=== PATIENT | female | born 1940 | race Caucasian/White ===

== ENCOUNTER 2016-06-17 16:20 | Inpatient (IN) | payer OTHER ==
[2016-06-17 16:30] VITALS: BMI 25.4
--- NOTE | 2016-06-17 17:07 | PDOC ---
History of Present Illness - General History Source: Patient Exam Limitations: No Limitations - History of Present Illness Initial Comments: 06/17/16 17:34 The patient is a 75 year old female with significant past medical history of hypertension, anemia, and arthritis who presents today with a sore throat and difficulty swallowing for the last 3 days. The patient states that her symptoms started Wednesday and are getting progressively worse. The patient states she had a lump on the right side of her neck a few years ago but this was biopsied and she hasnt had any complications since. The patient reports that she has difficulty swallowing secondary to the pain and swelling in her throat. The patient denies any difficulty breathing or difficulty speaking. The patient went to an ENT today and was referred to the ED for further evaluation by Dr. Redd. She denies any chest pain, abdominal pain, nausea or vomiting. The patient denies recent illness, fevers, or chills. <Kathy Loaiza - Last Filed: 06/27/16 18:34> <Ok Verdin - Last Filed: 07/17/16 09:56> - General Chief Complaint: Sore Throat Stated Complaint: PCP SENT/CATSCAN Time Seen by Provider: 06/17/16 17:03 Past History <Kathy Loaiza - Last Filed: 06/27/16 18:34> - Past Medical History Anemia: Yes Asthma: No Cancer: No Cardiac Disorders: No CVA: No COPD: No CHF: No Dementia: No Diabetes: No GI Disorders: Yes (GERD) Disorders: No HTN: Yes Hypercholesterolemia: No Liver Disease: No Suicide Attempt (Hx): No Seizures: No Thyroid Disease: No Other medical history: arthritis - Surgical History Abdominal Surgery: No Appendectomy: No Cardiac Surgery: No Cholecystectomy: Yes Lung Surgery: No Neurologic Surgery: No Orthopedic Surgery: No - Psycho/Social/Smoking Cessation Hx Anxiety: No Suicidal Ideation: No Smoking Status: No Smoking History: Never smoked Have you smoked in the past 12 months: No Number of Cigarettes Smoked Daily: 0 Information on smoking cessation initiated: No Hx Alcohol Use: No Drug/Substance Use Hx: No Substance Use Type: None Hx Substance Use Treatment: No <Ok Verdin - Last Filed: 07/17/16 09:56> - Past Medical History Allergies/Adverse Reactions: Allergies Allergy/AdvReac Type Severity Reaction Status Date / Time lisinopril Allergy Cough Verified 06/21/16 15:31 Home Medications: Ambulatory Orders Pantoprazole Sodium [Protonix] 40 mg PO DAILY 06/02/14 Prednisone 5 mg PO DAILY 03/23/16 Metoprolol Succinate [Toprol XL -] 50 mg PO DAILY #30 tab.sr.24h 03/29/16 Amlodipine Besylate [Norvasc -] 5 mg PO DAILY #90 tablet 05/02/16 Hydrochlorothiazide [Hctz -] 12.5 mg PO DAILY #90 tab 05/02/16 Metoprolol Succinate [Toprol XL -] 50 mg PO DAILY tab.sr.24h 05/02/16 Potassium Chloride [K-Dur -] 20 meq PO Q2D #45 tablet.er 05/02/16 Prednisone [Deltasone -] 5 mg PO DAILY tablet 05/02/16 Amlodipine Besylate [Norvasc -] 5 mg PO DAILY tablet 06/22/16 Amox-Tr/K Cl [Augmentin 875-125mg Tablet -] 1 tab PO BID@0800,1730 #12 tablet Atorvastatin Ca [Lipitor] 10 mg PO HS tablet 06/22/16 Metoprolol Succinate [Toprol XL -] 25 mg PO DAILY tab.sr.24h 06/22/16 Pantoprazole Sodium [Protonix -] 40 mg PO DAILY tablet.ec 06/22/16 Review of Systems - Review of Systems Able to Perform ROS?: Yes Comments:: 06/17/16 17:34 GENERAL/CONSTITUTIONAL: No fever or chills. No weakness. HEAD, EYES, EARS, NOSE AND THROAT: +Sore throat. No change in vision. No ear pain or discharge. CARDIOVASCULAR: No chest pain or shortness of breath. RESPIRATORY: No cough, wheezing, or hemoptysis. GASTROINTESTINAL: No nausea, vomiting, diarrhea or constipation. GENITOURINARY: No dysuria, frequency, or change in urination. MUSCULOSKELETAL: No joint or muscle swelling or pain. No neck or back pain. SKIN: No rash NEUROLOGIC: No headache, vertigo, loss of consciousness, or change in strength/ sensation. ENDOCRINE: No increased thirst. No abnormal weight change. HEMATOLOGIC/LYMPHATIC: No anemia, easy bleeding, or history of blood clots. ALLERGIC/IMMUNOLOGIC: No hives or skin allergy. <Kathy Loaiza - Last Filed: 06/27/16 18:34> *Physical Exam - Vital Signs Last Vital Signs Temp Pulse Resp BP Pulse Ox 98.5 F 83 22 131/61 96 06/17/16 16:25 06/17/16 16:25 06/17/16 16:25 06/17/16 16:25 06/17/16 16:25 - Physical Exam Comments: 06/17/16 17:34 GENERAL: Awake, alert, and fully oriented, in no acute distress HEAD: No signs of trauma EYES: PERRLA, EOMI, sclera anicteric, conjunctiva clear ENT: Auricles normal inspection, hearing grossly normal, nares patent. Oropharynx with uvula deviated to the left, good dentition, no exudate noted. Moist mucosa. NECK: Normal ROM, supple, no lymphadenopathy, JVD, or masses LUNGS: Breath sounds equal, clear to auscultation bilaterally. No wheezes, and no crackles HEART: Regular rate and rhythm, normal S1 and S2, no murmurs, rubs or gallops ABDOMEN: Soft, nontender, normoactive bowel sounds. No guarding, no rebound. No masses EXTREMITIES: Normal range of motion, no edema. No clubbing or cyanosis. No cords, erythema, or tenderness NEUROLOGICAL: Cranial nerves II through XII grossly intact. Normal speech, normal gait SKIN: Warm, Dry, normal turgor, no rashes or lesions noted. <aKthy Loaiza - Last Filed: 06/27/16 18:34> - Vital Signs Last Vital Signs Temp Pulse Resp BP Pulse Ox 98.5 F 83 22 131/61 96 06/17/16 16:25 06/17/16 16:25 06/17/16 16:25 06/17/16 16:25 06/17/16 16:25 <Ok Verdin - Last Filed: 07/17/16 09:56> ED Treatment Course - LABORATORY CBC & Chemistry Diagram: 06/20/16 06:15 06/18/16 05:20 <Kathy Loaiza - Last Filed: 06/27/16 18:34> - LABORATORY CBC & Chemistry Diagram: 06/20/16 06:15 06/18/16 05:20 <Ok Verdin - Last Filed: 07/17/16 09:56> *DC/Admit/Observation/Transfer - Attestations Scribe Attestion: 06/17/16 17:34 Documentation prepared by Kathy Loaiza, acting as medical data analyst for Ok Verdin DO. <Kathy Loaiza - Last Filed: 06/27/16 18:34> - Attestations Physician Attestion: 06/17/16 17:07 I, Dr. Ok Verdin, attest that this document has been prepared under my direction and personally reviewed by me in its entirety. I further attest, that it accurately reflects all work, treatment, procedures and medical decision -making performed by me. <Ok Verdin - Last Filed: 07/17/16 09:56> Diagnosis at time of Disposition: Pharyngeal edema - Discharge Dispostion Disposition: HOME Condition at time of disposition: Improved - Prescriptions - Referrals
[2016-06-17 17:35] LABS: BASOPHIL 0.9 % (0-2.0); EOSINOPHIL 0.8 % (0-4.5); MCH 27.4 pg (25.7-33.7); MCHC 33.2 g/dl (32.0-36.0); MEAN CELL VOLUME 82.7 fl (80-96); MEAN PLT VOLUME 9.6 fl (7.5-11.1); NEUTROPHILS 74.9 % (42.8-82.8); PLATELET COUNT 265 K/MM3 (134-434); RDW 14.7 % (11.6-15.6); WHITE BLOOD COUNT 10.2 K/mm3 (4.0-10.0)
[2016-06-17 17:46] LABS: INR 1.14 (0.82-1.09); PROTHROMBIN TIME (PATIENT) 12.6 SEC (9.98-11.88)
[2016-06-17 18:05] LABS: ALBUMIN 3.8 g/dl (3.4-5.0); ANION GAP 11 (8-16); BILIRUBIN,TOTAL 0.3 mg/dL (0.2-1.0); CALCIUM 8.7 mg/dL (8.5-10.1); CO2 26 mmol/L (21-32); CREATININE 0.8 mg/dL (0.55-1.02); GLUCOSE,RANDOM 117 mg/dL (74-106); SGOT/AST 15 U/L (15-37); TOT PROT 7.1 g/dl (6.4-8.2)
[2016-06-17 18:12] LABS: ALK PHOS 72 U/L (45-117); SGPT/ALT 19 U/L (12-78)
[2016-06-17] MEDS ORDERED: KETOROLAC TROMETHAMINE 30 MG/1 ML VIAL IVPUSH ONE (19:31)
[2016-06-17] MEDS ORDERED: KETOROLAC TROMETHAMINE 30 MG/1 ML VIAL ONE (19:31)
--- NOTE | 2016-06-17 19:46 | PDOC ---
*Physical Exam - Vital Signs Last Vital Signs Temp Pulse Resp BP Pulse Ox 98.5 F 83 22 131/61 96 06/17/16 16:25 06/17/16 16:25 06/17/16 16:25 06/17/16 16:25 06/17/16 16:25 <Lia Tyson - Last Filed: 06/17/16 20:25> - Vital Signs Last Vital Signs Temp Pulse Resp BP Pulse Ox 98.5 F 83 22 131/61 96 06/17/16 16:25 06/17/16 16:25 06/17/16 16:25 06/17/16 16:25 06/17/16 16:25 - Physical Exam General Appearance: Yes: Other <Mikey Owens - Last Filed: 06/17/16 20:31> ED Treatment Course - LABORATORY CBC & Chemistry Diagram: 06/17/16 17:25 06/17/16 17:25 - ADDITIONAL ORDERS Additional order review: Laboratory Results 06/17/16 06/17/16 17:25 17:25 INR 1.14 Sodium 141 Potassium 3.8 Chloride 104 Carbon Dioxide 26 Anion Gap 11 BUN 20 H Creatinine 0.8 Creat Clearance w eGFR > 60 Random Glucose 117 H D Calcium 8.7 Total Bilirubin 0.3 AST 15 D ALT 19 Alkaline Phosphatase 72 Total Protein 7.1 Albumin 3.8 06/17/16 17:25 RBC 4.15 MCV 82.7 MCHC 33.2 RDW 14.7 MPV 9.6 Neutrophils % 74.9 Lymphocytes % 12.8 D Monocytes % 10.6 H Eosinophils % 0.8 Basophils % 0.9 - Medications Given in the ED: ED Medications Discontinued Medications Generic Name Dose Route Start Last Admin Trade Name Reddyq PRN Reason Stop Dose Admin Ketorolac Tromethamine 30 mg 06/17/16 19:31 06/17/16 19:36 Toradol Injection - IVPUSH 06/17/16 19:32 30 mg ONCE ONE Administration <Lia Tyson - Last Filed: 06/17/16 20:25> - LABORATORY CBC & Chemistry Diagram: 06/17/16 17:25 06/17/16 17:25 - ADDITIONAL ORDERS Additional order review: Laboratory Results 06/17/16 06/17/16 17:25 17:25 INR 1.14 Sodium 141 Potassium 3.8 Chloride 104 Carbon Dioxide 26 Anion Gap 11 BUN 20 H Creatinine 0.8 Creat Clearance w eGFR > 60 Random Glucose 117 H D Calcium 8.7 Total Bilirubin 0.3 AST 15 D ALT 19 Alkaline Phosphatase 72 Total Protein 7.1 Albumin 3.8 06/17/16 17:25 RBC 4.15 MCV 82.7 MCHC 33.2 RDW 14.7 MPV 9.6 Neutrophils % 74.9 Lymphocytes % 12.8 D Monocytes % 10.6 H Eosinophils % 0.8 Basophils % 0.9 - Medications Given in the ED: ED Medications Discontinued Medications Generic Name Dose Route Start Last Admin Trade Name Freq PRN Reason Stop Dose Admin Ketorolac Tromethamine 30 mg 06/17/16 19:31 06/17/16 19:36 Toradol Injection - IVPUSH 06/17/16 19:32 30 mg ONCE ONE Administration <Mikey Owens - Last Filed: 06/17/16 20:31> Medical Decision Making - Medical Decision Making 06/17/16 19:[address] Gregory Redd (via answering service) at 19:[address] Miguelangel Cagle, who is covering for Dr. Redd, responded back at 19:59. Patient's case was discussed with Dr. Cagle who will be relaying the message to Dr. Redd for disposition. Patient will most likely be admitted and evaluated by ENT in the morning. Paged Dr. Johann Schrader (via cell phone) at 20:21 and patient's case was discussed. Patient will admitted to ICU. Spoke to Dr. Redd who will be evaluating patient in the morning. <Lia Tyson - Last Filed: 06/17/16 20:25> - Medical Decision Making 06/17/16 20:30 Pt to admitted to ICU. Spoke to . Pt will be seen by Dr. Redd, ENT will see pt in the morning. <Mikey Owens - Last Filed: 06/17/16 20:31> *DC/Admit/Observation/Transfer <Lia Tyson - Last Filed: 06/17/16 20:25> - Discharge Dispostion Admit: Yes <Mikey Owens - Last Filed: 06/17/16 20:31> Diagnosis at time of Disposition: Pharyngeal edema - Referrals Referrals: Raquel De Santiago [Primary Care Provider] - - Patient Instructions - Post Discharge Activity
[2016-06-17] MEDS ORDERED: CEFAZOLIN 1 GM in DEXTROSE 5%-WATER - 50 ML IVPB STA (21:00)
[2016-06-17] MEDS ORDERED: DEXAMETHASONE SOD PHOSPHATE 10 MG/1 ML VIAL IVPB ONE (21:30)
--- NOTE | 2016-06-17 21:30 | CONSULT ---
Consult Consult Specialty:: Pulm/CC - History of Present Illness History of Present Illness: Pt is a 75yr old woman with PMHx of HTN, anemia, arthritis and fibromyalgia. She presents to the ER referred by Dr. Redd for a CT of the neck with CC of sore/painful throat and difficulty swallowing since Wednesday, progressively getting worse. Per report, pt with hx of rt side mass. Neck CT shows significant enlargement of the rt tonsil, concerning for abscess vs mass with moderate narrowing of the airway. Pt admitted to the ICU for further management. Upon assessment pt in mild distress, tachypneic to mid 20s, frequently coughing/clearing throat, sialorrhea, work of breathing relieved somewhat with HOB elevated. Per daughter at bedside, pt without known allergies. No new food, recent travel or sick contacts. SBP 150s, HR low 100s, o2 low 90s on RA, RR ~24, afebrile. Via burn crew member phone ~0600 pt denies chest pain/n/v/sob, endorses headache 5/10 , attributed to being tired. Pt states she feels much better with only mild difficulty swallowing and no longer feels pain in her throat. - History Source History Provided By: Patient, Family Member, Medical Record Limitations to Obtaining History: Other (pt with frequent cough/throat clearing , sialorrhea, language barrier) - Past Medical History Cardio/Vascular: Yes: HTN Gastrointestinal: Yes: Gastritis, GERD, GI Bleed Psych: Yes: Anxiety Musculoskeletal: Yes: Chronic low back pain Rheumatology: Yes: Other (has polymialgia rheumatica) - Past Surgical History Past Surgical History: Yes: Cholecystectomy - Alcohol/Substance Use Hx Alcohol Use: No History of Substance Use: reports: None - Smoking History Smoking history: Never smoked Have you smoked in the past 12 months: No Aproximately how many cigarettes per day: 0 - Social History ADL: Independent History of Recent Travel: Yes Home Medications - Allergies Allergies/Adverse Reactions: Allergies Allergy/AdvReac Type Severity Reaction Status Date / Time No Known Allergies Allergy Verified 06/17/16 16:30 - Home Medications Home Medications: Ambulatory Orders Pantoprazole Sodium [Protonix] 40 mg PO DAILY 06/02/14 Prednisone 5 mg PO DAILY 03/23/16 Ranitidine HCl [Zantac] 150 mg PO DAILY 03/23/16 Metoprolol Succinate [Toprol XL -] 50 mg PO DAILY #30 tab.sr.24h 03/29/16 Amlodipine Besylate [Norvasc -] 5 mg PO DAILY #90 tablet 05/02/16 Hydrochlorothiazide [Hctz -] 12.5 mg PO DAILY #90 tab 05/02/16 Metoprolol Succinate [Toprol XL -] 50 mg PO DAILY tab.sr.24h 05/02/16 Pantoprazole Sodium [Protonix 40Mg Ivpb (Pre-Docked)] 100 ml IVPB DAILY bag Potassium Chloride [K-Dur -] 20 meq PO Q2D #45 tablet.er 05/02/16 Prednisone [Deltasone -] 5 mg PO DAILY tablet 05/02/16 Sucralfate [Carafate -] 1 gm PO TID #90 tablet 05/02/16 Review of Systems - Review of Systems Cardiovascular: reports: Other ("sore" in neck region) Respiratory: reports: Cough, Orthopnea, SOB Gastrointestinal: reports: Dysphagia Physical Exam Vital Signs: Vital Signs Period Temp Pulse Resp BP Sys/[place] Pulse Ox Last 24 Hr 98.3 F-99.0 F 83-103 20-25 131-147/61-80 96-98 Intake & Output 06/14/16 06/15/16 06/16/16 06/17/16 23:59 23:59 23:59 23:59 Weight 135 lb Constitutional: Yes: Well Nourished, Mild Distress Eyes: Yes: WNL HENT: Yes: Other (hypersecretions, rt tonsil swelling to uvula) Neck: Yes: Tenderness (rt side) Cardiovascular: Yes: Tachycardia, Pulse Irregular, Other (see EKG in chart) Respiratory: Yes: Cough, On Nasal O2, Rhonchi, SOB, Tachypnea Gastrointestinal: Yes: Normal Bowel Sounds, Soft, Abdomen, Obese. No: Tenderness ...Rectal Exam: Yes: Deferred Extremities: Yes: WNL Edema: No Peripheral Pulses WNL: (+2 bilateral pedal pulses) Integumentary: Yes: WNL Neurological: Yes: WNL Psychiatric: Yes: WNL Labs: Abnormal Lab Results 06/17/16 06/17/16 17:25 17:25 WBC 10.2 H D Monocytes % 10.6 H BUN 20 H Random Glucose 117 H D Imaging - Results Chest X-ray: Report Reviewed Cat Scan: Report Reviewed Assessment/Plan Pt is a 75yr old woman with PMHx of HTN, anemia, arthritis and fibromyalgia. Now in the ICU for management of tenuous airway in setting of rt tonsillar mass , concerning for abscess. Pulm: -Continue o2 support -Pepcid/Benadryl/Decadron, might require intubation if swelling does not subside -Nebulizers -HOB >60 degrees ID: Concern for abscess -f/u cultures -Started on Clindamycin ENT: -Consult Dr. Redd seen as outpt, Dr. Cagle consulted here. -Case discussed with Dr. Cagle, agrees with Decadron, Pepcid, Benadryl, Clindamycin. Cardiology: Case discussed with Dr. 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
[2016-06-17] MEDS ORDERED: METOPROLOL TARTRATE 5 MG/5 ML VIAL IVPUSH ONE (21:34)
[2016-06-17] MEDS ORDERED: ENALAPRILAT DIHYDRATE 1.25 MG/1 ML VIAL IVPB ONE (21:35)
[2016-06-17] MEDS ORDERED: morphine CARPU-JECT 2 MG/1 ML DISP.SYRIN IVPUSH ONE (21:35)
[2016-06-17] MEDS ORDERED: CLINDAMYCIN 600MG PREMIX IVPB 50 ML IVPB ONE (21:59)
[2016-06-17] MEDS ORDERED: FAMOTIDINE 20 MG/50 ML IVPB 50 ML IVPB SCH (22:00)
[2016-06-17] MEDS ORDERED: ALBUTEROL SO4 2.5/IPRATROPIUM 0.5 INH SOL 3 ML VIAL.NEB. NEB ONE (22:01)
[2016-06-17 22:33] LABS: MCH 27.1 pg (25.7-33.7); MCHC 32.9 g/dl (32.0-36.0); MEAN CELL VOLUME 82.4 fl (80-96); MEAN PLT VOLUME 10.1 fl (7.5-11.1); PLATELET COUNT 250 K/MM3 (134-434); RDW 14.5 % (11.6-15.6)
[2016-06-17] MEDS ORDERED: DEXTROSE 5%-1/3 NS - 500 ML IV SCH (22:45)
[2016-06-17] MEDS ORDERED: PHENOL 177 ML SPRAY BOTTLE MM PRN (22:52)
[2016-06-17] MEDS: PANTOPRAZOLE SODIUM 100 ML IVPB SCH (23:05)
[2016-06-17 23:42] LABS: ALBUMIN 3.7 g/dl (3.4-5.0); ANION GAP 11 (8-16); BILIRUBIN,TOTAL 0.5 mg/dL (0.2-1.0); CALCIUM 8.5 mg/dL (8.5-10.1); CO2 25 mmol/L (21-32); CREATININE 0.8 mg/dL (0.55-1.02); GLUCOSE,RANDOM 126 mg/dL (74-106); MAGNESIUM 2.2 mg/dL (1.8-2.4); SGOT/AST 12 U/L (15-37); SGPT/ALT 18 U/L (12-78); TOT PROT 6.8 g/dl (6.4-8.2)
[2016-06-17 23:44] LABS: ALK PHOS 67 U/L (45-117); TROPONIN I 0.02 ng/ml (0.00-0.05)
[2016-06-18] MEDS ORDERED: ALBUTEROL SO4 0.083% IH SOL 2.5 MG/3 ML VIAL.NEB. NEB PRN (03:33)
[2016-06-18] MEDS ORDERED: morphine CARPU-JECT 2 MG/1 ML DISP.SYRIN IVPUSH PRN (03:36)
[2016-06-18] MEDS: CLINDAMYCIN 600MG PREMIX IVPB 50 ML IVPB SCH ×3 (05:11→21:10)
[2016-06-18] MEDS ORDERED: DEXAMETHASONE SOD PHOSPHATE 10 MG/1 ML VIAL IVPB SCH ×3 (06:00→11:11)
[2016-06-18] MEDS ORDERED: CEFAZOLIN 1 GM in DEXTROSE 5%-WATER - 50 ML IVPB SCH (06:00)
[2016-06-18] MEDS ORDERED: Insulin (LOG) Aspart 100 UNITS/ML VIAL SQ ONE ×2 (06:00→06:30)
[2016-06-18 06:19] LABS: MCH 27.8 pg (25.7-33.7); MCHC 33.4 g/dl (32.0-36.0); MEAN PLT VOLUME 10.4 fl (7.5-11.1); PLATELET COUNT 234 K/MM3 (134-434); RDW 14.5 % (11.6-15.6); WHITE BLOOD COUNT 8.4 K/mm3 (4.0-10.0)
[2016-06-18 06:38] LABS: ALBUMIN 3.3 g/dl (3.4-5.0); ANION GAP 11 (8-16); CALCIUM 8.3 mg/dL (8.5-10.1); CO2 24 mmol/L (21-32)
[2016-06-18 06:42] LABS: ALK PHOS 77 U/L (45-117); BILIRUBIN,TOTAL 0.4 mg/dL (0.2-1.0); CREATININE 0.7 mg/dL (0.55-1.02); GLUCOSE,RANDOM 224 mg/dL (74-106); MAGNESIUM 2.4 mg/dL (1.8-2.4); PHOSPHOROUS 3.1 mg/dL (2.5-4.9); SGOT/AST 30 U/L (15-37); SGPT/ALT 31 U/L (12-78); TOT PROT 6.3 g/dl (6.4-8.2)
[2016-06-18 07:15] LABS: THYROID STIMULATING HORMONE 0.79 uIU/ml (0.358-3.74)
--- NOTE | 2016-06-18 08:57 | HP ---
[id number] Chief Complaint: Sore throat and pain right. side of mouth History of Present Illness: 75 y/o hypertensive and with polymialgia rheumatica was seen in my office with severe swelling of the right tonsillar area suggestive of an abscess and was referred to to [facility] and was advised admission as there also laryngeal edema.Was treated with IV steroids and antibiotics and admitted for further admission. History Source: Patient Limitations to Obtaining History: No Limitations - Past Medical History Cardiovascular: Yes: HTN, Other (left bundle branch block) Gastrointestinal: Yes: Gastritis, GERD, GI Bleed Heme/Onc: Yes: Anemia (due to GI bleed in the past) Psych: Yes: Anxiety Musculoskeletal: Yes: Chronic low back pain Rheumatology: Yes: Other (has polymialgia rheumatica) - Past Surgical History Past Surgical History: Yes: Cholecystectomy Additional Past Surgical History: epidural injections with steroids - Smoking History Smoking history: Never smoked Have you smoked in the past 12 months: No Aproximately how many cigarettes per day: 0 - Alcohol/Substance Use Hx Alcohol Use: No History of Substance Use: reports: None - Social History ADL: Independent History of Recent Travel: Yes Home Medications - Home Medications Home Medications: Ambulatory Orders Pantoprazole Sodium [Protonix] 40 mg PO DAILY 06/02/14 Prednisone 5 mg PO DAILY 03/23/16 Ranitidine HCl [Zantac] 150 mg PO DAILY 03/23/16 Metoprolol Succinate [Toprol XL -] 50 mg PO DAILY #30 tab.sr.24h 03/29/16 Amlodipine Besylate [Norvasc -] 5 mg PO DAILY #90 tablet 05/02/16 Hydrochlorothiazide [Hctz -] 12.5 mg PO DAILY #90 tab 05/02/16 Metoprolol Succinate [Toprol XL -] 50 mg PO DAILY tab.sr.24h 05/02/16 Pantoprazole Sodium [Protonix 40Mg Ivpb (Pre-Docked)] 100 ml IVPB DAILY bag Potassium Chloride [K-Dur -] 20 meq PO Q2D #45 tablet.er 05/02/16 Prednisone [Deltasone -] 5 mg PO DAILY tablet 05/02/16 Sucralfate [Carafate -] 1 gm PO TID #90 tablet 05/02/16 Review of Systems - Review of Systems Constitutional: reports: Chills Eyes: reports: No Symptoms HENT: reports: Difficult Swallowing, Throat Pain Neck: reports: Tenderness Cardiovascular: reports: No Symptoms Respiratory: denies: No Symptoms, Cough, Exercise Intolerance, Hemoptysis, Orthopnea, PND, Snoring, SOB, SOB on Exertion, Wheezing, Other Gastrointestinal: denies: No Symptoms, Abdominal Pain, Bloating, Constipation, Diarrhea, Dysphagia, Indigestion, Melena, Nausea, Rectal Bleeding, Vomiting, Vomiting Blood, Other Genitourinary: reports: No Symptoms Breasts: reports: No Symptoms Reported Musculoskeletal: reports: Back Pain Integumentary: reports: No Symptoms Neurological: reports: No Symptoms Endocrine: reports: No Symptoms Psychiatric: reports: Anxiety Physical Examination Vital Signs: Vital Signs Temperature 98.5 F 06/18/16 06:00 Pulse Rate 75 06/18/16 08:00 Respiratory Rate 24 06/18/16 08:00 Blood Pressure 128/67 06/18/16 08:00 O2 Sat by Pulse Oximetry (%) 97 06/18/16 07:43 Constitutional: Yes: Well Nourished, Mild Distress Eyes: Yes: Conjunctiva Clear, EOM Intact HENT: Yes: Other (marked swelling of the right tonsillar area, no palpable nodes in the neck) Neck: Yes: Supple Cardiovascular: Yes: Regular Rate and Rhythm, S1, S2 Respiratory: Yes: Regular, CTA Bilaterally Gastrointestinal: Yes: Normal Bowel Sounds, Soft Renal/: Yes: WNL Breast(s): Yes: WNL Musculoskeletal: Yes: Back Pain Extremities: Yes: WNL Edema: No Peripheral Pulses WNL: Yes Integumentary: Yes: WNL Neurological: Yes: Alert, Oriented ...Motor Strength: WNL Psychiatric: Yes: Alert, Oriented Labs: CBC, BMP 06/18/16 05:20 06/18/16 05:20 Problem List - Problems (1) Pharyngeal edema Code(s): J39.2 - OTHER DISEASES OF PHARYNX (2) Ascending aorta dilatation Code(s): I77.810 - THORACIC AORTIC ECTASIA (4) Tonsillar abscess Code(s): J36 - PERITONSILLAR ABSCESS Assessment/Plan Being treated with IV steroids and IV antibiotics pending decision by possible needle aspiration of tonsillar abscess.
[2016-06-18 09:09] LABS: C-REACTIVE PROTEIN 9.5 MG/DL (0.00-0.3)
[2016-06-18 09:13] LABS: URINE APPEARANCE CLEAR; URINE BILIRUBIN NEGATIVE (NEGATIVE); URINE COLOR LTYELLOW; URINE GLUCOSE (UA) NEGATIVE (NEGATIVE); URINE KETONE NEGATIVE (NEGATIVE)
[2016-06-18] MEDS: PANTOPRAZOLE SODIUM 100 ML IVPB SCH (09:13)
[2016-06-18 09:14] LABS: URINE BLOOD 2+ (NEGATIVE); URINE LEUK ESTERASE NEGATIVE (NEGATIVE); URINE NITRITE NEGATIVE (NEGATIVE); URINE PROTEIN NEGATIVE (NEGATIVE); URINE UROBILINOGEN NEGATIVE E.U./dl (0.2-1.0)
[2016-06-18 09:15] LABS: URINE RBC 7 /hpf (0-3); URINE WBC 2 /hpf (3-5)
[2016-06-18] MEDS: ALBUTEROL SO4 2.5/IPRATROPIUM 0.5 INH SOL 3 ML VIAL.NEB. NEB SCH ×2 (09:20→22:06)
[2016-06-18] MEDS: FAMOTIDINE 20 MG/50 ML IVPB 50 ML IVPB SCH ×2 (10:34→21:10)
[2016-06-18] MEDS: amLODIPine BESYLATE 5 MG TABLET (FP) PO SCH (10:35)
[2016-06-18] MEDS: METOPROLOL SUCCINATE 25 MG TAB.SR.24H (FP) PO SCH (10:35)
--- NOTE | 2016-06-18 10:48 | CON.CARD ---
Consult Consult Specialty:: cardiology Reason for Consultation:: hx CAD; now with sore throat - History of Present Illness Chief Complaint: A&Ox3; pain on swallowing History of Present Illness: The patient is a 75 year old female (shilpi Morales), with significant past medical history of hypertension, LBBB, anemia, and polymyalgia rheumatica, who presents today with a sore throat and difficulty swallowing for the last 3 days. The patient states that her symptoms started Wednesday and are getting progressively worse. The patient states she had a lump on the right side of her neck a few years ago but this was biopsied and she hasnt had any complications since. The patient reports that she has difficulty swallowing secondary to the pain and swelling in her throat. The patient denies any difficulty breathing or difficulty speaking. The patient went to an ENT today and was referred to the ED for further evaluation by Dr. Redd. She denies any chest pain, abdominal pain, nausea or vomiting. The patient denies recent illness, fevers, or chills. - History Source History Provided By: Patient, Medical Record Limitations to Obtaining History: No Limitations - Past Medical History Cardio/Vascular: Yes: HTN, Other (left bundle branch block) Gastrointestinal: Yes: Gastritis, GERD, GI Bleed Reproductive: Yes: Postmenopausal Psych: Yes: Anxiety Musculoskeletal: Yes: Chronic low back pain Rheumatology: Yes: Other (has polymialgia rheumatica) - Past Surgical History Past Surgical History: Yes: Cholecystectomy - Alcohol/Substance Use Hx Alcohol Use: No History of Substance Use: reports: None - Smoking History Smoking history: Never smoked Have you smoked in the past 12 months: No Aproximately how many cigarettes per day: 0 - Social History ADL: Independent History of Recent Travel: Yes Home Medications - Allergies Allergies/Adverse Reactions: Allergies Allergy/AdvReac Type Severity Reaction Status Date / Time No Known Allergies Allergy Verified 06/17/16 16:30 - Home Medications Home Medications: Ambulatory Orders Pantoprazole Sodium [Protonix] 40 mg PO DAILY 06/02/14 Prednisone 5 mg PO DAILY 03/23/16 Ranitidine HCl [Zantac] 150 mg PO DAILY 03/23/16 Metoprolol Succinate [Toprol XL -] 50 mg PO DAILY #30 tab.sr.24h 03/29/16 Amlodipine Besylate [Norvasc -] 5 mg PO DAILY #90 tablet 05/02/16 Hydrochlorothiazide [Hctz -] 12.5 mg PO DAILY #90 tab 05/02/16 Metoprolol Succinate [Toprol XL -] 50 mg PO DAILY tab.sr.24h 05/02/16 Pantoprazole Sodium [Protonix 40Mg Ivpb (Pre-Docked)] 100 ml IVPB DAILY bag Potassium Chloride [K-Dur -] 20 meq PO Q2D #45 tablet.er 05/02/16 Prednisone [Deltasone -] 5 mg PO DAILY tablet 05/02/16 Sucralfate [Carafate -] 1 gm PO TID #90 tablet 05/02/16 Family Disease History - Family Disease History Family History: Denies Review of Systems - Review of Systems Constitutional: reports: Malaise Eyes: reports: No Symptoms HENT: reports: Difficult Swallowing Neck: reports: No Symptoms Cardiovascular: reports: No Symptoms Respiratory: reports: No Symptoms Gastrointestinal: reports: No Symptoms Genitourinary: reports: No Symptoms Breasts: reports: No Symptoms Reported Musculoskeletal: reports: No Symptoms Integumentary: reports: No Symptoms Neurological: reports: No Symptoms Hematology/Lymphatic: reports: Swollen Glands Psychiatric: reports: Anxiety - Risk Factors Known Risk Factors: Yes: Age, Hypercholesterolemia, Hypertension, Physical Inactivity Vital Signs: Vital Signs Temperature 98.6 F 06/18/16 10:00 Pulse Rate 74 06/18/16 10:00 Respiratory Rate 24 06/18/16 10:00 Blood Pressure 128/54 06/18/16 10:00 O2 Sat by Pulse Oximetry (%) 97 06/18/16 07:43 Abnormal Lab Results 06/17/16 06/17/16 06/17/16 17:25 17:25 21:45 WBC 10.2 H D 11.0 H Hgb Hct Neutrophils % Lymphocytes % Monocytes % 10.6 H BUN 20 H Random Glucose 117 H D Calcium AST C-Reactive Protein B-Natriuretic Peptide Total Protein Albumin Ur Specific [place] Urine Blood 06/17/16 06/17/16 06/18/16 21:45 22:00 03:30 WBC Hgb Hct Neutrophils % Lymphocytes % Monocytes % BUN Random Glucose 126 H Calcium AST 12 L C-Reactive Protein 9.5 H B-Natriuretic Peptide 2175.06 H Total Protein Albumin Ur Specific [place] 1.044 H Urine Blood 2+ H 06/18/16 06/18/16 05:20 05:20 WBC Hgb 10.6 L Hct 31.7 L Neutrophils % 96.0 H Lymphocytes % 2.0 L D Monocytes % 2.0 L D BUN Random Glucose 224 H D Calcium 8.3 L AST C-Reactive Protein B-Natriuretic Peptide Total Protein 6.3 L Albumin 3.3 L Ur Specific [place] Urine Blood Constitutional: Yes: Anxious Eyes: Yes: WNL HENT: Yes: Tonsillar Exudate Neck: Yes: WNL Respiratory: Yes: WNL Gastrointestinal: Yes: WNL Renal/: No: Anuria Cardiovascular: Yes: Regular Rate and Rhythm JVD: No Carotid Bruit: No PMI: Non-Displaced Heart Sounds: Yes: S1, S2 (split), S4 Murmur: Yes: Systolic Murmur Musculoskeletal: Yes: WNL Extremities: Yes: WNL Edema: No Peripheral Pulses WNL: Yes Integumentary: Yes: WNL Neurological: Yes: Alert, Oriented Psychiatric: Yes: Other (anxiety) - Other Data Labs, Other Data: CBC, BMP 06/18/16 05:20 06/18/16 05:20 INR, PTT INR 1.14 (0.82-1.09) 06/17/16 17:25 Troponin, BNP 06/17/16 06/17/16 21:45 22:00 Troponin I 0.02 B-Natriuretic Peptide 2175.06 H Troponin, BNP 06/17/16 06/17/16 21:45 22:00 Troponin I 0.02 B-Natriuretic Peptide 2175.06 H Abnormal Lab Results 06/17/16 06/17/16 06/17/16 17:25 17:25 21:45 WBC 10.2 H D 11.0 H Hgb Hct Neutrophils % Lymphocytes % Monocytes % 10.6 H BUN 20 H Random Glucose 117 H D Calcium AST C-Reactive Protein B-Natriuretic Peptide Total Protein Albumin Ur Specific [place] Urine Blood 06/17/16 06/17/16 06/18/16 21:45 22:00 03:30 WBC Hgb Hct Neutrophils % Lymphocytes % Monocytes % BUN Random Glucose 126 H Calcium AST 12 L C-Reactive Protein 9.5 H B-Natriuretic Peptide 2175.06 H Total Protein Albumin Ur Specific [place] 1.044 H Urine Blood 2+ H 06/18/16 06/18/16 05:20 05:20 WBC Hgb 10.6 L Hct 31.7 L Neutrophils % 96.0 H Lymphocytes % 2.0 L D Monocytes % 2.0 L D BUN Random Glucose 224 H D Calcium 8.3 L AST C-Reactive Protein B-Natriuretic Peptide Total Protein 6.3 L Albumin 3.3 L Ur Specific [place] Urine Blood Imaging - Results Chest X-ray: Image Reviewed (no acute pathology) EKG: Image Reviewed (NSR; LBBB) Other: Image Reviewed (telemetry: NSR) Problem List - Problems (1) Pharyngeal edema Assessment/Plan: antibiotics and pain management. Further study: abscess vs mass. Thyroid US. Code(s): J39.2 - OTHER DISEASES OF PHARYNX (2) LBBB (left bundle branch block) Assessment/Plan: chronic. ECHO for LVEF, chamber sizes, valve status. Code(s): I44.7 - LEFT BUNDLE-BRANCH BLOCK, UNSPECIFIED (3) Hyperlipidemia Assessment/Plan: start atorvastatin. Code(s): E78.5 - HYPERLIPIDEMIA, UNSPECIFIED (4) Polymyalgia rheumatica Code(s): M35.3 - POLYMYALGIA RHEUMATICA
[2016-06-18] MEDS ORDERED: DEXTROSE 5%-1/3 NS - 500 ML IV SCH (11:03)
[2016-06-18] MEDS: morphine CARPU-JECT 2 MG/1 ML DISP.SYRIN IVPUSH PRN ×2 (11:15→16:28)
--- NOTE | 2016-06-18 11:22 | PN ---
Teaching Attending Note Name of Resident: Joseluis Gauthier ATTENDING PHYSICIAN STATEMENT I saw and evaluated the patient. I reviewed the resident's note and discussed the case with the resident. I agree with the resident's findings and plan as documented. SUBJECTIVE: Pt seen and examined in the ICU. Still some dysphagia and odynophagia. Breathing has improved. Voice still hoarse. No fevers or chills. OBJECTIVE: Last Vital Signs Temp Pulse Resp BP Pulse Ox 98.6 F 92 H 22 146/66 97 06/18/16 10:00 06/18/16 11:16 06/18/16 11:16 06/18/16 11:16 06/18/16 07:43 Intake & Output 06/15/16 06/16/16 06/17/16 06/18/16 23:59 23:59 23:59 23:59 Intake Total 200 725 Output Total 200 Balance 200 525 Weight 135 lb 136 lb 1.6 oz Gen: mildly tachypneic at rest, hoarse voice HEENT: deviated uvula to left, right tonsillar fullness Neck: no stridor Heart: RRR Lung: clear to auscultation Abd: soft, nontender Ext: no edema CBC, BMP 06/18/16 05:20 06/18/16 05:20 Active Medications Albuterol Sulfate (Ventolin 0.083% Nebulizer Soln -) 1 amp NEB Q1H PRN PRN Reason: SHORT OF BREATH/WHEEZING Albuterol/Ipratropium (Duoneb -) 1 amp NEB BID ALON Last Admin: 06/18/16 09:20 Dose: 1 amp Amlodipine Besylate (Norvasc -) 5 mg PO DAILY ALON Last Admin: 06/18/16 10:35 Dose: 5 mg Atorvastatin Calcium (Lipitor -) 10 mg PO HS ALON Dexamethasone Sodium Phosphate (Decadron Injection -) 10 mg IVPB Q8H-IV ALON Diphenhydramine HCl (Benadryl Injection -) 50 mg IVPUSH Q6H-IV ALNO Heparin Sodium (Porcine) (Heparin -) 5,000 unit SQ TID ALON Pantoprazole Sodium (Protonix 40mg Ivpb (Pre-Docked)) 100 mls @ 200 mls/hr IVPB DAILY ALON Last Admin: 06/18/16 09:13 Dose: 200 mls/hr Clindamycin Phosphate (Cleocin 600 Mg Premix Ivpb -) 50 mls @ 100 mls/hr IVPB Q8H ALON Last Admin: 06/18/16 05:11 Dose: 100 mls/hr Famotidine/Sodium Chloride (Pepcid 20 Mg Premixed Ivpb -) 50 mls @ 100 mls/hr IVPB BID ALON Last Admin: 06/18/16 10:34 Dose: 100 mls/hr Metoprolol Succinate (Toprol Xl -) 25 mg PO DAILY [facility] Last Admin: 06/18/16 10:35 Dose: 25 mg Morphine Sulfate (Morphine Injection -) 2 mg IVPUSH Q4H PRN PRN Reason: PAIN Last Admin: 06/18/16 11:15 Dose: 2 mg Phenol/Menthol (Chloraseptic -) 1 spray MM Q6HPO PRN PRN Reason: SORE THROAT ASSESSMENT AND PLAN: r/o Tonsillar Abscess LV Diastolic Dysfunction Ascending Aortic Aneurysm HTN Thyroid Nodule - continue antibiotics - ENT evaluation appreciated - continue standing decadron, antihistamines - inhaled bronchodilators - PO as tolerated, can give pureed foods - O2 as needed - DVT prophylaxis - continue ICU monitoring for airway patency
--- NOTE | 2016-06-18 11:34 | PN ---
Progress Note, Physician History of Present Illness: patient seen and examined at bedside in the ICU states she feels better today still has some throat pain - Current Medication List Current Medications: Active Medications Albuterol Sulfate (Ventolin 0.083% Nebulizer Soln -) 1 amp NEB Q1H PRN PRN Reason: SHORT OF BREATH/WHEEZING Albuterol/Ipratropium (Duoneb -) 1 amp NEB BID [facility] Last Admin: 06/18/16 09:20 Dose: 1 amp Amlodipine Besylate (Norvasc -) 5 mg PO DAILY [facility] Last Admin: 06/18/16 10:35 Dose: 5 mg Dexamethasone Sodium Phosphate (Decadron Injection -) 10 mg IVPB Q8H-IV ALON Diphenhydramine HCl (Benadryl Injection -) 50 mg IVPUSH Q6H-IV [facility] Heparin Sodium (Porcine) (Heparin -) 5,000 unit SQ TID ALON Pantoprazole Sodium (Protonix 40mg Ivpb (Pre-Docked)) 100 mls @ 200 mls/hr IVPB DAILY [facility] Last Admin: 06/18/16 09:13 Dose: 200 mls/hr Clindamycin Phosphate (Cleocin 600 Mg Premix Ivpb -) 50 mls @ 100 mls/hr IVPB Q8H [facility] Last Admin: 06/18/16 05:11 Dose: 100 mls/hr Famotidine/Sodium Chloride (Pepcid 20 Mg Premixed Ivpb -) 50 mls @ 100 mls/hr IVPB BID [facility] Last Admin: 06/18/16 10:34 Dose: 100 mls/hr Metoprolol Succinate (Toprol Xl -) 25 mg PO DAILY [facility] Last Admin: 06/18/16 10:35 Dose: 25 mg Morphine Sulfate (Morphine Injection -) 2 mg IVPUSH Q4H PRN PRN Reason: PAIN Last Admin: 06/18/16 11:15 Dose: 2 mg Phenol/Menthol (Chloraseptic -) 1 spray MM Q6HPO PRN PRN Reason: SORE THROAT - Objective Vital Signs: Vital Signs Temperature 98.6 F 06/18/16 10:00 Pulse Rate 92 H 06/18/16 11:16 Respiratory Rate 22 06/18/16 11:16 Blood Pressure 146/66 06/18/16 11:16 O2 Sat by Pulse Oximetry (%) 97 06/18/16 07:43 Constitutional: Yes: No Distress, Calm Eyes: Yes: Conjunctiva Clear, EOM Intact HENT: Yes: Atraumatic, Other (+ voice change per patient deviated uvula to the left right sided tonsillar mass erythematous) Neck: Yes: Supple Cardiovascular: Yes: Regular Rate and Rhythm Respiratory: Yes: Regular, CTA Bilaterally Gastrointestinal: Yes: Normal Bowel Sounds, Soft Edema: No Labs: CBC, BMP 06/18/16 05:20 06/18/16 05:20 INR, PTT INR 1.14 (0.82-1.09) 06/17/16 17:25 - ....Imaging Chest X-ray: Report Reviewed, Image Reviewed Cat Scan: Report Reviewed, Image Reviewed Assessment/Plan 75F history of HTN Anemia arthritis fibromyalgia and possible thryoid mass/ nosule which is stable per chart presents to the ICU after seen in ENT office and sent to ED for right tonisllar mass Tonsillar abscess: improving continue ICU monitoring stop ancef continue clindamycin benadryl 50mg q6h decadron 10mg q8h ENT consult appreciated-no intervention at this time ok to start diet as tolerated bronchodilators albuterol pepcid BCx pending HTN: continue norvasc and metoprolol BP well controlled at this time Anemia: no issues at this time trend CBC Arthritis/fibromyalgia: pain control no active issues PPx: Protonix HSQ no deconditioning issues FEN: stop IVF no electrolyte issues Puree diet advance as tolerated
--- NOTE | 2016-06-18 11:47 | CONSULT ---
Consult Consult Specialty:: otolaryngology - History of Present Illness History of Present Illness: 75F with rheumatoid arthritis, polymyalgia on chronic prednisone presented to my office yesterday with a couple of days of throat pain, difficulty swallowing. THere was no report of shortness of breath. She had been treated by Dr. Schrader the week before, she reports, with keflex for ?sinus infection though she admits she only took the pills for a couple of days. My examination showed fullness of the right oropharynx, soft palate also in the nasopharynx and hypopharynx on flexible endoscopy. I sent her to the ER for CT scan to rule out abscess. CT was done showing no discrete abscess and there was reported concern for tonsillar mass and oropharyngeal airway narrowing, and she was admitted to the ICU. Currently she reports her throat pain is improved though persists, and again she denies shortness of breath. - History Source History Provided By: Patient Limitations to Obtaining History: Other (dghtr at bedside translates) - Past Medical History Cardio/Vascular: Yes: HTN, Other (left bundle branch block) Gastrointestinal: Yes: Gastritis, GERD, GI Bleed Psych: Yes: Anxiety Musculoskeletal: Yes: Chronic low back pain Rheumatology: Yes: Other (has polymyalgia rheumatica) - Past Surgical History Past Surgical History: Yes: Cholecystectomy - Alcohol/Substance Use Hx Alcohol Use: No History of Substance Use: reports: None - Smoking History Smoking history: Never smoked Have you smoked in the past 12 months: No Aproximately how many cigarettes per day: 0 - Social History ADL: Independent History of Recent Travel: Yes Home Medications - Allergies Allergies/Adverse Reactions: Allergies Allergy/AdvReac Type Severity Reaction Status Date / Time No Known Allergies Allergy Verified 06/17/16 16:30 - Home Medications Home Medications: Ambulatory Orders Pantoprazole Sodium [Protonix] 40 mg PO DAILY 06/02/14 Prednisone 5 mg PO DAILY 03/23/16 Ranitidine HCl [Zantac] 150 mg PO DAILY 03/23/16 Metoprolol Succinate [Toprol XL -] 50 mg PO DAILY #30 tab.sr.24h 03/29/16 Amlodipine Besylate [Norvasc -] 5 mg PO DAILY #90 tablet 05/02/16 Hydrochlorothiazide [Hctz -] 12.5 mg PO DAILY #90 tab 05/02/16 Metoprolol Succinate [Toprol XL -] 50 mg PO DAILY tab.sr.24h 05/02/16 Pantoprazole Sodium [Protonix 40Mg Ivpb (Pre-Docked)] 100 ml IVPB DAILY bag Potassium Chloride [K-Dur -] 20 meq PO Q2D #45 tablet.er 05/02/16 Prednisone [Deltasone -] 5 mg PO DAILY tablet 05/02/16 Sucralfate [Carafate -] 1 gm PO TID #90 tablet 05/02/16 Physical Exam Vital Signs: Vital Signs Temperature 98.6 F 06/18/16 10:00 Pulse Rate 92 H 06/18/16 11:16 Respiratory Rate 22 06/18/16 11:16 Blood Pressure 146/66 06/18/16 11:16 O2 Sat by Pulse Oximetry (%) 97 06/18/16 07:43 Constitutional: Yes: Well Nourished (speaking full sentences. no stridor/ stertor. periodic throat clearing.) Eyes: Yes: WNL HENT: Yes: WNL, Other (slightly reduced fullness right oropharynx. Tonsils are both recessed without overt mass on exam nor palpation.) Neck: Yes: Supple Neurological: Yes: Other (CN3-7,11,12 intact symmetrical) Labs: CBC, BMP 06/18/16 05:20 06/18/16 05:20 Imaging - Results Cat Scan: Report Reviewed, Image Reviewed Other: Other (Flexible Fiberoptic Laryngoscopy: reviewed r/b/l/a with patient. Passed through right n/c to supraglottis, withdrawn. Findings: Stable exam to yesterday with right pharyngeal fullness obstructing view of right pyriform sinus. Moderate Postcricoid edema. True vocal cords mobile, symmetrical, and fully patent glottis without any obstruction.) Assessment/Plan A/P: 1. Parapharyngeal Cellulitis - Clinically there is little concern for an acute airway by her exam, subjective report, and flexible fiberoptic exam. If her clinical situation deteriorates, this could change, but again for the moment her airway is widely patent. - With her chronic immunosuppression on prednisone suspect infectious etiology and agree with IV abx. There is no evidence of P[place]CEL[place] SLUSHER and I do not think one is likely to develop at this point. - There was concern on the read for tonsillar mass. Clinically I have lower concern for this. She reportedly had something in her right neck biopsied by an outside physician last year, though I am unclear on details. The biopsy was reported to be negative. She may merit repeat CT scan when this is complete to ensure normalization as transoral examination doesn't show any suspicious features of the tonsil itself. - Appreciate medical care and management of this neeraj patient. Discussed with Dr. Schrader.
[2016-06-18] MEDS: HEPARIN NA (PORCINE) 5,000 UNITS/ML 1ML VIAL SQ SCH ×2 (13:09→22:00)
--- NOTE | 2016-06-18 17:29 | EKG ---
Test Reason : Blood Pressure : / mmHG Vent. Rate : 101 BPM Atrial Rate : 101 BPM P-R Int : 174 ms QRS Dur : 146 ms QT Int : 392 ms P-R-T Axes : 048 -33 125 degrees QTc Int : 508 ms SINUS TACHYCARDIA LEFT AXIS DEVIATION LEFT BUNDLE BRANCH BLOCK ABNORMAL ECG WHEN COMPARED WITH ECG OF 17-JUN-2016 20:58, NO SIGNIFICANT CHANGE WAS FOUND Confirmed by ALLEY ZAMBRANO MD ([id number]) on 06/18/2016 5:29:25 PM Referred By: Confirmed By:ALLEY ZAMBRANO MD
--- NOTE | 2016-06-18 17:29 | EKG ---
Test Reason : Blood Pressure : / mmHG Vent. Rate : 110 BPM Atrial Rate : 110 BPM P-R Int : 166 ms QRS Dur : 136 ms QT Int : 372 ms P-R-T Axes : 022 -37 116 degrees QTc Int : 503 ms SINUS TACHYCARDIA LEFT AXIS DEVIATION LEFT BUNDLE BRANCH BLOCK ABNORMAL ECG WHEN COMPARED WITH ECG OF 01-MAY-2016 11:55, PREMATURE SUPRAVENTRICULAR COMPLEXES ARE NO LONGER PRESENT Confirmed by ALLEY ZAMBRANO MD ([id number]) on 06/18/2016 5:29:32 PM Referred By: Confirmed By:ALLEY ZAMBRANO MD
[2016-06-18] MEDS: DEXAMETHASONE SOD PHOSPHATE 4 MG/1 ML VIAL IVPB SCH (19:17)
[2016-06-18] MEDS ORDERED: ATORVASTATIN CA 10 MG TABLET (FP) PO SCH (22:00)
[2016-06-19] MEDS: DEXAMETHASONE SOD PHOSPHATE 4 MG/1 ML VIAL IVPB SCH ×2 (02:34→09:16)
[2016-06-19] MEDS: CLINDAMYCIN 600MG PREMIX IVPB 50 ML IVPB SCH (06:26)
[2016-06-19] MEDS: HEPARIN NA (PORCINE) 5,000 UNITS/ML 1ML VIAL SQ SCH ×2 (06:27→15:17)
[2016-06-19] MEDS ORDERED: HEMOQUE TEST 1 EACH EACH ONE (06:32)
--- NOTE | 2016-06-19 07:51 | PN ---
Progress Note (short form) - Note Progress Note: ID Seen at request of Dr Melchor Full note dictated Selected Entries 06/19/16 06:00 Temperature 99.0 F Pulse Rate 88 Respiratory 20 Rate Blood Pressure 136/75 NAD with couph Lung Rhonchi Cor S1 S2 Abd nontender Laboratory Tests 06/17/16 06/18/16 06/18/16 22:00 05:20 05:20 WBC 8.4 Hgb 10.6 L Hct 31.7 L Plt Count 234 BUN 16 Creatinine 0.7 C-Reactive Protein 9.5 H Substitute Unasyn 1.5 grs q 6H Stop clindamycin given concern for possible resistance to mouth royce [employer] Problem List - Problems (1) Polymyalgia rheumatica Code(s): M35.3 - POLYMYALGIA RHEUMATICA (2) Tonsillar abscess Code(s): J36 - PERITONSILLAR ABSCESS
--- NOTE | 2016-06-19 08:48 | CONS ---
DATE OF CONSULTATION: DATE OF DICTATION: 06/19/2016 HISTORY OF PRESENT ILLNESS: This is a 75-year-old female with rheumatoid arthritis and polymyalgia rheumatica on long-term prednisone, who I am asked to see in the ICU after being seen by ENT 2 days ago complaining of throat pain and dysphagia. She had no shortness of breath and apparently had been treated by Dr. Schrader recently for a possible sinus infection/URI, and for which she may have received Keflex having taken it, however, for only a few days. At the time she was initially seen by ENT, there was what was described as fullness in the right oropharynx, soft palate and nasopharynx and hypopharynx on flexible endoscopy. She was sent to the emergency room for a CT scan to rule out an abscess. The CT scan showed no discrete abscess, but concern for a possible tonsillar mass and oropharyngeal airway narrowing. Hence, she was admitted to the ICU for respiratory monitoring. She has had a dry cough over the last few days. A flexible fiberoptic laryngoscopy on repeat showed a stable examination with right pharyngeal fullness obstructing the view of the right pyriform sinus. Moderate post-cricoid edema was noted, and the true vocal cords were noted to be symmetrical and mobile. A fully patent glottis was seen with no evidence of obstruction or swelling. The patient was given clindamycin. She is not febrile , nor toxic appearing at this time, and other than a cough, she denies any shortness of breath or other complaints within the limits of the history, as she is [place]-speaking. PAST MEDICAL HISTORY: Includes rheumatoid arthritis and polymyalgia rheumatica, hypertension. MEDICATIONS: Metoprolol, amlodipine, hydrochlorothiazide, Protonix, and prednisone 5 mg daily. ALLERGIES: None known. SOCIAL HISTORY: A [place] immigrant living in the [place] many years, she is a nonsmoker with no history of alcohol use. FAMILY HISTORY: Unobtainable from patient at this time. REVIEW OF SYSTEMS: Respiratory: Dry cough. No shortness of breath, hemoptysis. Cardiac: No chest pain, palpitation, history of murmur. Gastrointestinal: No abdominal pain, nausea, vomiting, diarrhea, blood per rectum. Genitourinary: No dysuria, hematuria, urinary frequency. PHYSICAL EXAMINATION: General: She was an alert female in no acute distress. Vital signs: Temperature was 99, pulse 83, blood pressure 136/75, respirations 20. HEENT: Oropharyngeal examination deferred. Neck: Supple with no adenopathy. Lungs: Clear to percussion and auscultation. Scatter rhonchi. Heart: S1, S2, regular rhythm without audible murmur. Abdomen: Soft, nontender, without hepatosplenomegaly. Extremities: Without clubbing, cyanosis, or edema. The white count was 10.2, hemoglobin 11.4, platelets 265. INR 1.1. BUN 16, creatinine 0.7. Urinalysis 7 RBCs, 2 WBCs. Two sets of blood cultures currently pending. Urine culture pending. Influenza screen negative. Chest x-ray with moderate cardiomegaly with unfolding of the aortic arch. No acute disease. ASSESSMENT: A 75-year-old [place] female with polymyalgia on low-dose prednisone presents with difficulty swallowing and dysphagia. She was seen by ears/nose/ throat with diagnosis of parapharyngeal cellulitis, but no discrete abscess. As discussed with Dr. Schrader, would empirically treat her with ampicillin sulbactam 1.5 g q.6 hours with switch to Augmentin upon discharge. She is also on high- dose steroids now since admission and appears to have made improvement. Will follow up in a.m. . NEGIN GRIJALVA M.D. [id number] MTDD
[2016-06-19] MEDS: METOPROLOL SUCCINATE 25 MG TAB.SR.24H (FP) PO SCH (09:16)
[2016-06-19] MEDS: AMPICILLIN NA/SULBACTAM NA 100 ML IVPB SCH ×3 (09:16→22:13)
[2016-06-19] MEDS: FAMOTIDINE 20 MG/50 ML IVPB 50 ML IVPB SCH (09:17)
[2016-06-19 09:19] LABS: MCH 26.8 pg (25.7-33.7); MCHC 32.6 g/dl (32.0-36.0); MEAN CELL VOLUME 82.3 fl (80-96); MEAN PLT VOLUME 9.5 fl (7.5-11.1); PLATELET COUNT 276 K/MM3 (134-434); RDW 15.1 % (11.6-15.6); WHITE BLOOD COUNT 12.1 K/mm3 (4.0-10.0)
[2016-06-19] MEDS: ALBUTEROL SO4 2.5/IPRATROPIUM 0.5 INH SOL 3 ML VIAL.NEB. NEB SCH ×2 (09:50→22:00)
[2016-06-19] MEDS: amLODIPine BESYLATE 5 MG TABLET (FP) PO SCH (10:55)
--- NOTE | 2016-06-19 11:18 | PN ---
Progress Note, Physician History of Present Illness: patient seen and examined at bedside in the ICU states she feels better today still has some throat pain but now it is only with swallowing - Current Medication List Current Medications: Active Medications Albuterol Sulfate (Ventolin 0.083% Nebulizer Soln -) 1 amp NEB Q1H PRN PRN Reason: SHORT OF BREATH/WHEEZING Last Admin: 06/18/16 13:55 Dose: 1 amp Albuterol/Ipratropium (Duoneb -) 1 amp NEB BID [facility] Last Admin: 06/18/16 22:06 Dose: 1 amp Amlodipine Besylate (Norvasc -) 5 mg PO DAILY [facility] Last Admin: 06/19/16 10:55 Dose: 5 mg Atorvastatin Calcium (Lipitor -) 10 mg PO HS [facility] Last Admin: 06/18/16 21:10 Dose: 10 mg Dexamethasone Sodium Phosphate (Decadron Injection -) 4 mg IVPB Q8H-IV [facility] Last Admin: 06/19/16 09:16 Dose: 4 mg Heparin Sodium (Porcine) (Heparin -) 5,000 unit SQ TID [facility] Last Admin: 06/19/16 06:27 Dose: 5,000 unit Famotidine/Sodium Chloride (Pepcid 20 Mg Premixed Ivpb -) 50 mls @ 100 mls/hr IVPB BID [facility] Last Admin: 06/19/16 09:17 Dose: 100 mls/hr Ampicillin Sodium/Sulbactam Sodium (Unasyn 1.5 Gm (Pre-Docked)) 100 mls @ 200 mls/hr IVPB Q6H-IV [facility] Last Admin: 06/19/16 09:16 Dose: 200 mls/hr Metoprolol Succinate (Toprol Xl -) 25 mg PO DAILY [facility] Last Admin: 06/19/16 09:16 Dose: 25 mg Morphine Sulfate (Morphine Injection -) 2 mg IVPUSH Q4H PRN PRN Reason: PAIN Last Admin: 06/18/16 16:28 Dose: 2 mg Phenol/Menthol (Chloraseptic -) 1 spray MM Q6HPO PRN PRN Reason: SORE THROAT Last Admin: 06/19/16 09:12 Dose: 1 spray - Objective Vital Signs: Vital Signs Temperature 99.0 F 06/19/16 06:00 Pulse Rate 95 H 06/19/16 08:00 Respiratory Rate 20 06/19/16 08:00 Blood Pressure 129/55 06/19/16 08:00 O2 Sat by Pulse Oximetry (%) 97 06/18/16 20:33 Constitutional: Yes: No Distress, Calm Eyes: Yes: Conjunctiva Clear, EOM Intact HENT: Yes: Atraumatic, Other voice is much less hoarse today. less devaition of uvula Neck: Yes: Supple Cardiovascular: Yes: Regular Rate and Rhythm Respiratory: Yes: Regular, CTA Bilaterally Gastrointestinal: Yes: Normal Bowel Sounds, Soft Edema: No Labs: CBC, BMP 06/19/16 09:05 06/18/16 05:20 INR, PTT INR 1.14 (0.82-1.09) 06/17/16 17:25 Assessment/Plan 75F history of HTN Anemia arthritis fibromyalgia and possible thryoid mass/ nosule which is stable per chart presents to the ICU after seen in ENT office and sent to ED for right tonisllar mass unlikely to be Tonsillar abscess: patient has a pharyngeal cellulitis per ENT improving off clindamycin on unasyn ID consult appreciated decadron 4mg q8h ENT consult appreciated-no intervention at this time ok to start diet as tolerated bronchodilators albuterol pepcid BCx pending WBC increased today HTN: continue norvasc and metoprolol BP well controlled at this time Anemia: no issues at this time trend CBC Arthritis/fibromyalgia: pain control no active issues PPx: Pepcid HSQ no deconditioning issues FEN: stop IVF no electrolyte issues advance to soft diet
[2016-06-19] MEDS: morphine CARPU-JECT 2 MG/1 ML DISP.SYRIN IVPUSH PRN ×2 (11:26→23:45)
--- NOTE | 2016-06-19 11:53 | PN ---
Teaching Attending Note Name of Resident: Joseluis Gauthier ATTENDING PHYSICIAN STATEMENT I saw and evaluated the patient. I reviewed the resident's note and discussed the case with the resident. I agree with the resident's findings and plan as documented. SUBJECTIVE: Patient seen and examined in the ICU. Reports improvement in her dysphagia and odynophagia. Breathing has also improved. Voice less hoarse. OBJECTIVE: Intake & Output 06/16/16 06/17/16 06/18/16 06/19/16 23:59 23:59 23:59 23:59 Intake Total 200 1625 100 Output Total 200 Balance 200 1425 100 Weight 135 lb 136 lb 1.6 oz 134 lb 7 oz Last Vital Signs Temp Pulse Resp BP Pulse Ox 99.0 F 95 H 20 129/55 97 06/19/16 06:00 06/19/16 08:00 06/19/16 08:00 06/19/16 08:00 06/18/16 20:33 Active Medications Albuterol Sulfate (Ventolin 0.083% Nebulizer Soln -) 1 amp NEB Q1H PRN PRN Reason: SHORT OF BREATH/WHEEZING Last Admin: 06/18/16 13:55 Dose: 1 amp Albuterol/Ipratropium (Duoneb -) 1 amp NEB BID [facility] Last Admin: 06/18/16 22:06 Dose: 1 amp Amlodipine Besylate (Norvasc -) 5 mg PO DAILY [facility] Last Admin: 06/19/16 10:55 Dose: 5 mg Atorvastatin Calcium (Lipitor -) 10 mg PO HS [facility] Last Admin: 06/18/16 21:10 Dose: 10 mg Dexamethasone Sodium Phosphate (Decadron Injection -) 4 mg IVPB Q8H-IV [facility] Last Admin: 06/19/16 09:16 Dose: 4 mg Heparin Sodium (Porcine) (Heparin -) 5,000 unit SQ TID [facility] Last Admin: 06/19/16 06:27 Dose: 5,000 unit Famotidine/Sodium Chloride (Pepcid 20 Mg Premixed Ivpb -) 50 mls @ 100 mls/hr IVPB BID [facility] Last Admin: 06/19/16 09:17 Dose: 100 mls/hr Ampicillin Sodium/Sulbactam Sodium (Unasyn 1.5 Gm (Pre-Docked)) 100 mls @ 200 mls/hr IVPB Q6H-IV [facility] Last Admin: 06/19/16 09:16 Dose: 200 mls/hr Metoprolol Succinate (Toprol Xl -) 25 mg PO DAILY [facility] Last Admin: 06/19/16 09:16 Dose: 25 mg Morphine Sulfate (Morphine Injection -) 2 mg IVPUSH Q4H PRN PRN Reason: PAIN Last Admin: 06/19/16 11:26 Dose: 2 mg Phenol/Menthol (Chloraseptic -) 1 spray MM Q6HPO PRN PRN Reason: SORE THROAT Last Admin: 06/19/16 09:12 Dose: 1 spray Gen: NAD, voice is not hoarse HEENT: slightly deviated uvula to left Neck: no stridor Heart: RRR Lung: clear to auscultation Abd: soft, nontender Ext: no edema Laboratory Results - last 24 hr 06/18/16 06/19/16 05:20 09:05 WBC 12.1 H D RBC 4.04 Hgb 10.8 Hct 33.2 MCV 82.3 MCHC 32.6 RDW 15.1 Plt Count 276 MPV 9.5 Free T3 2.1 ASSESSMENT AND PLAN: Pharygeal Cellulitis R/O Tonsillar Abscess LV Diastolic Dysfunction Ascending Aortic Aneurysm HTN Thyroid Nodule - Antibiotics per ID - ENT evaluation noted - Taper decadron, antihistamines - inhaled bronchodilators - PO as tolerated - O2 as needed - DVT prophylaxis Dr Brown CCTime 35"
--- NOTE | 2016-06-19 12:25 | PN ---
Progress Note, Physician History of Present Illness: 75F with rheumatoid arthritis, polymyalgia on chronic prednisone presented to my office yesterday with a couple of days of throat pain, difficulty swallowing. THere was no report of shortness of breath. She had been treated by Dr. Schrader the week before, she reports, with keflex for ?sinus infection though she admits she only took the pills for a couple of days. My examination showed fullness of the right oropharynx, soft palate also in the nasopharynx and hypopharynx on flexible endoscopy. I sent her to the ER for CT scan to rule out abscess. CT was done showing no discrete abscess and there was reported concern for tonsillar mass and oropharyngeal airway narrowing, and she was admitted to the ICU. INTERVAL EVENTS: Throat pain much improved. Min discomfort with swallowing. - Current Medication List Current Medications: Active Medications Albuterol Sulfate (Ventolin 0.083% Nebulizer Soln -) 1 amp NEB Q1H PRN PRN Reason: SHORT OF BREATH/WHEEZING Last Admin: 06/18/16 13:55 Dose: 1 amp Albuterol/Ipratropium (Duoneb -) 1 amp NEB BID [facility] Last Admin: 06/18/16 22:06 Dose: 1 amp Amlodipine Besylate (Norvasc -) 5 mg PO DAILY [facility] Last Admin: 06/19/16 10:55 Dose: 5 mg Atorvastatin Calcium (Lipitor -) 10 mg PO HS [facility] Last Admin: 06/18/16 21:10 Dose: 10 mg Dexamethasone Sodium Phosphate (Decadron Injection -) 4 mg IVPB Q8H-IV [facility] Last Admin: 06/19/16 09:16 Dose: 4 mg Heparin Sodium (Porcine) (Heparin -) 5,000 unit SQ TID [facility] Last Admin: 06/19/16 06:27 Dose: 5,000 unit Famotidine/Sodium Chloride (Pepcid 20 Mg Premixed Ivpb -) 50 mls @ 100 mls/hr IVPB BID [facility] Last Admin: 06/19/16 09:17 Dose: 100 mls/hr Ampicillin Sodium/Sulbactam Sodium (Unasyn 1.5 Gm (Pre-Docked)) 100 mls @ 200 mls/hr IVPB Q6H-IV [facility] Last Admin: 06/19/16 09:16 Dose: 200 mls/hr Metoprolol Succinate (Toprol Xl -) 25 mg PO DAILY [facility] Last Admin: 06/19/16 09:16 Dose: 25 mg Morphine Sulfate (Morphine Injection -) 2 mg IVPUSH Q4H PRN PRN Reason: PAIN Last Admin: 06/19/16 11:26 Dose: 2 mg Phenol/Menthol (Chloraseptic -) 1 spray MM Q6HPO PRN PRN Reason: SORE THROAT Last Admin: 06/19/16 09:12 Dose: 1 spray - Objective Vital Signs: Vital Signs Temperature 99.0 F 06/19/16 06:00 Pulse Rate 78 06/19/16 10:25 Respiratory Rate 20 06/19/16 08:00 Blood Pressure 129/55 06/19/16 08:00 O2 Sat by Pulse Oximetry (%) 97 06/19/16 10:25 Constitutional: Yes: Well Nourished, No Distress, Calm (no stridor/stertor. speaking full sentences.) HENT: Yes: Other (diminished R paryngeal swelling. No discrete mass) Neck: Yes: WNL, Supple, Other (Flexible Fiberoptic Laryngoscopy: Diminished right pharyngeal swelling with restored patency of right pyriform sinus. Notably dry mucosa diffusely. Glottis widely patent.) Labs: CBC, BMP 06/19/16 09:05 06/18/16 05:20 INR, PTT INR 1.14 (0.82-1.09) 06/17/16 17:25 Assessment/Plan A/P: 1. Parapharyngeal Cellulitis - Subjectively and objectively improved. I understand she is to transfer to the floor and likely home tonight or tomorrow. - With her chronic immunosuppression on prednisone suspect infectious etiology , improving on IV abx. Dr. Butterfield (ID) has seen. Low suspicion for [employer]P and for development of one. - There was concern on the read for tonsillar mass. Clinically I have lower concern for this. She reportedly had something in her right neck biopsied by an outside physician last year, though I am unclear on details. The biopsy was reported to be negative. She may merit repeat CT scan when this is complete to ensure normalization as transoral examination doesn't show any suspicious features of the tonsil itself. - Appreciate medical care and management of this neeraj patient. - The patient should see me back in one week in my office to ensure ongoing improvement.
[2016-06-19] MEDS ORDERED: ALBUTEROL SO4 0.083% IH SOL 2.5 MG/3 ML VIAL.NEB. NEB PRN (15:17)
[2016-06-19] MEDS ORDERED: PHENOL 177 ML SPRAY BOTTLE MM PRN (15:17)
[2016-06-19] MEDS: INSULIN SLIDING SCALE (NOVOLOG) 1 VIAL SQ SCH ×2 (16:33→22:13)
[2016-06-19] MEDS ORDERED: ONDANSETRON 4 MG TABLET PO PRN (17:05)
[2016-06-19] MEDS ORDERED: ONDANSETRON 4 MG/2 ML VIAL ONE (17:14)
[2016-06-19] MEDS: ONDANSETRON *ODT* 4 MG TABLET SL PRN ×2 (17:22→23:40)
--- NOTE | 2016-06-19 17:40 | PN ---
Progress Note, Physician Chief Complaint: Pt A&Ox3; still with intermittent throat pain. History of Present Illness: The patient is a 75 year old female (shilpi Morales), with significant past medical history of hypertension, LBBB, anemia, and polymyalgia rheumatica, who presents today with a sore throat and difficulty swallowing for the last 3 days. The patient states that her symptoms started Wednesday and are getting progressively worse. The patient states she had a lump on the right side of her neck a few years ago but this was biopsied and she hasnt had any complications since. The patient reports that she has difficulty swallowing secondary to the pain and swelling in her throat. The patient denies any difficulty breathing or difficulty speaking. The patient went to an ENT today and was referred to the ED for further evaluation by Dr. Redd. She denies any chest pain, abdominal pain, nausea or vomiting. The patient denies recent illness, fevers, or chills. - Current Medication List Current Medications: Active Medications Albuterol Sulfate (Ventolin 0.083% Nebulizer Soln -) 1 amp NEB Q1H PRN PRN Reason: SHORT OF BREATH/WHEEZING Albuterol/Ipratropium (Duoneb -) 1 amp NEB BID [facility] Amlodipine Besylate (Norvasc -) 5 mg PO DAILY [facility] Atorvastatin Calcium (Lipitor -) 10 mg PO HS [facility] Ampicillin Sodium/Sulbactam Sodium (Unasyn 1.5 Gm (Pre-Docked)) 100 mls @ 200 mls/hr IVPB Q6H-IV [facility] Famotidine/Sodium Chloride (Pepcid 20 Mg Premixed Ivpb -) 50 mls @ 100 mls/hr IVPB BID [facility] Pantoprazole Sodium (Protonix 40mg Ivpb (Pre-Docked)) 100 mls @ 200 mls/hr IVPB DAILY [facility] Insulin Aspart (Novolog Vial Sliding Scale -) 1 vial SQ ACHS [facility] PRN Reason: Protocol Last Admin: 06/19/16 16:33 Dose: Not Given Metoprolol Succinate (Toprol Xl -) 25 mg PO DAILY [facility] Morphine Sulfate (Morphine Injection -) 2 mg IVPUSH Q4H PRN PRN Reason: PAIN Ondansetron HCl (Zofran Odt -) 4 mg SL Q4H PRN PRN Reason: NAUSEA Last Admin: 06/19/16 17:22 Dose: 4 mg Phenol/Menthol (Chloraseptic -) 1 spray MM Q6HPO PRN PRN Reason: SORE THROAT - Objective Vital Signs: Vital Signs Temperature 97.8 F 06/19/16 14:00 Pulse Rate 72 06/19/16 16:00 Respiratory Rate 21 06/19/16 16:00 Blood Pressure 136/71 06/19/16 16:00 O2 Sat by Pulse Oximetry (%) 97 06/19/16 10:25 Constitutional: Yes: Calm Eyes: Yes: WNL HENT: Yes: Other (mild R pharyngeal swelling) Neck: Yes: Supple Cardiovascular: Yes: Regular Rate and Rhythm Respiratory: Yes: WNL Gastrointestinal: Yes: Soft ...Rectal Exam: Yes: Deferred Genitourinary: Yes: Anuria Breast(s): Yes: WNL Musculoskeletal: Yes: WNL Extremities: Yes: Cool Edema: No Peripheral Pulses WNL: Yes Integumentary: Yes: WNL Neurological: Yes: Alert, Oriented, Weakness Psychiatric: Yes: Alert, Oriented Labs: CBC, BMP 06/19/16 09:05 06/18/16 05:20 INR, PTT INR 1.14 (0.82-1.09) 06/17/16 17:25 Abnormal Lab Results 06/19/16 09:05 WBC 12.1 H D - ....Imaging Ultrasound: Report Reviewed (ECHO: moderatly reduced LVEF; moderat LV dilation; mild ), Image Reviewed Problem List - Problems (1) Pharyngeal edema Assessment/Plan: antibiotics and pain management. Further study: abscess vs mass. F/u with ENT. ?Thyroid US. Code(s): J39.2 - OTHER DISEASES OF PHARYNX (2) LBBB (left bundle branch block) Assessment/Plan: chronic LBBB. ECHO: moderately reduced LVEF; moderate LV dilation; global hypokinesis; mild ; trace AR; mild MR; trace TR. Continue metoprolol ER. Discontinue amlodipine. Start lisinopril 5 mg daily (reduced LVEF; dilated LV; HTN; DM). Coronary artery evaluation via stress Persantine MIBI (LBBB) when pt has recovered from present illness (may be done as outpatient). Code(s): I44.7 - LEFT BUNDLE-BRANCH BLOCK, UNSPECIFIED (3) Hyperlipidemia Assessment/Plan: started atorvastatin. Code(s): E78.5 - HYPERLIPIDEMIA, UNSPECIFIED (4) Polymyalgia rheumatica Code(s): M35.3 - POLYMYALGIA RHEUMATICA
[2016-06-19] MEDS ORDERED: DEXAMETHASONE SOD PHOSPHATE 4 MG/1 ML VIAL IVPB SCH (18:00)
[2016-06-19] MEDS ORDERED: PANTOPRAZOLE SODIUM 100 ML IVPB ONE (20:15)
[2016-06-19] MEDS ORDERED: INSULIN (NOVOLOG) ASPART 100 UNITS/ML 10ML VIAL ONE (21:33)
[2016-06-19] MEDS ORDERED: FAMOTIDINE 20 MG/50 ML IVPB 50 ML IVPB SCH (22:00)
[2016-06-19] MEDS: ATORVASTATIN CA 10 MG TABLET (FP) PO SCH (22:14)
--- NOTE | 2016-06-20 00:53 | PN ---
Progress Note, Physician History of Present Illness: continues to have difficulty swallowing, but less pain. - Current Medication List Current Medications: Active Medications Albuterol Sulfate (Ventolin 0.083% Nebulizer Soln -) 1 amp NEB Q1H PRN PRN Reason: SHORT OF BREATH/WHEEZING Albuterol/Ipratropium (Duoneb -) 1 amp NEB BID [facility] Last Admin: 06/19/16 22:00 Dose: 1 amp Amlodipine Besylate (Norvasc -) 5 mg PO DAILY [facility] Atorvastatin Calcium (Lipitor -) 10 mg PO HS [facility] Last Admin: 06/19/16 22:14 Dose: 10 mg Ampicillin Sodium/Sulbactam Sodium (Unasyn 1.5 Gm (Pre-Docked)) 100 mls @ 200 mls/hr IVPB Q6H-IV [facility] Last Admin: 06/19/16 22:13 Dose: 200 mls/hr Pantoprazole Sodium (Protonix 40mg Ivpb (Pre-Docked)) 100 mls @ 200 mls/hr IVPB DAILY [facility] Insulin Aspart (Novolog Vial Sliding Scale -) 1 vial SQ ACHS [facility] PRN Reason: Protocol Last Admin: 06/19/16 22:13 Dose: Not Given Metoprolol Succinate (Toprol Xl -) 25 mg PO DAILY [facility] Morphine Sulfate (Morphine Injection -) 2 mg IVPUSH Q4H PRN PRN Reason: PAIN Last Admin: 06/19/16 23:45 Dose: 2 mg Ondansetron HCl (Zofran Odt -) 4 mg SL Q4H PRN PRN Reason: NAUSEA Last Admin: 06/19/16 23:40 Dose: 4 mg Phenol/Menthol (Chloraseptic -) 1 spray MM Q6HPO PRN PRN Reason: SORE THROAT - Objective Vital Signs: Vital Signs Temperature 98.2 F 06/19/16 18:00 Pulse Rate 78 06/19/16 18:00 Respiratory Rate 20 06/19/16 18:00 Blood Pressure 138/74 06/19/16 18:00 O2 Sat by Pulse Oximetry (%) 97 06/19/16 10:25 Constitutional: Yes: Anxious Eyes: Yes: WNL, Conjunctiva Clear, EOM Intact HENT: Yes: Other (Tonsillar area swelling much improved and there appears an area on right posterior wall raised which congestion) Neck: Yes: Supple Cardiovascular: Yes: Regular Rate and Rhythm, S1, S2 Respiratory: Yes: Regular, CTA Bilaterally Gastrointestinal: Yes: Normal Bowel Sounds, Soft Genitourinary: Yes: WNL Musculoskeletal: Yes: Back Pain Extremities: Yes: WNL Edema: No Peripheral Pulses WNL: Yes Integumentary: Yes: WNL Neurological: Yes: Alert, Oriented, Cran Nerves II-XII Intact ...Motor Strength: WNL Psychiatric: Yes: Alert, Oriented Labs: CBC, BMP 06/19/16 09:05 06/18/16 05:20 INR, PTT INR 1.14 (0.82-1.09) 06/17/16 17:25 Problem List - Problems (1) Pharyngeal edema Assessment/Plan: Pharyngeal swelling much improved to cont Unasyn Code(s): J39.2 - OTHER DISEASES OF PHARYNX (2) Ascending aorta dilatation Code(s): I77.810 - THORACIC AORTIC ECTASIA (3) GERD (gastroesophageal reflux disease) Assessment/Plan: Pain improved with Protonix (4) Tonsillar abscess Code(s): J36 - PERITONSILLAR ABSCESS Assessment/Plan Continue antibiotic and Decadron.
[2016-06-20] MEDS ORDERED: ALPRAZolam 0.25 MG TABLET PO ONE (01:15)
[2016-06-20] MEDS: AMPICILLIN NA/SULBACTAM NA 100 ML IVPB SCH ×4 (03:35→21:33)
[2016-06-20] MEDS: INSULIN SLIDING SCALE (NOVOLOG) 1 VIAL SQ SCH ×4 (06:25→21:24)
[2016-06-20] MEDS: morphine CARPU-JECT 2 MG/1 ML DISP.SYRIN IVPUSH PRN (07:03)
--- NOTE | 2016-06-20 07:45 | PN ---
Progress Note, Physician Chief Complaint: ID Patient seems in great deal of distress but may be partly anxiety related seems to have difficulty swallowing but no respiratory distress Unasyn day 2 antibiotics and steroids stopped - Current Medication List Current Medications: Active Medications Albuterol Sulfate (Ventolin 0.083% Nebulizer Soln -) 1 amp NEB Q1H PRN PRN Reason: SHORT OF BREATH/WHEEZING Albuterol/Ipratropium (Duoneb -) 1 amp NEB BID [facility] Last Admin: 06/19/16 22:00 Dose: 1 amp Amlodipine Besylate (Norvasc -) 5 mg PO DAILY [facility] Atorvastatin Calcium (Lipitor -) 10 mg PO HS [facility] Last Admin: 06/19/16 22:14 Dose: 10 mg Ampicillin Sodium/Sulbactam Sodium (Unasyn 1.5 Gm (Pre-Docked)) 100 mls @ 200 mls/hr IVPB Q6H-IV [facility] Last Admin: 06/20/16 03:35 Dose: 200 mls/hr Pantoprazole Sodium (Protonix 40mg Ivpb (Pre-Docked)) 100 mls @ 200 mls/hr IVPB DAILY [facility] Insulin Aspart (Novolog Vial Sliding Scale -) 1 vial SQ ACHS [facility] PRN Reason: Protocol Last Admin: 06/20/16 06:25 Dose: Not Given Metoprolol Succinate (Toprol Xl -) 25 mg PO DAILY [facility] Morphine Sulfate (Morphine Injection -) 2 mg IVPUSH Q4H PRN PRN Reason: PAIN Last Admin: 06/20/16 07:03 Dose: 2 mg Ondansetron HCl (Zofran Odt -) 4 mg SL Q4H PRN PRN Reason: NAUSEA Last Admin: 06/19/16 23:40 Dose: 4 mg Phenol/Menthol (Chloraseptic -) 1 spray MM Q6HPO PRN PRN Reason: SORE THROAT - Objective Vital Signs: Vital Signs Temperature 99.3 F 06/20/16 06:16 Pulse Rate 84 06/20/16 06:16 Respiratory Rate 20 06/20/16 06:16 Blood Pressure 145/78 06/20/16 06:16 O2 Sat by Pulse Oximetry (%) 97 06/19/16 10:25 Neck: Yes: Other (NO stridor) Cardiovascular: Yes: Regular Rate and Rhythm, S1, S2. No: Murmur Respiratory: Yes: Other (Few rales LLL) Gastrointestinal: Yes: WNL, Normal Bowel Sounds, Soft. No: Tenderness Edema: No Labs: CBC, BMP 06/19/16 09:05 06/18/16 05:20 INR, PTT INR 1.14 (0.82-1.09) 06/17/16 17:25 Problem List - Problems (1) Polymyalgia rheumatica Code(s): M35.3 - POLYMYALGIA RHEUMATICA (2) Tonsillar abscess Code(s): J36 - PERITONSILLAR ABSCESS Assessment/Plan Microbiology 06/17/16 22:45 Blood - Peripheral Venous Blood Culture - Preliminary NO GROWTH OBTAINED AFTER 48 HOURS, INCUBATION TO CONTINUE FOR 3 DAYS. 06/17/16 22:45 Blood - Peripheral Venous Blood Culture - Preliminary NO GROWTH OBTAINED AFTER 48 HOURS, INCUBATION TO CONTINUE FOR 3 DAYS. Laboratory Tests 06/19/16 09:05 WBC 12.1 H D Hgb 10.8 Hct 33.2 Plt Count 276 Assessment Parapharngeal cellulitis No air way obstruction clinically Anxiety disorder Plan Should be seen by Dr Melchor who knows her the best Would give her another day of steroids solumerol Continue Unasyn but can switch to Augmentin
[2016-06-20 08:11] LABS: BASOPHIL 0.3 % (0-2.0); MCHC 32.5 g/dl (32.0-36.0); MEAN CELL VOLUME 83.1 fl (80-96); MEAN PLT VOLUME 9.8 fl (7.5-11.1); NEUTROPHILS 73.1 % (42.8-82.8); PLATELET COUNT 270 K/MM3 (134-434); RDW 14.6 % (11.6-15.6); WHITE BLOOD COUNT 12.2 K/mm3 (4.0-10.0)
[2016-06-20] MEDS: amLODIPine BESYLATE 5 MG TABLET (FP) PO SCH (09:17)
[2016-06-20] MEDS: METOPROLOL SUCCINATE 25 MG TAB.SR.24H (FP) PO SCH (09:18)
--- NOTE | 2016-06-20 09:53 | PN ---
Progress Note, Physician History of Present Illness: The patient is a 75 year old female (shilpi Morales), with significant past medical history of hypertension, LBBB, anemia, and polymyalgia rheumatica, who presents today with a sore throat and difficulty swallowing for the last 3 days. The patient states that her symptoms started Wednesday and are getting progressively worse. The patient states she had a lump on the right side of her neck a few years ago but this was biopsied and she hasnt had any complications since. The patient reports that she has difficulty swallowing secondary to the pain and swelling in her throat. The patient denies any difficulty breathing or difficulty speaking. The patient went to an ENT today and was referred to the ED for further evaluation by Dr. Redd. She denies any chest pain, abdominal pain, nausea or vomiting. The patient denies recent illness, fevers, or chills. - Current Medication List Current Medications: Active Medications Albuterol Sulfate (Ventolin 0.083% Nebulizer Soln -) 1 amp NEB Q1H PRN PRN Reason: SHORT OF BREATH/WHEEZING Albuterol/Ipratropium (Duoneb -) 1 amp NEB BID [facility] Last Admin: 06/19/16 22:00 Dose: 1 amp Amlodipine Besylate (Norvasc -) 5 mg PO DAILY [facility] Last Admin: 06/20/16 09:17 Dose: 5 mg Atorvastatin Calcium (Lipitor -) 10 mg PO HS [facility] Last Admin: 06/19/16 22:14 Dose: 10 mg Ampicillin Sodium/Sulbactam Sodium (Unasyn 1.5 Gm (Pre-Docked)) 100 mls @ 200 mls/hr IVPB Q6H-IV [facility] Last Admin: 06/20/16 09:17 Dose: 200 mls/hr Pantoprazole Sodium (Protonix 40mg Ivpb (Pre-Docked)) 100 mls @ 200 mls/hr IVPB DAILY [facility] Insulin Aspart (Novolog Vial Sliding Scale -) 1 vial SQ ACHS [facility] PRN Reason: Protocol Last Admin: 06/20/16 06:25 Dose: Not Given Methylprednisolone Sodium Succinate (Solu-Medrol -) 20 mg IVPB Q8H-IV [facility] Last Admin: 06/20/16 09:17 Dose: 20 mg Metoprolol Succinate (Toprol Xl -) 25 mg PO DAILY [facility] Last Admin: 06/20/16 09:18 Dose: 25 mg Morphine Sulfate (Morphine Injection -) 2 mg IVPUSH Q4H PRN PRN Reason: PAIN Last Admin: 06/20/16 07:03 Dose: 2 mg Ondansetron HCl (Zofran Odt -) 4 mg SL Q4H PRN PRN Reason: NAUSEA Last Admin: 06/19/16 23:40 Dose: 4 mg Phenol/Menthol (Chloraseptic -) 1 spray MM Q6HPO PRN PRN Reason: SORE THROAT - Objective Vital Signs: Vital Signs Temperature 98.0 F 06/20/16 09:00 Pulse Rate 76 06/20/16 09:00 Respiratory Rate 20 06/20/16 09:00 Blood Pressure 121/54 06/20/16 09:00 O2 Sat by Pulse Oximetry (%) 97 06/19/16 10:25 Eyes: Yes: WNL, Conjunctiva Clear, EOM Intact HENT: Yes: WNL, Atraumatic, Normocephalic Neck: Yes: WNL, Supple, Trachea Midline Cardiovascular: Yes: WNL, Regular Rate and Rhythm Respiratory: Yes: WNL, Regular, CTA Bilaterally Gastrointestinal: Yes: WNL, Normal Bowel Sounds Genitourinary: Yes: WNL Musculoskeletal: Yes: WNL Extremities: Yes: WNL Edema: No Integumentary: Yes: WNL Neurological: Yes: WNL, Alert, Oriented ...Motor Strength: WNL Psychiatric: Yes: WNL Labs: CBC, BMP 06/20/16 06:15 06/18/16 05:20 INR, PTT INR 1.14 (0.82-1.09) 06/17/16 17:25 Assessment/Plan Problems (1) Pharyngeal edema Assessment/Plan: antibiotics and pain management. Further study: abscess vs mass. F/u with ENT. ?Thyroid US. Code(s): J39.2 - OTHER DISEASES OF PHARYNX (2) LBBB (left bundle branch block) Assessment/Plan: chronic LBBB. ECHO: moderately reduced LVEF; moderate LV dilation; global hypokinesis; mild ; trace AR; mild MR; trace TR. Continue metoprolol ER. Discontinue amlodipine. Start lisinopril 5 mg daily (reduced LVEF; dilated LV; HTN; DM). Coronary artery evaluation via stress Persantine MIBI (LBBB) when pt has recovered from present illness (may be done as outpatient). Code(s): I44.7 - LEFT BUNDLE-BRANCH BLOCK, UNSPECIFIED (3) Hyperlipidemia Assessment/Plan: started atorvastatin. Code(s): E78.5 - HYPERLIPIDEMIA, UNSPECIFIED (4) Polymyalgia rheumatica Code(s): M35.3 - POLYMYALGIA RHEUMATICA
--- NOTE | 2016-06-20 09:58 | PN ---
Progress Note (short form) - Note Progress Note: Patient now on the medical floor. Anxious. Airway inspection stable to slightly better as compared to yesterday. We suspected part of her confusion yesterday was the Benadryl in combination of steroids. No CP or SOB. Intake & Output 06/17/16 06/18/16 06/19/16 06/20/16 23:59 23:59 23:59 23:59 Intake Total 200 1625 980 100 Output Total 200 Balance 200 1425 980 100 Weight 135 lb 136 lb 1.6 oz 134 lb 7 oz 132 lb 7 oz Last Vital Signs Temp Pulse Resp BP Pulse Ox 98.0 F 76 20 121/54 97 06/20/16 09:00 06/20/16 09:00 06/20/16 09:00 06/20/16 09:00 06/19/16 10:25 Active Medications Albuterol Sulfate (Ventolin 0.083% Nebulizer Soln -) 1 amp NEB Q1H PRN PRN Reason: SHORT OF BREATH/WHEEZING Albuterol/Ipratropium (Duoneb -) 1 amp NEB BID [facility] Last Admin: 06/19/16 22:00 Dose: 1 amp Amlodipine Besylate (Norvasc -) 5 mg PO DAILY [facility] Last Admin: 06/20/16 09:17 Dose: 5 mg Atorvastatin Calcium (Lipitor -) 10 mg PO HS [facility] Last Admin: 06/19/16 22:14 Dose: 10 mg Ampicillin Sodium/Sulbactam Sodium (Unasyn 1.5 Gm (Pre-Docked)) 100 mls @ 200 mls/hr IVPB Q6H-IV [facility] Last Admin: 06/20/16 09:17 Dose: 200 mls/hr Pantoprazole Sodium (Protonix 40mg Ivpb (Pre-Docked)) 100 mls @ 200 mls/hr IVPB DAILY [facility] Insulin Aspart (Novolog Vial Sliding Scale -) 1 vial SQ ACHS [facility] PRN Reason: Protocol Last Admin: 06/20/16 06:25 Dose: Not Given Metoprolol Succinate (Toprol Xl -) 25 mg PO DAILY [facility] Last Admin: 06/20/16 09:18 Dose: 25 mg Morphine Sulfate (Morphine Injection -) 2 mg IVPUSH Q4H PRN PRN Reason: PAIN Last Admin: 06/20/16 07:03 Dose: 2 mg Ondansetron HCl (Zofran Odt -) 4 mg SL Q4H PRN PRN Reason: NAUSEA Last Admin: 06/19/16 23:40 Dose: 4 mg Phenol/Menthol (Chloraseptic -) 1 spray MM Q6HPO PRN PRN Reason: SORE THROAT Gen: NAD, voice is not hoarse HEENT: slightly deviated uvula to left -> EXAM APPEARS THE SAME YESTERDAY Neck: no stridor Heart: RRR Lung: clear to auscultation Abd: soft, nontender Ext: no edema Laboratory Results - last 24 hr 06/19/16 06/20/16 06/20/16 22:12 06:15 06:23 WBC 12.2 H RBC 3.98 Hgb 10.8 Hct 33.1 MCV 83.1 MCHC 32.5 RDW 14.6 Plt Count 270 MPV 9.8 Neutrophils % 73.1 D Lymphocytes % 13.8 D Monocytes % 12.8 H D Eosinophils % 0.0 D Basophils % 0.3 POC Glucometer 102 86 ASSESSMENT AND PLAN: Pharygeal Cellulitis R/O Tonsillar Abscess LV Diastolic Dysfunction Ascending Aortic Aneurysm HTN Thyroid Nodule - Steroids should be continued -> Decadron anecdotally better for airway edema -> Will change - Antibiotics per ID - D/C Benadryl - inhaled bronchodilators - PO as tolerated - O2 as needed - DVT prophylaxis - HOB elevation and OOB to chair as much as possible Dr Brown
[2016-06-20] MEDS ORDERED: methylPREDNISolone NA SUCC 40 MG/1 ML VIAL IVPB SCH (10:00)
[2016-06-20] MEDS ORDERED: LISINOPRIL 5 MG TABLET (FP) PO SCH (10:00)
[2016-06-20] MEDS ORDERED: amLODIPine BESYLATE 5 MG TABLET (FP) PO SCH (10:00)
[2016-06-20] MEDS: DEXAMETHASONE SOD PHOSPHATE 4 MG/1 ML VIAL IVPB SCH ×2 (10:13→17:47)
[2016-06-20] MEDS: PANTOPRAZOLE SODIUM 100 ML IVPB SCH (10:14)
[2016-06-20] MEDS: ALBUTEROL SO4 2.5/IPRATROPIUM 0.5 INH SOL 3 ML VIAL.NEB. NEB SCH ×2 (11:20→22:05)
--- NOTE | 2016-06-20 15:54 | PN ---
Progress Note, Physician History of Present Illness: C/o sore throat and difficulty swallowing.Denies SOB. - Current Medication List Current Medications: Active Medications Albuterol Sulfate (Ventolin 0.083% Nebulizer Soln -) 1 amp NEB Q1H PRN PRN Reason: SHORT OF BREATH/WHEEZING Albuterol/Ipratropium (Duoneb -) 1 amp NEB BID [facility] Last Admin: 06/20/16 11:20 Dose: 1 amp Alprazolam (Xanax -) 0.5 mg PO HS [facility] Amlodipine Besylate (Norvasc -) 5 mg PO DAILY [facility] Last Admin: 06/20/16 09:17 Dose: 5 mg Atorvastatin Calcium (Lipitor -) 10 mg PO HS [facility] Last Admin: 06/19/16 22:14 Dose: 10 mg Dexamethasone Sodium Phosphate (Decadron Injection -) 4 mg IVPB Q8H-IV [facility] Last Admin: 06/20/16 10:13 Dose: Not Given Diphenhydramine HCl (Benadryl -) 25 mg PO Q6H [facility] Ampicillin Sodium/Sulbactam Sodium (Unasyn 1.5 Gm (Pre-Docked)) 100 mls @ 200 mls/hr IVPB Q6H-IV [facility] Last Admin: 06/20/16 14:43 Dose: 200 mls/hr Pantoprazole Sodium (Protonix 40mg Ivpb (Pre-Docked)) 100 mls @ 200 mls/hr IVPB DAILY [facility] Last Admin: 06/20/16 10:14 Dose: 200 mls/hr Insulin Aspart (Novolog Vial Sliding Scale -) 1 vial SQ ACHS [facility] PRN Reason: Protocol Last Admin: 06/20/16 12:29 Dose: Not Given Metoprolol Succinate (Toprol Xl -) 25 mg PO DAILY [facility] Last Admin: 06/20/16 09:18 Dose: 25 mg Morphine Sulfate (Morphine Injection -) 2 mg IVPUSH Q4H PRN PRN Reason: PAIN Last Admin: 06/20/16 07:03 Dose: 2 mg Ondansetron HCl (Zofran Odt -) 4 mg SL Q4H PRN PRN Reason: NAUSEA Last Admin: 06/19/16 23:40 Dose: 4 mg Phenol/Menthol (Chloraseptic -) 1 spray MM Q6HPO PRN PRN Reason: SORE THROAT - Objective Vital Signs: Vital Signs Temperature 98.2 F 06/20/16 14:26 Pulse Rate 79 06/20/16 14:26 Respiratory Rate 18 06/20/16 14:26 Blood Pressure 134/66 06/20/16 14:26 O2 Sat by Pulse Oximetry (%) 95 06/20/16 09:00 Constitutional: Yes: Anxious Eyes: Yes: WNL HENT: Yes: Other (tonsilolar area markedly swollen as well as uvula, no stridor or any respiratory distress) Neck: Yes: Supple Cardiovascular: Yes: Regular Rate and Rhythm, S1, S2 Respiratory: Yes: CTA Bilaterally Gastrointestinal: Yes: Normal Bowel Sounds, Soft Genitourinary: Yes: WNL Musculoskeletal: Yes: WNL Extremities: Yes: WNL Edema: No Peripheral Pulses WNL: Yes Integumentary: Yes: WNL Neurological: Yes: Alert, Oriented, Cran Nerves II-XII Intact ...Motor Strength: WNL Psychiatric: Yes: Alert, Oriented Labs: CBC, BMP 06/20/16 06:15 06/18/16 05:20 INR, PTT INR 1.14 (0.82-1.09) 06/17/16 17:25 Problem List - Problems (1) Pharyngeal edema Assessment/Plan: Pharyngeal edema appears to recur but stridor or resp distress Code(s): J39.2 - OTHER DISEASES OF PHARYNX (2) Ascending aorta dilatation Code(s): I77.810 - THORACIC AORTIC ECTASIA (3) GERD (gastroesophageal reflux disease) Assessment/Plan: Epigastreic pain and nausea better with Protonix (4) Tonsillar abscess Code(s): J36 - PERITONSILLAR ABSCESS Assessment/Plan Although was confused yesterday I do not feel due to Benadryl but steroid psychosis. Cont. Unasyn, steroids and smaller dose benadryl
[2016-06-20] MEDS: diphenhydrAMINE HCL 25 MG CAPSULE (FP) PO SCH ×2 (17:40→17:47)
[2016-06-20] MEDS: ATORVASTATIN CA 10 MG TABLET (FP) PO SCH (21:33)
[2016-06-20] MEDS: ALPRAZolam 0.25 MG TABLET PO SCH (21:33)
[2016-06-21] MEDS: DEXAMETHASONE SOD PHOSPHATE 4 MG/1 ML VIAL IVPB SCH ×2 (02:00→09:27)
[2016-06-21] MEDS: AMPICILLIN NA/SULBACTAM NA 100 ML IVPB SCH ×4 (03:00→21:55)
[2016-06-21] MEDS: diphenhydrAMINE HCL 25 MG CAPSULE (FP) PO SCH ×4 (06:42→17:06)
[2016-06-21] MEDS: INSULIN SLIDING SCALE (NOVOLOG) 1 VIAL SQ SCH ×4 (06:43→22:03)
[2016-06-21] MEDS: amLODIPine BESYLATE 5 MG TABLET (FP) PO SCH (09:27)
[2016-06-21] MEDS: METOPROLOL SUCCINATE 25 MG TAB.SR.24H (FP) PO SCH (09:27)
[2016-06-21] MEDS: ALBUTEROL SO4 2.5/IPRATROPIUM 0.5 INH SOL 3 ML VIAL.NEB. NEB SCH ×2 (10:15→22:00)
[2016-06-21] MEDS: PANTOPRAZOLE SODIUM 100 ML IVPB SCH (10:16)
--- NOTE | 2016-06-21 10:20 | PN ---
Progress Note (short form) - Note Progress Note: Feels better. Son at the bedside. Reports that his mom is overall better. Mental status seems back to baseline. Minimal discomfort on swallowing pudding this AM. Intake & Output 06/18/16 06/19/16 06/20/16 06/21/16 23:59 23:59 23:59 23:59 Intake Total 8513 016 2412 Output Total 200 3 1 Balance 7256 077 1638 -1 Weight 136 lb 1.6 oz 134 lb 7 oz 132 lb 7 oz 131 lb 5 oz Last Vital Signs Temp Pulse Resp BP Pulse Ox 98.2 F 72 20 146/70 95 06/21/16 08:40 06/21/16 08:40 06/21/16 08:40 06/21/16 08:40 06/20/16 21:00 Active Medications Albuterol Sulfate (Ventolin 0.083% Nebulizer Soln -) 1 amp NEB Q1H PRN PRN Reason: SHORT OF BREATH/WHEEZING Albuterol/Ipratropium (Duoneb -) 1 amp NEB BID [facility] Last Admin: 06/20/16 22:05 Dose: 1 amp Alprazolam (Xanax -) 0.5 mg PO HS [facility] Last Admin: 06/20/16 21:33 Dose: 0.5 mg Amlodipine Besylate (Norvasc -) 5 mg PO DAILY [facility] Last Admin: 06/21/16 09:27 Dose: 5 mg Atorvastatin Calcium (Lipitor -) 10 mg PO HS [facility] Last Admin: 06/20/16 21:33 Dose: 10 mg Dexamethasone Sodium Phosphate (Decadron Injection -) 4 mg IVPB Q8H-IV [facility] Last Admin: 06/21/16 09:27 Dose: 4 mg Diphenhydramine HCl (Benadryl -) 25 mg PO Q6HPO [facility] Last Admin: 06/21/16 06:42 Dose: 25 mg Ampicillin Sodium/Sulbactam Sodium (Unasyn 1.5 Gm (Pre-Docked)) 100 mls @ 200 mls/hr IVPB Q6H-IV [facility] Last Admin: 06/21/16 08:49 Dose: 200 mls/hr Pantoprazole Sodium (Protonix 40mg Ivpb (Pre-Docked)) 100 mls @ 200 mls/hr IVPB DAILY [facility] Last Admin: 06/21/16 10:16 Dose: 200 mls/hr Insulin Aspart (Novolog Vial Sliding Scale -) 1 vial SQ ACHS [facility] PRN Reason: Protocol Last Admin: 06/21/16 06:43 Dose: Not Given Metoprolol Succinate (Toprol Xl -) 25 mg PO DAILY [facility] Last Admin: 06/21/16 09:27 Dose: 25 mg Morphine Sulfate (Morphine Injection -) 2 mg IVPUSH Q4H PRN PRN Reason: PAIN Last Admin: 06/20/16 07:03 Dose: 2 mg Ondansetron HCl (Zofran Odt -) 4 mg SL Q4H PRN PRN Reason: NAUSEA Last Admin: 06/19/16 23:40 Dose: 4 mg Phenol/Menthol (Chloraseptic -) 1 spray MM Q6HPO PRN PRN Reason: SORE THROAT Gen: NAD, voice is not hoarse HEENT: uvula is less deviated/edematous -> EXAM APPEARS IMPROVED FROM YESTERDAY Neck: no stridor Heart: RRR Lung: clear to auscultation Abd: soft, nontender Ext: no edema Laboratory Results - last 24 hr 06/18/16 06/18/16 06/19/16 05:58 17:35 06:35 POC Glucometer 248.39323 193.89066 160.64536 06/19/16 06/20/16 06/20/16 16:22 11:53 16:55 POC Glucometer 130.71898 100 112 06/20/16 06/21/16 21:15 06:01 POC Glucometer 135 126 ASSESSMENT AND PLAN: Pharygeal Cellulitis R/O Tonsillar Abscess LV Diastolic Dysfunction Ascending Aortic Aneurysm HTN Thyroid Nodule - Change to PO Decadron - Antibiotics per ID - May not need Benadryl any longer - inhaled bronchodilators - PO as tolerated - O2 as needed - DVT prophylaxis - HOB elevation and OOB to chair as much as possible - D/C planning Dr Brown
--- NOTE | 2016-06-21 11:15 | PN ---
Progress Note, Physician History of Present Illness: The patient is a 75 year old female (shilpi Morales), with significant past medical history of hypertension, LBBB, anemia, and polymyalgia rheumatica, who presents today with a sore throat and difficulty swallowing for the last 3 days. The patient states that her symptoms started Wednesday and are getting progressively worse. The patient states she had a lump on the right side of her neck a few years ago but this was biopsied and she hasnt had any complications since. The patient reports that she has difficulty swallowing secondary to the pain and swelling in her throat. The patient denies any difficulty breathing or difficulty speaking. The patient went to an ENT today and was referred to the ED for further evaluation by Dr. Redd. She denies any chest pain, abdominal pain, nausea or vomiting. The patient denies recent illness, fevers, or chills. - Current Medication List Current Medications: Active Medications Albuterol Sulfate (Ventolin 0.083% Nebulizer Soln -) 1 amp NEB Q1H PRN PRN Reason: SHORT OF BREATH/WHEEZING Albuterol/Ipratropium (Duoneb -) 1 amp NEB BID [facility] Last Admin: 06/20/16 22:05 Dose: 1 amp Alprazolam (Xanax -) 0.5 mg PO HS [facility] Last Admin: 06/20/16 21:33 Dose: 0.5 mg Amlodipine Besylate (Norvasc -) 5 mg PO DAILY [facility] Last Admin: 06/21/16 09:27 Dose: 5 mg Atorvastatin Calcium (Lipitor -) 10 mg PO HS [facility] Last Admin: 06/20/16 21:33 Dose: 10 mg Dexamethasone (Decadron -) 4 mg PO BID [facility] Diphenhydramine HCl (Benadryl -) 25 mg PO Q6HPO [facility] Last Admin: 06/21/16 06:42 Dose: 25 mg Ampicillin Sodium/Sulbactam Sodium (Unasyn 1.5 Gm (Pre-Docked)) 100 mls @ 200 mls/hr IVPB Q6H-IV [facility] Last Admin: 06/21/16 08:49 Dose: 200 mls/hr Pantoprazole Sodium (Protonix 40mg Ivpb (Pre-Docked)) 100 mls @ 200 mls/hr IVPB DAILY [facility] Last Admin: 06/21/16 10:16 Dose: 200 mls/hr Insulin Aspart (Novolog Vial Sliding Scale -) 1 vial SQ ACHS [facility] PRN Reason: Protocol Last Admin: 06/21/16 06:43 Dose: Not Given Metoprolol Succinate (Toprol Xl -) 25 mg PO DAILY [facility] Last Admin: 06/21/16 09:27 Dose: 25 mg Morphine Sulfate (Morphine Injection -) 2 mg IVPUSH Q4H PRN PRN Reason: PAIN Last Admin: 06/20/16 07:03 Dose: 2 mg Ondansetron HCl (Zofran Odt -) 4 mg SL Q4H PRN PRN Reason: NAUSEA Last Admin: 06/19/16 23:40 Dose: 4 mg Phenol/Menthol (Chloraseptic -) 1 spray MM Q6HPO PRN PRN Reason: SORE THROAT - Objective Vital Signs: Vital Signs Temperature 98.2 F 06/21/16 08:40 Pulse Rate 72 06/21/16 08:40 Respiratory Rate 20 06/21/16 08:40 Blood Pressure 146/70 06/21/16 08:40 O2 Sat by Pulse Oximetry (%) 95 06/20/16 21:00 Eyes: Yes: WNL, Conjunctiva Clear, EOM Intact HENT: Yes: WNL, Atraumatic, Normocephalic Neck: Yes: WNL, Supple, Trachea Midline Cardiovascular: Yes: WNL, Regular Rate and Rhythm Respiratory: Yes: WNL, Regular, CTA Bilaterally Gastrointestinal: Yes: WNL, Normal Bowel Sounds Genitourinary: Yes: WNL Musculoskeletal: Yes: WNL Extremities: Yes: WNL Edema: No Integumentary: Yes: WNL Neurological: Yes: WNL, Alert, Oriented ...Motor Strength: WNL Psychiatric: Yes: WNL Labs: CBC, BMP 06/20/16 06:15 06/18/16 05:20 INR, PTT INR 1.14 (0.82-1.09) 06/17/16 17:25 Assessment/Plan Problems (1) Pharyngeal edema Assessment/Plan: antibiotics and pain management. Further study: abscess vs mass. F/u with ENT. ?Thyroid US. Code(s): J39.2 - OTHER DISEASES OF PHARYNX (2) LBBB (left bundle branch block) Assessment/Plan: chronic LBBB. ECHO: moderately reduced LVEF; moderate LV dilation; global hypokinesis; mild ; trace AR; mild MR; trace TR. Continue metoprolol ER. Discontinue amlodipine. Start lisinopril 5 mg daily (reduced LVEF; dilated LV; HTN; DM). Coronary artery evaluation via stress Persantine MIBI (LBBB) when pt has recovered from present illness (may be done as outpatient). Code(s): I44.7 - LEFT BUNDLE-BRANCH BLOCK, UNSPECIFIED (3) Hyperlipidemia Assessment/Plan: started atorvastatin. Code(s): E78.5 - HYPERLIPIDEMIA, UNSPECIFIED (4) Polymyalgia rheumatica Code(s): M35.3 - POLYMYALGIA RHEUMATICA
--- NOTE | 2016-06-21 15:22 | PN ---
Progress Note, Physician History of Present Illness: Improved Able to swallow- diet being advanced No resp complaints No fever/ chills Afebrile BC (-) - Current Medication List Current Medications: Active Medications Albuterol Sulfate (Ventolin 0.083% Nebulizer Soln -) 1 amp NEB Q1H PRN PRN Reason: SHORT OF BREATH/WHEEZING Albuterol/Ipratropium (Duoneb -) 1 amp NEB BID [facility] Last Admin: 06/21/16 10:15 Dose: 1 amp Alprazolam (Xanax -) 0.5 mg PO HS [facility] Last Admin: 06/20/16 21:33 Dose: 0.5 mg Amlodipine Besylate (Norvasc -) 5 mg PO DAILY [facility] Last Admin: 06/21/16 09:27 Dose: 5 mg Atorvastatin Calcium (Lipitor -) 10 mg PO HS [facility] Last Admin: 06/20/16 21:33 Dose: 10 mg Dexamethasone (Decadron -) 4 mg PO BID [facility] Diphenhydramine HCl (Benadryl -) 25 mg PO Q6HPO [facility] Last Admin: 06/21/16 12:13 Dose: 25 mg Ampicillin Sodium/Sulbactam Sodium (Unasyn 1.5 Gm (Pre-Docked)) 100 mls @ 200 mls/hr IVPB Q6H-IV [facility] Last Admin: 06/21/16 14:53 Dose: 200 mls/hr Pantoprazole Sodium (Protonix 40mg Ivpb (Pre-Docked)) 100 mls @ 200 mls/hr IVPB DAILY [facility] Last Admin: 06/21/16 10:16 Dose: 200 mls/hr Insulin Aspart (Novolog Vial Sliding Scale -) 1 vial SQ ACHS [facility] PRN Reason: Protocol Last Admin: 06/21/16 11:40 Dose: Not Given Lisinopril (Prinivil) 5 mg PO DAILY [facility] Metoprolol Succinate (Toprol Xl -) 25 mg PO DAILY [facility] Last Admin: 06/21/16 09:27 Dose: 25 mg Morphine Sulfate (Morphine Injection -) 2 mg IVPUSH Q4H PRN PRN Reason: PAIN Last Admin: 06/20/16 07:03 Dose: 2 mg Ondansetron HCl (Zofran Odt -) 4 mg SL Q4H PRN PRN Reason: NAUSEA Last Admin: 06/19/16 23:40 Dose: 4 mg Phenol/Menthol (Chloraseptic -) 1 spray MM Q6HPO PRN PRN Reason: SORE THROAT - Objective Vital Signs: Vital Signs Temperature 98.0 F 06/21/16 14:26 Pulse Rate 75 06/21/16 14:26 Respiratory Rate 16 06/21/16 14:26 Blood Pressure 111/59 06/21/16 14:26 O2 Sat by Pulse Oximetry (%) 97 06/21/16 10:15 Constitutional: Yes: No Distress Eyes: Yes: Conjunctiva Clear HENT: Yes: WNL (+ R facial swelling) Cardiovascular: Yes: Regular Rate and Rhythm, S1, S2 Respiratory: Yes: CTA Bilaterally. No: Stridor, Wheezes Gastrointestinal: Yes: Normal Bowel Sounds, Soft. No: Tenderness Labs: CBC, BMP 06/20/16 06:15 06/18/16 05:20 INR, PTT INR 1.14 (0.82-1.09) 06/17/16 17:25 Assessment/Plan Peritonsillar abscess Clinically improved Continue steroids, unasyn
[2016-06-21] MEDS: DEXAMETHASONE 4 MG TABLET (FP) PO SCH (22:01)
[2016-06-21] MEDS: ATORVASTATIN CA 10 MG TABLET (FP) PO SCH (22:02)
[2016-06-21] MEDS: ALPRAZolam 0.25 MG TABLET PO SCH (22:02)
--- NOTE | 2016-06-22 00:02 | PN ---
Progress Note, Physician History of Present Illness: Continues to have sore throat but able to swallow. Denies SOB. - Current Medication List Current Medications: Active Medications Albuterol Sulfate (Ventolin 0.083% Nebulizer Soln -) 1 amp NEB Q1H PRN PRN Reason: SHORT OF BREATH/WHEEZING Albuterol/Ipratropium (Duoneb -) 1 amp NEB BID [facility] Last Admin: 06/21/16 22:00 Dose: 1 amp Alprazolam (Xanax -) 0.5 mg PO HS [facility] Last Admin: 06/21/16 22:02 Dose: 0.5 mg Amlodipine Besylate (Norvasc -) 5 mg PO DAILY [facility] Last Admin: 06/21/16 09:27 Dose: 5 mg Atorvastatin Calcium (Lipitor -) 10 mg PO HS [facility] Last Admin: 06/21/16 22:02 Dose: 10 mg Dexamethasone (Decadron -) 4 mg PO BID [facility] Last Admin: 06/21/16 22:01 Dose: 4 mg Diphenhydramine HCl (Benadryl -) 25 mg PO Q6HPO [facility] Last Admin: 06/21/16 17:06 Dose: 25 mg Ampicillin Sodium/Sulbactam Sodium (Unasyn 1.5 Gm (Pre-Docked)) 100 mls @ 200 mls/hr IVPB Q6H-IV [facility] Last Admin: 06/21/16 21:55 Dose: 200 mls/hr Pantoprazole Sodium (Protonix 40mg Ivpb (Pre-Docked)) 100 mls @ 200 mls/hr IVPB DAILY [facility] Last Admin: 06/21/16 10:16 Dose: 200 mls/hr Insulin Aspart (Novolog Vial Sliding Scale -) 1 vial SQ ACHS [facility] PRN Reason: Protocol Last Admin: 06/21/16 22:03 Dose: Not Given Metoprolol Succinate (Toprol Xl -) 25 mg PO DAILY [facility] Last Admin: 06/21/16 09:27 Dose: 25 mg Morphine Sulfate (Morphine Injection -) 2 mg IVPUSH Q4H PRN PRN Reason: PAIN Last Admin: 06/20/16 07:03 Dose: 2 mg Ondansetron HCl (Zofran Odt -) 4 mg SL Q4H PRN PRN Reason: NAUSEA Last Admin: 06/19/16 23:40 Dose: 4 mg Phenol/Menthol (Chloraseptic -) 1 spray MM Q6HPO PRN PRN Reason: SORE THROAT - Objective Vital Signs: Vital Signs Temperature 98.6 F 06/21/16 17:04 Pulse Rate 73 06/21/16 17:04 Respiratory Rate 20 06/21/16 17:04 Blood Pressure 147/77 06/21/16 17:04 O2 Sat by Pulse Oximetry (%) 97 06/21/16 10:15 Constitutional: Yes: Well Nourished, Anxious Eyes: Yes: WNL HENT: Yes: Other (swelling of the right tonsillar area persists as well as edema of the uvula) Neck: Yes: Supple Cardiovascular: Yes: Regular Rate and Rhythm, S1, S2 Respiratory: Yes: CTA Bilaterally Gastrointestinal: Yes: Normal Bowel Sounds, Soft Genitourinary: Yes: WNL Breast(s): Yes: WNL Musculoskeletal: Yes: Back Pain Edema: No Peripheral Pulses WNL: Yes Integumentary: Yes: WNL Neurological: Yes: Alert, Oriented ...Motor Strength: WNL Psychiatric: Yes: Alert, Oriented Labs: CBC, BMP 06/20/16 06:15 06/18/16 05:20 INR, PTT INR 1.14 (0.82-1.09) 06/17/16 17:25 Problem List - Problems (1) Pharyngeal edema Assessment/Plan: Edema and erythema of the right side of tonsillar area persists Code(s): J39.2 - OTHER DISEASES OF PHARYNX (2) Ascending aorta dilatation Code(s): I77.810 - THORACIC AORTIC ECTASIA (4) Tonsillar abscess Code(s): J36 - PERITONSILLAR ABSCESS Assessment/Plan Continue iv antibiotics and steroids.
[2016-06-22] MEDS: diphenhydrAMINE HCL 25 MG CAPSULE (FP) PO SCH ×4 (00:08→17:14)
[2016-06-22] MEDS: AMPICILLIN NA/SULBACTAM NA 100 ML IVPB SCH ×2 (02:22→08:53)
[2016-06-22] MEDS: INSULIN SLIDING SCALE (NOVOLOG) 1 VIAL SQ SCH ×3 (06:14→17:13)
[2016-06-22] MEDS: METOPROLOL SUCCINATE 25 MG TAB.SR.24H (FP) PO SCH (09:00)
[2016-06-22] MEDS: amLODIPine BESYLATE 5 MG TABLET (FP) PO SCH (09:00)
[2016-06-22] MEDS: DEXAMETHASONE 4 MG TABLET (FP) PO SCH (09:00)
--- NOTE | 2016-06-22 09:51 | PN ---
Progress Note (short form) - Note Progress Note: PULMONARY Denies shortness of breath or dysphagia. No fevers or chills. Last Vital Signs Temp Pulse Resp BP Pulse Ox 98.1 F 71 20 143/73 96 06/22/16 05:53 06/22/16 05:53 06/22/16 05:53 06/22/16 05:53 06/21/16 21:00 Gen: NAD at rest Neck: no stridor Heart: RRR Lung: clear to auscultation Abd: soft, nontender Ext: no edema CBC, BMP 06/20/16 06:15 06/18/16 05:20 Active Medications Albuterol Sulfate (Ventolin 0.083% Nebulizer Soln -) 1 amp NEB Q1H PRN PRN Reason: SHORT OF BREATH/WHEEZING Albuterol/Ipratropium (Duoneb -) 1 amp NEB BID [facility] Last Admin: 06/21/16 22:00 Dose: 1 amp Alprazolam (Xanax -) 0.5 mg PO HS [facility] Last Admin: 06/21/16 22:02 Dose: 0.5 mg Amlodipine Besylate (Norvasc -) 5 mg PO DAILY [facility] Last Admin: 06/22/16 09:00 Dose: 5 mg Atorvastatin Calcium (Lipitor -) 10 mg PO HS [facility] Last Admin: 06/21/16 22:02 Dose: 10 mg Dexamethasone (Decadron -) 4 mg PO BID [facility] Last Admin: 06/22/16 09:00 Dose: 4 mg Diphenhydramine HCl (Benadryl -) 25 mg PO Q6HPO [facility] Last Admin: 06/22/16 06:15 Dose: 25 mg Ampicillin Sodium/Sulbactam Sodium (Unasyn 1.5 Gm (Pre-Docked)) 100 mls @ 200 mls/hr IVPB Q6H-IV [facility] Last Admin: 06/22/16 08:53 Dose: 200 mls/hr Pantoprazole Sodium (Protonix 40mg Ivpb (Pre-Docked)) 100 mls @ 200 mls/hr IVPB DAILY [facility] Last Admin: 06/21/16 10:16 Dose: 200 mls/hr Insulin Aspart (Novolog Vial Sliding Scale -) 1 vial SQ ACHS [facility] PRN Reason: Protocol Last Admin: 06/22/16 06:14 Dose: Not Given Metoprolol Succinate (Toprol Xl -) 25 mg PO DAILY [facility] Last Admin: 06/22/16 09:00 Dose: 25 mg Morphine Sulfate (Morphine Injection -) 2 mg IVPUSH Q4H PRN PRN Reason: PAIN Last Admin: 06/20/16 07:03 Dose: 2 mg Ondansetron HCl (Zofran Odt -) 4 mg SL Q4H PRN PRN Reason: NAUSEA Last Admin: 06/19/16 23:40 Dose: 4 mg Phenol/Menthol (Chloraseptic -) 1 spray MM Q6HPO PRN PRN Reason: SORE THROAT A/P Peritonsillar Abscess LV Diastolic Dysfunction Ascending Aortic Aneurysm HTN Thyroid Nodule - continue antibiotics per ID - taper decadron - continue antihistamines - inhaled bronchodilators - PO as tolerated - O2 as needed - DVT prophylaxis
--- NOTE | 2016-06-22 09:55 | PN ---
Progress Note, Physician Chief Complaint: ID Able to tolerate pills now Unasyn continues NAD - Current Medication List Current Medications: Active Medications Albuterol Sulfate (Ventolin 0.083% Nebulizer Soln -) 1 amp NEB Q1H PRN PRN Reason: SHORT OF BREATH/WHEEZING Albuterol/Ipratropium (Duoneb -) 1 amp NEB BID COUNTS INCLUDE 234 BEDS AT THE [facility] Last Admin: 06/21/16 22:00 Dose: 1 amp Alprazolam (Xanax -) 0.5 mg PO HS COUNTS INCLUDE 234 BEDS AT THE [facility] Last Admin: 06/21/16 22:02 Dose: 0.5 mg Amlodipine Besylate (Norvasc -) 5 mg PO DAILY COUNTS INCLUDE 234 BEDS AT THE [facility] Last Admin: 06/22/16 09:00 Dose: 5 mg Atorvastatin Calcium (Lipitor -) 10 mg PO HS COUNTS INCLUDE 234 BEDS AT THE [facility] Last Admin: 06/21/16 22:02 Dose: 10 mg Dexamethasone (Decadron -) 4 mg PO BID COUNTS INCLUDE 234 BEDS AT THE [facility] Last Admin: 06/22/16 09:00 Dose: 4 mg Diphenhydramine HCl (Benadryl -) 25 mg PO Q6HPO COUNTS INCLUDE 234 BEDS AT THE [facility] Last Admin: 06/22/16 06:15 Dose: 25 mg Ampicillin Sodium/Sulbactam Sodium (Unasyn 1.5 Gm (Pre-Docked)) 100 mls @ 200 mls/hr IVPB Q6H-IV COUNTS INCLUDE 234 BEDS AT THE [facility] Last Admin: 06/22/16 08:53 Dose: 200 mls/hr Pantoprazole Sodium (Protonix 40mg Ivpb (Pre-Docked)) 100 mls @ 200 mls/hr IVPB DAILY COUNTS INCLUDE 234 BEDS AT THE [facility] Last Admin: 06/21/16 10:16 Dose: 200 mls/hr Insulin Aspart (Novolog Vial Sliding Scale -) 1 vial SQ ACHS [facility] PRN Reason: Protocol Last Admin: 06/22/16 06:14 Dose: Not Given Metoprolol Succinate (Toprol Xl -) 25 mg PO DAILY COUNTS INCLUDE 234 BEDS AT THE [facility] Last Admin: 06/22/16 09:00 Dose: 25 mg Morphine Sulfate (Morphine Injection -) 2 mg IVPUSH Q4H PRN PRN Reason: PAIN Last Admin: 06/20/16 07:03 Dose: 2 mg Ondansetron HCl (Zofran Odt -) 4 mg SL Q4H PRN PRN Reason: NAUSEA Last Admin: 06/19/16 23:40 Dose: 4 mg Phenol/Menthol (Chloraseptic -) 1 spray MM Q6HPO PRN PRN Reason: SORE THROAT - Objective Vital Signs: Vital Signs Temperature 98.1 F 06/22/16 05:53 Pulse Rate 71 06/22/16 05:53 Respiratory Rate 20 06/22/16 05:53 Blood Pressure 143/73 06/22/16 05:53 O2 Sat by Pulse Oximetry (%) 96 06/21/16 21:00 Constitutional: Yes: Well Nourished, No Distress Eyes: Yes: WNL, Conjunctiva Clear HENT: Yes: WNL, Atraumatic Neck: Yes: WNL, Supple Cardiovascular: Yes: Regular Rate and Rhythm, S1, S2 Respiratory: Yes: WNL, Regular, CTA Bilaterally Gastrointestinal: Yes: WNL, Normal Bowel Sounds, Soft. No: Tenderness Edema: No Labs: CBC, BMP 06/20/16 06:15 06/18/16 05:20 INR, PTT INR 1.14 (0.82-1.09) 06/17/16 17:25 Problem List - Problems (1) Polymyalgia rheumatica Code(s): M35.3 - POLYMYALGIA RHEUMATICA (2) Tonsillar abscess Code(s): J36 - PERITONSILLAR ABSCESS Assessment/Plan Microbiology 06/18/16 03:30 Urine - Urine Clean Catch Urine Culture - Final Contaminated: Please Repeat 06/17/16 22:45 Nasopharyngeal Swab Influenza Types A,B Antigen ([place]) - Final 06/17/16 22:45 Nasopharyngeal Swab - Final 06/17/16 22:45 Nasopharyngeal Swab Respiratory Virus Panel - Preliminary 06/17/16 22:45 Blood - Peripheral Venous Blood Culture - Preliminary NO GROWTH OBTAINED AFTER 96 HOURS, INCUBATION TO CONTINUE FOR 1 DAYS. 06/17/16 22:45 Blood - Peripheral Venous Blood Culture - Preliminary NO GROWTH OBTAINED AFTER 96 HOURS, INCUBATION TO CONTINUE FOR 1 DAYS. Laboratory Tests 06/18/16 06/20/16 05:20 06:15 WBC 12.2 H Hgb 10.8 Hct 33.1 Plt Count 270 BUN 16 Creatinine 0.7 Creat Clearance w eGFR > 60 Assessment Parapharngeal cellulitis improving Plan Can switch to Augmentin 875mg bid for 5 days [employer]
[2016-06-22] MEDS ORDERED: LISINOPRIL 5 MG TABLET (FP) PO SCH (10:00)
[2016-06-22] MEDS: ALBUTEROL SO4 2.5/IPRATROPIUM 0.5 INH SOL 3 ML VIAL.NEB. NEB SCH (10:35)
[2016-06-22] MEDS: PANTOPRAZOLE SODIUM 100 ML IVPB SCH (10:58)
[2016-06-22] MEDS ORDERED: PANTOPRAZOLE 40 MG TABLET (FP) PO SCH (12:15)
--- NOTE | 2016-06-22 13:02 | PN ---
Progress Note, Physician History of Present Illness: The patient is a 75 year old female (shilpi Morales), with significant past medical history of hypertension, LBBB, anemia, and polymyalgia rheumatica, who presents today with a sore throat and difficulty swallowing for the last 3 days. The patient states that her symptoms started Wednesday and are getting progressively worse. The patient states she had a lump on the right side of her neck a few years ago but this was biopsied and she hasnt had any complications since. The patient reports that she has difficulty swallowing secondary to the pain and swelling in her throat. The patient denies any difficulty breathing or difficulty speaking. The patient went to an ENT today and was referred to the ED for further evaluation by Dr. Redd. She denies any chest pain, abdominal pain, nausea or vomiting. The patient denies recent illness, fevers, or chills. - Current Medication List Current Medications: Active Medications Albuterol Sulfate (Ventolin 0.083% Nebulizer Soln -) 1 amp NEB Q1H PRN PRN Reason: SHORT OF BREATH/WHEEZING Albuterol/Ipratropium (Duoneb -) 1 amp NEB BID [facility] Last Admin: 06/22/16 10:35 Dose: 1 amp Alprazolam (Xanax -) 0.5 mg PO HS [facility] Last Admin: 06/21/16 22:02 Dose: 0.5 mg Amlodipine Besylate (Norvasc -) 5 mg PO DAILY [facility] Last Admin: 06/22/16 09:00 Dose: 5 mg Amoxicillin/Clavulanate Potassium (Augmentin - 875mg Tablet) 1 tab PO BID@0800, 1730 [facility] Atorvastatin Calcium (Lipitor -) 10 mg PO HS [facility] Last Admin: 06/21/16 22:02 Dose: 10 mg Dexamethasone (Decadron -) 4 mg PO BID [facility] Last Admin: 06/22/16 09:00 Dose: 4 mg Diphenhydramine HCl (Benadryl -) 25 mg PO Q6HPO [facility] Last Admin: 06/22/16 06:15 Dose: 25 mg Insulin Aspart (Novolog Vial Sliding Scale -) 1 vial SQ ACHS [facility] PRN Reason: Protocol Last Admin: 06/22/16 11:30 Dose: Not Given Metoprolol Succinate (Toprol Xl -) 25 mg PO DAILY [facility] Last Admin: 06/22/16 09:00 Dose: 25 mg Morphine Sulfate (Morphine Injection -) 2 mg IVPUSH Q4H PRN PRN Reason: PAIN Last Admin: 06/20/16 07:03 Dose: 2 mg Ondansetron HCl (Zofran Odt -) 4 mg SL Q4H PRN PRN Reason: NAUSEA Last Admin: 06/19/16 23:40 Dose: 4 mg Pantoprazole Sodium (Protonix -) 40 mg PO DAILY [facility] Phenol/Menthol (Chloraseptic -) 1 spray MM Q6HPO PRN PRN Reason: SORE THROAT - Objective Vital Signs: Vital Signs Temperature 98.1 F 06/22/16 05:53 Pulse Rate 74 06/22/16 10:40 Respiratory Rate 20 06/22/16 05:53 Blood Pressure 143/73 06/22/16 05:53 O2 Sat by Pulse Oximetry (%) 95 06/22/16 10:40 Eyes: Yes: WNL, Conjunctiva Clear, EOM Intact HENT: Yes: WNL, Atraumatic, Normocephalic Neck: Yes: WNL, Supple, Trachea Midline Cardiovascular: Yes: WNL, Regular Rate and Rhythm Respiratory: Yes: WNL, Regular, CTA Bilaterally Gastrointestinal: Yes: WNL, Normal Bowel Sounds Genitourinary: Yes: WNL Musculoskeletal: Yes: WNL Extremities: Yes: WNL Edema: No Integumentary: Yes: WNL Neurological: Yes: WNL, Alert, Oriented ...Motor Strength: WNL Psychiatric: Yes: WNL Labs: CBC, BMP 06/20/16 06:15 06/18/16 05:20 INR, PTT INR 1.14 (0.82-1.09) 06/17/16 17:25 Assessment/Plan Problems (1) Pharyngeal edema Assessment/Plan: antibiotics and pain management. Further study: abscess vs mass. F/u with ENT. ?Thyroid US. Code(s): J39.2 - OTHER DISEASES OF PHARYNX (2) LBBB (left bundle branch block) Assessment/Plan: chronic LBBB. ECHO: moderately reduced LVEF; moderate LV dilation; global hypokinesis; mild ; trace AR; mild MR; trace TR. Continue metoprolol ER. Discontinue amlodipine. Start lisinopril 5 mg daily (reduced LVEF; dilated LV; HTN; DM). Coronary artery evaluation via stress Persantine MIBI (LBBB) when pt has recovered from present illness (may be done as outpatient). Code(s): I44.7 - LEFT BUNDLE-BRANCH BLOCK, UNSPECIFIED (3) Hyperlipidemia Assessment/Plan: started atorvastatin. Code(s): E78.5 - HYPERLIPIDEMIA, UNSPECIFIED (4) Polymyalgia rheumatica Code(s): M35.3 - POLYMYALGIA RHEUMATICA
[2016-06-22] MEDS ORDERED: AMOX TR/POT CLAV 875MG/125MG TABLETS (FP) PO SCH (17:30)
[2016-06-22] MEDS ORDERED: INSULIN DETEMIR 100 UNITS/ML MDV SQ ONE (18:07)
--- NOTE | 2016-06-22 19:33 | PN ---
Progress Note, Physician History of Present Illness: 75F with rheumatoid arthritis, polymyalgia on chronic prednisone presented to my office yesterday with a couple of days of throat pain, difficulty swallowing. THere was no report of shortness of breath. She had been treated by Dr. Schrader the week before, she reports, with keflex for ?sinus infection though she admits she only took the pills for a couple of days. My examination showed fullness of the right oropharynx, soft palate also in the nasopharynx and hypopharynx on flexible endoscopy. I sent her to the ER for CT scan to rule out abscess. CT was done showing no discrete abscess and there was reported concern for tonsillar mass and oropharyngeal airway narrowing, and she was admitted to the ICU. INTERVAL EVENTS: Not discharged last weekend was having throat pain, seen by colleague yesterday who reported she looked good. Feeling much better. No SOB - Current Medication List Current Medications: Active Medications Albuterol Sulfate (Ventolin 0.083% Nebulizer Soln -) 1 amp NEB Q1H PRN PRN Reason: SHORT OF BREATH/WHEEZING Albuterol/Ipratropium (Duoneb -) 1 amp NEB BID [facility] Last Admin: 06/22/16 10:35 Dose: 1 amp Alprazolam (Xanax -) 0.5 mg PO HS [facility] Last Admin: 06/21/16 22:02 Dose: 0.5 mg Amlodipine Besylate (Norvasc -) 5 mg PO DAILY [facility] Last Admin: 06/22/16 09:00 Dose: 5 mg Amoxicillin/Clavulanate Potassium (Augmentin - 875mg Tablet) 1 tab PO BID@0800, 1730 [facility] Last Admin: 06/22/16 17:14 Dose: 1 tab Atorvastatin Calcium (Lipitor -) 10 mg PO HS [facility] Last Admin: 06/21/16 22:02 Dose: 10 mg Dexamethasone (Decadron -) 4 mg PO BID [facility] Last Admin: 06/22/16 09:00 Dose: 4 mg Diphenhydramine HCl (Benadryl -) 25 mg PO Q6HPO [facility] Last Admin: 06/22/16 17:14 Dose: 25 mg Insulin Aspart (Novolog Vial Sliding Scale -) 1 vial SQ ACHS [facility] PRN Reason: Protocol Last Admin: 06/22/16 17:13 Dose: Not Given Metoprolol Succinate (Toprol Xl -) 25 mg PO DAILY [facility] Last Admin: 06/22/16 09:00 Dose: 25 mg Ondansetron HCl (Zofran Odt -) 4 mg SL Q4H PRN PRN Reason: NAUSEA Last Admin: 06/19/16 23:40 Dose: 4 mg Pantoprazole Sodium (Protonix -) 40 mg PO DAILY [facility] Last Admin: 06/22/16 13:16 Dose: 40 mg Phenol/Menthol (Chloraseptic -) 1 spray MM Q6HPO PRN PRN Reason: SORE THROAT - Objective Vital Signs: Vital Signs Temperature 98.1 F 06/22/16 14:51 Pulse Rate 80 06/22/16 14:51 Respiratory Rate 20 06/22/16 14:51 Blood Pressure 156/76 06/22/16 14:51 O2 Sat by Pulse Oximetry (%) 95 06/22/16 10:40 Constitutional: Yes: Well Nourished, No Distress, Other (sitting in Sitting Room at end of perez with family next to her. no stridor/stretor. no drooling. pleasant) HENT: Yes: Other (almost resolved edema right pharynx. no masses/lesions.) Neck: Yes: WNL Labs: CBC, BMP 06/20/16 06:15 06/18/16 05:20 INR, PTT INR 1.14 (0.82-1.09) 06/17/16 17:25 Assessment/Plan A/P: 1. Parapharyngeal Cellulitis - Subjectively and objectively improved. - With her chronic immunosuppression on prednisone suspect infectious etiology , improving on IV abx, ID following rec'd change to PO augmentin. Again no e/o [employer] (peritonsillar abscess) - There was concern on the read for tonsillar mass. Clinically I have lower concern for this. She reportedly had something in her right neck biopsied by an outside physician last year, though I am unclear on details. The biopsy was reported to be negative. She may merit repeat CT scan when this is complete to ensure normalization as transoral examination doesn't show any suspicious features of the tonsil itself. - Steroid taper though recall she was on prednisone outpatient and will likely continue this (defer decision to primary team) - Agree with change to PPI from [facility]. - Advise evaluation by my colleague in my practice, Dr. Ashley (allergy/ immunology) for possible angioedema, though lower suspicion for this as precipitating cause. She can make an appointment with him through my office ( where she is already established) - Appreciate medical care Discussed with Dr. Schrader. If discharged tomorrow, can see me later this week for repeat examination or sooner if needed.
[2016-06-22 19:43] VITALS: BP 134/63; PULSE 75; TEMP 98.3
--- NOTE | 2016-06-22 20:38 | DS ---
Physical Examination Vital Signs: Vital Signs Temperature 98.3 F 06/22/16 17:42 Pulse Rate 75 06/22/16 17:42 Respiratory Rate 20 06/22/16 17:42 Blood Pressure 134/63 06/22/16 17:42 O2 Sat by Pulse Oximetry (%) 95 06/22/16 10:40 Findings/Remarks: Patient seen and examined. Feels much better, sorethroat has improved Constitutional: Yes: Well Nourished, No Distress, Calm Eyes: Yes: WNL HENT: Yes: Other (Erythema and swelling of the pharynx has subsided) Neck: Yes: Supple Cardiovascular: Yes: Regular Rate and Rhythm, S1, S2 Respiratory: Yes: Regular, CTA Bilaterally Gastrointestinal: Yes: Normal Bowel Sounds, Soft Renal/: Yes: WNL Musculoskeletal: Yes: Back Pain Extremities: Yes: WNL Edema: No Peripheral Pulses WNL: Yes Integumentary: Yes: WNL Neurological: Yes: Alert, Oriented, Cran Nerves II-XII Intact ...Motor Strength: WNL Psychiatric: Yes: Alert, Oriented Labs: CBC, BMP 06/20/16 06:15 06/18/16 05:20 Discharge Summary Reason For Visit: EDEMA OF PHARYNX Current Active Problems Hyperlipidemia (Acute) Pharyngeal edema (Acute) Polymyalgia rheumatica (Acute) Tonsillar abscess (Acute) Procedures: Principal: CT scan of neck Hospital Course: Was admitted with severe difficulty swallowing and severe pain in the pharynx. She ws examined by in his office with flexible laryngoscopy and found to have edema of the pharynx on right side extending downward to the larynx and because of the possibility of laryngeal edema she was seen in the ED and was given IV decadron and admitted to the ICU. She was treated with IV Clindamycin and Decadron and improved. On the third day again developed worsening edema of the right side of pharynx with difficulty swallowing. She was switched to IV Unasyn. She continued to improve and was able to swallow without difficulty and was discharged and will be followed by in his office in couple of days.She is being discharged on Augmentin and Prednisone. Condition: Improved - Instructions Referrals: Raquel De Santiago [Primary Care Provider] - - Home Medications Comprehensive Discharge Medication List: Ambulatory Orders Pantoprazole Sodium [Protonix] 40 mg PO DAILY 06/02/14 Prednisone 5 mg PO DAILY 03/23/16 Metoprolol Succinate [Toprol XL -] 50 mg PO DAILY #30 tab.sr.24h 03/29/16 Amlodipine Besylate [Norvasc -] 5 mg PO DAILY #90 tablet 05/02/16 Hydrochlorothiazide [Hctz -] 12.5 mg PO DAILY #90 tab 05/02/16 Metoprolol Succinate [Toprol XL -] 50 mg PO DAILY tab.sr.24h 05/02/16 Potassium Chloride [K-Dur -] 20 meq PO Q2D #45 tablet.er 05/02/16 Prednisone [Deltasone -] 5 mg PO DAILY tablet 05/02/16 Amlodipine Besylate [Norvasc -] 5 mg PO DAILY tablet 06/22/16 Amox-Tr/K Cl [Augmentin 875-125mg Tablet -] 1 tab PO BID@0800,1730 #12 tablet Atorvastatin Ca [Lipitor] 10 mg PO HS tablet 06/22/16 Metoprolol Succinate [Toprol XL -] 25 mg PO DAILY tab.sr.24h 06/22/16 Pantoprazole Sodium [Protonix -] 40 mg PO DAILY tablet.ec 06/22/16
== END 2016-06-22 21:23 | disposition home or self-care (01) | DRG 152 ==
LOC: SUPCPDRO 16:20 → JER 16:20 → JICU 20:23 → J8W 06-19 17:52
PROVIDERS: ADMIT Internal Medicine Hematology & Oncology; ATTEND Internal Medicine Hematology & Oncology
DX: J36 Peritonsillar abscess (principal); G92 Toxic encephalopathy; I10 Essential (primary) hypertension; E78.5 Hyperlipidemia, unspecified; D64.9 Anemia, unspecified; I77.810 Thoracic aortic ectasia; I44.7 Left bundle-branch block, unspecified; M35.3 Polymyalgia rheumatica; E04.1 Nontoxic single thyroid nodule; M06.9 Rheumatoid arthritis, unspecified; F41.9 Anxiety disorder, unspecified; T45.0X5A Adverse effect of antiallergic and antiemetic drugs, initial encounter; T38.0X5A Adverse effect of glucocorticoids and synthetic analogues, initial encounter
CPT/HCPCS: 36415; 70491-TC; 71010-TC; 80053; 81003; 81015; 82550; 83605; 83735; 83880; 84100; 84443; 84481; 84484; 85025; 85027; 85610; 86140; 87040; 87086; 87254; 87804; 93005; 93010; 93306-TC; 94640; 99283-25; J1644

== ENCOUNTER 2016-08-12 18:28 | Inpatient (IN) | payer OTHER ==
[2016-08-12 19:30] LABS: BASOPHIL 0.7 % (0-2.0); EOSINOPHIL 0.3 % (0-4.5); MCH 23.1 pg (25.7-33.7); MCHC 31.6 g/dl (32.0-36.0); MEAN CELL VOLUME 73.3 fl (80-96); MEAN PLT VOLUME 9.7 fl (7.5-11.1); NEUTROPHILS 76.2 % (42.8-82.8); PLATELET COUNT 316 K/MM3 (134-434); WHITE BLOOD COUNT 6.8 K/mm3 (4.0-10.0)
[2016-08-12] MEDS ORDERED: SODIUM CHLORIDE 1,000 ML IV SCH (19:30)
--- NOTE | 2016-08-12 19:33 | PDOC ---
History of Present Illness - General Chief Complaint: Rectal Bleed Stated Complaint: RECTAL BLEED Time Seen by Provider: 08/12/16 19:03 History Source: Patient, Family (Son) Exam Limitations: Language Barrier - History of Present Illness Initial Comments: 08/12/16 19:28 76yo Female patient w/ PmHx: GERD, HTN, HLD, Polymyalgia Rheumatica presents to ED c/o weakness, GI bleeding x 3 days, SOB. Patient states she went to see her PMD (Dr. Schrader) who sent patient over for evaluation. Patient denies CP, n/v/d , cough, back pain, fever, diff breathing, rash, dysuria, melena, hematuria, or any other complaints at this time. PCP -- Dr. Schrader Past History - Travel Traveled outside of the country in the last 30 days: No Close contact w/someone who was outside of country & ill: No - Past Medical History Allergies/Adverse Reactions: Allergies Allergy/AdvReac Type Severity Reaction Status Date / Time lisinopril Allergy Cough Verified 08/12/16 18:30 Home Medications: Ambulatory Orders Pantoprazole Sodium [Protonix] 40 mg PO DAILY 06/02/14 Prednisone 5 mg PO DAILY 03/23/16 Metoprolol Succinate [Toprol XL -] 50 mg PO DAILY #30 tab.sr.24h 03/29/16 Amlodipine Besylate [Norvasc -] 5 mg PO DAILY #90 tablet 05/02/16 Hydrochlorothiazide [Hctz -] 12.5 mg PO DAILY #90 tab 05/02/16 Metoprolol Succinate [Toprol XL -] 50 mg PO DAILY tab.sr.24h 05/02/16 Potassium Chloride [K-Dur -] 20 meq PO Q2D #45 tablet.er 05/02/16 Prednisone [Deltasone -] 5 mg PO DAILY tablet 05/02/16 Amlodipine Besylate [Norvasc -] 5 mg PO DAILY tablet 06/22/16 Amox-Tr/K Cl [Augmentin 875-125mg Tablet -] 1 tab PO BID@0800,1730 #12 tablet Atorvastatin Ca [Lipitor] 10 mg PO HS tablet 06/22/16 Metoprolol Succinate [Toprol XL -] 25 mg PO DAILY tab.sr.24h 06/22/16 Pantoprazole Sodium [Protonix -] 40 mg PO DAILY tablet.ec 06/22/16 Anemia: Yes Asthma: No Cancer: No Cardiac Disorders: No CVA: No COPD: No CHF: No Dementia: No Diabetes: No GI Disorders: Yes (GERD) Disorders: No HTN: Yes Hypercholesterolemia: No Liver Disease: No Suicide Attempt (Hx): No Seizures: No Thyroid Disease: No - Surgical History Abdominal Surgery: No Appendectomy: No Cardiac Surgery: No Cholecystectomy: Yes Lung Surgery: No Neurologic Surgery: No Orthopedic Surgery: No - Psycho/Social/Smoking Cessation Hx Anxiety: No Suicidal Ideation: No Smoking Status: No Smoking History: Never smoked Have you smoked in the past 12 months: No Number of Cigarettes Smoked Daily: 0 Hx Alcohol Use: No Drug/Substance Use Hx: No Substance Use Type: None Hx Substance Use Treatment: No Review of Systems - Review of Systems Able to Perform ROS?: No (Son provided information.) Is the patient limited Thai proficient: Yes Constitutional: No: Chills, Fever Respiratory: Yes: Shortness of Breath. No: Cough, Orthopnea, Stridor, Wheezing , Productive cough Cardiac (ROS): No: Chest Pain, Edema, Lightheadedness, Palpitations, Syncope, Chest Tightness ABD/GI: Yes: Rectal Bleeding. No: Blood Streaked Bowels, Constipated, Diarrhea , Nausea, Poor Appetite, Poor Fluid Intake, Vomiting, Abdominal cramping, Tarry Stools : No: Burning, Dysuria, Frequency, Flank Pain, Hematuria, Pain, Urgency Musculoskeletal: No: Back Pain Integumentary: No: Bruising, Erythema, Rash Neurological: No: Headache, Seizure, Tingling, Tremors All Other Systems: Reviewed and Negative *Physical Exam - Vital Signs Last Vital Signs Temp Pulse Resp BP Pulse Ox 97.6 F 86 20 156/73 100 08/12/16 18:28 08/12/16 18:28 08/12/16 18:28 08/12/16 18:28 08/12/16 18:40 - Physical Exam General Appearance: Yes: Nourished, Appropriately Dressed. No: Apparent Distress, Mild Distress, Moderate Distress, Severe Distress Neck: positive: Trachea midline, Supple. negative: Decreased range of motion, Stridor, Lymphadenopathy (R), Lymphadenopathy (L) Respiratory/Chest: positive: Lungs Clear, Normal Breath Sounds. negative: Respiratory Distress, Accessory Muscle Use, Labored Respiration, Rapid RR Cardiovascular: positive: Regular Rhythm, Regular Rate. negative: Edema, JVD, Murmur Gastrointestinal/Abdominal: positive: Soft, Increased Bowel Sounds, Distended. negative: Tender, Guarding, Rebound, Tenderness Musculoskeletal: positive: Normal Inspection. negative: CVA Tenderness Extremity: positive: Normal Capillary Refill, Normal Inspection, Normal Range of Motion. negative: Pedal Edema, Swelling Integumentary: positive: Normal Color, Dry, Warm. negative: Erythema, Petechiae , Rash, Swelling, Bruising Neurologic: positive: insulation nozzleman II-XII NML intact, Fully Oriented, Alert, Normal Mood/ Affect, Normal Response Heart Score/ECG Review - History History: Slightly suspicious - Electrocardiogram EKG: Normal - Age Age: >/= 65 - Risk Factors Risk Factors Heart Score: Yes Hx Hypercholesterolemia, Yes Hx Hypertension Based on the list above the patient has:: 1-2 risk factors - ECG Impressions Normal ECG: Yes Non-specific ST Elevation: No Ischemic Changes: No Bradycardia: No Torsades gaby Pointes: No WPW: No ED Treatment Course - LABORATORY CBC & Chemistry Diagram: 08/12/16 18:40 08/12/16 18:40 *DC/Admit/Observation/Transfer Diagnosis at time of Disposition: GI bleed Qualifiers: GI bleed type/associated pathology: unspecified gastrointestinal hemorrhage type Qualified Code(s): K92.2 - Gastrointestinal hemorrhage, unspecified - Discharge Dispostion Admit: Yes - Referrals Referrals: Johann Schrader MD [Primary Care Provider] -
--- NOTE | 2016-08-12 19:36 | PDOC ---
*Physical Exam - Vital Signs Last Vital Signs Temp Pulse Resp BP Pulse Ox 97.6 F 86 20 156/73 100 08/12/16 18:28 08/12/16 18:28 08/12/16 18:28 08/12/16 18:28 08/12/16 18:40 ED Treatment Course - LABORATORY CBC & Chemistry Diagram: 08/13/16 06:50 08/12/16 18:40 - ADDITIONAL ORDERS Additional order review: Laboratory Results 08/12/16 19:28 Stool Occult Blood Positive 08/12/16 18:40 RBC 3.29 L MCV 73.3 L MCHC 31.6 L RDW 17.0 H D MPV 9.7 Neutrophils % 76.2 Lymphocytes % 15.8 Monocytes % 7.0 Eosinophils % 0.3 D Basophils % 0.7 Medical Decision Making - Medical Decision Making 08/12/16 19:36 agree with care from [facility] *DC/Admit/Observation/Transfer Diagnosis at time of Disposition: GI bleed
[2016-08-12 19:43] LABS: INR 1.1 (0.82-1.09); PROTHROMBIN TIME (PATIENT) 12.1 SEC (9.98-11.88)
[2016-08-12 19:54] LABS: ANION GAP 11 (8-16); BILIRUBIN,TOTAL 0.4 mg/dL (0.2-1.0); CALCIUM 8.7 mg/dL (8.5-10.1); CO2 25 mmol/L (21-32); CREATININE 0.7 mg/dL (0.55-1.02); GLUCOSE,RANDOM 119 mg/dL (74-106); SGOT/AST 12 U/L (15-37); SGPT/ALT 20 U/L (12-78); TOT PROT 7.1 g/dl (6.4-8.2)
[2016-08-12 19:55] LABS: ALK PHOS 68 U/L (45-117)
[2016-08-12 21:11] LABS: URINE APPEARANCE CLEAR; URINE BILIRUBIN NEGATIVE (NEGATIVE); URINE COLOR STRAW; URINE GLUCOSE (UA) NEGATIVE (NEGATIVE); URINE KETONE NEGATIVE (NEGATIVE); URINE LEUK ESTERASE NEGATIVE (NEGATIVE); URINE NITRITE NEGATIVE (NEGATIVE); URINE PROTEIN NEGATIVE (NEGATIVE); URINE UROBILINOGEN NEGATIVE E.U./dl (0.2-1.0)
[2016-08-12 21:13] LABS: URINE BLOOD 1+ (NEGATIVE)
[2016-08-12] MEDS ORDERED: PANTOPRAZOLE SODIUM 40 MG in SODIUM CHLORIDE 100 ML IVPB ONE (21:13)
[2016-08-12 21:15] LABS: URINE BACTERIA FEW /hpf (NONE SEEN); URINE MUCUS RARE; URINE RBC 1 /hpf (0-3)
[2016-08-12] MEDS ORDERED: PANTOPRAZOLE SODIUM 100 ML IVPB ONE (21:23)
--- NOTE | 2016-08-12 21:47 | HP ---
Admitting History and Physical - Primary Care Physician PCP: Johann Schrader - Admission Chief Complaint: Generalized weakness. Melena History of Present Illness: She is 76 y/o known hypertensive with polymyalgia rheumatica who presents with generalized weakness, For the past 10 days has noted melanotic stools mostly liquid stools with some epigastric discomfort. She claims that the stool was light color today. Denies any chest pain, SOB, N/V. She had GI bleed in the past after taking NSAID and had to be transfused.She is known to have GERD. CBC today shows a Hb of 7.6 and HCT of 24. She is being transfused and will undergo EGD to determine exact etiology of the bleeding. History Source: Patient Limitations to Obtaining History: No Limitations - Past Medical History Cardiovascular: Yes: HTN, Hyperlipdemia, Other (left bundle branch block) Gastrointestinal: Yes: Gastritis, GERD, GI Bleed Heme/Onc: Yes: Anemia (due to GI bleed in the past) Psych: Yes: Anxiety Musculoskeletal: Yes: Chronic low back pain Rheumatology: Yes: Other (has polymialgia rheumatica) - Past Surgical History Past Surgical History: Yes: Cholecystectomy - Smoking History Smoking history: Never smoked Have you smoked in the past 12 months: No Aproximately how many cigarettes per day: 0 - Alcohol/Substance Use Hx Alcohol Use: No History of Substance Use: reports: None - Social History Usual Living Arrangement: Yes: Other (lives with her daughter) ADL: Independent History of Recent Travel: Yes Home Medications - Allergies Allergies/Adverse Reactions: Allergies Allergy/AdvReac Type Severity Reaction Status Date / Time lisinopril Allergy Cough Verified 08/12/16 18:30 - Home Medications Home Medications: Ambulatory Orders Pantoprazole Sodium [Protonix] 40 mg PO DAILY 06/02/14 Prednisone 5 mg PO DAILY 03/23/16 Metoprolol Succinate [Toprol XL -] 50 mg PO DAILY #30 tab.sr.24h 03/29/16 Amlodipine Besylate [Norvasc -] 5 mg PO DAILY #90 tablet 05/02/16 Hydrochlorothiazide [Hctz -] 12.5 mg PO DAILY #90 tab 05/02/16 Metoprolol Succinate [Toprol XL -] 50 mg PO DAILY tab.sr.24h 05/02/16 Potassium Chloride [K-Dur -] 20 meq PO Q2D #45 tablet.er 05/02/16 Prednisone [Deltasone -] 5 mg PO DAILY tablet 05/02/16 Amlodipine Besylate [Norvasc -] 5 mg PO DAILY tablet 06/22/16 Amox-Tr/K Cl [Augmentin 875-125mg Tablet -] 1 tab PO BID@0800,1730 #12 tablet Atorvastatin Ca [Lipitor] 10 mg PO HS tablet 06/22/16 Metoprolol Succinate [Toprol XL -] 25 mg PO DAILY tab.sr.24h 06/22/16 Pantoprazole Sodium [Protonix -] 40 mg PO DAILY tablet.ec 06/22/16 Review of Systems - Review of Systems Constitutional: reports: Weakness Eyes: reports: No Symptoms HENT: reports: No Symptoms Neck: reports: No Symptoms Cardiovascular: reports: Shortness of Breath. denies: No Symptoms, Chest Pain, Edema, Palpitations, Other Respiratory: reports: SOB on Exertion Gastrointestinal: reports: Abdominal Pain Genitourinary: reports: No Symptoms Breasts: reports: No Symptoms Reported Musculoskeletal: reports: Back Pain, Joint Pain Integumentary: reports: No Symptoms Neurological: reports: No Symptoms Endocrine: reports: No Symptoms Hematology/Lymphatic: reports: No Symptoms Psychiatric: reports: Anxiety Physical Examination Vital Signs: Vital Signs Temperature 97.6 F 08/12/16 18:28 Pulse Rate 86 08/12/16 18:28 Respiratory Rate 20 08/12/16 18:28 Blood Pressure 156/73 08/12/16 18:28 O2 Sat by Pulse Oximetry (%) 100 08/12/16 18:40 Constitutional: Yes: Pallor Eyes: Yes: Conjunctiva Clear, EOM Intact HENT: Yes: WNL Neck: Yes: Supple Cardiovascular: Yes: Regular Rate and Rhythm, S1, S2 Respiratory: Yes: CTA Bilaterally Gastrointestinal: Yes: Normal Bowel Sounds, Soft, Tenderness, Epigastrium Renal/: Yes: WNL Breast(s): Yes: WNL Musculoskeletal: Yes: Back Pain Extremities: Yes: WNL Edema: No Peripheral Pulses WNL: Yes Integumentary: Yes: WNL Neurological: Yes: Alert, Oriented, Cran Nerves II-XII Intact ...Motor Strength: WNL Psychiatric: Yes: Alert, Oriented Labs: CBC, BMP 08/12/16 18:40 08/12/16 18:40 Problem List - Problems (1) GI bleed Assessment/Plan: Hemoglobin is 7.6 am\nd will be transfused one unit Code(s): K92.2 - GASTROINTESTINAL HEMORRHAGE, UNSPECIFIED Qualifiers: GI bleed type/associated pathology: unspecified gastrointestinal hemorrhage type Qualified Code(s): K92.2 - Gastrointestinal hemorrhage, unspecified (2) LBBB (left bundle branch block) Assessment/Plan: She is known to have LBBB Code(s): I44.7 - LEFT BUNDLE-BRANCH BLOCK, UNSPECIFIED (3) Tonsillar abscess Code(s): J36 - PERITONSILLAR ABSCESS (4) Anemia Code(s): D64.9 - ANEMIA, UNSPECIFIED Qualifiers: Other causes of anemia: acute posthemorrhagic (5) Hypertension Code(s): I10 - ESSENTIAL (PRIMARY) HYPERTENSION Qualifiers: Hypertension type: essential hypertension Qualified Code(s): I10 - Essential (primary) hypertension Assessment/Plan As Hb is 7.6 will be transfused one unit. Consultation with for GI evaluation. Will keep NPO in the interim
[2016-08-12 23:37] LABS: TROPONIN I < 0.02 ng/ml (0.00-0.05)
[2016-08-12] MEDS: DEXTROSE 5%-1/3 NS - 500 ML IV SCH (23:54)
[2016-08-13] MEDS: METOPROLOL SUCCINATE 25 MG TAB.SR.24H (FP) PO SCH ×3 (00:57→21:22)
[2016-08-13 04:42] VITALS: BMI 26.0
[2016-08-13 08:05] LABS: BASOPHIL 0.9 % (0-2.0); EOSINOPHIL 1.4 % (0-4.5); MCH 25.2 pg (25.7-33.7); MCHC 33.5 g/dl (32.0-36.0); MEAN PLT VOLUME 9.6 fl (7.5-11.1); NEUTROPHILS 49.9 % (42.8-82.8); PLATELET COUNT 280 K/MM3 (134-434); WHITE BLOOD COUNT 5.8 K/mm3 (4.0-10.0)
[2016-08-13] MEDS: DEXTROSE 5%-1/3 NS - 500 ML IV SCH ×2 (08:51→16:10)
[2016-08-13] MEDS: PANTOPRAZOLE SODIUM 100 ML IVPB SCH ×2 (09:35→21:22)
--- NOTE | 2016-08-13 09:41 | CON.GI ---
Consult Consult Specialty:: GI Referred by:: Dr Melchor Reason for Consultation:: GI bleed - History of Present Illness Chief Complaint: abdominal pain and fatigue History of Present Illness: 76 F with h/o PMR, HTN with baseline Hgb ~11 admitted with h/o 10 days of black liquid stools and a Hgb of 7.6. She has been having epigastric pain and c/o pain at this time although not severe. She has a h/o NSAID-induced bleeding. She denies taking NSAIDs at this time but is having difficulty conveying information (speaks Romanian) and may not fully understand questions posed in [place]an and Pashto. She feels better post-transfusion. - History Source History Provided By: Patient, Medical Record Limitations to Obtaining History: Language Barrier - Past Medical History Cardio/Vascular: Yes: HTN, Hyperlipdemia, Other (left bundle branch block) Gastrointestinal: Yes: Gastritis, GERD, GI Bleed ...: No Psych: Yes: Anxiety Musculoskeletal: Yes: Chronic low back pain Rheumatology: Yes: Other (has polymialgia rheumatica) - Past Surgical History Past Surgical History: Yes: Cholecystectomy - Alcohol/Substance Use Hx Alcohol Use: No History of Substance Use: reports: None - Smoking History Smoking history: Never smoked Have you smoked in the past 12 months: No Aproximately how many cigarettes per day: 0 - Social History ADL: Independent History of Recent Travel: Yes Home Medications - Allergies Allergies/Adverse Reactions: Allergies Allergy/AdvReac Type Severity Reaction Status Date / Time lisinopril Allergy Cough Verified 08/12/16 18:30 - Home Medications Home Medications: Ambulatory Orders Pantoprazole Sodium [Protonix] 40 mg PO DAILY 06/02/14 Hydrochlorothiazide [Hctz -] 12.5 mg PO DAILY #90 tab 05/02/16 Metoprolol Succinate [Toprol XL -] 50 mg PO DAILY tab.sr.24h 05/02/16 Potassium Chloride [K-Dur -] 20 meq PO Q2D #45 tablet.er 05/02/16 Prednisone [Deltasone -] 5 mg PO DAILY tablet 05/02/16 Amlodipine Besylate [Norvasc -] 5 mg PO DAILY tablet 06/22/16 Amox-Tr/K Cl [Augmentin 875-125mg Tablet -] 1 tab PO BID@0800,1730 #12 tablet Atorvastatin Ca [Lipitor] 10 mg PO HS tablet 06/22/16 Metoprolol Succinate [Toprol XL -] 25 mg PO DAILY tab.sr.24h 06/22/16 Pantoprazole Sodium [Protonix -] 40 mg PO DAILY tablet.ec 06/22/16 Physical Exam-GI Vital Signs: Vital Signs Temperature 97.8 F 08/13/16 07:43 Pulse Rate 71 08/13/16 07:43 Respiratory Rate 18 08/13/16 07:43 Blood Pressure 147/65 08/13/16 07:43 O2 Sat by Pulse Oximetry (%) 98 08/13/16 00:15 Constitutional: Yes: Well Nourished, Anxious HENT: Yes: Normocephalic Neck: Yes: Supple Cardiovascular: Yes: Regular Rate and Rhythm Respiratory: Yes: CTA Bilaterally Gastrointestinal Inspection: Yes: WNL ...Auscultate: Yes: Normoactive Bowel Sounds ...Palpate: Yes: Soft. No: Tenderness ...Percussion: Yes: Dullness Labs: CBC, BMP INR, PTT INR 1.10 (0.82-1.09) 08/12/16 18:40 Current Medications Generic Name Dose Route Start Last Admin Trade Name Freq PRN Reason Stop Dose Admin Pantoprazole Sodium 100 mls @ 200 mls/hr 08/13/16 10:00 08/13/16 09:35 Protonix 40mg Ivpb (Pre-Docked) IVPB 200 mls/hr BID ALON Administration Dextrose/Sodium Chloride 500 mls @ 75 mls/hr 08/12/16 21:45 08/13/16 08:51 D5-1/3ns - IV 75 mls/hr ASDIR ALON Administration Metoprolol Succinate 25 mg 08/12/16 22:00 08/13/16 09:35 Toprol Xl - PO 25 mg BID ALON Administration CBC, BMP 08/13/16 06:50 08/12/16 18:40 Assessment/Plan 76 F with above history now with UGIB, possibly reelated to NSAID use Continue PPI NPO EGD tomorrow 7:30 AM Please have patient in endo at 7:15 Continue IVF
--- NOTE | 2016-08-13 12:23 | EKG ---
Test Reason : Blood Pressure : / mmHG Vent. Rate : 084 BPM Atrial Rate : 084 BPM P-R Int : 166 ms QRS Dur : 106 ms QT Int : 396 ms P-R-T Axes : 040 -45 033 degrees QTc Int : 467 ms NORMAL SINUS RHYTHM LEFT ANTERIOR FASCICULAR BLOCK VOLTAGE CRITERIA FOR LEFT VENTRICULAR HYPERTROPHY ABNORMAL ECG WHEN COMPARED WITH ECG OF 17-JUN-2016 21:24, LEFT ANTERIOR FASCICULAR BLOCK IS NOW PRESENT LEFT BUNDLE BRANCH BLOCK IS NO LONGER PRESENT Confirmed by ALLEY ZAMBRANO MD ([id number]) on 08/13/2016 12:23:47 PM Referred By: Confirmed By:ALLEY ZAMBRANO MD
--- NOTE | 2016-08-13 14:32 | EKG ---
Test Reason : Blood Pressure : / mmHG Vent. Rate : 075 BPM Atrial Rate : 075 BPM P-R Int : 186 ms QRS Dur : 150 ms QT Int : 460 ms P-R-T Axes : 035 -28 127 degrees QTc Int : 513 ms NORMAL SINUS RHYTHM LEFT BUNDLE BRANCH BLOCK ABNORMAL ECG WHEN COMPARED WITH ECG OF 12-AUG-2016 19:11, LEFT ANTERIOR FASCICULAR BLOCK IS NO LONGER PRESENT LEFT BUNDLE BRANCH BLOCK IS NOW PRESENT Confirmed by JUAN MANUEL CARTER, ALLEY ([id number]) on 08/13/2016 2:32:11 PM Referred By: ABRAN NULL Confirmed By:ALLEY ZAMBRANO MD
--- NOTE | 2016-08-13 15:41 | CON.CARD ---
Consult Consult Specialty:: cardiology Reason for Consultation:: EKG changes - History of Present Illness Chief Complaint: Pt c/o nausea and abdominal pain. History of Present Illness: 76yo Female patient (shilpi Morales), w/ PmHx: systolic CHF (moderately decreased LVEF by ECHO 06/2016), GERD, HTN, HLD, Polymyalgia Rheumatica presents to ED c/ o weakness, GI bleeding x 3 days, SOB. Patient states she went to see her PMD ( Dr. Schrader) who sent patient over for evaluation. Patient denies CP, n/v/d, cough, back pain, fever, diff breathing, rash, dysuria, melena, hematuria, or any other complaints at this time. PCP -- Dr. Schrader - History Source History Provided By: Patient, Medical Record Limitations to Obtaining History: No Limitations - Past Medical History Cardio/Vascular: Yes: CHF, HTN, Hyperlipdemia, Other (left bundle branch block) Gastrointestinal: Yes: Gastritis, GERD, GI Bleed Reproductive: Yes: Postmenopausal ...: No Psych: Yes: Anxiety Musculoskeletal: Yes: Chronic low back pain Rheumatology: Yes: Other (has polymialgia rheumatica) - Past Surgical History Past Surgical History: Yes: Cholecystectomy - Alcohol/Substance Use Hx Alcohol Use: No History of Substance Use: reports: None - Smoking History Smoking history: Never smoked Have you smoked in the past 12 months: No Aproximately how many cigarettes per day: 0 - Social History ADL: Independent History of Recent Travel: Yes Home Medications - Allergies Allergies/Adverse Reactions: Allergies Allergy/AdvReac Type Severity Reaction Status Date / Time lisinopril Allergy Cough Verified 08/12/16 18:30 - Home Medications Home Medications: Ambulatory Orders Pantoprazole Sodium [Protonix] 40 mg PO DAILY 06/02/14 Hydrochlorothiazide [Hctz -] 12.5 mg PO DAILY #90 tab 05/02/16 Metoprolol Succinate [Toprol XL -] 50 mg PO DAILY tab.sr.24h 05/02/16 Potassium Chloride [K-Dur -] 20 meq PO Q2D #45 tablet.er 05/02/16 Prednisone [Deltasone -] 5 mg PO DAILY tablet 05/02/16 Amlodipine Besylate [Norvasc -] 5 mg PO DAILY tablet 06/22/16 Amox-Tr/K Cl [Augmentin 875-125mg Tablet -] 1 tab PO BID@0800,1730 #12 tablet Atorvastatin Ca [Lipitor] 10 mg PO HS tablet 06/22/16 Metoprolol Succinate [Toprol XL -] 25 mg PO DAILY tab.sr.24h 06/22/16 Pantoprazole Sodium [Protonix -] 40 mg PO DAILY tablet.ec 06/22/16 Family Disease History - Family Disease History Family History: Denies Review of Systems - Review of Systems Constitutional: reports: No Symptoms Eyes: reports: No Symptoms HENT: reports: No Symptoms Neck: reports: No Symptoms Cardiovascular: reports: No Symptoms Respiratory: reports: No Symptoms Gastrointestinal: reports: Abdominal Pain Genitourinary: reports: No Symptoms Breasts: reports: No Symptoms Reported Musculoskeletal: reports: No Symptoms Integumentary: reports: No Symptoms Neurological: reports: No Symptoms Endocrine: reports: No Symptoms Hematology/Lymphatic: reports: No Symptoms Psychiatric: reports: No Symptoms - Risk Factors Known Risk Factors: Yes: Age, Hypercholesterolemia, Hypertension, Other ( systolic CHF) Vital Signs: Vital Signs Temperature 97.7 F 08/13/16 13:42 Pulse Rate 72 08/13/16 13:42 Respiratory Rate 17 08/13/16 13:42 Blood Pressure 147/65 08/13/16 07:43 O2 Sat by Pulse Oximetry (%) 99 08/13/16 09:00 Constitutional: Yes: No Distress Eyes: Yes: WNL HENT: Yes: WNL Neck: Yes: WNL Respiratory: Yes: WNL Gastrointestinal: Yes: Soft. No: Tenderness Renal/: No: Anuria Cardiovascular: Yes: Regular Rate and Rhythm JVD: No Carotid Bruit: No PMI: Displaced Heart Sounds: Yes: S1, Split S2 Murmur: Yes: Systolic Murmur, Grade 1 Musculoskeletal: Yes: WNL Extremities: Yes: WNL Edema: No Peripheral Pulses WNL: Yes Integumentary: Yes: WNL Neurological: Yes: WNL Psychiatric: Yes: WNL - Other Data Labs, Other Data: CBC, BMP 08/13/16 06:50 INR, PTT INR 1.10 (0.82-1.09) 08/12/16 18:40 Abnormal Lab Results 08/12/16 08/12/16 08/12/16 18:40 18:40 18:40 RBC 3.29 L Hgb 7.6 L D Hct 24.1 L D MCV 73.3 L MCHC 31.6 L RDW 17.0 H D Monocytes % BUN 22 H D Random Glucose 119 H D AST 12 L D B-Natriuretic Peptide Urine Blood Crossmatch See Detail 08/12/16 08/12/16 08/13/16 18:40 21:03 06:50 RBC Hgb 9.9 L D Hct 29.4 L D MCV 75.0 L MCHC RDW 18.0 H Monocytes % 12.8 H D BUN Random Glucose AST B-Natriuretic Peptide 961.03 H Urine Blood 1+ H Crossmatch Ejection Fraction %: LVEF < 40 % Imaging - Results Chest X-ray: Image Reviewed (no acute pathology) Ultrasound: Report Reviewed (ECHO: moderately decreased LVEF.) EKG: Image Reviewed (initial EKG (08/12/2016): normal sinus rhythm; deep T waves V1-3 EKG 08/13/2016: NSR; LBBB (LBBB has been noted in the past)) Problem List - Problems (1) GI bleed Assessment/Plan: From a cardiac standpoint, there are no absolute contraindications for Ms. Lopez to undergo EGD/colonoscopy. Code(s): K92.2 - GASTROINTESTINAL HEMORRHAGE, UNSPECIFIED Qualifiers: GI bleed type/associated pathology: unspecified gastrointestinal hemorrhage type Qualified Code(s): K92.2 - Gastrointestinal hemorrhage, unspecified (2) Hypertension Code(s): I10 - ESSENTIAL (PRIMARY) HYPERTENSION Qualifiers: Hypertension type: essential hypertension Qualified Code(s): I10 - Essential (primary) hypertension (3) LBBB (left bundle branch block) Assessment/Plan: intermittent. Moderately decreased LVEF. Stress MIBI 02/2012: no myocardial ischemia. (Pt reports having repeated stress MIBI in the summer of 2015 while in [place] : reportedly WNL). Code(s): I44.7 - LEFT BUNDLE-BRANCH BLOCK, UNSPECIFIED (4) Systolic CHF Assessment/Plan: ECHO 06/2016: moderately decreased LVEF; moderate LV dilation; mild ; trace AR ; mild MR; abnormal septal motion (LBBB). No JVD; no acute pathology on CXR. Pt gives hx of walking at least 30 minutes daily; she also uses an exercise bicycle. Denies chest pain or dyspnea. Continue carvedilol (HTN; systolic CHF; ?hx PSVT). Start losartan. F/u BUN/Cr, electrolytes; daily weight; Is and Os. Code(s): I50.20 - UNSPECIFIED SYSTOLIC (CONGESTIVE) HEART FAILURE
[2016-08-13] MEDS ORDERED: ONDANSETRON 4 MG/2 ML VIAL IVPUSH PRN (19:56)
[2016-08-13] MEDS ORDERED: MAG HYDROX/AL HYDROX/SIMETH 355 ML ORAL.SUSP PO STA (21:23)
[2016-08-13] MEDS ORDERED: HYDROmorphone HCL CARPU-JECT 1 MG/1 ML DISP.SYRIN IVPB STA (21:24)
[2016-08-13 21:25] LABS: CHOLESTEROL 140 mg/dL (50-200); LDL CHOLESTEROL (ONLY SJRH) 68 mg/dL (5-100)
--- NOTE | 2016-08-13 21:31 | PN ---
Progress Note, Physician History of Present Illness: Continues to have severe epigastric pain all day with nausea but without vomiting. No melena. - Current Medication List Current Medications: Active Medications Al Hydroxide/Mg Hydroxide (Mylanta Suspension -) 30 ml PO ONCE STA Stop: 08/13/16 21:24 Hydromorphone HCl (Dilaudid Injection -) 1 mg IVPB ONCE STA Stop: 08/13/16 21:25 Pantoprazole Sodium (Protonix 40mg Ivpb (Pre-Docked)) 100 mls @ 200 mls/hr IVPB BID [facility] Last Admin: 08/13/16 21:22 Dose: 200 mls/hr Dextrose/Sodium Chloride (D5-1/3ns -) 500 mls @ 75 mls/hr IV ASDIR [facility] Last Admin: 08/13/16 16:10 Dose: 75 mls/hr Losartan Potassium (Cozaar -) 25 mg PO DAILY [facility] Metoprolol Succinate (Toprol Xl -) 25 mg PO BID [facility] Last Admin: 08/13/16 21:22 Dose: 25 mg Ondansetron HCl (Zofran Injection) 4 mg IVPUSH Q6H PRN PRN Reason: NAUSEA - Objective Vital Signs: Vital Signs Temperature 97.5 F L 08/13/16 17:48 Pulse Rate 68 08/13/16 17:48 Respiratory Rate 18 08/13/16 17:48 Blood Pressure 147/68 08/13/16 17:48 O2 Sat by Pulse Oximetry (%) 99 08/13/16 09:00 Constitutional: Yes: Calm, Anxious Eyes: Yes: Conjunctiva Clear HENT: Yes: WNL Neck: Yes: Supple Cardiovascular: Yes: Regular Rate and Rhythm, S1, S2 Respiratory: Yes: Regular, CTA Bilaterally Gastrointestinal: Yes: Tenderness, Epigastrium Musculoskeletal: Yes: Back Pain Extremities: Yes: WNL Edema: No Peripheral Pulses WNL: Yes Integumentary: Yes: WNL Neurological: Yes: Alert, Oriented, Cran Nerves II-XII Intact ...Motor Strength: WNL Psychiatric: Yes: Alert, Oriented Labs: CBC, BMP 08/13/16 06:50 INR, PTT INR 1.10 (0.82-1.09) 08/12/16 18:40 - ....Imaging EKG: Report Reviewed, Image Reviewed Problem List - Problems (1) GI bleed Assessment/Plan: As per patient she had been taking Advil for pain in her ankle. GI bleeding most likely due to acute gastritis. Hb 9.9 after one unit of packed RBC Code(s): K92.2 - GASTROINTESTINAL HEMORRHAGE, UNSPECIFIED Qualifiers: GI bleed type/associated pathology: unspecified gastrointestinal hemorrhage type Qualified Code(s): K92.2 - Gastrointestinal hemorrhage, unspecified (2) LBBB (left bundle branch block) Assessment/Plan: EKG on admission showed inverted Tw v1 to V3 suggestive of ischemia but cardiac enzymes are normal. Repeat EKG this AM shows LBBB Code(s): I44.7 - LEFT BUNDLE-BRANCH BLOCK, UNSPECIFIED (3) Tonsillar abscess Code(s): J36 - PERITONSILLAR ABSCESS Assessment/Plan Continue IV Protonix and monitor HB daily. She is scheduled to undergo EGD in AM. Case discussed with , hospital corpsman. As per patient she had cardiac stress test in [facility] and was negative.
[2016-08-14] MEDS ORDERED: ONDANSETRON 4 MG/2 ML VIAL IVPUSH PRN (02:00)
[2016-08-14 08:18] LABS: BASOPHIL 0.7 % (0-2.0); EOSINOPHIL 0.4 % (0-4.5); MCH 25.4 pg (25.7-33.7); MCHC 33.7 g/dl (32.0-36.0); MEAN CELL VOLUME 75.4 fl (80-96); MEAN PLT VOLUME 9.6 fl (7.5-11.1); NEUTROPHILS 76.6 % (42.8-82.8); PLATELET COUNT 251 K/MM3 (134-434); RDW 17.7 % (11.6-15.6); WHITE BLOOD COUNT 8.6 K/mm3 (4.0-10.0)
[2016-08-14] MEDS: PANTOPRAZOLE SODIUM 100 ML IVPB SCH ×2 (09:10→21:19)
[2016-08-14] MEDS: METOPROLOL SUCCINATE 25 MG TAB.SR.24H (FP) PO SCH ×2 (11:58→21:19)
[2016-08-14] MEDS: LOSARTAN POTASSIUM 25 MG TABLET PO SCH (11:58)
[2016-08-14] MEDS: DEXTROSE 5%-1/3 NS - 500 ML IV SCH ×2 (21:45→22:00)
--- NOTE | 2016-08-14 21:57 | PN ---
Progress Note, Physician History of Present Illness: Feels much better, no melena, epigastric pain is much less. Underwent EGD this AM. - Current Medication List Current Medications: Active Medications Pantoprazole Sodium (Protonix 40mg Ivpb (Pre-Docked)) 100 mls @ 200 mls/hr IVPB BID [facility] Last Admin: 08/14/16 21:19 Dose: 200 mls/hr Dextrose/Sodium Chloride (D5-1/3ns -) 500 mls @ 75 mls/hr IV ASDIR [facility] Last Admin: 08/13/16 16:10 Dose: 75 mls/hr Losartan Potassium (Cozaar -) 25 mg PO DAILY [facility] Last Admin: 08/14/16 11:58 Dose: Not Given Metoprolol Succinate (Toprol Xl -) 25 mg PO BID [facility] Last Admin: 08/14/16 21:19 Dose: 25 mg Ondansetron HCl (Zofran Injection) 4 mg IVPUSH Q6H PRN PRN Reason: NAUSEA Last Admin: 08/14/16 05:56 Dose: 4 mg - Objective Vital Signs: Vital Signs Temperature 98.9 F 08/14/16 18:04 Pulse Rate 83 08/14/16 18:04 Respiratory Rate 20 08/14/16 18:04 Blood Pressure 124/74 08/14/16 18:04 O2 Sat by Pulse Oximetry (%) 99 08/14/16 16:11 Constitutional: Yes: No Distress, Calm Eyes: Yes: Conjunctiva Clear, EOM Intact HENT: Yes: WNL Neck: Yes: Supple Cardiovascular: Yes: Regular Rate and Rhythm, S1, S2 Respiratory: Yes: Regular, CTA Bilaterally Gastrointestinal: Yes: Normal Bowel Sounds, Soft Genitourinary: Yes: WNL Musculoskeletal: Yes: Back Pain Extremities: Yes: WNL Edema: No Peripheral Pulses WNL: Yes Integumentary: Yes: WNL Neurological: Yes: Alert, Oriented, Cran Nerves II-XII Intact ...Motor Strength: WNL Psychiatric: Yes: Alert, Oriented Labs: CBC, BMP 08/14/16 06:45 INR, PTT INR 1.10 (0.82-1.09) 08/12/16 18:40 - ....Imaging EKG: Report Reviewed, Image Reviewed Problem List - Problems (1) GI bleed Assessment/Plan: Underwent EGD this AM and no active bleeding, erosive gastritis Code(s): K92.2 - GASTROINTESTINAL HEMORRHAGE, UNSPECIFIED Qualifiers: Qualified Code(s): K92.2 - Gastrointestinal hemorrhage, unspecified (2) LBBB (left bundle branch block) Code(s): I44.7 - LEFT BUNDLE-BRANCH BLOCK, UNSPECIFIED (3) Tonsillar abscess Code(s): J36 - PERITONSILLAR ABSCESS Assessment/Plan Continue IV Protonix and clear liquid diet Will discharge in AM after dicussing with GI.
[2016-08-15] MEDS: DEXTROSE 5%-1/3 NS - 500 ML IV SCH (05:59)
[2016-08-15 06:03] VITALS: TEMP 98
[2016-08-15] MEDS: METOPROLOL SUCCINATE 25 MG TAB.SR.24H (FP) PO SCH (09:26)
[2016-08-15] MEDS: LOSARTAN POTASSIUM 25 MG TABLET PO SCH (09:26)
[2016-08-15] MEDS: PANTOPRAZOLE SODIUM 100 ML IVPB SCH (09:26)
[2016-08-15 11:13] VITALS: BP 122/64; PULSE 98
--- NOTE | 2016-08-15 11:23 | DS ---
Physical Examination Vital Signs: Vital Signs Temperature 98 F 08/15/16 06:00 Pulse Rate 98 H 08/15/16 10:00 Respiratory Rate 20 08/15/16 10:00 Blood Pressure 122/64 08/15/16 10:00 O2 Sat by Pulse Oximetry (%) 99 08/14/16 21:00 Findings/Remarks: Was admitted with severe anemia with history of melena for more than a week and had been taking Advil for joint pain.She was transfused and underwent EGD that showed erosive gastritis but without any active bleeding Constitutional: Yes: No Distress, Calm Eyes: Yes: Conjunctiva Clear, EOM Intact HENT: Yes: WNL Neck: Yes: WNL Cardiovascular: Yes: WNL, Regular Rate and Rhythm, S1, S2 Respiratory: Yes: Regular, CTA Bilaterally Gastrointestinal: Yes: Normal Bowel Sounds ...Rectal Exam: Yes: Hemorrhoids/External Renal/: Yes: WNL Musculoskeletal: Yes: Back Pain Extremities: Yes: WNL Edema: No Peripheral Pulses WNL: Yes Integumentary: Yes: WNL Neurological: Yes: Alert, Oriented, Cran Nerves II-XII Intact ...Motor Strength: WNL Psychiatric: Yes: Alert, Oriented Labs: CBC, BMP 08/14/16 06:45 Discharge Summary Reason For Visit: GASTROINTESTINAL HEMMORRHAGE Current Active Problems GI bleed (Acute) Systolic CHF (Acute) Procedures: Principal: upper endoscopy Other Procedures: Blood transfusion Hospital Course: She was admitted with severe generalized weakness with history of melena for more than a week.Was found to have a hemoglobin of 7.6 and was transfused one unit of packed cells and her hemoglobin went to 9.1 and remained stable and there was no further melena. She underwent upper endoscopy by Dr.Fred Pizano and there was no active bleeding but he saw some superficial erosions. She is being discharged on PO Protonix BID and to start taking Iron replacement in two days. Condition: Improved - Instructions Referrals: Johann Schrader MD [Primary Care Provider] - Disposition: HOME - Home Medications Comprehensive Discharge Medication List: Ambulatory Orders Pantoprazole Sodium [Protonix] 40 mg PO DAILY 06/02/14 Hydrochlorothiazide [Hctz -] 12.5 mg PO DAILY #90 tab 05/02/16 Metoprolol Succinate [Toprol XL -] 50 mg PO DAILY tab.sr.24h 05/02/16 Potassium Chloride [K-Dur -] 20 meq PO Q2D #45 tablet.er 05/02/16 Prednisone [Deltasone -] 5 mg PO DAILY tablet 05/02/16 Amlodipine Besylate [Norvasc -] 5 mg PO DAILY tablet 06/22/16 Atorvastatin Ca [Lipitor] 10 mg PO HS tablet 06/22/16 Metoprolol Succinate [Toprol XL -] 25 mg PO DAILY tab.sr.24h 06/22/16 Pantoprazole Sodium [Protonix -] 40 mg PO DAILY tablet.ec 06/22/16
== END 2016-08-15 12:32 | disposition home or self-care (01) | DRG 378 ==
LOC: JER 18:28 → JERBED 21:17 → J6S 23:31
PROVIDERS: ADMIT Internal Medicine Hematology & Oncology; ATTEND Internal Medicine Hematology & Oncology
PROC: 30233N1 Transfusion of Nonautologous Red Blood Cells into Peripheral Vein, Percutaneous Approach (ICD-10-PCS; 2016-08-12)
PROC: 0DJ08ZZ Inspection of Upper Intestinal Tract, Via Natural or Artificial Opening Endoscopic (ICD-10-PCS; principal; 2016-08-14 14:00)
DX: K92.2 Gastrointestinal hemorrhage, unspecified (principal); I50.22 Chronic systolic (congestive) heart failure; I11.0 Hypertensive heart disease with heart failure; K21.9 Gastro-esophageal reflux disease without esophagitis; E78.4 Other hyperlipidemia; M35.3 Polymyalgia rheumatica; I44.7 Left bundle-branch block, unspecified; D64.9 Anemia, unspecified
CPT/HCPCS: 36415; 36430; 80053; 80061; 81003; 81015; 82272; 82550; 83721; 83880; 84484; 85025; 85610; 86850; 86900; 86901; 86922; 87086; 93005; 93010; 99284-25; P9038; P9058

== ENCOUNTER 2016-10-20 15:29 | Inpatient (IN) | payer OTHER ==
--- NOTE | 2016-10-20 15:36 | PDOC ---
Rapid Medical Evaluation Time Seen by Provider: 10/20/16 15:33 Medical Evaluation: Allergies Allergy/AdvReac Type Severity Reaction Status Date / Time lisinopril Allergy Cough Verified 08/12/16 18:30 I have performed a brief in-person evaluation of this patient. The patient presents with a chief complaint of: abnormal lab results; prior history of blood transfusions. No symptoms. Pertinent physical exam findings: Pt appears slightly pale. Vitals are WNL. I have ordered the following: EKG The patient will proceed to the ED for further evaluation.
[2016-10-20 17:10] LABS: URINE APPEARANCE CLEAR; URINE BILIRUBIN NEGATIVE (NEGATIVE); URINE COLOR LTYELLOW; URINE GLUCOSE (UA) NEGATIVE (NEGATIVE); URINE KETONE NEGATIVE (NEGATIVE); URINE LEUK ESTERASE NEGATIVE (NEGATIVE); URINE NITRITE NEGATIVE (NEGATIVE); URINE PROTEIN NEGATIVE (NEGATIVE); URINE UROBILINOGEN NEGATIVE E.U./dl (0.2-1.0)
[2016-10-20 17:13] LABS: URINE BLOOD 1+ (NEGATIVE)
[2016-10-20 17:14] LABS: URINE MUCUS RARE; URINE RBC 3 /hpf (0-3); URINE WBC 1 /hpf (3-5)
[2016-10-20 17:20] LABS: BASOPHIL 0.9 % (0-2.0); EOSINOPHIL 0.8 % (0-4.5); MCHC 30.6 g/dl (32.0-36.0); MEAN CELL VOLUME 75.3 fl (80-96); MEAN PLT VOLUME 9.8 fl (7.5-11.1); NEUTROPHILS 77.2 % (42.8-82.8); PLATELET COUNT 260 K/MM3 (134-434); RDW 19.4 % (11.6-15.6); WHITE BLOOD COUNT 5.5 K/mm3 (4.0-10.0)
[2016-10-20 17:25] LABS: STOOL FOR OCCULT BLOOD POSITIVE (NEGATIVE)
[2016-10-20 17:40] LABS: ALBUMIN 3.9 g/dl (3.4-5.0); ANION GAP 9 (8-16); BILIRUBIN,TOTAL 0.2 mg/dL (0.2-1.0); CALCIUM 8.7 mg/dL (8.5-10.1); CO2 26 mmol/L (21-32); CREATININE 0.8 mg/dL (0.55-1.02); GLUCOSE,RANDOM 117 mg/dL (74-106); SGOT/AST 15 U/L (15-37); SGPT/ALT 24 U/L (12-78); TOT PROT 6.6 g/dl (6.4-8.2)
[2016-10-20 17:41] LABS: ALK PHOS 63 U/L (45-117)
[2016-10-20 17:42] LABS: INR 1.1 (0.82-1.09); PROTHROMBIN TIME (PATIENT) 12.1 SEC (9.98-11.88)
[2016-10-20 17:43] LABS: TROPONIN I < 0.02 ng/ml (0.00-0.05)
[2016-10-20] MEDS ORDERED: PANTOPRAZOLE SODIUM 40 MG in SODIUM CHLORIDE 100 ML IVPB ONE (17:43)
--- NOTE | 2016-10-20 17:46 | PDOC ---
History of Present Illness - General History Source: Patient, Family Exam Limitations: No Limitations, Language Barrier - History of Present Illness Initial Comments: 76 yo F with a PMHx of GERD, HTN, HLD, Polymyalgia Rheumatica sent from PCP with melena for 1 week. As per patients PCP, patients elastic cutter Dr. May will transfuse patient. This week, patients Hgb dropped from 8 to 7.6. Patient is on prednisone. Patient Hx provided by son as patient speaks [place]. Patients son states patient has been c/o abdominal issues since her cholecystectomy 6 months ago. Patient has a past Hx of blood transfusions. <Raquel Dill - Last Filed: 10/20/16 18:15> <Zohreh Beckwith - Last Filed: 10/21/16 01:53> - General Chief Complaint: Revisit, Lab Variance Stated Complaint: PCP SENT FOR ADMIN Time Seen by Provider: 10/20/16 15:33 Past History <Raquel Dill - Last Filed: 10/20/16 18:15> - Past Medical History Anemia: Yes Asthma: No Cancer: No Cardiac Disorders: No CVA: No COPD: No CHF: No Dementia: No Diabetes: No GI Disorders: Yes (GERD) Disorders: No HTN: Yes Hypercholesterolemia: Yes Liver Disease: No Suicide Attempt (Hx): No Seizures: No Thyroid Disease: No - Surgical History Abdominal Surgery: No Appendectomy: No Cardiac Surgery: No Cholecystectomy: Yes Lung Surgery: No Neurologic Surgery: No Orthopedic Surgery: No - Psycho/Social/Smoking Cessation Hx Anxiety: No Suicidal Ideation: No Smoking Status: No Smoking History: Never smoked Have you smoked in the past 12 months: No Number of Cigarettes Smoked Daily: 0 Information on smoking cessation initiated: No Hx Alcohol Use: No Drug/Substance Use Hx: No Substance Use Type: None Hx Substance Use Treatment: No <Zohreh Beckwith - Last Filed: 10/21/16 01:53> - Past Medical History Allergies/Adverse Reactions: Allergies Allergy/AdvReac Type Severity Reaction Status Date / Time lisinopril Allergy Cough Verified 10/20/16 15:36 Home Medications: Ambulatory Orders Metoprolol Succinate [Toprol XL -] 50 mg PO DAILY tab.sr.24h 05/02/16 Prednisone [Deltasone -] 5 mg PO DAILY tablet 05/02/16 Amlodipine Besylate [Norvasc -] 5 mg PO DAILY tablet 06/22/16 Pregabalin [Lyrica] 75 mg PO HS 10/20/16 Venlafaxine HCl ER [Effexor Xr -] 75 mg PO HS 10/20/16 Review of Systems - Review of Systems Able to Perform ROS?: Yes Comments:: CONSTITUTIONAL: Absent: fever, chills, diaphoresis, generalized weakness, malaise, loss of appetite HEENT: Absent: rhinorrhea, nasal congestion, throat pain, throat swelling, difficulty swallowing, mouth swelling, ear pain, eye pain, visual Changes CARDIOVASCULAR: Absent: chest pain, syncope, palpitations, irregular heart rate , lightheadedness, peripheral edema RESPIRATORY: Absent: cough, shortness of breath, dyspnea with exertion, orthopnea, wheezing, stridor, hemoptysis GASTROINTESTINAL: (+) Melena Absent: abdominal pain, abdominal distension, nausea, vomiting, diarrhea, constipation, hematochezia GENITOURINARY: Absent: dysuria, frequency, urgency, hesitancy, hematuria, flank pain, genital pain MUSCULOSKELETAL: Absent: myalgia, arthralgia, joint swelling SKIN: Absent: rash , itching, pallor HEMATOLOGIC/IMMUNOLOGIC: Absent: easy bleeding, easy bruising, lymphadenopathy, frequent infections ENDOCRINE: Absent: unexplained weight gain, unexplained weight loss, heat intolerance, cold intolerance NEUROLOGIC: Absent: headache, focal weakness or paresthesia, dizziness, unsteady gait, seizure, mental status changes, bladder or bowel incontinence PSYCHIATRIC: Absent: anxiety, depression, suicidal or homicidal ideation, hallucination <Raquel Dill - Last Filed: 10/20/16 18:15> *Physical Exam - Vital Signs Last Vital Signs Temp Pulse Resp BP Pulse Ox 98.4 F 86 18 138/65 99 10/20/16 15:32 10/20/16 15:32 10/20/16 15:32 10/20/16 15:32 10/20/16 16:05 - Physical Exam Comments: CONSTITUTIONAL: + mild pallor. Absent: fever, chills, diaphoresis, generalized weakness, malaise, loss of appetite HEENT: Absent: rhinorrhea, nasal congestion, throat pain, throat swelling, difficulty swallowing, mouth swelling, ear pain, eye pain, visual Changes CARDIOVASCULAR: Absent: chest pain, syncope, palpitations, irregular heart rate , lightheadedness, peripheral edema RESPIRATORY: Absent: cough, shortness of breath, dyspnea with exertion, orthopnea, wheezing, stridor, hemoptysis GASTROINTESTINAL: + Melena Absent: abdominal pain, abdominal distension, nausea , vomiting, diarrhea, constipation, hematochezia GENITOURINARY: Absent: dysuria, frequency, urgency, hesitancy, hematuria, flank pain, genital pain MUSCULOSKELETAL: Absent: myalgia, arthralgia, joint swelling SKIN: Absent: rash, itching, pallor HEMATOLOGIC/IMMUNOLOGIC: Absent: easy bleeding, easy bruising, lymphadenopathy, frequent infections ENDOCRINE: Absent: unexplained weight gain, unexplained weight loss, heat intolerance, cold intolerance NEUROLOGIC: Absent: headache, focal weakness or paresthesia, dizziness, seizure , mental status changes, bladder or bowel incontinence PSYCHIATRIC: Absent: anxiety, depression, suicidal or homicidal ideation, hallucination <Raquel Dill - Last Filed: 10/20/16 18:15> - Vital Signs Last Vital Signs Temp Pulse Resp BP Pulse Ox 98.4 F 86 18 138/65 99 10/20/16 15:32 10/20/16 15:32 10/20/16 15:32 10/20/16 15:32 10/20/16 16:05 <Zohreh Beckwith - Last Filed: 10/21/16 01:53> ED Treatment Course - LABORATORY CBC & Chemistry Diagram: 10/20/16 16:30 10/20/16 16:30 - ADDITIONAL ORDERS Additional order review: Laboratory Results 10/20/16 10/20/16 10/20/16 16:37 16:30 16:30 Sodium 143 Potassium 4.7 Chloride 108 H Carbon Dioxide 26 Anion Gap 9 BUN 23 H Creatinine 0.8 Creat Clearance w eGFR > 60 Random Glucose 117 H Calcium 8.7 Total Bilirubin 0.2 D AST 15 D ALT 24 Alkaline Phosphatase 63 Creatine Kinase 52 Troponin I < 0.02 Total Protein 6.6 Albumin 3.9 Urine Color Ltyellow Urine Appearance Clear Urine pH 5.0 Urine Protein Negative Urine Glucose (UA) Negative Urine Ketones Negative Urine Blood 1+ H Urine Nitrite Negative Urine Bilirubin Negative Urine Urobilinogen Negative Ur Leukocyte Esterase Negative Stool Occult Blood Positive 10/20/16 16:30 RBC 3.47 L MCV 75.3 L MCHC 30.6 L RDW 19.4 H MPV 9.8 Neutrophils % 77.2 D Lymphocytes % 12.0 D Monocytes % 9.1 Eosinophils % 0.8 Basophils % 0.9 - RADIOLOGY Radiograph Interpretation: CXR Impression: No significant interval change. Moderate cardiomegaly with unfolding of the aortic arch and without evidence of acute lung disease <Raquel Dill - Last Filed: 10/20/16 18:15> - LABORATORY CBC & Chemistry Diagram: 10/20/16 16:30 10/20/16 16:30 - ADDITIONAL ORDERS Additional order review: Laboratory Results 10/20/16 10/20/16 16:37 16:30 Sodium 143 Potassium 4.7 Chloride 108 H Carbon Dioxide 26 Anion Gap 9 BUN 23 H Creatinine 0.8 Creat Clearance w eGFR > 60 Random Glucose 117 H Calcium 8.7 Total Bilirubin 0.2 D AST 15 D ALT 24 Alkaline Phosphatase 63 Total Protein 6.6 Albumin 3.9 Urine Color Ltyellow Urine Appearance Clear Urine pH 5.0 Urine Protein Negative Urine Glucose (UA) Negative Urine Ketones Negative Urine Blood 1+ H Urine Nitrite Negative Urine Bilirubin Negative Urine Urobilinogen Negative Ur Leukocyte Esterase Negative Stool Occult Blood Positive 10/20/16 16:30 RBC 3.47 L MCV 75.3 L MCHC 30.6 L RDW 19.4 H MPV 9.8 Neutrophils % 77.2 D Lymphocytes % 12.0 D Monocytes % 9.1 Eosinophils % 0.8 Basophils % 0.9 - RADIOLOGY Radiology Studies Ordered: Category Date Time Status CHEST X-RAY PORTABLE* [RAD] Stat Radiology 10/20/16 16:37 Completed <Zohreh Beckwith - Last Filed: 10/21/16 01:53> Medical Decision Making - Medical Decision Making 10/21/16 01:52 This 76-year-old female sent in by Dr. Johann michael for admission to receive blood transfusions. She does have a history of GI disease in the past and has had melana for the past several days. Hemoglobin was 8, but she has significant history of cardiovascular disease and blood was ordered for transfusion. Her abdomen was soft with no rebound or tenderness. Rectal exam showed some maroonish stool that was guaiac positive. Dr. Pizano the elastic cutter, came in and evaluate the patient and she was admitted to [facility] <Zohreh Beckwith - Last Filed: 10/21/16 01:53> *DC/Admit/Observation/Transfer - Attestations Scribe Attestion: 10/20/16 18:02 Documentation prepared by Raquel Dill, acting as medical records secretary for Zohreh Beckwith MD/DO. <Raquel Dill - Last Filed: 10/20/16 18:15> - Discharge Dispostion Admit: Yes <Zohreh Beckwith - Last Filed: 10/21/16 01:53> Diagnosis at time of Disposition: Gastrointestinal hemorrhage with melena Anemia Qualifiers: Anemia type: iron deficiency Qualified Code(s): D64.9 - Anemia, unspecified - Referrals
[2016-10-20] MEDS ORDERED: PANTOPRAZOLE SODIUM 40 MG VIAL ONE (17:52)
--- NOTE | 2016-10-20 19:35 | CON.GI ---
Consult Consult Specialty:: GI Referred by:: Dr Melcohr Reason for Consultation:: UGIB/melena - History of Present Illness Chief Complaint: melena for 1 week History of Present Illness: 76 F with h/o GERD, HTN, HLD, PMR on prednisone, who has been taking NSAIDs as well, sent from PCP with melena for 1 week. She had a coloon in 2009 and an EGD in the past as well. She is s/p roman 6 months ago and has had GI complaints since. - History Source History Provided By: Patient, Medical Record Limitations to Obtaining History: Language Barrier (pashto but speaks [place] citizen) - Past Medical History Cardio/Vascular: Yes: CHF, HTN, Hyperlipdemia, Other (left bundle branch block) Gastrointestinal: Yes: Gastritis, GERD, GI Bleed Heme/Onc: Yes: Anemia Psych: Yes: Anxiety Musculoskeletal: Yes: Chronic low back pain Rheumatology: Yes: Other (has polymialgia rheumatica) - Past Surgical History Past Surgical History: Yes: Cholecystectomy - Alcohol/Substance Use Hx Alcohol Use: No History of Substance Use: reports: None - Smoking History Smoking history: Never smoked Have you smoked in the past 12 months: No Aproximately how many cigarettes per day: 0 - Social History ADL: Independent History of Recent Travel: Yes Home Medications - Allergies Allergies/Adverse Reactions: Allergies Allergy/AdvReac Type Severity Reaction Status Date / Time lisinopril Allergy Cough Verified 10/20/16 15:36 - Home Medications Home Medications: Ambulatory Orders Metoprolol Succinate [Toprol XL -] 50 mg PO DAILY tab.sr.24h 05/02/16 Prednisone [Deltasone -] 5 mg PO DAILY tablet 05/02/16 Amlodipine Besylate [Norvasc -] 5 mg PO DAILY tablet 06/22/16 Pregabalin [Lyrica] 75 mg PO HS 10/20/16 Venlafaxine HCl ER [Effexor Xr -] 75 mg PO HS 10/20/16 Physical Exam-GI Vital Signs: Vital Signs Temperature 98.4 F 10/20/16 15:32 Pulse Rate 86 10/20/16 15:32 Respiratory Rate 18 10/20/16 15:32 Blood Pressure 138/65 10/20/16 15:32 O2 Sat by Pulse Oximetry (%) 99 10/20/16 16:05 Constitutional: Yes: Well Nourished, Anxious HENT: Yes: Normocephalic Cardiovascular: Yes: Regular Rate and Rhythm Respiratory: Yes: CTA Bilaterally Gastrointestinal Inspection: Yes: WNL ...Auscultate: Yes: Normoactive Bowel Sounds ...Palpate: Yes: Soft. No: Tenderness Labs: INR, PTT INR 1.10 (0.82-1.09) 10/20/16 16:30 CBC, BMP 10/20/16 16:30 10/20/16 16:30 Hepatic Panel Total Bilirubin 0.2 mg/dL (0.2-1.0) D 10/20/16 16:30 AST 15 U/L (15-37) D 10/20/16 16:30 ALT 24 U/L (12-78) 10/20/16 16:30 Alkaline Phosphatase 63 U/L (45-117) 10/20/16 16:30 Albumin 3.9 g/dl (3.4-5.0) 10/20/16 16:30 Assessment/Plan Patient with above history admitted with presumed UGIB likely secondary to steroid/NSAID use Rec: IVF Transfuse to Hgb 9 Protonix Iv NPO EGD tomorrow 8 AM
--- NOTE | 2016-10-20 21:14 | HP ---
Admitting History and Physical - Primary Care Physician PCP: Johann Schrader - Admission Chief Complaint: GI bleed. Anemia History of Present Illness: 76 y/o whoite female who had epigastric pain a week ago, known to have GERD and has been on Pantoprazole, and then 5 days ago noted melena. CBC done as OP was 8 Gm, Prednisone which takes for Polymialgia rheumatica was held and Pantoprazole was increased to BID A repeat CBC yesterday showed Hb down to 7.6 and she was advised to come to ED today. Repeat Hb is 8 Gm and she is being transfused in preparation for EGD in AM. She is a known hypertensive with Polymialgia rheumatica. History Source: Patient Limitations to Obtaining History: No Limitations - Past Medical History Cardiovascular: Yes: HTN, Hyperlipdemia, Other (left bundle branch block) Gastrointestinal: Yes: Gastritis, GERD, GI Bleed Heme/Onc: Yes: Anemia Psych: Yes: Anxiety Musculoskeletal: Yes: Chronic low back pain Rheumatology: Yes: Other (has polymialgia rheumatica) - Past Surgical History Past Surgical History: Yes: Cholecystectomy - Smoking History Smoking history: Never smoked Have you smoked in the past 12 months: No Aproximately how many cigarettes per day: 0 - Alcohol/Substance Use Hx Alcohol Use: No History of Substance Use: reports: None - Social History ADL: Independent History of Recent Travel: Yes Home Medications - Allergies Allergies/Adverse Reactions: Allergies Allergy/AdvReac Type Severity Reaction Status Date / Time lisinopril Allergy Cough Verified 10/20/16 15:36 - Home Medications Home Medications: Ambulatory Orders Metoprolol Succinate [Toprol XL -] 50 mg PO DAILY tab.sr.24h 05/02/16 Prednisone [Deltasone -] 5 mg PO DAILY tablet 05/02/16 Amlodipine Besylate [Norvasc -] 5 mg PO DAILY tablet 06/22/16 Pregabalin [Lyrica] 75 mg PO HS 10/20/16 Venlafaxine HCl ER [Effexor Xr -] 75 mg PO HS 10/20/16 Review of Systems - Review of Systems Constitutional: reports: Weakness Eyes: reports: No Symptoms HENT: reports: No Symptoms Neck: reports: No Symptoms Cardiovascular: denies: Chest Pain, Edema, Palpitations, Shortness of Breath, Other Gastrointestinal: reports: Other (epigastric pain) Genitourinary: reports: No Symptoms Breasts: reports: No Symptoms Reported Musculoskeletal: reports: Back Pain, Joint Pain Integumentary: reports: No Symptoms Neurological: reports: No Symptoms Endocrine: reports: No Symptoms Hematology/Lymphatic: reports: No Symptoms Psychiatric: reports: Anxiety Physical Examination Vital Signs: Vital Signs Temperature 98.1 F 10/20/16 19:50 Pulse Rate 72 10/20/16 19:50 Respiratory Rate 18 10/20/16 19:50 Blood Pressure 143/64 10/20/16 19:50 O2 Sat by Pulse Oximetry (%) 99 10/20/16 16:05 Constitutional: Yes: Well Nourished, No Distress, Calm Eyes: Yes: Conjunctiva Clear, EOM Intact HENT: Yes: WNL Neck: Yes: Supple Cardiovascular: Yes: Regular Rate and Rhythm, S1, S2 Respiratory: Yes: Regular, CTA Bilaterally Gastrointestinal: Yes: Tenderness, Epigastrium Renal/: Yes: WNL Breast(s): Yes: WNL Musculoskeletal: Yes: Back Pain, Joint Swelling Extremities: Yes: WNL Edema: No Peripheral Pulses WNL: Yes Integumentary: Yes: WNL Neurological: Yes: Alert, Oriented ...Motor Strength: WNL Psychiatric: Yes: Alert, Oriented Imaging - Results Chest X-ray: Report Reviewed, Image Reviewed Problem List - Problems (1) Anemia Code(s): D64.9 - ANEMIA, UNSPECIFIED Qualifiers: Anemia type: iron deficiency Qualified Code(s): D64.9 - Anemia, unspecified (2) Gastrointestinal hemorrhage with melena Assessment/Plan: GI bleed most likely due to gastritis Code(s): K92.1 - MELENA (4) LBBB (left bundle branch block) Code(s): I44.7 - LEFT BUNDLE-BRANCH BLOCK, UNSPECIFIED Assessment/Plan Case discussed with Dr. Pizano, new car make ready mechanic who will proceed with EGD in AM to ascertain site of bleeding. As patient has been on custodial Prednisone will give Solumedrol prior to EGD. Continue IV Pantoprazole, and IV saline.
[2016-10-20] MEDS: PANTOPRAZOLE SODIUM 40 MG/100 ML PRE-DOCKED IVPB SCH (21:27)
[2016-10-20] MEDS ORDERED: PANTOPRAZOLE SODIUM 40 MG in SODIUM CHLORIDE 100 ML IVPB SCH (22:00)
[2016-10-20] MEDS: D5-1/2NS+20 MEQ KCL - 1,000 ML IV SCH (22:36)
[2016-10-20] MEDS: METOPROLOL SUCCINATE 25 MG TAB.SR.24H (FP) PO SCH (22:39)
[2016-10-20 22:48] VITALS: BMI 27.6
[2016-10-21] MEDS: D5-1/2NS+20 MEQ KCL - 1,000 ML IV SCH ×2 (05:30→21:10)
[2016-10-21] MEDS ORDERED: methylPREDNISolone NA SUCC 40 MG/1 ML VIAL IVPB ONE (07:00)
[2016-10-21 07:23] LABS: BASOPHIL 0.9 % (0-2.0); EOSINOPHIL 3.2 % (0-4.5); MCH 24.9 pg (25.7-33.7); MCHC 32.1 g/dl (32.0-36.0); MEAN CELL VOLUME 77.5 fl (80-96); MEAN PLT VOLUME 9.6 fl (7.5-11.1); NEUTROPHILS 53.9 % (42.8-82.8); PLATELET COUNT 219 K/MM3 (134-434); RDW 18.6 % (11.6-15.6); WHITE BLOOD COUNT 4.6 K/mm3 (4.0-10.0)
--- NOTE | 2016-10-21 08:14 | RAPID ---
Physical Examination Vital Signs: Vital Signs Temperature 98.5 F 10/21/16 06:12 Pulse Rate 81 10/21/16 08:02 Respiratory Rate 20 10/21/16 08:02 Blood Pressure 153/81 10/21/16 08:02 O2 Sat by Pulse Oximetry (%) 96 10/20/16 22:51 Rapid response was called at 8:03am in 6 [facility]. Rapid response team reached immediately. Patient was found lying in bed, complaining of left sided chest pain, 10/10, non radiating, constant, associated with palpitation, not associated with nausea, vomiting, sweating. Vitals: BP: 163/80 mmHg; P-85bpm; RR-22; Spo2-97 RA General: Anxious, awake, alert, in mild respiratory distress. HEENT: EOM intact, no pallor or icterus Neck: No JVD Chest: B/L lungs clear, grunting CVS: Tachycardic, regular, s1, s2 heard Abd: Soft, tenderness over the epigastric area and left upper quadrant, BS + Ext: No peripheral edema A/P Chest pain-r/o ACS Oxygen Ordered stat EKG; Troponins stat and 2 more sets ; Nitro paste; Transferred to Tele Abdominal x-ray, cxr stat IV Morphine 1mg Stat. Dr. Schrader was informed by RN. Daughter was informed Plan of care explained to the patient. She verbalized understanding. Case discussed with Dr. Laurent. Constitutional: Yes: Anxious Eyes: Yes: Conjunctiva Clear HENT: Yes: Atraumatic Neck: Yes: Supple Cardiovascular: Yes: Regular Rate and Rhythm, Tachycardia, S1, S2 Respiratory: Yes: Accessory Muscle Use. No: Cough, Diminished, Hyperresonant Gastrointestinal: Yes: Normal Bowel Sounds, Soft. No: Distention Labs: CBC, BMP 10/21/16 05:35
[2016-10-21] MEDS ORDERED: NITROGLYCERIN 2% OINTMENT - 1GM PACKET TD ONE (08:17)
[2016-10-21] MEDS ORDERED: morphine CARPU-JECT 2 MG/1 ML DISP.SYRIN IVPUSH ONE (08:34)
[2016-10-21] MEDS: METOPROLOL SUCCINATE 25 MG TAB.SR.24H (FP) PO SCH ×3 (08:40→21:08)
[2016-10-21] MEDS: PANTOPRAZOLE SODIUM 40 MG/100 ML PRE-DOCKED IVPB SCH ×3 (08:40→21:09)
[2016-10-21 08:47] LABS: TROPONIN I < 0.02 ng/ml (0.00-0.05)
--- NOTE | 2016-10-21 10:32 | CON.CARD ---
Consult Consult Specialty:: Cardiology - History of Present Illness Chief Complaint: epigastric pain History of Present Illness: 76 yo F with a PMHx of GERD, HTN, HLD, Polymyalgia Rheumatica sent from PCP with melena for 1 week. As per patients PCP, patients line tender Dr. May will transfuse patient. This week, patients Hgb dropped from 8 to 7.6. Patient is on prednisone. Patient Hx provided by son as patient speaks mohawk. Patients son states patient has been c/o abdominal issues since her cholecystectomy 6 months ago. Patient has a past Hx of blood transfusions. PmHx: systolic CHF (moderately decreased LVEF by ECHO 06/2016), GERD, HTN, HLD, Polymyalgia Rheumatica - History Source History Provided By: Patient, Family Member (son transolating from [facility]) Limitations to Obtaining History: No Limitations - Past Medical History Cardio/Vascular: Yes: HTN, Hyperlipdemia, Other (left bundle branch block) Gastrointestinal: Yes: Gastritis, GERD, GI Bleed Psych: Yes: Anxiety Musculoskeletal: Yes: Chronic low back pain Rheumatology: Yes: Other (has polymialgia rheumatica) - Past Surgical History Past Surgical History: Yes: Cholecystectomy - Alcohol/Substance Use Hx Alcohol Use: No History of Substance Use: reports: None - Smoking History Smoking history: Never smoked Have you smoked in the past 12 months: No Aproximately how many cigarettes per day: 0 - Social History ADL: Independent History of Recent Travel: Yes Home Medications - Allergies Allergies/Adverse Reactions: Allergies Allergy/AdvReac Type Severity Reaction Status Date / Time lisinopril Allergy Cough Verified 10/20/16 15:36 - Home Medications Home Medications: Ambulatory Orders Metoprolol Succinate [Toprol XL -] 50 mg PO DAILY tab.sr.24h 05/02/16 Prednisone [Deltasone -] 5 mg PO DAILY tablet 05/02/16 Amlodipine Besylate [Norvasc -] 5 mg PO DAILY tablet 06/22/16 Pregabalin [Lyrica] 75 mg PO HS 10/20/16 Venlafaxine HCl ER [Effexor Xr -] 75 mg PO HS 10/20/16 Review of Systems - Review of Systems Constitutional: reports: No Symptoms Eyes: reports: No Symptoms HENT: reports: No Symptoms Neck: reports: No Symptoms Cardiovascular: reports: Chest Pain Gastrointestinal: reports: Abdominal Pain Genitourinary: reports: No Symptoms Breasts: reports: No Symptoms Reported Musculoskeletal: reports: No Symptoms Integumentary: reports: No Symptoms Neurological: reports: No Symptoms Endocrine: reports: No Symptoms Hematology/Lymphatic: reports: No Symptoms Psychiatric: reports: No Symptoms Vital Signs: Vital Signs Temperature 98.5 F 10/21/16 06:12 Pulse Rate 74 10/21/16 09:06 Respiratory Rate 18 10/21/16 09:06 Blood Pressure 154/71 10/21/16 09:06 O2 Sat by Pulse Oximetry (%) 96 10/20/16 22:51 Constitutional: Yes: Well Nourished, No Distress, Calm Eyes: Yes: WNL, Conjunctiva Clear, EOM Intact HENT: Yes: WNL, Atraumatic, Normocephalic Neck: Yes: WNL, Supple, Trachea Midline Respiratory: Yes: WNL, Regular, CTA Bilaterally Gastrointestinal: Yes: WNL, Normal Bowel Sounds Renal/: Yes: WNL Cardiovascular: Yes: WNL, Regular Rate and Rhythm Musculoskeletal: Yes: WNL Extremities: Yes: WNL Integumentary: Yes: WNL Neurological: Yes: WNL, Alert, Oriented ...Motor Strength: WNL Psychiatric: Yes: WNL, Alert, Oriented - Other Data Labs, Other Data: CBC, BMP 10/21/16 05:35 INR, PTT INR 1.10 (0.82-1.09) 10/20/16 16:30 Troponin, BNP 10/21/16 08:05 Troponin I < 0.02 Troponin, BNP 10/21/16 08:05 Troponin I < 0.02 Laboratory Tests 10/20/16 10/20/16 10/20/16 16:30 16:30 16:30 WBC 5.5 RBC 3.47 L Hgb 8.0 L Hct 26.1 L MCV 75.3 L MCHC 30.6 L RDW 19.4 H Plt Count 260 D MPV 9.8 Neutrophils % 77.2 D Lymphocytes % 12.0 D Monocytes % 9.1 Eosinophils % 0.8 Basophils % 0.9 Retic Count 2.87 H INR 1.10 Sodium Potassium Chloride Carbon Dioxide Anion Gap BUN Creatinine Creat Clearance w eGFR POC Glucometer Random Glucose Calcium Total Bilirubin AST ALT Alkaline Phosphatase Creatine Kinase 52 Troponin I < 0.02 Total Protein Albumin Urine Color Urine Appearance Urine pH Ur Specific [place] Urine Protein Urine Glucose (UA) Urine Ketones Urine Blood Urine Nitrite Urine Bilirubin Urine Urobilinogen Ur Leukocyte Esterase Urine RBC Urine WBC Ur Epithelial Cells Urine Mucus Stool Occult Blood Blood Type Antibody Screen Crossmatch 10/20/16 10/20/16 10/20/16 16:30 16:37 16:37 WBC RBC Hgb Hct MCV MCHC RDW Plt Count MPV Neutrophils % Lymphocytes % Monocytes % Eosinophils % Basophils % Retic Count INR Sodium 143 Potassium 4.7 Chloride 108 H Carbon Dioxide 26 Anion Gap 9 BUN 23 H Creatinine 0.8 Creat Clearance w eGFR > 60 POC Glucometer Random Glucose 117 H Calcium 8.7 Total Bilirubin 0.2 D AST 15 D ALT 24 Alkaline Phosphatase 63 Creatine Kinase Troponin I Total Protein 6.6 Albumin 3.9 Urine Color Ltyellow Urine Appearance Clear Urine pH 5.0 Ur Specific [place] 1.015 Urine Protein Negative Urine Glucose (UA) Negative Urine Ketones Negative Urine Blood 1+ H Urine Nitrite Negative Urine Bilirubin Negative Urine Urobilinogen Negative Ur Leukocyte Esterase Negative Urine RBC 3 Urine WBC 1 Ur Epithelial Cells Rare Urine Mucus Rare Stool Occult Blood Positive Blood Type O POSITIVE Antibody Screen Negative Crossmatch See Detail 10/21/16 10/21/16 10/21/16 05:35 08:05 08:14 WBC 4.6 RBC 3.88 Hgb 9.7 L D Hct 30.1 L D MCV 77.5 L MCHC 32.1 RDW 18.6 H Plt Count 219 MPV 9.6 Neutrophils % 53.9 D Lymphocytes % 30.9 D Monocytes % 11.1 H Eosinophils % 3.2 D Basophils % 0.9 Retic Count INR Sodium Potassium Chloride Carbon Dioxide Anion Gap BUN Creatinine Creat Clearance w eGFR POC Glucometer 110 Random Glucose Calcium Total Bilirubin AST ALT Alkaline Phosphatase Creatine Kinase 42 Troponin I < 0.02 Total Protein Albumin Urine Color Urine Appearance Urine pH Ur Specific [place] Urine Protein Urine Glucose (UA) Urine Ketones Urine Blood Urine Nitrite Urine Bilirubin Urine Urobilinogen Ur Leukocyte Esterase Urine RBC Urine WBC Ur Epithelial Cells Urine Mucus Stool Occult Blood Blood Type Antibody Screen Crossmatch Imaging - Results Chest X-ray: Image Reviewed (no i/e) EKG: Image Reviewed (sr LBBB) Problem List - Problems (1) Anemia Code(s): D64.9 - ANEMIA, UNSPECIFIED Qualifiers: Anemia type: iron deficiency Qualified Code(s): D64.9 - Anemia, unspecified (2) Gastrointestinal hemorrhage with melena Code(s): K92.1 - MELENA (3) Ascending aorta dilatation Code(s): I77.810 - THORACIC AORTIC ECTASIA (4) Atelectasis Code(s): J98.11 - ATELECTASIS (5) CHF (congestive heart failure) Code(s): I50.9 - HEART FAILURE, UNSPECIFIED (6) Chest pain Code(s): R07.9 - CHEST PAIN, UNSPECIFIED Qualifiers: Chest pain type: unspecified Qualified Code(s): R07.9 - Chest pain, unspecified (7) Cholecystitis, acute Code(s): K81.0 - ACUTE CHOLECYSTITIS (9) GI bleed Code(s): K92.2 - GASTROINTESTINAL HEMORRHAGE, UNSPECIFIED Qualifiers: GI bleed type/associated pathology: unspecified gastrointestinal hemorrhage type Qualified Code(s): K92.2 - Gastrointestinal hemorrhage, unspecified (10) Gallstone pancreatitis Code(s): K85.1 - BILIARY ACUTE PANCREATITIS * DO NOT USE * (12) Hyperlipidemia Code(s): E78.5 - HYPERLIPIDEMIA, UNSPECIFIED (13) Hypoxemia Code(s): R09.02 - HYPOXEMIA (14) LBBB (left bundle branch block) Code(s): I44.7 - LEFT BUNDLE-BRANCH BLOCK, UNSPECIFIED (15) PSVT (paroxysmal supraventricular tachycardia) Code(s): I47.1 - SUPRAVENTRICULAR TACHYCARDIA (16) Pharyngeal edema Code(s): J39.2 - OTHER DISEASES OF PHARYNX (17) Systolic CHF Code(s): I50.20 - UNSPECIFIED SYSTOLIC (CONGESTIVE) HEART FAILURE (18) Tonsillar abscess Code(s): J36 - PERITONSILLAR ABSCESS (19) Vomiting Code(s): R11.10 - VOMITING, UNSPECIFIED Assessment/Plan anemi gi bleed lbbb epigastric pain 1st CE neg mod AR htn Plan telemetry echo r/o mi gi w/u persantine MIBI stress test when GI w/u completed - may be done as outpatient ( unless patient develops different kind of CP)
--- NOTE | 2016-10-21 12:36 | EKG ---
Test Reason : Blood Pressure : / mmHG Vent. Rate : 073 BPM Atrial Rate : 073 BPM P-R Int : 192 ms QRS Dur : 156 ms QT Int : 440 ms P-R-T Axes : 036 -27 115 degrees QTc Int : 484 ms NORMAL SINUS RHYTHM LEFT BUNDLE BRANCH BLOCK ABNORMAL ECG WHEN COMPARED WITH ECG OF 13-AUG-2016 12:54, NO SIGNIFICANT CHANGE WAS FOUND Confirmed by DARYL STERLING MD ([id number]) on 10/21/2016 12:35:55 PM Referred By: Randa GOULD Confirmed By:DARYL STERLING MD
[2016-10-21 15:01] LABS: TROPONIN I < 0.02 ng/ml (0.00-0.05)
[2016-10-21] MEDS ORDERED: MAG HYDROX/AL HYDROX/SIMETH 30 ML UNIT-DOSE CUP PO PRN (20:14)
--- NOTE | 2016-10-21 20:23 | PN ---
Progress Note, Physician History of Present Illness: This AM c/o severe retrosternal pain and was treated with IV MS. Cardiac enzymes were normal and EKG shows LBBB. EGD was held and she was transferred to telemetry. She now has epigastric pain .Hb 9.7 after two units of PCs. She claims that this AM pain was much worse and is burning type. Repeat cardiac enzymes are normal. - Current Medication List Current Medications: Active Medications Al Hydroxide/Mg Hydroxide (Mylanta Oral Suspension -) 30 ml PO Q6H PRN PRN Reason: DYSPEPSIA Potassium Chloride/Dextrose/Sod Cl (D5-1/2ns+20 Meq Kcl -) 1,000 mls @ 75 mls/ hr IV ASDIR [facility] Last Admin: 10/21/16 05:30 Dose: 75 mls/hr Methylprednisolone Sodium Succinate (Solu-Medrol -) 40 mg IVPB ONCE ONE Stop: 10/21/16 07:01 Metoprolol Succinate (Toprol Xl -) 25 mg PO BID [facility] Last Admin: 10/21/16 12:59 Dose: Not Given Pantoprazole Sodium (Protonix 40mg Ivpb (Pre-Docked)) 40 mg IVPB BID [facility] Last Admin: 10/21/16 12:59 Dose: Not Given - Objective Vital Signs: Vital Signs Temperature 98.6 F 10/21/16 17:00 Pulse Rate 66 10/21/16 17:00 Respiratory Rate 20 10/21/16 17:00 Blood Pressure 149/71 10/21/16 17:00 O2 Sat by Pulse Oximetry (%) 96 10/21/16 08:30 Constitutional: Yes: Anxious, Moderate Distress Eyes: Yes: Conjunctiva Clear, EOM Intact HENT: Yes: WNL Neck: Yes: Supple Cardiovascular: Yes: Regular Rate and Rhythm, S1, S2 Respiratory: Yes: Regular, CTA Bilaterally Gastrointestinal: Yes: Normal Bowel Sounds, Soft, Tenderness, Epigastrium Genitourinary: Yes: WNL Musculoskeletal: Yes: Back Pain Extremities: Yes: WNL Edema: No Peripheral Pulses WNL: Yes Integumentary: Yes: WNL Neurological: Yes: Alert, Oriented ...Motor Strength: WNL Psychiatric: Yes: Alert, Oriented Labs: CBC, BMP 10/21/16 05:35 INR, PTT INR 1.10 (0.82-1.09) 10/20/16 16:30 Problem List - Problems (1) Anemia Code(s): D64.9 - ANEMIA, UNSPECIFIED Qualifiers: Anemia type: iron deficiency (2) Gastrointestinal hemorrhage with melena Code(s): K92.1 - MELENA (4) LBBB (left bundle branch block) Code(s): I44.7 - LEFT BUNDLE-BRANCH BLOCK, UNSPECIFIED
[2016-10-21 21:04] LABS: TROPONIN I < 0.02 ng/ml (0.00-0.05)
[2016-10-22] MEDS ORDERED: ONDANSETRON 4 MG/2 ML VIAL ONE (04:07)
[2016-10-22] MEDS: ONDANSETRON 4 MG/2 ML VIAL IVPB SCH ×4 (04:52→18:00)
[2016-10-22] MEDS: METOCLOPRAMIDE HCL INJECTION 10 MG/2 ML VIAL IVPB SCH ×3 (05:07→23:20)
[2016-10-22 07:05] LABS: MCH 24.3 pg (25.7-33.7); MCHC 31.6 g/dl (32.0-36.0); MEAN PLT VOLUME 9.2 fl (7.5-11.1); PLATELET COUNT 247 K/MM3 (134-434); RDW 18.7 % (11.6-15.6); WHITE BLOOD COUNT 5.5 K/mm3 (4.0-10.0)
[2016-10-22] MEDS: METOPROLOL SUCCINATE 25 MG TAB.SR.24H (FP) PO SCH ×2 (10:07→22:02)
[2016-10-22] MEDS: PANTOPRAZOLE SODIUM 40 MG/100 ML PRE-DOCKED IVPB SCH ×2 (10:07→21:54)
--- NOTE | 2016-10-22 10:35 | EKG ---
Test Reason : Blood Pressure : / mmHG Vent. Rate : 082 BPM Atrial Rate : 082 BPM P-R Int : 182 ms QRS Dur : 148 ms QT Int : 428 ms P-R-T Axes : 014 -24 120 degrees QTc Int : 500 ms NORMAL SINUS RHYTHM LEFT BUNDLE BRANCH BLOCK ABNORMAL ECG WHEN COMPARED WITH ECG OF 13-AUG-2016 12:54, NO SIGNIFICANT CHANGE WAS FOUND Confirmed by ALLEY ZAMBRANO MD ([id number]) on 10/22/2016 10:35:42 AM Referred By: AVRIL Confirmed By:ALLEY ZAMBRANO MD
--- NOTE | 2016-10-22 19:04 | PN ---
Progress Note, Physician Chief Complaint: Pt walking hallway with aid of her son, who says it is difficult to convince his mother to walk at home; left sharp pain on left side thorax that is reproduced with palpation. History of Present Illness: 76 y/o white female (shilpi Morales), who had epigastric pain a week ago, known to have GERD and has been on Pantoprazole, and then 5 days ago noted melena. CBC done as OP was 8 Gm, Prednisone which takes for Polymialgia rheumatica was held and Pantoprazole was increased to BID A repeat CBC yesterday showed Hb down to 7.6 and she was advised to come to ED today. Repeat Hb is 8 Gm and she is being transfused in preparation for EGD in AM. She is a known hypertensive with Polymialgia rheumatica; mild-moderate systolic CHF with mild ; stress MIBI 2011 negative for ischema; stress MIBI 2016 while in [facility] reported by daughter to also be negative for ischemia, though report not yet available. History Source: Patient Limitations to Obtaining History: No Limitations - Past Medical History Cardiovascular: Yes: HTN, Hyperlipdemia, Other (left bundle branch block) Gastrointestinal: Yes: Gastritis, GERD, GI Bleed Heme/Onc: Yes: Anemia Psych: Yes: Anxiety Musculoskeletal: Yes: Chronic low back pain Rheumatology: Yes: Other (has polymialgia rheumatica) - Past Surgical History Past Surgical History: Yes: Cholecystectomy - Smoking History Smoking history: Never smoked Have you smoked in the past 12 months: No Aproximately how many cigarettes per day: 0 - Alcohol/Substance Use Hx Alcohol Use: No History of Substance Use: reports: None - Social History ADL: Independent History of Recent Travel: Yes - Current Medication List Current Medications: Active Medications Al Hydroxide/Mg Hydroxide (Mylanta Oral Suspension -) 30 ml PO Q6H PRN PRN Reason: DYSPEPSIA Last Admin: 10/21/16 21:09 Dose: 30 ml Potassium Chloride/Dextrose/Sod Cl (D5-1/2ns+20 Meq Kcl -) 1,000 mls @ 75 mls/ hr IV ASDIR [facility] Last Admin: 10/21/16 21:10 Dose: 75 mls/hr Methylprednisolone Sodium Succinate (Solu-Medrol -) 40 mg IVPB ONCE ONE Stop: 10/21/16 07:01 Metoclopramide HCl (Reglan Injection -) 10 mg IVPB TID [facility] Last Admin: 10/22/16 16:59 Dose: 10 mg Metoprolol Succinate (Toprol Xl -) 25 mg PO BID [facility] Last Admin: 10/22/16 10:07 Dose: 25 mg Ondansetron HCl (Zofran Injection) 4 mg IVPB Q4H PRN Pantoprazole Sodium (Protonix 40mg Ivpb (Pre-Docked)) 40 mg IVPB BID [facility] Last Admin: 10/22/16 10:07 Dose: 40 mg - Objective Vital Signs: Vital Signs Temperature 99.0 F 10/22/16 17:00 Pulse Rate 74 10/22/16 17:00 Respiratory Rate 20 10/22/16 17:00 Blood Pressure 147/75 10/22/16 17:00 O2 Sat by Pulse Oximetry (%) 96 10/22/16 10:00 Constitutional: Yes: Well Nourished, Calm Eyes: Yes: WNL HENT: Yes: WNL Neck: Yes: WNL Cardiovascular: Yes: S1, S2 (split), S4 Respiratory: Yes: Regular Gastrointestinal: Yes: Soft ...Rectal Exam: Yes: Deferred Genitourinary: Yes: Anuria Musculoskeletal: Yes: Muscle Weakness Extremities: Yes: Cool Edema: No Peripheral Pulses WNL: Yes Integumentary: Yes: WNL Neurological: Yes: Alert, Oriented, Weakness Psychiatric: Yes: WNL Labs: CBC, BMP 10/22/16 05:35 INR, PTT INR 1.10 (0.82-1.09) 10/20/16 16:30 Abnormal Lab Results 10/22/16 05:35 Hgb 10.6 L MCV 77.0 L MCHC 31.6 L RDW 18.7 H - ....Imaging Chest X-ray: Image Reviewed (no acute pathology) Ultrasound: Report Reviewed (mildly decreased LVEF) EKG: Image Reviewed (NSR; LBBB) Other: Image Reviewed (telemetry: NSR; no prolonged arrhythmias.) Problem List - Problems (1) Anemia Assessment/Plan: received PRBCS; Hb now normal. Code(s): D64.9 - ANEMIA, UNSPECIFIED Qualifiers: Anemia type: iron deficiency (2) Gastrointestinal hemorrhage with melena Assessment/Plan: atypical chest pain; TNI < 0.02 x 4. atypical chest pain reproduced by palpation. Strss MIBI negative 2011; reportedly negative in 2016 (daughter to acquire report from [facility]). From a cardiac perspective, there are no absolute contraindications for Ms. Lopez to undergo EGD and/or colonoscopy. Plan for stress Persantine MIBI as outpatient if unable to acquire 2016 study report. Code(s): K92.1 - MELENA (3) LBBB (left bundle branch block) Assessment/Plan: chronic. Code(s): I44.7 - LEFT BUNDLE-BRANCH BLOCK, UNSPECIFIED (4) PSVT (paroxysmal supraventricular tachycardia) Assessment/Plan: on metoprolol. Code(s): I47.1 - SUPRAVENTRICULAR TACHYCARDIA (5) Systolic CHF Assessment/Plan: on metoprolol; start lisinopril. Code(s): I50.20 - UNSPECIFIED SYSTOLIC (CONGESTIVE) HEART FAILURE (6) Atypical chest pain Assessment/Plan: see under "gastrointestinal hemorrhage". Code(s): R07.89 - OTHER CHEST PAIN (7) Hypertension Assessment/Plan: on metoprolol. Start lisinopril (HTN; systolic CHF). Code(s): I10 - ESSENTIAL (PRIMARY) HYPERTENSION
[2016-10-22] MEDS ORDERED: ONDANSETRON 4 MG/2 ML VIAL IVPB PRN (20:00)
--- NOTE | 2016-10-22 21:32 | PN ---
GI Progress Note Subjective: Events noted. Chest pain on AM of EGD with rapid response called. Troponin neg. N/V earlier today, resolved with anti-emetics. Seems comfortable at this time Cardio evaluation noted - Objective Vital Signs: Vital Signs Temperature 99.0 F 10/22/16 17:00 Pulse Rate 74 10/22/16 17:00 Respiratory Rate 20 10/22/16 17:00 Blood Pressure 147/75 10/22/16 17:00 O2 Sat by Pulse Oximetry (%) 96 10/22/16 10:00 Constitutional: Well Nourished, Anxious, Mild Distress Cardiovascular: Yes: Regular Rate and Rhythm Respiratory: Yes: CTA Bilaterally Gastrointestinal Inspection: Yes: WNL ...Auscultate: Yes: Normoactive Bowel Sounds ...Palpate: Yes: Soft Labs: CBC, BMP 10/22/16 05:35 INR, PTT INR 1.10 (0.82-1.09) 10/20/16 16:30 <Shravan Pizano - Last Filed: 10/22/16 21:38> Subjective: Pt is walking in the hallway with the aid of her son (who says it is difficult to convince his mother to walk regularly at home). Denies chest pressure; gets a pain in left lower thorax will walking that is reproduced by palpation of a lower rib. - Objective Vital Signs: Vital Signs Temperature 98.4 F 10/22/16 22:00 Pulse Rate 73 10/22/16 22:00 Respiratory Rate 20 10/22/16 22:00 Blood Pressure 153/68 10/22/16 22:00 O2 Sat by Pulse Oximetry (%) 96 10/22/16 21:00 Constitutional: Calm Eyes: Yes: WNL HENT: Yes: WNL Neck: Yes: WNL Cardiovascular: Yes: Regular Rate and Rhythm, S1, S2 (split), S4 Respiratory: Yes: Regular Gastrointestinal Inspection: Yes: WNL ...Rectal Exam: Yes: Deferred Genitourinary: No: Anuria Musculoskeletal: Yes: Muscle Weakness Extremities: Yes: Cool Edema: No Peripheral Pulses WNL: No (1+ DP pulses) Integumentary: Yes: WNL Neurological: Yes: Alert, Oriented, Unsteady Gait Psychiatric: Yes: Alert, Oriented Labs: CBC, BMP 10/22/16 05:35 INR, PTT INR 1.10 (0.82-1.09) 10/20/16 16:30 Abnormal Lab Results 10/22/16 05:35 Hgb 10.6 L MCV 77.0 L MCHC 31.6 L RDW 18.7 H - ....Imaging Chest X-ray: Image Reviewed (no acute pathology) Ultrasound: Report Reviewed (mildly reduced LVEF) EKG: Image Reviewed (NSR; LBBB) <Johann Abarca - Last Filed: 10/22/16 22:38> Assessment/Plan Patient with above history admitted with presumed UGIB likely secondary to steroid/NSAID use. Cardiac events noted. N/V earlier with no blood in vomitus, suggesting NSID-induced injury is resolving. She cd/o burning epigastric pain earlier. Hgb continues to rise-now 10.6 REC: Because patient has LBBB, difficult to assess ischemic changes. Burning epigastric pain in a patient on IV protonix 40 BID is unlikely related to acid, as there is no acid production at that dose. There may be no muscle damage but cardiac status questionable. Will reassess in AM. If I feel she is a reasonable risk for procedure, will do EGD in the afternoon. If not, recommend more comprehensive cardiac evaluation first <Shravan Pizano - Last Filed: 10/22/16 21:38>
[2016-10-22] MEDS: D5-1/2NS+20 MEQ KCL - 1,000 ML IV SCH (21:54)
--- NOTE | 2016-10-22 23:09 | PN ---
Progress Note, Physician History of Present Illness: Feels better today. Vomited around 4AM bilious and also around 4PM. C/o pain in the lower quadrant - Current Medication List Current Medications: Active Medications Al Hydroxide/Mg Hydroxide (Mylanta Oral Suspension -) 30 ml PO Q6H PRN PRN Reason: DYSPEPSIA Last Admin: 10/21/16 21:09 Dose: 30 ml Potassium Chloride/Dextrose/Sod Cl (D5-1/2ns+20 Meq Kcl -) 1,000 mls @ 75 mls/ hr IV ASDIR [facility] Last Admin: 10/22/16 21:54 Dose: 75 mls/hr Losartan Potassium (Cozaar -) 25 mg PO DAILY [facility] Methylprednisolone Sodium Succinate (Solu-Medrol -) 40 mg IVPB ONCE ONE Stop: 10/21/16 07:01 Metoclopramide HCl (Reglan Injection -) 10 mg IVPB TID [facility] Last Admin: 10/22/16 16:59 Dose: 10 mg Metoprolol Succinate (Toprol Xl -) 25 mg PO BID [facility] Last Admin: 10/22/16 22:02 Dose: 25 mg Ondansetron HCl (Zofran Injection) 4 mg IVPB Q4H PRN Pantoprazole Sodium (Protonix 40mg Ivpb (Pre-Docked)) 40 mg IVPB BID [facility] Last Admin: 10/22/16 21:54 Dose: 40 mg - Objective Vital Signs: Vital Signs Temperature 98.4 F 10/22/16 22:00 Pulse Rate 73 10/22/16 22:00 Respiratory Rate 20 10/22/16 22:00 Blood Pressure 153/68 10/22/16 22:00 O2 Sat by Pulse Oximetry (%) 96 10/22/16 21:00 Constitutional: Yes: No Distress, Calm Eyes: Yes: Conjunctiva Clear, EOM Intact HENT: Yes: WNL Neck: Yes: Supple Cardiovascular: Yes: Regular Rate and Rhythm, S1, S2 Respiratory: Yes: Regular, CTA Bilaterally Gastrointestinal: Yes: Normal Bowel Sounds, Soft Genitourinary: Yes: WNL Musculoskeletal: Yes: Back Pain, Joint Stiffness Extremities: Yes: WNL Edema: No Peripheral Pulses WNL: Yes Integumentary: Yes: WNL Neurological: Yes: Alert, Oriented ...Motor Strength: WNL Psychiatric: Yes: Alert, Oriented Labs: CBC, BMP 10/22/16 05:35 INR, PTT INR 1.10 (0.82-1.09) 10/20/16 16:30 Problem List - Problems (1) Anemia Assessment/Plan: Hb is stable at 10.6 and stool is normal color as per pt Code(s): D64.9 - ANEMIA, UNSPECIFIED Qualifiers: Anemia type: iron deficiency (2) Gastrointestinal hemorrhage with melena Assessment/Plan: Bleeding appears to have stopped Code(s): K92.1 - MELENA (4) LBBB (left bundle branch block) Code(s): I44.7 - LEFT BUNDLE-BRANCH BLOCK, UNSPECIFIED Assessment/Plan Imp:GI bleed, Iron def. anemia Hypertension LBBB Mod MR Polymialgia rheumatica Plan. Due to the episode of chest pain and as it is difficult to determine exact etiology of chest pain we have decided that it would safer to follow pt. as OP and get a cardiac stress test first and then proceed with upper and lower endoscopy.
[2016-10-22] MEDS: LOSARTAN POTASSIUM 25 MG TABLET PO SCH (23:20)
[2016-10-23] MEDS: METOCLOPRAMIDE HCL INJECTION 10 MG/2 ML VIAL IVPB SCH ×2 (05:28→14:19)
[2016-10-23 06:56] LABS: MCH 24.7 pg (25.7-33.7); MCHC 32.3 g/dl (32.0-36.0); MEAN CELL VOLUME 76.6 fl (80-96); MEAN PLT VOLUME 9.7 fl (7.5-11.1); PLATELET COUNT 234 K/MM3 (134-434); RDW 19.3 % (11.6-15.6); WHITE BLOOD COUNT 4.6 K/mm3 (4.0-10.0)
[2016-10-23] MEDS ORDERED: PT OWN MED DRAWER 7, Y5N ONE (09:57)
[2016-10-23] MEDS: LOSARTAN POTASSIUM 25 MG TABLET PO SCH (10:06)
[2016-10-23] MEDS: METOPROLOL SUCCINATE 25 MG TAB.SR.24H (FP) PO SCH (10:06)
[2016-10-23] MEDS: PANTOPRAZOLE SODIUM 40 MG/100 ML PRE-DOCKED IVPB SCH (10:06)
--- NOTE | 2016-10-23 13:23 | PN ---
Progress Note, Physician Chief Complaint: Pt A&Ox3; no chest pain or dyspnea. History of Present Illness: 76 y/o white female (shilpi Morales), who had epigastric pain a week ago, known to have GERD and has been on Pantoprazole, and then 5 days ago noted melena. CBC done as OP was 8 Gm, Prednisone which takes for Polymialgia rheumatica was held and Pantoprazole was increased to BID A repeat CBC yesterday showed Hb down to 7.6 and she was advised to come to ED today. Repeat Hb is 8 Gm and she is being transfused in preparation for EGD in AM. She is a known hypertensive with Polymialgia rheumatica; mild-moderate systolic CHF with mild ; stress MIBI 2011 negative for ischema; stress MIBI 2016 while in [facility] reported by daughter to also be negative for ischemia, though report not yet available. History Source: Patient Limitations to Obtaining History: No Limitations - Past Medical History Cardiovascular: Yes: HTN, Hyperlipdemia, Other (left bundle branch block) Gastrointestinal: Yes: Gastritis, GERD, GI Bleed Heme/Onc: Yes: Anemia Psych: Yes: Anxiety Musculoskeletal: Yes: Chronic low back pain Rheumatology: Yes: Other (has polymialgia rheumatica) - Past Surgical History Past Surgical History: Yes: Cholecystectomy - Smoking History Smoking history: Never smoked Have you smoked in the past 12 months: No Aproximately how many cigarettes per day: 0 - Alcohol/Substance Use Hx Alcohol Use: No History of Substance Use: reports: None - Social History ADL: Independent History of Recent Travel: Yes - Current Medication List Current Medications: Active Medications Al Hydroxide/Mg Hydroxide (Mylanta Oral Suspension -) 30 ml PO Q6H PRN PRN Reason: DYSPEPSIA Last Admin: 10/21/16 21:09 Dose: 30 ml Potassium Chloride/Dextrose/Sod Cl (D5-1/2ns+20 Meq Kcl -) 1,000 mls @ 75 mls/ hr IV ASDIR ALON Last Admin: 10/22/16 21:54 Dose: 75 mls/hr Losartan Potassium (Cozaar -) 25 mg PO DAILY ALON Last Admin: 10/23/16 10:06 Dose: 25 mg Methylprednisolone Sodium Succinate (Solu-Medrol -) 40 mg IVPB ONCE ONE Stop: 10/21/16 07:01 Metoclopramide HCl (Reglan Injection -) 10 mg IVPB TID [facility] Last Admin: 10/23/16 05:28 Dose: 10 mg Metoprolol Succinate (Toprol Xl -) 25 mg PO BID [facility] Last Admin: 10/23/16 10:06 Dose: 25 mg Ondansetron HCl (Zofran Injection) 4 mg IVPB Q4H PRN Pantoprazole Sodium (Protonix 40mg Ivpb (Pre-Docked)) 40 mg IVPB BID [facility] Last Admin: 10/23/16 10:06 Dose: 40 mg - Objective Vital Signs: Vital Signs Temperature 98.6 F 10/23/16 10:00 Pulse Rate 72 10/23/16 10:00 Respiratory Rate 20 10/23/16 10:00 Blood Pressure 145/75 10/23/16 10:00 O2 Sat by Pulse Oximetry (%) 96 10/22/16 21:00 Constitutional: Yes: Calm Eyes: Yes: WNL HENT: Yes: WNL Neck: Yes: WNL Cardiovascular: Yes: Pulse Irregular Respiratory: Yes: Regular Gastrointestinal: Yes: Soft ...Rectal Exam: Yes: Deferred Genitourinary: No: Anuria Breast(s): Yes: WNL Musculoskeletal: Yes: Muscle Weakness Extremities: Yes: Cool Edema: No Peripheral Pulses WNL: Yes Integumentary: Yes: WNL Neurological: Yes: WNL Psychiatric: Yes: WNL Labs: CBC, BMP 10/23/16 06:00 INR, PTT INR 1.10 (0.82-1.09) 10/20/16 16:30 Problem List - Problems (1) Anemia Assessment/Plan: received PRBCS; Hb now normal. Code(s): D64.9 - ANEMIA, UNSPECIFIED Qualifiers: Anemia type: iron deficiency (2) Gastrointestinal hemorrhage with melena Assessment/Plan: atypical chest pain; TNI < 0.02 x 4. atypical chest pain reproduced by palpation. Strss MIBI negative 2011; reportedly negative in 2016 (daughter to acquire report from [facility]). From a cardiac perspective, there are no absolute contraindications for Ms. Lopez to undergo EGD and/or colonoscopy. Plan for stress Persantine MIBI as outpatient if unable to acquire 2016 study report. Addendum: I discussed pt with Dr. Harding. No GI procedures are planned for this admission. Froma a cardiac standpoint, pt may be followed as an outpatient. Code(s): K92.1 - MELENA (3) LBBB (left bundle branch block) Assessment/Plan: chronic. Code(s): I44.7 - LEFT BUNDLE-BRANCH BLOCK, UNSPECIFIED (4) PSVT (paroxysmal supraventricular tachycardia) Assessment/Plan: on metoprolol; no arrhythmias on telemetry. Code(s): I47.1 - SUPRAVENTRICULAR TACHYCARDIA (5) Systolic CHF Assessment/Plan: on metoprolol; start lisinopril. Code(s): I50.20 - UNSPECIFIED SYSTOLIC (CONGESTIVE) HEART FAILURE (6) Atypical chest pain Assessment/Plan: see under "gastrointestinal hemorrhage". Code(s): R07.89 - OTHER CHEST PAIN (7) Hypertension Assessment/Plan: on metoprolol. Start lisinopril (HTN; systolic CHF). Code(s): I10 - ESSENTIAL (PRIMARY) HYPERTENSION
[2016-10-23] MEDS: D5-1/2NS+20 MEQ KCL - 1,000 ML IV SCH (14:03)
--- NOTE | 2016-10-23 16:44 | DS ---
Physical Examination Vital Signs: Vital Signs Temperature 98.2 F 10/23/16 13:27 Pulse Rate 76 10/23/16 13:27 Respiratory Rate 20 10/23/16 13:27 Blood Pressure 155/77 10/23/16 13:27 O2 Sat by Pulse Oximetry (%) 96 10/22/16 21:00 Findings/Remarks: Denies any epigastric pain, Denies any chest pain,SOB or PND. Constitutional: Yes: Well Nourished, Calm Eyes: Yes: WNL Neck: Yes: Supple Cardiovascular: Yes: Regular Rate and Rhythm, S1, S2 Respiratory: Yes: Regular, CTA Bilaterally Gastrointestinal: Yes: Normal Bowel Sounds, Soft Musculoskeletal: Yes: Back Pain, Joint Stiffness Extremities: Yes: WNL Edema: No Peripheral Pulses WNL: Yes Integumentary: Yes: WNL Neurological: Yes: Oriented ...Motor Strength: WNL Psychiatric: Yes: Alert, Oriented Labs: CBC, BMP 10/23/16 06:00 Discharge Summary Reason For Visit: ANEMIA; GASTROINTESTINAL HEMORRHAGE Current Active Problems Anemia (Acute) Atypical chest pain (Acute) Gastrointestinal hemorrhage with melena (Acute) Hypertension (Acute) Polymialgia Rheumatica Moderate Mitral Regurgitation GERD Procedures: Principal: Echocardiogram Hospital Course: She had noticed melena for about 4 to 5 days [employer] and her Hb was 8 Gm% and was started on Pantoprazole twice a day but on the day before admission Hb was 7.6 and because of her cardiac history she was seen in ED and a repeat Hb was 8 Gm. She was transfused two units of PRBCs and her Hb alpa to 9.7. On the dayof upper endoscopy she complained of severe chest pain. Her EKG shows LBBB but 4 sets of Troponin did not show any change and Dr. Cline felt chest pain was atypical.Her Hb. alpa to 10.5 and remained stable. It was decided to postpone EGD and colonoscopy and first do a Persantine stress to ascertain her cardiac status. She is being discharged on Protonix 40 BID, Feosol, Amlodipine, Toprol XL, Prenisone, Lyrica. Will be followed as OP in y office. Condition: Stable - Instructions Diet, Activity, Other Instructions: Diet soft to be gradually increased. Referrals: Johann Schrader MD [Primary Care Provider] - Disposition: HOME - Home Medications Comprehensive Discharge Medication List: Ambulatory Orders Metoprolol Succinate [Toprol XL -] 50 mg PO DAILY tab.sr.24h 05/02/16 Prednisone [Deltasone -] 5 mg PO DAILY tablet 05/02/16 Amlodipine Besylate [Norvasc -] 5 mg PO DAILY tablet 06/22/16 Pregabalin [Lyrica] 75 mg PO HS 10/20/16 Venlafaxine HCl ER [Effexor Xr -] 75 mg PO HS 10/20/16
[2016-10-23 18:15] VITALS: BP 143/85; PULSE 80; TEMP 98.5
== END 2016-10-23 18:31 | disposition home or self-care (01) | DRG 378 ==
LOC: JER 15:29 → JERBED 17:47 → J6S 21:50 → J4W 10-21 10:28 → J7W 10-22 21:19
PROVIDERS: ADMIT Internal Medicine Hematology & Oncology; ATTEND Internal Medicine Hematology & Oncology
PROC: 30233N1 Transfusion of Nonautologous Red Blood Cells into Peripheral Vein, Percutaneous Approach (ICD-10-PCS; principal; 2016-10-20)
DX: K92.1 Melena (principal); I50.22 Chronic systolic (congestive) heart failure; R07.89 Other chest pain; M35.3 Polymyalgia rheumatica; K21.9 Gastro-esophageal reflux disease without esophagitis; I34.0 Nonrheumatic mitral (valve) insufficiency; I44.7 Left bundle-branch block, unspecified; E78.5 Hyperlipidemia, unspecified; I11.0 Hypertensive heart disease with heart failure; D50.9 Iron deficiency anemia, unspecified
CPT/HCPCS: 36415; 36430; 36511; 71010-TC; 74000-TC; 80053; 81003; 81015; 82272; 82550; 83036; 84484; 85025; 85027; 85044; 85610; 86850; 86900; 86901; 86922; 93005; 93010; 93306-TC; 99284-25; P9038; P9058

== ENCOUNTER 2019-05-15 17:40 | Emergency (ER) | payer OTHER ==
[2019-05-15 17:51] VITALS: BP 175/74; PULSE 74; TEMP 98; BMI 27.3
--- NOTE | 2019-05-15 17:51 | PDOC ---
Rapid Medical Evaluation Time Seen by Provider: 05/15/19 17:48 Medical Evaluation: Allergies Allergy/AdvReac Type Severity Reaction Status Date / Time lisinopril Allergy Cough Verified 10/20/16 15:36 05/15/19 17:49 CC: left shoulder and rib pain s/p slip and fall. Denies head trauma or LOC. PE: Left shoulder and left lateral 7th rib TTP. No deformity, crepitus or step- off present. Lungs CTAB. Orders: xrays, tylenol Patient will proceed to ER for further evaluation. Discharge Disposition - Diagnosis Fall - Referrals Referrals: Johann Schrader MD [Primary Care Provider] - - Patient Instructions - Post Discharge Activity
[2019-05-15] MEDS ORDERED: ACETAMINOPHEN 500 MG TABLET (FP) PO ONE (17:52)
[2019-05-15] MEDS ORDERED: ACETAMINOPHEN 325 MG TABLET (FP) ONE (18:03)
--- NOTE | 2019-05-15 19:09 | PDOC ---
History of Present Illness - General Chief Complaint: Injury Stated Complaint: FALL Time Seen by Provider: 05/15/19 17:48 - History of Present Illness Initial Comments: 05/15/19 19:04 78-year-old female with an extensive past medical history including open heart surgery presents for evaluation of dizziness and falling. This occurred prior to arrival while taking out the garbage. 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 Past History - Past Medical History Allergies/Adverse Reactions: Allergies Allergy/AdvReac Type Severity Reaction Status Date / Time lisinopril Allergy Cough Verified 05/15/19 17:51 Home Medications: Ambulatory Orders Metoprolol Succinate [Toprol XL -] 50 mg PO DAILY tab.sr.24h 05/02/16 predniSONE [Deltasone -] 5 mg PO DAILY tablet 05/02/16 Amlodipine Besylate [Norvasc -] 5 mg PO DAILY tablet 06/22/16 Pregabalin [Lyrica] 75 mg PO HS 10/20/16 Venlafaxine HCl ER [Effexor Xr -] 75 mg PO HS 10/20/16 Anemia: Yes Asthma: No Cancer: No Cardiac Disorders: No CVA: No COPD: No CHF: No Dementia: No Diabetes: No GI Disorders: Yes (GERD) Disorders: No HTN: Yes Hypercholesterolemia: Yes Liver Disease: No Seizures: No Thyroid Disease: No - Surgical History Abdominal Surgery: No Appendectomy: No Cardiac Surgery: No Cholecystectomy: Yes Lung Surgery: No Neurologic Surgery: No Orthopedic Surgery: No - Psycho Social/Smoking Cessation Hx Smoking Status: No Smoking History: Never smoked Have you smoked in the past 12 months: No Number of Cigarettes Smoked Daily: 0 Hx Alcohol Use: No Drug/Substance Use Hx: No Substance Use Type: None Hx Substance Use Treatment: No Review of Systems - Review of Systems Cardiac (ROS): No: Chest Pain Neurological: Yes: Dizziness *Physical Exam - Vital Signs Last Vital Signs Temp Pulse Resp BP Pulse Ox 98 F 74 18 175/74 H 99 05/15/19 17:47 05/15/19 17:47 05/15/19 17:47 05/15/19 17:47 05/15/19 17:47 - Physical Exam 05/15/19 19:04 GENERAL: The patient is awake, alert, and fully oriented, in no acute distress. HEAD: Normal with no signs of trauma. EYES: sclera anicteric, conjunctiva clear. ENT: Ears normal tympanic membranes normal oropharynx clear uvula midline NECK: Normal range of motion LUNGS: Breath sounds equal, clear to auscultation bilaterally. No wheezes, and no crackles. Left-sided rib tenderness. HEART: S1 and S2 without murmur, rub or gallop. ABDOMEN: Soft, nontender, normoactive bowel sounds. No guarding, no rebound. No masses. EXTREMITIES: Decreased range of motion of the left shoulder full internal and external rotation without pain mild tenderness about the area of the glenoid. Proximal humerus is nontender. Neurovascular intact. NEUROLOGICAL: Cranial nerves II through XII grossly intact. Normal speech, normal gait. PSYCH: Normal mood, normal affect. SKIN: Warm, Dry, normal turgor, no rashes or lesions noted. ED Treatment Course - Medications Given in the ED: ED Medications Discontinued Medications Generic Name Dose Route Start Last Admin Trade Name Freq PRN Reason Stop Dose Admin Acetaminophen 1,000 mg 05/15/19 17:52 05/15/19 18:09 Tylenol - PO 05/15/19 17:53 1,000 mg ONCE ONE Administration Medical Decision Making - Medical Decision Making 05/15/19 19:05 Discussed the need for CAT scan of the head and cardiac work-up from fall due to dizziness. Patient and family member have refused the work-up and will sign out AGAINST MEDICAL ADVICE. All adverse outcomes including were explained. This is most likely a rib contusion and a left shoulder contusion however syncope remains in the differential unable to rule out cardiogenic or neurologic causes of fall Discharge - Discharge Information Problems reviewed: Yes Clinical Impression/Diagnosis: Fall, Contusion of rib on left side, Shoulder contusion, Recurrent syncope Condition: Guarded Disposition: AGAINST MEDICAL ADVICE - Follow up/Referral Referrals: Johann Schrader MD [Primary Care Provider] - - Patient Discharge Instructions Patient Printed Discharge Instructions: DI for Syncope in Adults (Fainting), DI for Rib Contusion - Post Discharge Activity
== END 2019-05-15 19:44 | disposition left against medical advice (07) ==
LOC: JERFT 17:40
DX: R55 Syncope and collapse (principal); S20.212A Contusion of left front wall of thorax, initial encounter; S40.012A Contusion of left shoulder, initial encounter; W18.39XA Other fall on same level, initial encounter; Y93.89 Activity, other specified; Y92.89 Other specified places as the place of occurrence of the external cause; Y99.8 Other external cause status; I10 Essential (primary) hypertension; E78.00 Pure hypercholesterolemia, unspecified; K21.9 Gastro-esophageal reflux disease without esophagitis; Z88.8 Allergy status to other drugs, medicaments and biological substances
CPT/HCPCS: 71046-TC-FY; 71101-TC-LT-FY; 73030-TC-LT-FY; 99281-25

== ENCOUNTER 2020-01-26 15:44 | Inpatient (IN) | payer OTHER ==
[2020-01-26 15:50] VITALS: BMI 27.3
[2020-01-26] MEDS ORDERED: SODIUM CHLORIDE 1,000 ML IV STA (16:53)
[2020-01-26] MEDS ORDERED: ACETAMINOPHEN 1000 MG/100 ML VIAL (NON FORMULARY) IVPB ONE (16:53)
[2020-01-26] MEDS ORDERED: FAMOTIDINE 20 MG/50 ML IVPB 20 MG/50 ML MG IVPB ONE ×2 (16:53→17:30)
[2020-01-26] MEDS ORDERED: MAG HYDROX/AL HYDROX/SIMETH 30 ML UNIT-DOSE CUP PO ONE (16:53)
[2020-01-26] MEDS ORDERED: ONDANSETRON 4 MG/2 ML VIAL IVPB ONE (16:53)
[2020-01-26] MEDS ORDERED: MAG HYDROX/AL HYDROX/SIMETH 30 ML UNIT-DOSE CUP ONE (17:30)
[2020-01-26] MEDS ORDERED: ACETAMINOPHEN INJECTION 100 ML IVPB ONE (17:30)
--- NOTE | 2020-01-26 17:30 | PDOC ---
History of Present Illness - General Chief Complaint: Pain Stated Complaint: NAUSEA/VOMITING Time Seen by Provider: 01/26/20 17:29 - History of Present Illness Initial Comments: 01/26/20 17:29 79 F with h/o GERD, HTN, HLD, Polymyalgia Rheumatica, PUD, s/p cholecystectomy, presents to ED with epigastric pain x 2 weeks. Pt states that she feels like her ulcer is flaring up. She has been taking pantoprazole and famotidine, with some improvement. However, yesterday pt had an acute exacerbation of her pain, associated with several episodes of nonbloody vomit. Pt denies diarrhea/constipation. Denies F/C. Pt notes that her PMD started her on cipro a few days ago for her ulcer. Past History - Medical History Allergies/Adverse Reactions: Allergies Allergy/AdvReac Type Severity Reaction Status Date / Time lisinopril Allergy Cough Verified 01/26/20 15:51 Home Medications: Ambulatory Orders Alprazolam [Xanax] 0.5 mg PO BID 01/27/20 Amlodipine Besylate [Norvasc -] 5 mg PO BID 01/27/20 Carvedilol [Coreg -] 12.5 mg PO BID 01/27/20 Famotidine [Pepcid -] 20 mg PO DAILY 01/27/20 Hydrochlorothiazide [Hctz -] 12.5 mg PO DAILY 01/27/20 Pantoprazole Sodium [Protonix] 40 mg PO DAILY 01/27/20 Spironolactone [Aldactone] 25 mg PO DAILY 01/27/20 Sucralfate [Carafate -] 1 gm PO TID 01/27/20 Telmisartan [Micardis] 80 mg PO DAILY 01/27/20 Anemia: Yes Asthma: No Cancer: No Cardiac Disorders: No CVA: No COPD: No CHF: No Dementia: No Diabetes: No GI Disorders: Yes (GERD) Disorders: No HTN: Yes Hypercholesterolemia: Yes Liver Disease: No Seizures: No Thyroid Disease: No - Surgical History Abdominal Surgery: No Appendectomy: No Cardiac Surgery: No Cholecystectomy: Yes Lung Surgery: No Neurologic Surgery: No Orthopedic Surgery: No - Reproductive History Is Patient Now?: No - Psycho-Social/Smoking History Smoking Status: No Smoking History: Never smoked Have you smoked in the past 12 months: No Number of Cigarettes Smoked Daily: 0 Information on smoking cessation initiated: Yes - Substance Abuse Hx (Audit-C & DAST Scrn) How often the patient has a drink containing alcohol: Never Score: In Men: 4 or > Positive; In Women: 3 or > Positive: 0 Screen Result (Pos requires Nsg. Audit-10AR): Negative In the last yr the pt used illegal drug/Rx for NonMed reason: No Score: Yes response is considered Positive: 0 Screen Result (Positive result requires Nsg. DAST-10): Negative Review of Systems - Review of Systems Comments:: 01/26/20 17:34 "GENERAL/CONSTITUTIONAL: No fever or chills. No weakness. HEAD, EYES, EARS, NOSE AND THROAT: No change in vision. No ear pain or discharge. No sore throat. CARDIOVASCULAR: No chest pain, no shortness of breath, no loss of consciousness RESPIRATORY: No cough, wheezing, or hemoptysis. GASTROINTESTINAL: + abdominal pain, + nausea, + vomiting, no diarrhea or constipation. GENITOURINARY: No dysuria, frequency, or change in urination. MUSCULOSKELETAL: No joint or muscle swelling or pain. No neck or back pain. SKIN: No rash NEUROLOGIC: No vertigo, no change in strength/sensation. ENDOCRINE: No increased thirst. No abnormal weight change. HEMATOLOGIC/LYMPHATIC: No anemia, easy bleeding, or history of blood clots. ALLERGIC/IMMUNOLOGIC: No hives or skin allergy. *Physical Exam - Vital Signs Last Vital Signs Temp Pulse Resp BP Pulse Ox 98.5 F 75 19 143/70 97 01/26/20 15:48 01/26/20 15:48 01/26/20 15:48 01/26/20 15:48 01/26/20 15:48 - Physical Exam 01/26/20 17:34 "GENERAL: Awake, alert, and fully oriented, in no acute distress. HEAD: No signs of trauma EYES: PERRLA, EOMI, sclera anicteric, conjunctiva clear ENT: Auricles normal inspection, hearing grossly normal, nares patent, oropharynx clear without exudates. Moist mucosa NECK: Nontender, no stepoffs, Normal ROM, supple, no lymphadenopathy, JVD, or masses LUNGS: Breath sounds equal, clear to auscultation bilaterally. No wheezes, and no crackles HEART: Regular rate and rhythm, normal S1 and S2, no murmurs, rubs or gallops ABDOMEN: + epigastric TTP, normoactive bowel sounds. No guarding, no rebound. No masses EXTREMITIES: Normal range of motion, no edema. No clubbing or cyanosis. No cords, erythema, or tenderness NEUROLOGICAL: Cranial nerves II through XII intact. 5/5 strength and sensation in all extremities, Normal speech, normal gait, normal cerebellar function SKIN: Warm, Dry, normal turgor, no rashes or lesions noted. ED Treatment Course - LABORATORY CBC & Chemistry Diagram: 01/26/20 17:45 01/26/20 20:20 - RADIOLOGY Radiology Studies Ordered: Category Date Time Status HEAD CT WITHOUT CONTRAST [CT] Stat CT Scan 01/26/20 16:53 Ordered CHEST X-RAY PORTABLE* [RAD] Stat Radiology 01/26/20 16:53 Ordered Medical Decision Making - Medical Decision Making 01/26/20 17:35 79 F with epigastric pain, N+V. Suspect acute exacerbation of pt's PUD. Also consider pancreatitis. Pt with no chest pain but will evaluate for ACS. - Labs, lipase, trop - CXR to r/o free air - Consider CT - GI cocktail Labs notable for hyponatremia Na 119 Given 1L NS Pt signed out to Dr. Castillo at 7pm, pending CT scan, with plan to admit for hyponatremia Discharge - Discharge Information Problems reviewed: Yes Clinical Impression/Diagnosis: Inadequate oral intake, Hyponatremia, Gastritis, GERD (gastroesophageal reflux disease), Nausea Condition: Guarded Disposition: AGAINST MEDICAL ADVICE - Follow up/Referral - Patient Discharge Instructions - Post Discharge Activity
[2020-01-26 18:36] LABS: ALK PHOS 66 U/L (45-117); BILIRUBIN,TOTAL 0.8 mg/dL (0.2-1); BLOOD UREA NITROGEN 11.9 mg/dL (7-18); CALCIUM 8.9 mg/dL (8.5-10.1); CHLORIDE 86 mmol/L (98-107); CO2 23 mmol/L (21-32); CREATININE 1.1 mg/dL (0.55-1.3); GLUCOSE,RANDOM 103 mg/dL (74-106); LIPASE 66 U/L (73-393); POTASSIUM 4.1 mmol/L (3.5-5.1); SGOT/AST 14 U/L (15-37); SGPT/ALT 17 U/L (13-61); TOT PROT 6.9 g/dl (6.4-8.2)
[2020-01-26 18:37] LABS: BASO % 0.8 % (0-2.0); EOS % 6.7 % (0-4.5); HEMATOCRIT 34.8 % (32.4-45.2); HEMOGLOBIN 12.4 GM/dL (10.7-15.3); LYMPH % 22.4 % (8-40); MCH 30.7 pg (25.7-33.7); MCHC 35.6 g/dl (32.0-36.0); MEAN CELL VOLUME 86.4 fl (80-96); MONO % 14.2 % (3.8-10.2); NEUT % 55.9 % (42.8-82.8); PLATELET COUNT 228 K/MM3 (134-434); RBC 4.03 M/mm3 (3.60-5.2); RDW 13.2 % (11.6-15.6); WHITE BLOOD COUNT 4.6 K/mm3 (4.0-10.0)
[2020-01-26 18:40] LABS: ANION GAP 10 MMOL/L (8-16); SODIUM 119 mmol/L (136-145)
[2020-01-26] MEDS ORDERED: LIDOCAINE VISCOUS 2% ORAL/TOP 20 ML UNIT-DOSE CUP MM ONE (20:08)
[2020-01-26] MEDS ORDERED: DICYCLOMINE HCL 10 MG/5 ML PO ONE (20:08)
--- NOTE | 2020-01-26 20:09 | PDOC ---
*Physical Exam - Vital Signs Last Vital Signs Temp Pulse Resp BP Pulse Ox 98.5 F 75 19 143/70 97 01/26/20 15:48 01/26/20 15:48 01/26/20 15:48 01/26/20 15:48 01/26/20 15:48 ED Treatment Course - LABORATORY CBC & Chemistry Diagram: 01/26/20 17:45 01/26/20 20:20 - ADDITIONAL ORDERS Additional order review: Laboratory Results 01/26/20 01/26/20 17:45 17:45 Sodium 119 L Potassium 4.1 Chloride 86 L Carbon Dioxide 23 Anion Gap 10 BUN 11.9 Creatinine 1.1 Est GFR (CKD-EPI)AfAm 54.91 Est GFR (CKD-EPI)NonAf 47.38 Random Glucose 103 Lactic Acid 0.9 Calcium 8.9 Total Bilirubin 0.8 AST 14 L ALT 17 Alkaline Phosphatase 66 Creatine Kinase 63 Troponin I < 0.02 Total Protein 6.9 Albumin 4.0 Lipase 66 L 01/26/20 17:45 RBC 4.03 MCV 86.4 MCHC 35.6 RDW 13.2 MPV 9.0 Neutrophils % 55.9 Lymphocytes % 22.4 D Monocytes % 14.2 H Eosinophils % 6.7 H Basophils % 0.8 - Medications Given in the ED: ED Medications Discontinued Medications Generic Name Dose Route Start Last Admin Trade Name Murphy PRN Reason Stop Dose Admin Acetaminophen 1,000 mg 01/26/20 16:53 01/26/20 17:45 Ofirmev Injection - IVPB 01/26/20 16:54 1,000 mg ONCE ONE Administration Al Hydroxide/Mg Hydroxide 30 ml 01/26/20 16:53 01/26/20 17:45 Mylanta Oral Suspension - PO 01/26/20 16:54 30 ml ONCE ONE Administration Sodium Chloride 1,000 mls @ 1,000 mls/hr 01/26/20 16:53 01/26/20 17:45 Normal Saline - IV 01/26/20 17:52 1,000 mls/hr ASDIR STA Administration Famotidine/Sodium Chloride 20 mg in 50 mls @ 100 mls/hr 01/26/20 16:53 01/26/20 17:45 Pepcid 20 Mg Premixed Ivpb - IVPB 01/26/20 17:22 100 mls/hr ONCE ONE Administration Ondansetron HCl 4 mg 01/26/20 16:53 01/26/20 17:45 Zofran Injection IVPB 01/26/20 16:54 4 mg ONCE ONE Administration Medical Decision Making - Medical Decision Making 01/26/20 20:06 picked up patient on signout. She has had nothing to eat all day; she has epigastric pain with her new cipro prescription that she has been taking for UTI. Pt has hypoNa and she will be admitted 01/26/20 21:27 Pt's CXR unchanged from previous; cardiomegaly and mid sternal wires. Pt's CT scan shows cysts on kidneys bilaterally on one on ?left ovary --pending official read Pt's headt CT normal; involution normal for age--pending official read. 01/26/20 21:29 admitting team requesting BNP; I added one on to her existing labs 01/27/20 02:13 BNP 600s Pt refusing to stay; Dr. Schrader is aware. He will follow in the office. He recommends that she d/c her HCTZ and her spironolactone. 01/27/20 02:27 Pt signed out AMA Discharge - Discharge Information Problems reviewed: Yes Clinical Impression/Diagnosis: Inadequate oral intake, Hyponatremia, Gastritis, GERD (gastroesophageal reflux disease), Nausea Condition: Guarded Disposition: AGAINST MEDICAL ADVICE - Admission Yes - Follow up/Referral - Patient Discharge Instructions - Post Discharge Activity
[2020-01-26] MEDS ORDERED: LIDOCAINE VISCOUS 2% ORAL/TOP 20 ML UNIT-DOSE CUP ONE (20:11)
[2020-01-26] MEDS ORDERED: DICYCLOMINE HCL 10 MG CAPSULE ONE (20:11)
--- NOTE | 2020-01-26 21:21 | PN ---
Teaching Attending Note Name of Resident: Raquel Ta ATTENDING PHYSICIAN STATEMENT I saw and evaluated the patient. I reviewed the resident's note and discussed the case with the resident. I agree with the resident's findings and plan as documented. SUBJECTIVE: Patient is an 79 year old woman with a PMH of GERD, HTN, HLD, Polymyalgia Rheuma zaheer, PUD and Cholecystectomy who presents to ER with epigastric pain for 2 weeks. Patient states that she feels like her ulcer is flaring up. She has been taking Pantoprazole and Famotidine, with some improvement. However, yesterday patient had an acute exacerbation of her pain, associated with several episodes of nonbloody vomiting. Her PMD started her on Cipro a few days ago for ?UTI. Patient denies shortness of breath, headache, palpitations, dizziness, fever, chills, diarrhea, constipation, dysuria, frequency, urgency, melena, hematochezia or hematuria. Denies alcohol, tobacco or illicit drug use. No sick contacts or recent travels. Family history is unremarkable. OBJECTIVE: Alert Vital Signs Period Temp Pulse Resp BP Sys/Groves Pulse Ox Last 24 Hr 98.5 F 75 19 143/70 97 HEENT: No Jaundice, eye redness or discharge, PERRLA, EOMI. Normocephalic, atraumatic. External ears are normal and hearing is grossly intact. No nasal discharge. Neck: Supple, nontender. No palpable adenopathy or thyromegaly. No JVD Chest: Good effort. Clear to auscultation and percussion. Heart: Regular. No S3, rub or murmur Abdomen: Not distended, soft, nontender and no HSM. No rebound or guarding. Normal bowel sounds. Ext: Peripheral pulses intact. No leg edema. Skin: Warm and dry. No petechiae, rash or ecchymosis. Neuro: Alert. Oriented x3. CN 2-12 grossly intact. Sensation grossly intact in all four extremities and DTR are symmetric. Psych: Appropriate mood and affect. Good insight. Home Medications Medication Instructions Recorded Metoprolol Succinate [Toprol XL -] 50 mg PO DAILY tab.sr.24h 05/02/16 predniSONE [Deltasone -] 5 mg PO DAILY tablet 05/02/16 Amlodipine Besylate [Norvasc -] 5 mg PO DAILY tablet 06/22/16 Pregabalin [Lyrica] 75 mg PO HS 10/20/16 Venlafaxine HCl ER [Effexor Xr -] 75 mg PO HS 10/20/16 Abnormal Lab Results 01/26/20 01/26/20 17:45 17:45 Monocytes % 14.2 H Eosinophils % 6.7 H Sodium 119 L Chloride 86 L AST 14 L Lipase 66 L ASSESSMENT AND PLAN: 1. Epigastric pain/Hyponatremia - Flare up of PUD may explain epigastric pain. Her serum sodium was 127 meq/L on 01/21/2020. Hyponatremia likely multifactorial including vomiting, poor solute intake, pain (?SIADH) and dehydration. Urinalysis is pending. CXR shows cardiomegaly, sternotomy clips, trachea deviation to the right, osteoporotic bones, with no evidence of acute lung disease. No evidence of acute intracranial pathology on noncontrast head CT scan, but reveals probable bilateral basal ganglia punctate chronic infarcts. CT scan of abdomen/pelvis shows bilateral renal cysts and possible left ovarian cyst. ER staff prescribed Bentyl, Tylenol, Mylanta, Pepcid, Zofran, Viscous lidocaine and IV NS for the patient. EKG shows NSR at /minute and QTc with no ischemic ST-T wave changes. Not significantly changed compared to prior EKG. No old EKG available for comparison. Initial troponin is negative. Will avoid drugs that may prolong QTc. Viral testing for COVID-19 ordered and patient placed on airborne, droplet and contact isolation. Will admit to telemetry, monitor serum sodium q 6 hours to avoid a rapid rise, give IV NS, IV Protonix and consult GI and Nephrology. Will continue comprehensive care for all of patients comorbid conditions. 2. Hypertension Will restart suitable outpatient antihypertensive drugs when clinically appropriate. Subsequently, will revise regimen to ensure [id number] excellent BP control. Patient counseled on the injurious effects of uncontrolled hypertension. Nonpharmacologic measures to control hypertension like weight loss, salt restriction and exercise stressed. Importance of adherence to treatment regimen and attainment of normotension emphasized. 3. DVT prophylaxis - Lovenox 40 mg SQ q 24 hours. 4. Advance directives - Full code
[2020-01-26 21:48] LABS: N-TERMINAL BNP 632.1 pg/ml (5-450)
[2020-01-26 22:31] VITALS: BP 150/68; PULSE 69; TEMP 98.2
[2020-01-26 23:43] LABS: ALBUMIN 4.1 g/dl (3.4-5.0); BILIRUBIN,TOTAL 0.6 mg/dL (0.2-1); BLOOD UREA NITROGEN 9.9 mg/dL (7-18); CALCIUM 8.5 mg/dL (8.5-10.1); CREATININE 0.9 mg/dL (0.55-1.3); POTASSIUM 4.1 mmol/L (3.5-5.1); TOT PROT 6.8 g/dl (6.4-8.2)
--- NOTE | 2020-01-29 11:38 | EKG ---
Test Reason : Blood Pressure : / mmHG Vent. Rate : 067 BPM Atrial Rate : 067 BPM P-R Int : 232 ms QRS Dur : 160 ms QT Int : 456 ms P-R-T Axes : 050 -37 114 degrees QTc Int : 481 ms SINUS RHYTHM WITH 1ST DEGREE A-V BLOCK LEFT AXIS DEVIATION LEFT BUNDLE BRANCH BLOCK ABNORMAL ECG WHEN COMPARED WITH ECG OF 21-OCT-2016 08:24, ID INTERVAL HAS INCREASED Confirmed by ABBIE CARTER, KAI ([id number]) on 01/29/2020 11:37:42 AM Referred By: Confirmed By:KAI LEIVA MD
== END 2020-01-27 02:28 | disposition left against medical advice (07) | DRG 641 ==
LOC: JER 15:44 → JERBED 20:10
PROVIDERS: ADMIT Internal Medicine; ATTEND Internal Medicine
DX: E87.1 Hypo-osmolality and hyponatremia (principal); F05 Delirium due to known physiological condition; K29.50 Unspecified chronic gastritis without bleeding; I95.9 Hypotension, unspecified; I10 Essential (primary) hypertension; E78.5 Hyperlipidemia, unspecified; I44.7 Left bundle-branch block, unspecified; K21.9 Gastro-esophageal reflux disease without esophagitis; D64.9 Anemia, unspecified; M54.5 Low back pain; F41.9 Anxiety disorder, unspecified; M35.3 Polymyalgia rheumatica; Z86.73 Personal history of transient ischemic attack (TIA), and cerebral infarction without residual deficits
CPT/HCPCS: 36415; 70450-TC; 71045-TC-FY; 74177-TC; 80053; 82550; 83605; 83690; 83880; 84484; 85025; 93005; 93010; 99285-25; J0131; Q9967

== ENCOUNTER 2020-01-28 13:35 | Inpatient (IN) | payer OTHER ==
[2020-01-28] MEDS ORDERED: SODIUM CHLORIDE 1,769 ML IV ONE (14:08)
[2020-01-28] MEDS ORDERED: FAMOTIDINE 20 MG/50 ML IVPB 20 MG/50 ML MG IVPB ONE ×2 (14:10→14:16)
--- NOTE | 2020-01-28 14:35 | PDOC ---
History of Present Illness - General Chief Complaint: Blood Pressure Problem Stated Complaint: HYPOTENSION Time Seen by Provider: 01/28/20 14:09 - History of Present Illness Initial Comments: 01/28/20 15:35 79yo F w/ PMH gastritis and refractory HTN, seen in this ED two days ago for the same cc, presents w/ ABD cramps and nausea. Her son endorses a chronic gastritis that has recently become more severe. The gastritis has led to decreased oral intake which, combined with still taking her anti-hypertensives, has resulted in a hyponatremia. Past History - Medical History Allergies/Adverse Reactions: Allergies Allergy/AdvReac Type Severity Reaction Status Date / Time lisinopril Allergy Cough Verified 01/28/20 13:47 Home Medications: Ambulatory Orders Alprazolam [Xanax] 0.5 mg PO BID 01/27/20 Carvedilol [Coreg -] 12.5 mg PO BID 01/27/20 Pantoprazole Sodium [Protonix] 40 mg PO DAILY 01/27/20 Telmisartan [Micardis] 80 mg PO DAILY 01/27/20 Pantoprazole Sodium [Protonix -] 40 mg PO DAILY #30 tablet.ec 01/29/20 predniSONE [Deltasone -] 5 mg PO DAILY tablet 01/29/20 Anemia: Yes Asthma: No Cancer: No Cardiac Disorders: No CVA: No COPD: No CHF: No Dementia: No Diabetes: No GI Disorders: Yes (GERD) Disorders: No HTN: Yes Hypercholesterolemia: Yes Liver Disease: No Seizures: No Thyroid Disease: No - Surgical History Abdominal Surgery: No Appendectomy: No Cardiac Surgery: No Cholecystectomy: Yes Lung Surgery: No Neurologic Surgery: No Orthopedic Surgery: No - Psycho-Social/Smoking History Smoking Status: No Smoking History: Never smoked Have you smoked in the past 12 months: No Number of Cigarettes Smoked Daily: 0 - Substance Abuse Hx (Audit-C & DAST Scrn) How often the patient has a drink containing alcohol: Never Score: In Men: 4 or > Positive; In Women: 3 or > Positive: 0 Screen Result (Pos requires Nsg. Audit-10AR): Negative Review of Systems - Review of Systems Able to Perform ROS?: Yes Is the patient limited Bengali proficient: Yes Constitutional: Yes: Loss of Appetite, Weakness. No: Diaphoresis HEENTM: No: Blurred Vision, Hearing Loss Respiratory: No: Cough, SOB with Exertion Cardiac (ROS): No: Symptoms Reported, Chest Pain ABD/GI: Yes: Constipated, Nausea, Poor Appetite, Poor Fluid Intake. No: Vomiting : No: Burning, Dysuria, Discharge Musculoskeletal: No: Back Pain Integumentary: No: Bruising, Rash Neurological: Yes: Headache. No: Numbness, Paresthesia *Physical Exam - Vital Signs Last Vital Signs Temp Pulse Resp BP Pulse Ox 97.8 F 63 18 127/54 L 95 01/28/20 13:43 01/28/20 14:10 01/28/20 14:10 01/28/20 14:10 01/28/20 14:10 - Physical Exam General Appearance: Yes: Nourished, Appropriately Dressed, Apparent Distress, Mild Distress HEENT: positive: EOMI, Normal Voice, Hearing Grossly Normal Neck: positive: Trachea midline, Supple. negative: Tender Respiratory/Chest: positive: Lungs Clear, Normal Breath Sounds. negative: Chest Tender, Respiratory Distress Cardiovascular: positive: Regular Rhythm, Regular Rate, S1, S2 Gastrointestinal/Abdominal: positive: Normal Bowel Sounds, Soft. negative: Tender, Organomegaly, Pulsatile Mass Musculoskeletal: positive: Normal Inspection. negative: CVA Tenderness Extremity: positive: Normal Capillary Refill, Normal Inspection Integumentary: positive: Normal Color, Dry, Warm Neurologic: positive: Alert, Normal Mood/Affect, Normal Response ED Treatment Course - LABORATORY CBC & Chemistry Diagram: 01/28/20 14:34 01/29/20 07:00 Medical Decision Making - Medical Decision Making 01/28/20 14:29 spoke with PMD - pt was d/c home Wednesday with hypoNa, but the nausea and cramps resolved. got zofran + protonix IV Wednesday: nausea -> zofran. Wednesday: lytes + NS + Zofran + protonix , no other tests. 01/28/20 15:53 79yo F w/ HTN and chronic gastritis presents for second time in 3 days w/ nausea + ABD cramps and hypoNa. BP correcting w/ fluids. afebrile, non-tachycardic, no WBC -> sepsis less likely at this point. will continue to assess. no CP, no syncope, pulses equal b/l radial pulses, no tearing or ripping sensation reported -> dissection less likely but will continue to assess. hypotension, cramps, and hypoNa possibly due to continued use of diuretics with decreased PO intake. -> will give second liter of NS and continue to monitor. Pt is bounceback from 3 days ago with intractable nausea, inability to tolerate PO, and now with hyponatremia -> will most likely admit to correct these Discharge - Discharge Information Problems reviewed: Yes Clinical Impression/Diagnosis: Hyponatremia, Abdominal cramping Gastritis Qualifiers: Gastritis type: other gastritis Chronicity: chronic Gastritis bleeding: without bleeding Qualified Code(s): K29.50 - Unspecified chronic gastritis without bleeding Condition: Improved - Admission Yes - Follow up/Referral - Patient Discharge Instructions - Post Discharge Activity
[2020-01-28 14:52] LABS: BASO % 1.3 % (0-2.0); EOS % 4.7 % (0-4.5); HEMATOCRIT 33.9 % (32.4-45.2); HEMOGLOBIN 12.1 GM/dL (10.7-15.3); LYMPH % 17.4 % (8-40); MCH 31.4 pg (25.7-33.7); MCHC 35.7 g/dl (32.0-36.0); MEAN CELL VOLUME 87.8 fl (80-96); MEAN PLT VOLUME 8.7 fl (7.5-11.1); MONO % 15.1 % (3.8-10.2); NEUT % 61.5 % (42.8-82.8); PLATELET COUNT 228 K/MM3 (134-434); RBC 3.87 M/mm3 (3.60-5.2); RDW 12.8 % (11.6-15.6)
[2020-01-28 14:59] LABS: INR 1.04 (0.83-1.09); PROTHROMBIN TIME (PATIENT) 12.3 SEC (9.7-13.0)
[2020-01-28 15:01] LABS: ACTIVATED PTT 32.5 SECONDS (25.2-36.5)
[2020-01-28] MEDS ORDERED: ONDANSETRON 4 MG/2 ML VIAL IVPUSH ONE (15:08)
[2020-01-28 15:23] LABS: ALBUMIN 3.7 g/dl (3.4-5.0); BILIRUBIN,TOTAL 0.6 mg/dL (0.2-1); BLOOD UREA NITROGEN 8.7 mg/dL (7-18); CALCIUM 8.8 mg/dL (8.5-10.1); CREATININE 1.1 mg/dL (0.55-1.3); POTASSIUM 3.8 mmol/L (3.5-5.1); TOT PROT 7.2 g/dl (6.4-8.2)
--- NOTE | 2020-01-28 16:27 | PDOC ---
Documentation entered by Latasha Delgadillo SCRIBE, acting as scribe for Juan Jose Foy MD. Juan Jose Foy MD: This documentation has been prepared by the Elie singh Ana, SCRIBE, under my direction and personally reviewed by me in its entirety. I confirm that the documentation accurately reflects all work, treatment, procedures, and medical decision making performed by me. Attending Attestation - Resident Resident Name: Edgardo Frank - ED Attending Attestation I have performed the following: I have examined & evaluated the patient, The case was reviewed & discussed with the resident, I agree w/resident's findings & plan, Exceptions are as noted - HPI HPI: 01/28/20 14:33 Patient is an 79 year old female with a significant past medical history of hypertension and gastritis who presents to the ED with nausea and abdominal cramps. Patient endorses: chronic gastritis that has been getting severe and decrease PO intake. Patient denies: any other related symptoms Allergies: lisinopril - Physicial Exam PE: 01/28/20 14:38 Vitals: Triage vital signs reviewed General Appearance: No acute distress, well nourished, well developed Head: Atraumatic Cardiac: Regular rate and rhythm, Lungs: Clear to auscultation bilateral, good air movement bilaterally Abdomen: Soft, nondistended, normal bowel sounds, nontender to palpation Extremities: Full range of motion to all extremities, no cyanosis, clubbing, or edema Skin: Warm and dry, no rashes or lesions, no rash, no petechiae Psych: Normal mood, normal affect - Medical Decision Making 02/01/20 17:06 Patient with similar complaint recent CAT scan negative for acute pathology now presents with hypotension secondary to nausea and similar gastric pains unable to tolerate fluids Laboratory analysis notable for hyponatremia Likely secondary to diuretic medications in addition to poor p.o. intake Given hyponatremia symptomatic nausea upper abdominal discomfort difficulty tolerating fluids will admit to hospital for further management hydration and electrolyte repletion correction Discharge - Discharge Information Problems reviewed: Yes Clinical Impression/Diagnosis: Hyponatremia, Abdominal cramping Gastritis Qualifiers: Gastritis type: other gastritis Chronicity: chronic Gastritis bleeding: without bleeding Qualified Code(s): K29.50 - Unspecified chronic gastritis without bleeding Condition: Improved - Follow up/Referral - Patient Discharge Instructions - Post Discharge Activity
[2020-01-28 18:27] LABS: URINE APPEARANCE CLEAR; URINE BILIRUBIN NEGATIVE (NEGATIVE); URINE COLOR YELLOW; URINE GLUCOSE (UA) NEGATIVE (NEGATIVE); URINE KETONE NEGATIVE (NEGATIVE); URINE LEUK ESTERASE NEGATIVE (NEGATIVE); URINE NITRITE NEGATIVE (NEGATIVE); URINE PROTEIN NEGATIVE (NEGATIVE); URINE UROBILINOGEN 0.2 mg/dL (0.2-1.0)
[2020-01-28] MEDS ORDERED: HYDROCORTISONE SOD SUCCINATE 100 MG/2 ML VIAL ONE (19:22)
[2020-01-28] MEDS ORDERED: PANTOPRAZOLE SODIUM 40 MG VIAL ONE (19:22)
[2020-01-28] MEDS ORDERED: ONDANSETRON *ODT* 4 MG TABLET SL PRN (19:30)
[2020-01-28] MEDS: HYDROCORTISONE SOD SUCCINATE 100 MG/2 ML VIAL IVPB SCH (19:35)
[2020-01-28] MEDS: PANTOPRAZOLE SODIUM 40 MG VIAL IVPUSH SCH (19:35)
[2020-01-28] MEDS: DEXTROSE 5%-NORMAL SALINE 1,000 ML IV SCH (19:55)
[2020-01-28] MEDS: CARVEDILOL 12.5 MG TABLET (FP) PO SCH (22:09)
[2020-01-28] MEDS ORDERED: HALOPERIDOL LACTATE 5 MG/ML ONE (23:08)
[2020-01-28] MEDS ORDERED: HALOPERIDOL LACTATE 5 MG/ML IM ONE (23:09)
[2020-01-28] MEDS ORDERED: ALPRAZolam 0.25 MG TABLET PO ONE (23:45)
[2020-01-29] MEDS ORDERED: PT OWN MED DRAWER 7, Y5N ONE (00:53)
[2020-01-29 02:48] VITALS: BMI 28.0
[2020-01-29] MEDS ORDERED: MELATONIN 5 MG TABLETS PO ONE (04:12)
[2020-01-29] MEDS: DEXTROSE 5%-NORMAL SALINE 1,000 ML IV SCH (04:18)
[2020-01-29] MEDS: HYDROCORTISONE SOD SUCCINATE 100 MG/2 ML VIAL IVPB SCH (06:56)
[2020-01-29 08:05] LABS: POTASSIUM 3.8 mmol/L (3.5-5.1)
[2020-01-29 08:43] LABS: ALBUMIN 3.9 g/dl (3.4-5.0); BILIRUBIN,TOTAL 1.3 mg/dL (0.2-1); BLOOD UREA NITROGEN 8.8 mg/dL (7-18); CREATININE 1.1 mg/dL (0.55-1.3); MAGNESIUM 2.2 mg/dL (1.8-2.4); TOT PROT 7.6 g/dl (6.4-8.2)
[2020-01-29] MEDS ORDERED: VALSARTAN 160 MG TABLET (UD) PO SCH (10:00)
[2020-01-29] MEDS: PANTOPRAZOLE SODIUM 40 MG VIAL IVPUSH SCH (10:08)
[2020-01-29] MEDS: CARVEDILOL 12.5 MG TABLET (FP) PO SCH (10:08)
--- NOTE | 2020-01-29 10:43 | EKG ---
Test Reason : Blood Pressure : / mmHG Vent. Rate : 060 BPM Atrial Rate : 060 BPM P-R Int : 240 ms QRS Dur : 156 ms QT Int : 466 ms P-R-T Axes : 047 -25 111 degrees QTc Int : 466 ms SINUS RHYTHM WITH 1ST DEGREE A-V BLOCK LEFT BUNDLE BRANCH BLOCK ABNORMAL ECG WHEN COMPARED WITH ECG OF 26-JAN-2020 17:08, NO SIGNIFICANT CHANGE WAS FOUND Confirmed by KAI LEIVA MD ([id number]) on 01/29/2020 10:43:14 AM Referred By: Confirmed By:KAI LEIVA MD
[2020-01-29] MEDS ORDERED: LORazepam 1 MG TABLET PO ONE (11:23)
[2020-01-29] MEDS ORDERED: predniSONE 5 MG TABLET (UD) PO SCH (11:30)
[2020-01-29] MEDS ORDERED: DEXTROSE 5%-NORMAL SALINE 1,000 ML IV SCH (14:08)
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
--- NOTE | 2020-01-29 15:08 | DS ---
Physical Examination Vital Signs: Vital Signs Temperature 98.0 F 01/29/20 06:42 Pulse Rate 69 01/29/20 06:42 Respiratory Rate 18 01/29/20 06:42 Blood Pressure 136/64 01/29/20 06:42 O2 Sat by Pulse Oximetry (%) 96 01/29/20 06:42 Constitutional: Yes: Well Nourished, No Distress Eyes: Yes: Conjunctiva Clear Cardiovascular: Yes: Regular Rate and Rhythm Respiratory: Yes: Regular Gastrointestinal: Yes: Normal Bowel Sounds, Soft Edema: No Neurological: Yes: Confusion (2/2 ,ild delirium) ...Motor Strength: WNL Labs: CBC, BMP 01/28/20 14:34 01/29/20 07:00 Discharge Summary Problems reviewed: Yes Reason For Visit: GASTRITIS, HYPONATREMIA Current Active Problems Abdominal cramping (Acute) Anxiety (Acute) Delirium due to another medical condition, persistent, hyperactive (Acute) Gastritis (Acute) Hyponatremia (Acute) Polymyalgia rheumatica syndrome (Acute) OA spine ASHD GERD HTN Hospital Course: low sodium corrected and BP in good range; but developed mild delirium of which family is aware.TSH, UA, chemsitry was WNL; VSS Condition: Improved - Instructions Diet, Activity, Other Instructions: avoid excessive salt intake, but may have small amounts see your PCP on Referrals: Johann Schrader MD [Primary Care Provider] - Disposition: HOME - Home Medications Comprehensive Discharge Medication List: Ambulatory Orders Alprazolam [Xanax] 0.5 mg PO BID 01/27/20 Carvedilol [Coreg -] 12.5 mg PO BID 01/27/20 Pantoprazole Sodium [Protonix] 40 mg PO DAILY 01/27/20 Telmisartan [Micardis] 80 mg PO DAILY 01/27/20 Pantoprazole Sodium [Protonix -] 40 mg PO DAILY #30 tablet.ec 01/29/20 predniSONE [Deltasone -] 5 mg PO DAILY tablet 01/29/20
[2020-01-29 15:33] VITALS: BP 127/86; PULSE 67; TEMP 97.6
== END 2020-01-29 15:46 | disposition home or self-care (01) | DRG 641 ==
LOC: JER 13:35 → JERBED 16:19 → J8W 21:56
PROVIDERS: ADMIT Internal Medicine Hematology & Oncology; ATTEND Internal Medicine Hematology & Oncology
DX: E87.1 Hypo-osmolality and hyponatremia (principal); F05 Delirium due to known physiological condition; I10 Essential (primary) hypertension; K29.50 Unspecified chronic gastritis without bleeding; F41.9 Anxiety disorder, unspecified; I44.7 Left bundle-branch block, unspecified; M35.3 Polymyalgia rheumatica; I25.10 Atherosclerotic heart disease of native coronary artery without angina pectoris; K21.9 Gastro-esophageal reflux disease without esophagitis; D64.9 Anemia, unspecified
CPT/HCPCS: 36415; 71045-TC-FY; 80053; 81003; 82436; 83605; 83690; 83735; 83930; 83935; 84300; 84443; 84484; 85025; 85610; 85730; 87040; 87086; 93005; 93010; 99285-25; Q0162; U0003

== ENCOUNTER 2021-07-18 16:07 | Inpatient (IN) | payer OTHER ==
[2021-07-18 18:35] LABS: BASO % 0.7 % (0-2.0); EOS % 1.2 % (0-4.5); HEMATOCRIT 33.2 % (32.4-45.2); HEMOGLOBIN 11.2 GM/dL (10.7-15.3); LYMPH % 11.8 % (8-40); MCH 31.8 pg (25.7-33.7); MCHC 33.7 g/dl (32.0-36.0); MEAN CELL VOLUME 94.3 fl (80-96); MONO % 5.5 % (3.8-10.2); NEUT % 80.8 % (42.8-82.8); PLATELET COUNT 219 10^3/uL (134-434); RBC 3.52 M/mm3 (3.60-5.2); RDW 13.9 % (11.6-15.6)
[2021-07-18 18:49] LABS: CHLORIDE 113 mmol/L (98-107); SODIUM 140 mmol/L (136-145)
[2021-07-18 18:51] LABS: CALCIUM 8.6 mg/dL (8.5-10.1)
[2021-07-18 18:52] LABS: ALBUMIN 3.7 g/dl (3.4-5.0); BLOOD UREA NITROGEN 60.1 mg/dL (7-18); CO2 23 mmol/L (21-32); GLUCOSE,RANDOM 167 mg/dL (74-106)
[2021-07-18 18:55] LABS: CREATININE 2.1 mg/dL (0.55-1.3); SGOT/AST 5 U/L (15-37); SGPT/ALT 12 U/L (13-61)
[2021-07-18 18:55] LABS: EPI CELLS 2 /uL (0-25.1); HYALINE CASTS 0 /uL (0-3.1); URINE APPEARANCE CLEAR; URINE BACTERIA 6147 /uL (0-1359); URINE BILIRUBIN NEGATIVE (NEGATIVE); URINE COLOR YELLOW; URINE GLUCOSE (UA) NEGATIVE (NEGATIVE); URINE KETONE NEGATIVE (NEGATIVE); URINE LEUK ESTERASE TRACE (NEGATIVE); URINE NITRITE NEGATIVE (NEGATIVE); URINE PROTEIN NEGATIVE (NEGATIVE); URINE RBC 2 /uL (0-23.9); URINE UROBILINOGEN 0.2 mg/dL (0.2-1.0); URINE WBC 8 /uL (0-25.8)
[2021-07-18 18:57] LABS: BILIRUBIN,TOTAL 0.3 mg/dL (0.2-1); TOT PROT 6.7 g/dl (6.4-8.2)
[2021-07-18 18:58] LABS: ALK PHOS 60 U/L (45-117)
[2021-07-18 19:01] LABS: INR 1.04 (0.83-1.09)
[2021-07-18 19:04] LABS: ACTIVATED PTT 31.2 SECONDS (25.2-36.5); ANION GAP 3 MMOL/L (8-16)
[2021-07-18] MEDS ORDERED: INSULIN REGULAR HUMAN 100 UNITS/ML *VIAL IVPUSH ONE (19:05)
[2021-07-18] MEDS ORDERED: DEXTROSE 50%-WATER - 25 GM/50 ML VIAL IVPUSH ONE (19:05)
[2021-07-18] MEDS ORDERED: ALBUTEROL SO4 HFA INHALER IH ONE ×2 (19:05→19:56)
[2021-07-18] MEDS ORDERED: SODIUM ZIRCONIUM CYCLOSILICATE (LOKELMA) 5 GM PACKET PO ONE (19:06)
[2021-07-18] MEDS ORDERED: CEFTRIAXONE 1,000 MG in DEXTROSE 5%-WATER - 50 ML IVPB ONE (19:07)
[2021-07-18] MEDS ORDERED: CALCIUM GLUCONATE 10% - 1,000 MG/10 ML VIAL IVPB ONE (19:17)
[2021-07-18] MEDS ORDERED: CALCIUM GLUCONATE 10% - 1,000 MG/10 ML VIAL ONE (19:56)
[2021-07-18] MEDS ORDERED: CEFTRIAXONE 1 GM/50 ML BAG ONE (19:56)
[2021-07-18] MEDS ORDERED: SODIUM ZIRCONIUM CYCLOSILICATE (LOKELMA) 5 GM PACKET ONE (19:56)
[2021-07-18] MEDS ORDERED: SODIUM CHLORIDE 0.9% 500 ML INFUS.BAG IV ONE (19:58)
[2021-07-18] MEDS ORDERED: HEPARIN NA (PORCINE) 5,000 UNITS/ML 1ML VIAL IVPUSH ONE ×2 (21:08→21:20)
[2021-07-18] MEDS ORDERED: HEPARIN NA (PORCINE) 5,000 UNITS/ML 1ML VIAL IVPUSH PRN ×2 (21:20)
[2021-07-18] MEDS ORDERED: HEPARIN SOD,PORK IN 0.45% NACL 25,000 UNITS/500 ML INFUS.BAG IVPB SCH (21:30)
[2021-07-18] MEDS ORDERED: POLYETHYLENE GLYCOL (HEALTHYLAX) 3350 17 GM PACKET PO PRN (22:30)
[2021-07-18] MEDS ORDERED: ACETAMINOPHEN 325 MG TABLET (FP) PO PRN (22:30)
[2021-07-18] MEDS ORDERED: HEPARIN INFUSION - 25,000 UNITS/500 ML INFUS.BAG IVPB ONE (22:35)
[2021-07-18] MEDS ORDERED: HEPARIN NA (PORCINE) 5,000 UNITS/ML 1ML VIAL ONE (22:35)
[2021-07-18 22:41] LABS: CHLORIDE 116 mmol/L (98-107); SODIUM 144 mmol/L (136-145)
[2021-07-18 22:42] LABS: CALCIUM 8.6 mg/dL (8.5-10.1)
[2021-07-18 22:43] LABS: ANION GAP 2 MMOL/L (8-16); BLOOD UREA NITROGEN 53.4 mg/dL (7-18); CO2 26 mmol/L (21-32)
[2021-07-18 22:46] LABS: CREATININE 1.8 mg/dL (0.55-1.3)
[2021-07-18 22:56] LABS: GLUCOSE,RANDOM 47 mg/dL (74-106)
[2021-07-19 06:59] LABS: BASO % 0.6 % (0-2.0); EOS % 3.8 % (0-4.5); HEMATOCRIT 35.3 % (32.4-45.2); HEMOGLOBIN 12.2 GM/dL (10.7-15.3); LYMPH % 23.1 % (8-40); MCH 32.3 pg (25.7-33.7); MCHC 34.5 g/dl (32.0-36.0); MEAN CELL VOLUME 93.7 fl (80-96); MONO % 9.8 % (3.8-10.2); NEUT % 62.7 % (42.8-82.8); PLATELET COUNT 224 10^3/uL (134-434); RBC 3.77 M/mm3 (3.60-5.2); RDW 14.1 % (11.6-15.6); WHITE BLOOD COUNT 6.3 K/mm3 (4.0-10.0)
[2021-07-19 07:53] LABS: BLOOD UREA NITROGEN 41.8 mg/dL (7-18); CALCIUM 9.2 mg/dL (8.5-10.1); CREATININE 1.5 mg/dL (0.55-1.3); MAGNESIUM 2.3 mg/dL (1.8-2.4); PHOSPHOROUS 3.6 mg/dL (2.5-4.9)
[2021-07-19] MEDS: FAMOTIDINE 20 MG TABLET PO SCH ×2 (09:42→21:13)
[2021-07-19] MEDS: predniSONE 5 MG TABLET (UD) PO SCH (09:42)
[2021-07-19] MEDS: ALPRAZolam 0.25 MG TABLET PO SCH ×2 (09:42→21:13)
[2021-07-19] MEDS: amLODIPine BESYLATE 5 MG TABLET (FP) PO SCH ×2 (09:42→21:13)
[2021-07-19] MEDS: PREGABALIN 75 MG CAPSULE PO SCH (09:42)
[2021-07-19] MEDS: CARVEDILOL 12.5 MG TABLET (FP) PO SCH ×2 (09:42→21:13)
[2021-07-19] MEDS ORDERED: SPIRONOLACTONE 25 MG TABLET PO SCH (10:00)
[2021-07-19] MEDS ORDERED: HYDROCHLOROTHIAZIDE 12.5 MG CAPSULE (FP) PO SCH (10:00)
[2021-07-19 11:29] VITALS: BMI 29.8
[2021-07-19] MEDS ORDERED: DEXTROSE 5%-WATER - 50 ML IVPB ONE (12:18)
[2021-07-19] MEDS ORDERED: cefTRIAXone SODIUM 1 GM VIAL ONE (12:18)
[2021-07-19] MEDS: CEFTRIAXONE 1 GM in DEXTROSE 5%-WATER - 50 ML IVPB SCH (12:21)
[2021-07-19] MEDS: LOSARTAN POTASSIUM 50 MG TABLET PO SCH (12:21)
[2021-07-19 15:07] LABS: SARS-CoV-2 NAA Not Detected (Not Detected)
[2021-07-19] MEDS ORDERED: ENOXAPARIN NA (PORCINE) 40 MG/0.4 ML DISP.SYRIN SQ SCH (22:00)
[2021-07-19] MEDS ORDERED: ZOLPIDEM TARTRATE 5 MG TABLET PO PRN (22:00)
[2021-07-20] MEDS ORDERED: HALOPERIDOL LACTATE 5 MG/ML IM ONE (02:19)
[2021-07-20 07:30] LABS: BASO % 0.8 % (0-2.0); EOS % 2.2 % (0-4.5); HEMATOCRIT 34.1 % (32.4-45.2); LYMPH % 21.1 % (8-40); MCH 32.5 pg (25.7-33.7); MCHC 35.2 g/dl (32.0-36.0); MEAN CELL VOLUME 92.2 fl (80-96); MEAN PLT VOLUME 8.9 fl (7.5-11.1); MONO % 11.8 % (3.8-10.2); NEUT % 64.1 % (42.8-82.8); PLATELET COUNT 221 10^3/uL (134-434); RDW 13.8 % (11.6-15.6); WHITE BLOOD COUNT 6.7 K/mm3 (4.0-10.0)
[2021-07-20 07:43] LABS: CALCIUM 8.8 mg/dL (8.5-10.1)
[2021-07-20 07:44] LABS: ALBUMIN 3.8 g/dl (3.4-5.0); BLOOD UREA NITROGEN 37.5 mg/dL (7-18)
[2021-07-20 07:47] LABS: CREATININE 1.6 mg/dL (0.55-1.3)
[2021-07-20 07:49] LABS: BILIRUBIN,TOTAL 0.6 mg/dL (0.2-1); TOT PROT 6.8 g/dl (6.4-8.2)
[2021-07-20] MEDS ORDERED: cefTRIAXone SODIUM 1 GM VIAL ONE (08:04)
[2021-07-20] MEDS ORDERED: DEXTROSE 5%-WATER - 50 ML IVPB ONE (08:04)
[2021-07-20] MEDS: predniSONE 5 MG TABLET (UD) PO SCH (09:11)
[2021-07-20] MEDS: LOSARTAN POTASSIUM 50 MG TABLET PO SCH (09:11)
[2021-07-20] MEDS: PREGABALIN 75 MG CAPSULE PO SCH (09:11)
[2021-07-20] MEDS: CARVEDILOL 12.5 MG TABLET (FP) PO SCH (09:11)
[2021-07-20] MEDS: ALPRAZolam 0.25 MG TABLET PO SCH (09:11)
[2021-07-20] MEDS: FAMOTIDINE 20 MG TABLET PO SCH (09:12)
[2021-07-20] MEDS: amLODIPine BESYLATE 5 MG TABLET (FP) PO SCH (09:12)
[2021-07-20] MEDS: CEFTRIAXONE 1 GM in DEXTROSE 5%-WATER - 50 ML IVPB SCH (09:12)
[2021-07-20] MEDS ORDERED: FUROSEMIDE 40 MG/4 ML INJECTABLE VIAL IVPUSH SCH (10:00)
[2021-07-20] MEDS ORDERED: ENOXAPARIN NA (PORCINE) 40 MG/0.4 ML DISP.SYRIN SQ SCH (10:00)
[2021-07-20 10:05] VITALS: BP 130/64; PULSE 82; TEMP 98
== END 2021-07-20 12:20 | disposition home or self-care (01) | DRG 291 ==
LOC: JER 16:07 → JERBED 21:18 → J4W 07-19 06:35
PROVIDERS: ADMIT Hospitalist; ATTEND Internal Medicine
DX: I13.0 Hypertensive heart and chronic kidney disease with heart failure and stage 1 through stage 4 chronic kidney disease, or unspecified chronic kidney disease (principal); I50.23 Acute on chronic systolic (congestive) heart failure; N17.9 Acute kidney failure, unspecified; N39.0 Urinary tract infection, site not specified; E78.5 Hyperlipidemia, unspecified; M35.3 Polymyalgia rheumatica; E87.5 Hyperkalemia; I44.7 Left bundle-branch block, unspecified; N18.9 Chronic kidney disease, unspecified; I44.0 Atrioventricular block, first degree
CPT/HCPCS: 36415; 71045-TC-FY; 71250-TC; 80048; 80053; 81003; 82272; 82550; 82553; 82962; 83735; 83880; 84100; 84439; 84443; 84484; 85025; 85379; 85610; 85730; 87040; 87086; 87186; 93005; 93010; 93970-TC; 99285-25; C9803; J1644; U0003; U0005

== ENCOUNTER 2021-07-28 12:15 | Inpatient (IN) | payer OTHER ==
[2021-07-28] MEDS ORDERED: morphine CARPU-JECT 2 MG/1 ML DISP.SYRIN IVPUSH ONE ×2 (12:46→15:19)
[2021-07-28 13:23] LABS: BASO % 0.5 % (0-2.0); EOS % 0.8 % (0-4.5); HEMATOCRIT 33.2 % (32.4-45.2); HEMOGLOBIN 11.4 GM/dL (10.7-15.3); LYMPH % 9.4 % (8-40); MCH 31.6 pg (25.7-33.7); MCHC 34.2 g/dl (32.0-36.0); MEAN CELL VOLUME 92.3 fl (80-96); MEAN PLT VOLUME 9.2 fl (7.5-11.1); MONO % 7.7 % (3.8-10.2); NEUT % 81.6 % (42.8-82.8); PLATELET COUNT 242 10^3/uL (134-434); RDW 13.8 % (11.6-15.6); WHITE BLOOD COUNT 9.4 K/mm3 (4.0-10.0)
[2021-07-28 13:27] LABS: INR 1.12 (0.83-1.09); PROTHROMBIN TIME (PATIENT) 12.9 SEC (9.7-13.0)
[2021-07-28 13:29] LABS: ACTIVATED PTT 26.8 SECONDS (25.2-36.5)
[2021-07-28 13:42] LABS: CALCIUM 8.6 mg/dL (8.5-10.1)
[2021-07-28 13:43] LABS: ALBUMIN 3.9 g/dl (3.4-5.0); BLOOD UREA NITROGEN 55.9 mg/dL (7-18); MAGNESIUM 2.3 mg/dL (1.8-2.4)
[2021-07-28 13:46] LABS: CREATININE 1.6 mg/dL (0.55-1.3)
[2021-07-28 13:48] LABS: BILIRUBIN,TOTAL 0.4 mg/dL (0.2-1); TOT PROT 6.9 g/dl (6.4-8.2)
[2021-07-28] MEDS ORDERED: ALPRAZolam 0.25 MG TABLET PO PRN (14:41)
[2021-07-28] MEDS ORDERED: ENOXAPARIN NA (PORCINE) 40 MG/0.4 ML DISP.SYRIN SQ ONE (15:15)
[2021-07-28] MEDS ORDERED: ENOXAPARIN NA (PORCINE) 30 MG/0.3 ML DISP.SYRIN SQ ONE ×2 (15:25→18:34)
[2021-07-28] MEDS ORDERED: amLODIPine BESYLATE 5 MG TABLET (FP) ONE (21:43)
[2021-07-28] MEDS ORDERED: FAMOTIDINE 20 MG TABLET ONE (21:43)
[2021-07-28] MEDS ORDERED: ACETAMINOPHEN 325 MG TABLET (FP) ONE ×2 (21:43→21:44)
[2021-07-28] MEDS ORDERED: CARVEDILOL 25 MG TABLET (FP) ONE (21:44)
[2021-07-28] MEDS: ACETAMINOPHEN 325 MG TABLET (FP) PO PRN (21:53)
[2021-07-28] MEDS: amLODIPine BESYLATE 5 MG TABLET (FP) PO SCH (21:53)
[2021-07-28] MEDS: CARVEDILOL 25 MG TABLET (FP) PO SCH (21:53)
[2021-07-28] MEDS: FAMOTIDINE 20 MG TABLET PO SCH (21:53)
[2021-07-29] MEDS: ACETAMINOPHEN 325 MG TABLET (FP) PO PRN (03:01)
[2021-07-29 08:30] LABS: BASO % 0.8 % (0-2.0); EOS % 1.7 % (0-4.5); HEMATOCRIT 29.6 % (32.4-45.2); HEMOGLOBIN 10.1 GM/dL (10.7-15.3); LYMPH % 28.2 % (8-40); MCH 31.4 pg (25.7-33.7); MEAN CELL VOLUME 92.3 fl (80-96); MEAN PLT VOLUME 9.5 fl (7.5-11.1); MONO % 12.8 % (3.8-10.2); NEUT % 56.5 % (42.8-82.8); PLATELET COUNT 186 10^3/uL (134-434); RBC 3.21 M/mm3 (3.60-5.2); RDW 13.8 % (11.6-15.6); WHITE BLOOD COUNT 4.5 K/mm3 (4.0-10.0)
[2021-07-29 08:48] LABS: ALBUMIN 3.4 g/dl (3.4-5.0); BLOOD UREA NITROGEN 59.8 mg/dL (7-18)
[2021-07-29 08:51] LABS: CREATININE 1.9 mg/dL (0.55-1.3)
[2021-07-29 08:53] LABS: BILIRUBIN,TOTAL 0.8 mg/dL (0.2-1)
[2021-07-29] MEDS ORDERED: FUROSEMIDE 40 MG TABLET (FP) PO SCH (10:00)
[2021-07-29] MEDS ORDERED: LOSARTAN POTASSIUM 50 MG TABLET PO SCH (10:00)
[2021-07-29] MEDS: FAMOTIDINE 20 MG TABLET PO SCH (10:00)
[2021-07-29] MEDS ORDERED: predniSONE 5 MG TABLET (UD) PO SCH (10:00)
[2021-07-29] MEDS ORDERED: PREGABALIN 75 MG CAPSULE PO SCH (10:00)
[2021-07-29] MEDS ORDERED: PATIENT'S OWN MEDICATION (NON-FORMULARY) (Telmisartan [Micardis] 80 MG Tablet) PO SCH (10:00)
[2021-07-29] MEDS: CARVEDILOL 25 MG TABLET (FP) PO SCH ×2 (10:01→22:43)
[2021-07-29] MEDS: amLODIPine BESYLATE 5 MG TABLET (FP) PO SCH ×2 (10:02→22:43)
[2021-07-29] MEDS ORDERED: PROMETHAZINE HCL 25 MG/1 ML VIAL IVPUSH PRN ×2 (14:05→18:49)
[2021-07-29] MEDS ORDERED: ONDANSETRON 4 MG/2 ML VIAL IVPUSH PRN ×2 (14:05→18:49)
[2021-07-29] MEDS ORDERED: LACTATED RINGERS SOLUTION 1,000 ML IV SCH ×3 (14:15→19:45)
[2021-07-29] MEDS ORDERED: SUCCINYLCHOLINE CHLORIDE 200 MG/10 ML SYRINGE ONE (14:35)
[2021-07-29] MEDS ORDERED: PROPOFOL 20 ML ONE ×2 (14:35)
[2021-07-29] MEDS ORDERED: MIDAZOLAM HCL 2 MG/2 ML SINGLE DOSE VIAL ONE (14:35)
[2021-07-29] MEDS ORDERED: BUPIVACAINE HCL/PF 0.5% (5MG/ML) 10 ML VIAL ONE (15:47)
[2021-07-29] MEDS ORDERED: PHENYLEPHRINE HCL 10 MG/1 ML SINGLE DOSE VIAL ONE (16:28)
[2021-07-29] MEDS ORDERED: SODIUM CHLORIDE 0.9% P/F 10 ML VIAL IJ ONE (16:28)
[2021-07-29] MEDS ORDERED: ceFAZolin SODIUM 1 GM VIAL IVPB ONE (16:31)
[2021-07-29] MEDS ORDERED: ACETAMINOPHEN INJECTION 100 ML IVPB ONE (18:12)
[2021-07-29] MEDS ORDERED: ACETAMINOPHEN 1000 MG/100 ML BAG IVPB ONE ×2 (18:19→18:49)
[2021-07-29] MEDS ORDERED: ONDANSETRON 4 MG/2 ML VIAL ONE (18:35)
[2021-07-29] MEDS ORDERED: FAMOTIDINE 20 MG TABLET PO SCH (22:00)
[2021-07-29] MEDS: SENNOSIDES/DOCUSATE COMBO (SENNA PLUS) TABLET (UD) PO SCH (22:43)
[2021-07-29] MEDS: GABAPENTIN 300 MG CAPSULE PO SCH (22:43)
[2021-07-29] MEDS: CEFAZOLIN 2 GM in DEXTROSE 5%-WATER - 100 ML IVPB SCH (23:40)
[2021-07-30] MEDS ORDERED: ACETAMINOPHEN 1000 MG/100 ML BAG IVPB PRN (01:01)
[2021-07-30 07:47] LABS: BASO % 0.8 % (0-2.0); EOS % 3.3 % (0-4.5); HEMATOCRIT 25.8 % (32.4-45.2); HEMOGLOBIN 8.9 GM/dL (10.7-15.3); LYMPH % 18.8 % (8-40); MCHC 34.5 g/dl (32.0-36.0); MEAN CELL VOLUME 92.6 fl (80-96); MEAN PLT VOLUME 9.7 fl (7.5-11.1); NEUT % 62.1 % (42.8-82.8); PLATELET COUNT 158 10^3/uL (134-434); RBC 2.78 M/mm3 (3.60-5.2); RDW 13.6 % (11.6-15.6); WHITE BLOOD COUNT 4.8 K/mm3 (4.0-10.0)
[2021-07-30 07:56] LABS: ALBUMIN 2.9 g/dl (3.4-5.0); BLOOD UREA NITROGEN 45.5 mg/dL (7-18); CALCIUM 7.9 mg/dL (8.5-10.1)
[2021-07-30 07:59] LABS: CREATININE 1.5 mg/dL (0.55-1.3)
[2021-07-30 08:01] LABS: TOT PROT 5.4 g/dl (6.4-8.2)
[2021-07-30] MEDS: PANTOPRAZOLE 40 MG TABLET PO SCH (09:45)
[2021-07-30] MEDS: CEFAZOLIN 2 GM in DEXTROSE 5%-WATER - 100 ML IVPB SCH ×2 (09:45→16:38)
[2021-07-30] MEDS: FAMOTIDINE 10 MG TABLET PO SCH (09:45)
[2021-07-30] MEDS: SENNOSIDES/DOCUSATE COMBO (SENNA PLUS) TABLET (UD) PO SCH ×2 (09:45→21:15)
[2021-07-30] MEDS: FUROSEMIDE 40 MG TABLET (FP) PO SCH (09:45)
[2021-07-30] MEDS: GABAPENTIN 300 MG CAPSULE PO SCH ×2 (09:45→21:15)
[2021-07-30] MEDS: MULTIVITAMINS (DAILY MVI) TABLET (FP) PO SCH (09:46)
[2021-07-30] MEDS: PREGABALIN 75 MG CAPSULE PO SCH (09:46)
[2021-07-30] MEDS: predniSONE 5 MG TABLET (UD) PO SCH (09:46)
[2021-07-30] MEDS: ASPIRIN 325 MG TABLET PO SCH ×2 (09:46→21:15)
[2021-07-30] MEDS: CARVEDILOL 25 MG TABLET (FP) PO SCH ×2 (10:00→21:11)
[2021-07-30] MEDS: amLODIPine BESYLATE 5 MG TABLET (FP) PO SCH ×2 (10:00→21:11)
[2021-07-30] MEDS ORDERED: IRON SUCROSE INJECTION 200 MG in SODIUM CHLORIDE 90 ML IVPB ONE (12:15)
[2021-07-30] MEDS: LOSARTAN POTASSIUM 50 MG TABLET PO SCH (14:26)
[2021-07-30] MEDS: HEPARIN NA (PORCINE) 5,000 UNITS/ML 1ML VIAL SQ SCH (21:15)
[2021-07-31] MEDS ORDERED: SODIUM CHLORIDE 100 ML IV STA ×2 (00:49→01:49)
[2021-07-31] MEDS: SODIUM CHLORIDE 1,000 ML IV SCH (02:00)
[2021-07-31 07:00] LABS: HEMATOCRIT 23.8 % (32.4-45.2); HEMOGLOBIN 8.3 GM/dL (10.7-15.3); MCHC 34.6 g/dl (32.0-36.0); MEAN CELL VOLUME 92.4 fl (80-96); MEAN PLT VOLUME 9.6 fl (7.5-11.1); PLATELET COUNT 152 10^3/uL (134-434); RBC 2.58 M/mm3 (3.60-5.2); RDW 13.7 % (11.6-15.6); WHITE BLOOD COUNT 6.4 K/mm3 (4.0-10.0)
[2021-07-31] MEDS: ASPIRIN 325 MG TABLET PO SCH ×2 (09:18→21:17)
[2021-07-31] MEDS: PANTOPRAZOLE 40 MG TABLET PO SCH (09:18)
[2021-07-31] MEDS: FAMOTIDINE 10 MG TABLET PO SCH (09:18)
[2021-07-31] MEDS: predniSONE 5 MG TABLET (UD) PO SCH (09:19)
[2021-07-31] MEDS: SENNOSIDES/DOCUSATE COMBO (SENNA PLUS) TABLET (UD) PO SCH ×2 (09:19→21:16)
[2021-07-31] MEDS: MULTIVITAMINS (DAILY MVI) TABLET (FP) PO SCH (09:19)
[2021-07-31] MEDS: HEPARIN NA (PORCINE) 5,000 UNITS/ML 1ML VIAL SQ SCH (09:19)
[2021-07-31] MEDS: PREGABALIN 75 MG CAPSULE PO SCH (09:19)
[2021-07-31] MEDS: FUROSEMIDE 40 MG TABLET (FP) PO SCH (10:49)
[2021-07-31] MEDS ORDERED: LOSARTAN POTASSIUM 50 MG TABLET PO SCH (11:16)
[2021-07-31] MEDS: CARVEDILOL 25 MG TABLET (FP) PO SCH (11:24)
[2021-07-31] MEDS: LOSARTAN POTASSIUM 50 MG TABLET PO SCH (11:25)
[2021-07-31] MEDS: amLODIPine BESYLATE 5 MG TABLET (FP) PO SCH (11:25)
[2021-07-31] MEDS: GABAPENTIN 300 MG CAPSULE PO SCH (11:25)
[2021-07-31] MEDS: oxyCODONE HCL 5 MG TABLET PO PRN ×2 (12:18→22:07)
[2021-07-31 16:14] LABS: ARTERIAL BLD GAS O2 SATURATION 94.9 % (95-98); ARTERIAL BLOOD GAS BASE EXCESS -2.5 mmol/L (-2-2); ARTERIAL BLOOD GAS PO2 76.7 mmHg (80-100); ARTERIAL BLOOD GAS pH 7.363 (7.350-7.450)
[2021-07-31 16:17] LABS: ALLENS TEST POSITIVE
[2021-07-31] MEDS: CARVEDILOL 6.25 MG TABLET (FP) PO SCH (21:16)
[2021-08-01] MEDS ORDERED: ACETAMINOPHEN 325 MG TABLET (FP) PO ONE (02:53)
[2021-08-01] MEDS: SODIUM CHLORIDE 1,000 ML IV SCH (03:10)
[2021-08-01] MEDS: oxyCODONE HCL 5 MG TABLET PO PRN ×3 (04:31→19:54)
[2021-08-01 07:13] LABS: HEMATOCRIT 22.9 % (32.4-45.2); HEMOGLOBIN 7.9 GM/dL (10.7-15.3); MCH 31.8 pg (25.7-33.7); MCHC 34.3 g/dl (32.0-36.0); MEAN CELL VOLUME 92.8 fl (80-96); MEAN PLT VOLUME 9.1 fl (7.5-11.1); PLATELET COUNT 190 10^3/uL (134-434); RBC 2.47 M/mm3 (3.60-5.2); RDW 13.8 % (11.6-15.6)
[2021-08-01 07:32] LABS: CALCIUM 8.2 mg/dL (8.5-10.1)
[2021-08-01 07:33] LABS: BLOOD UREA NITROGEN 59.4 mg/dL (7-18)
[2021-08-01 07:36] LABS: CREATININE 2.1 mg/dL (0.55-1.3)
[2021-08-01] MEDS: MULTIVITAMINS (DAILY MVI) TABLET (FP) PO SCH (09:00)
[2021-08-01] MEDS: CARVEDILOL 6.25 MG TABLET (FP) PO SCH ×2 (09:00→20:59)
[2021-08-01] MEDS: predniSONE 5 MG TABLET (UD) PO SCH (09:00)
[2021-08-01] MEDS: FAMOTIDINE 10 MG TABLET PO SCH (09:00)
[2021-08-01] MEDS: SENNOSIDES/DOCUSATE COMBO (SENNA PLUS) TABLET (UD) PO SCH ×2 (09:00→20:59)
[2021-08-01] MEDS: PREGABALIN 75 MG CAPSULE PO SCH (09:00)
[2021-08-01] MEDS: PANTOPRAZOLE 40 MG TABLET PO SCH (09:00)
[2021-08-01] MEDS: FUROSEMIDE 40 MG TABLET (FP) PO SCH (09:00)
[2021-08-01] MEDS: ASPIRIN 325 MG TABLET PO SCH ×2 (09:01→20:59)
[2021-08-01] MEDS ORDERED: amLODIPine BESYLATE 5 MG TABLET (FP) PO SCH (10:00)
[2021-08-01] MEDS: ALPRAZolam 0.25 MG TABLET PO PRN (23:33)
[2021-08-02 07:39] LABS: BASO % 0.8 % (0-2.0); EOS % 2.2 % (0-4.5); HEMATOCRIT 27.5 % (32.4-45.2); HEMOGLOBIN 9.4 GM/dL (10.7-15.3); MCH 31.5 pg (25.7-33.7); MCHC 34.2 g/dl (32.0-36.0); MEAN CELL VOLUME 92.2 fl (80-96); MEAN PLT VOLUME 9.4 fl (7.5-11.1); MONO % 10.7 % (3.8-10.2); NEUT % 76.3 % (42.8-82.8); PLATELET COUNT 210 10^3/uL (134-434); RBC 2.98 M/mm3 (3.60-5.2); WHITE BLOOD COUNT 7.8 K/mm3 (4.0-10.0)
[2021-08-02] MEDS ORDERED: HEPARIN NA (PORCINE) 5,000 UNITS/ML 1ML VIAL IVPUSH PRN ×3 (07:51→10:30)
[2021-08-02] MEDS ORDERED: HEPARIN SOD,PORK IN 0.45% NACL 25,000 UNITS/500 ML INFUS.BAG IVPB SCH (08:00)
[2021-08-02 08:02] LABS: ALBUMIN 2.9 g/dl (3.4-5.0); CALCIUM 8.7 mg/dL (8.5-10.1)
[2021-08-02 08:06] LABS: CREATININE 2.4 mg/dL (0.55-1.3)
[2021-08-02 08:07] LABS: BILIRUBIN,TOTAL 0.7 mg/dL (0.2-1)
[2021-08-02] MEDS: ASPIRIN 325 MG TABLET PO SCH (09:44)
[2021-08-02] MEDS: PREGABALIN 75 MG CAPSULE PO SCH (09:44)
[2021-08-02] MEDS: SENNOSIDES/DOCUSATE COMBO (SENNA PLUS) TABLET (UD) PO SCH ×2 (09:45→21:54)
[2021-08-02] MEDS: CARVEDILOL 6.25 MG TABLET (FP) PO SCH ×2 (09:45→21:54)
[2021-08-02] MEDS: PANTOPRAZOLE 40 MG TABLET PO SCH (09:45)
[2021-08-02] MEDS: predniSONE 5 MG TABLET (UD) PO SCH (09:46)
[2021-08-02] MEDS: MULTIVITAMINS (DAILY MVI) TABLET (FP) PO SCH (09:46)
[2021-08-02] MEDS: amLODIPine BESYLATE 5 MG TABLET (FP) PO SCH (09:47)
[2021-08-02] MEDS: FAMOTIDINE 10 MG TABLET PO SCH (09:48)
[2021-08-02] MEDS: HEPARIN INFUSION - 25,000 UNITS/500 ML INFUS.BAG IVPB SCH (10:04)
[2021-08-02] MEDS ORDERED: HEPARIN NA (PORCINE) 5,000 UNITS/ML 1ML VIAL IVPUSH ONE ×2 (10:13→10:30)
[2021-08-02] MEDS ORDERED: ACETAMINOPHEN 1000 MG/100 ML BAG IVPB PRN (10:21)
[2021-08-02] MEDS: oxyCODONE HCL 5 MG TABLET PO PRN ×2 (10:24→21:54)
[2021-08-02] MEDS: DEXTROSE 5%-NORMAL SALINE 1,000 ML IV SCH (11:58)
[2021-08-02] MEDS: DOCUSATE SODIUM 100 MG CAPSULE (FP) PO PRN ×2 (16:13→21:54)
[2021-08-02 17:10] LABS: HEMATOCRIT 27.1 % (32.4-45.2); HEMOGLOBIN 9.2 GM/dL (10.7-15.3); MCH 31.3 pg (25.7-33.7); MCHC 33.9 g/dl (32.0-36.0); MEAN CELL VOLUME 92.5 fl (80-96); MEAN PLT VOLUME 8.9 fl (7.5-11.1); PLATELET COUNT 206 10^3/uL (134-434); RBC 2.93 M/mm3 (3.60-5.2); RDW 13.8 % (11.6-15.6); WHITE BLOOD COUNT 7.6 K/mm3 (4.0-10.0)
[2021-08-02] MEDS: HEPARIN NA (PORCINE) 5,000 UNITS/ML 1ML VIAL IVPUSH PRN (17:50)
[2021-08-02] MEDS: ALPRAZolam 0.25 MG TABLET PO PRN (21:55)
[2021-08-02 23:45] LABS: URINE APPEARANCE CLEAR; URINE BILIRUBIN NEGATIVE (NEGATIVE); URINE COLOR YELLOW; URINE GLUCOSE (UA) NEGATIVE (NEGATIVE); URINE KETONE TRACE (NEGATIVE); URINE LEUK ESTERASE NEGATIVE (NEGATIVE); URINE NITRITE NEGATIVE (NEGATIVE); URINE PROTEIN NEGATIVE (NEGATIVE); URINE UROBILINOGEN 0.2 mg/dL (0.2-1.0)
[2021-08-03] MEDS: HEPARIN NA (PORCINE) 5,000 UNITS/ML 1ML VIAL IVPUSH PRN (00:46)
[2021-08-03 07:12] LABS: BASO % 0.9 % (0-2.0); EOS % 3.2 % (0-4.5); HEMATOCRIT 26.6 % (32.4-45.2); HEMOGLOBIN 9.1 GM/dL (10.7-15.3); LYMPH % 12.6 % (8-40); MCH 31.4 pg (25.7-33.7); MCHC 34.1 g/dl (32.0-36.0); MEAN CELL VOLUME 92.1 fl (80-96); MEAN PLT VOLUME 8.9 fl (7.5-11.1); NEUT % 70.3 % (42.8-82.8); PLATELET COUNT 208 10^3/uL (134-434); RBC 2.89 M/mm3 (3.60-5.2); RDW 13.7 % (11.6-15.6); WHITE BLOOD COUNT 7.1 K/mm3 (4.0-10.0)
[2021-08-03 07:39] LABS: ALBUMIN 2.6 g/dl (3.4-5.0); BILIRUBIN,TOTAL 0.6 mg/dL (0.2-1); BLOOD UREA NITROGEN 67.9 mg/dL (7-18); CREATININE 2.7 mg/dL (0.55-1.3); TOT PROT 5.7 g/dl (6.4-8.2)
[2021-08-03] MEDS: MAG HYDROX/AL HYDROX/SIMETH 30 ML UNIT-DOSE CUP PO PRN (08:46)
[2021-08-03] MEDS: oxyCODONE HCL 5 MG TABLET PO PRN (08:46)
[2021-08-03] MEDS: ONDANSETRON 4 MG/2 ML VIAL IVPUSH PRN (08:46)
[2021-08-03] MEDS ORDERED: BISACODYL 10 MG SUPP.RECT PR PRN (08:55)
[2021-08-03] MEDS: SENNOSIDES/DOCUSATE COMBO (SENNA PLUS) TABLET (UD) PO SCH ×2 (10:09→21:04)
[2021-08-03] MEDS: PANTOPRAZOLE SODIUM 40 MG VIAL IVPUSH SCH (10:09)
[2021-08-03] MEDS: MULTIVITAMINS (DAILY MVI) TABLET (FP) PO SCH (10:10)
[2021-08-03] MEDS: CARVEDILOL 6.25 MG TABLET (FP) PO SCH ×2 (10:10→21:04)
[2021-08-03] MEDS: HEPARIN INFUSION - 25,000 UNITS/500 ML INFUS.BAG IVPB SCH (10:10)
[2021-08-03] MEDS: predniSONE 5 MG TABLET (UD) PO SCH (10:10)
[2021-08-03] MEDS: PREGABALIN 75 MG CAPSULE PO SCH (10:10)
[2021-08-03] MEDS: POLYETHYLENE GLYCOL (HEALTHYLAX) 3350 17 GM PACKET PO SCH ×2 (10:10→21:03)
[2021-08-03] MEDS: DEXTROSE 5%-NORMAL SALINE 1,000 ML IV SCH (10:13)
[2021-08-03] MEDS: amLODIPine BESYLATE 5 MG TABLET (FP) PO SCH (10:13)
[2021-08-03] MEDS: ALPRAZolam 0.25 MG TABLET PO PRN (21:04)
[2021-08-03] MEDS: DOCUSATE SODIUM 100 MG CAPSULE (FP) PO PRN (21:04)
[2021-08-04] MEDS: DEXTROSE 5%-NORMAL SALINE 1,000 ML IV SCH ×3 (02:49→17:20)
[2021-08-04 07:31] LABS: BASO % 0.8 % (0-2.0); EOS % 4.5 % (0-4.5); HEMATOCRIT 23.3 % (32.4-45.2); HEMOGLOBIN 7.9 GM/dL (10.7-15.3); LYMPH % 18.9 % (8-40); MCH 31.9 pg (25.7-33.7); MEAN CELL VOLUME 93.9 fl (80-96); MEAN PLT VOLUME 9.1 fl (7.5-11.1); MONO % 12.2 % (3.8-10.2); NEUT % 63.6 % (42.8-82.8); PLATELET COUNT 212 10^3/uL (134-434); RBC 2.48 M/mm3 (3.60-5.2); RDW 13.7 % (11.6-15.6); WHITE BLOOD COUNT 5.1 K/mm3 (4.0-10.0)
[2021-08-04 08:36] LABS: ALBUMIN 2.5 g/dl (3.4-5.0); BILIRUBIN,TOTAL 0.5 mg/dL (0.2-1); BLOOD UREA NITROGEN 49.3 mg/dL (7-18); CALCIUM 8.1 mg/dL (8.5-10.1); CREATININE 1.4 mg/dL (0.55-1.3); TOT PROT 5.1 g/dl (6.4-8.2)
[2021-08-04] MEDS: PANTOPRAZOLE SODIUM 40 MG VIAL IVPUSH SCH (10:01)
[2021-08-04] MEDS: predniSONE 5 MG TABLET (UD) PO SCH ×2 (10:03→17:20)
[2021-08-04] MEDS: CARVEDILOL 6.25 MG TABLET (FP) PO SCH ×2 (10:03→21:41)
[2021-08-04] MEDS: POLYETHYLENE GLYCOL (HEALTHYLAX) 3350 17 GM PACKET PO SCH ×2 (10:03→21:42)
[2021-08-04] MEDS: PREGABALIN 75 MG CAPSULE PO SCH ×2 (10:04→17:20)
[2021-08-04] MEDS: amLODIPine BESYLATE 5 MG TABLET (FP) PO SCH ×2 (10:04→17:20)
[2021-08-04] MEDS: SENNOSIDES/DOCUSATE COMBO (SENNA PLUS) TABLET (UD) PO SCH ×2 (10:04→21:41)
[2021-08-04] MEDS: MULTIVITAMINS (DAILY MVI) TABLET (FP) PO SCH ×2 (10:05→17:20)
[2021-08-04 15:00] VITALS: BMI 30.8
[2021-08-04] MEDS: ALPRAZolam 0.25 MG TABLET PO PRN (21:41)
[2021-08-05 08:21] LABS: EOS % 2.3 % (0-4.5); HEMATOCRIT 24.7 % (32.4-45.2); HEMOGLOBIN 8.4 GM/dL (10.7-15.3); LYMPH % 17.5 % (8-40); MCH 31.9 pg (25.7-33.7); MCHC 34.1 g/dl (32.0-36.0); MEAN CELL VOLUME 93.3 fl (80-96); MEAN PLT VOLUME 8.2 fl (7.5-11.1); MONO % 13.2 % (3.8-10.2); PLATELET COUNT 211 10^3/uL (134-434); RBC 2.64 M/mm3 (3.60-5.2); RDW 14.2 % (11.6-15.6); WHITE BLOOD COUNT 5.2 K/mm3 (4.0-10.0)
[2021-08-05 08:44] LABS: CALCIUM 8.6 mg/dL (8.5-10.1)
[2021-08-05 08:46] LABS: ALBUMIN 2.7 g/dl (3.4-5.0)
[2021-08-05 08:49] LABS: CREATININE 0.9 mg/dL (0.55-1.3); TOT PROT 5.5 g/dl (6.4-8.2)
[2021-08-05 08:51] LABS: BILIRUBIN,TOTAL 0.7 mg/dL (0.2-1)
[2021-08-05 08:54] LABS: BLOOD UREA NITROGEN 22.8 mg/dL (7-18)
[2021-08-05] MEDS: MULTIVITAMINS (DAILY MVI) TABLET (FP) PO SCH (09:40)
[2021-08-05] MEDS: CARVEDILOL 6.25 MG TABLET (FP) PO SCH ×2 (09:40→21:27)
[2021-08-05] MEDS: predniSONE 5 MG TABLET (UD) PO SCH (09:40)
[2021-08-05] MEDS: PANTOPRAZOLE SODIUM 40 MG VIAL IVPUSH SCH (09:40)
[2021-08-05] MEDS: amLODIPine BESYLATE 5 MG TABLET (FP) PO SCH (09:40)
[2021-08-05] MEDS: PREGABALIN 75 MG CAPSULE PO SCH (09:40)
[2021-08-05] MEDS: SENNOSIDES/DOCUSATE COMBO (SENNA PLUS) TABLET (UD) PO SCH ×2 (09:40→21:25)
[2021-08-05] MEDS: POLYETHYLENE GLYCOL (HEALTHYLAX) 3350 17 GM PACKET PO SCH ×2 (09:41→21:25)
[2021-08-05] MEDS ORDERED: HEPARIN NA (PORCINE) 5,000 UNITS/ML 1ML VIAL IVPUSH PRN ×2 (11:10)
[2021-08-05] MEDS: HEPARIN - 25,000 UNIT in SODIUM CHLORIDE 495 ML IV SCH ×2 (12:19→20:12)
[2021-08-05] MEDS: DEXTROSE 5%-NORMAL SALINE 1,000 ML IV SCH (12:29)
[2021-08-05] MEDS ORDERED: SODIUM CHLORIDE 1,000 ML IV SCH (12:45)
[2021-08-05] MEDS: ALPRAZolam 0.25 MG TABLET PO PRN (21:27)
[2021-08-05] MEDS: oxyCODONE HCL 5 MG TABLET PO PRN (22:55)
[2021-08-06 07:01] LABS: BASO % 0.7 % (0-2.0); EOS % 4.4 % (0-4.5); HEMATOCRIT 24.5 % (32.4-45.2); HEMOGLOBIN 8.3 GM/dL (10.7-15.3); LYMPH % 21.1 % (8-40); MCH 31.7 pg (25.7-33.7); MCHC 33.9 g/dl (32.0-36.0); MEAN CELL VOLUME 93.5 fl (80-96); MEAN PLT VOLUME 8.4 fl (7.5-11.1); MONO % 12.4 % (3.8-10.2); NEUT % 61.4 % (42.8-82.8); PLATELET COUNT 210 10^3/uL (134-434); RBC 2.63 M/mm3 (3.60-5.2); WHITE BLOOD COUNT 5.6 K/mm3 (4.0-10.0)
[2021-08-06 08:15] LABS: ALBUMIN 2.7 g/dl (3.4-5.0); BILIRUBIN,TOTAL 0.7 mg/dL (0.2-1); BLOOD UREA NITROGEN 14.3 mg/dL (7-18); CALCIUM 8.5 mg/dL (8.5-10.1); CREATININE 0.7 mg/dL (0.55-1.3); TOT PROT 5.4 g/dl (6.4-8.2)
[2021-08-06] MEDS: oxyCODONE HCL 5 MG TABLET PO PRN ×2 (08:43→15:50)
[2021-08-06] MEDS: SENNOSIDES/DOCUSATE COMBO (SENNA PLUS) TABLET (UD) PO SCH ×2 (10:19→21:19)
[2021-08-06] MEDS: PREGABALIN 75 MG CAPSULE PO SCH (10:19)
[2021-08-06] MEDS: predniSONE 5 MG TABLET (UD) PO SCH (10:19)
[2021-08-06] MEDS: amLODIPine BESYLATE 5 MG TABLET (FP) PO SCH (10:19)
[2021-08-06] MEDS: LOSARTAN POTASSIUM 25 MG TABLET PO SCH (10:19)
[2021-08-06] MEDS: POLYETHYLENE GLYCOL (HEALTHYLAX) 3350 17 GM PACKET PO SCH ×2 (10:19→21:19)
[2021-08-06] MEDS: MULTIVITAMINS (DAILY MVI) TABLET (FP) PO SCH (10:19)
[2021-08-06] MEDS: CARVEDILOL 6.25 MG TABLET (FP) PO SCH ×2 (10:19→21:19)
[2021-08-06] MEDS: PANTOPRAZOLE SODIUM 40 MG VIAL IVPUSH SCH (10:29)
[2021-08-06] MEDS: ONDANSETRON 4 MG/2 ML VIAL IVPUSH PRN (12:30)
[2021-08-06] MEDS: HEPARIN - 25,000 UNIT in SODIUM CHLORIDE 495 ML IV SCH (15:00)
[2021-08-06] MEDS: ALPRAZolam 0.25 MG TABLET PO PRN (20:07)
[2021-08-07] MEDS: oxyCODONE HCL 5 MG TABLET PO PRN ×2 (06:36→12:16)
[2021-08-07 06:57] LABS: HEMATOCRIT 23.5 % (32.4-45.2); HEMOGLOBIN 7.9 GM/dL (10.7-15.3); MCH 31.5 pg (25.7-33.7); MCHC 33.8 g/dl (32.0-36.0); MEAN CELL VOLUME 93.2 fl (80-96); PLATELET COUNT 203 10^3/uL (134-434); RBC 2.52 M/mm3 (3.60-5.2); WHITE BLOOD COUNT 4.5 K/mm3 (4.0-10.0)
[2021-08-07] MEDS: PANTOPRAZOLE SODIUM 40 MG VIAL IVPUSH SCH (09:17)
[2021-08-07] MEDS: predniSONE 5 MG TABLET (UD) PO SCH (09:18)
[2021-08-07] MEDS: POLYETHYLENE GLYCOL (HEALTHYLAX) 3350 17 GM PACKET PO SCH ×2 (09:18→21:33)
[2021-08-07] MEDS: LOSARTAN POTASSIUM 25 MG TABLET PO SCH (09:18)
[2021-08-07] MEDS: CARVEDILOL 6.25 MG TABLET (FP) PO SCH ×2 (09:18→21:32)
[2021-08-07] MEDS: PREGABALIN 75 MG CAPSULE PO SCH (09:18)
[2021-08-07] MEDS: SENNOSIDES/DOCUSATE COMBO (SENNA PLUS) TABLET (UD) PO SCH ×2 (09:18→21:33)
[2021-08-07] MEDS: amLODIPine BESYLATE 5 MG TABLET (FP) PO SCH (09:18)
[2021-08-07] MEDS: MULTIVITAMINS (DAILY MVI) TABLET (FP) PO SCH (09:18)
[2021-08-07] MEDS ORDERED: IRON SUCROSE INJECTION 200 MG in SODIUM CHLORIDE 90 ML IVPB ONE (13:00)
[2021-08-07] MEDS: APIXABAN 5 MG TABLET PO SCH ×2 (14:05→22:37)
[2021-08-07] MEDS: MAG HYDROX/AL HYDROX/SIMETH 30 ML UNIT-DOSE CUP PO PRN (15:56)
[2021-08-07] MEDS: ALPRAZolam 0.25 MG TABLET PO PRN (21:33)
[2021-08-08 07:01] LABS: HEMATOCRIT 28.2 % (32.4-45.2); HEMOGLOBIN 9.4 GM/dL (10.7-15.3); MCH 31.2 pg (25.7-33.7); MCHC 33.4 g/dl (32.0-36.0); MEAN CELL VOLUME 93.1 fl (80-96); MEAN PLT VOLUME 8.4 fl (7.5-11.1); PLATELET COUNT 250 10^3/uL (134-434); RBC 3.03 M/mm3 (3.60-5.2); RDW 13.6 % (11.6-15.6); WHITE BLOOD COUNT 4.9 K/mm3 (4.0-10.0)
[2021-08-08] MEDS: PANTOPRAZOLE SODIUM 40 MG VIAL IVPUSH SCH (09:27)
[2021-08-08] MEDS: MULTIVITAMINS (DAILY MVI) TABLET (FP) PO SCH (09:27)
[2021-08-08] MEDS: APIXABAN 5 MG TABLET PO SCH ×2 (09:28→21:45)
[2021-08-08] MEDS: oxyCODONE HCL 5 MG TABLET PO PRN ×2 (09:28→19:47)
[2021-08-08] MEDS: SENNOSIDES/DOCUSATE COMBO (SENNA PLUS) TABLET (UD) PO SCH ×2 (09:28→21:46)
[2021-08-08] MEDS: PREGABALIN 75 MG CAPSULE PO SCH (09:28)
[2021-08-08] MEDS: predniSONE 5 MG TABLET (UD) PO SCH (09:28)
[2021-08-08] MEDS: LOSARTAN POTASSIUM 25 MG TABLET PO SCH (09:29)
[2021-08-08] MEDS: CARVEDILOL 6.25 MG TABLET (FP) PO SCH ×2 (09:29→21:46)
[2021-08-08] MEDS: POLYETHYLENE GLYCOL (HEALTHYLAX) 3350 17 GM PACKET PO SCH ×2 (09:30→21:45)
[2021-08-08] MEDS: amLODIPine BESYLATE 5 MG TABLET (FP) PO SCH (09:30)
[2021-08-08] MEDS: ONDANSETRON 4 MG/2 ML VIAL IVPUSH PRN (09:41)
[2021-08-08] MEDS: ALPRAZolam 0.25 MG TABLET PO PRN (21:46)
[2021-08-09 06:18] VITALS: PULSE 75
[2021-08-09 06:59] LABS: HEMOGLOBIN 9.1 GM/dL (10.7-15.3); MCH 31.2 pg (25.7-33.7); MCHC 33.6 g/dl (32.0-36.0); MEAN CELL VOLUME 92.9 fl (80-96); MEAN PLT VOLUME 8.3 fl (7.5-11.1); PLATELET COUNT 235 10^3/uL (134-434); WHITE BLOOD COUNT 4.3 K/mm3 (4.0-10.0)
[2021-08-09] MEDS: CARVEDILOL 6.25 MG TABLET (FP) PO SCH (09:09)
[2021-08-09] MEDS: MULTIVITAMINS (DAILY MVI) TABLET (FP) PO SCH (09:09)
[2021-08-09] MEDS: amLODIPine BESYLATE 5 MG TABLET (FP) PO SCH (09:09)
[2021-08-09] MEDS: PREGABALIN 75 MG CAPSULE PO SCH (09:09)
[2021-08-09] MEDS: APIXABAN 5 MG TABLET PO SCH (09:09)
[2021-08-09] MEDS: PANTOPRAZOLE SODIUM 40 MG VIAL IVPUSH SCH (09:09)
[2021-08-09] MEDS: predniSONE 5 MG TABLET (UD) PO SCH (09:09)
[2021-08-09] MEDS: LOSARTAN POTASSIUM 25 MG TABLET PO SCH (09:09)
[2021-08-09] MEDS: SENNOSIDES/DOCUSATE COMBO (SENNA PLUS) TABLET (UD) PO SCH (09:09)
[2021-08-09] MEDS: POLYETHYLENE GLYCOL (HEALTHYLAX) 3350 17 GM PACKET PO SCH (09:10)
[2021-08-09 10:27] VITALS: BP 121/51; TEMP 97.7
[2021-08-09 19:11] LABS: SARS-CoV-2 NAA Not Detected (Not Detected)
== END 2021-08-09 13:00 | DRG 480 ==
LOC: JER 12:15 → JERBED 12:44 → J6S 22:58 → J4W 07-29 18:22
PROVIDERS: ADMIT Internal Medicine; ATTEND Internal Medicine
PROC: 0QH604Z Insertion of Internal Fixation Device into Right Upper Femur, Open Approach (ICD-10-PCS; principal; 2021-07-29 15:30)
PROC: 30233N1 Transfusion of Nonautologous Red Blood Cells into Peripheral Vein, Percutaneous Approach (ICD-10-PCS; 2021-08-01)
PROC: 06H03DZ Insertion of Intraluminal Device into Inferior Vena Cava, Percutaneous Approach (ICD-10-PCS; 2021-08-04)
DX: S72.141A Displaced intertrochanteric fracture of right femur, initial encounter for closed fracture (principal); J96.91 Respiratory failure, unspecified with hypoxia; I26.99 Other pulmonary embolism without acute cor pulmonale; I50.22 Chronic systolic (congestive) heart failure; T81.72XA Complication of vein following a procedure, not elsewhere classified, initial encounter; I13.0 Hypertensive heart and chronic kidney disease with heart failure and stage 1 through stage 4 chronic kidney disease, or unspecified chronic kidney disease; N17.9 Acute kidney failure, unspecified; J98.11 Atelectasis; I82.411 Acute embolism and thrombosis of right femoral vein; R04.2 Hemoptysis; J95.89 Other postprocedural complications and disorders of respiratory system, not elsewhere classified; E78.5 Hyperlipidemia, unspecified; M35.3 Polymyalgia rheumatica; K21.9 Gastro-esophageal reflux disease without esophagitis; I25.10 Atherosclerotic heart disease of native coronary artery without angina pectoris; Z95.1 Presence of aortocoronary bypass graft; W19.XXXA Unspecified fall, initial encounter; Y93.89 Activity, other specified; Y92.009 Unspecified place in unspecified non-institutional (private) residence as the place of occurrence of the external cause; Y99.8 Other external cause status; I44.0 Atrioventricular block, first degree; I44.7 Left bundle-branch block, unspecified; D64.9 Anemia, unspecified; E66.9 Obesity, unspecified; Z68.30 Body mass index [BMI] 30.0-30.9, adult; N18.9 Chronic kidney disease, unspecified; Y83.8 Other surgical procedures as the cause of abnormal reaction of the patient, or of later complication, without mention of misadventure at the time of the procedure
CPT/HCPCS: 36415; 36430; 36600; 37191; 70450-TC; 71045-TC-FY; 71250-TC; 71275-TC; 72125-TC; 72170-TC-FY; 73502-TC-RT-FY; 73552-TC-RT-FY; 73562-TC-RT-FY; 76000-TC-FY; 76775-TC; 80048; 80053; 81003; 82436; 82570; 82803; 83735; 84133; 84300; 84484; 85025; 85027; 85379; 85610; 85730; 86850; 86900; 86901; 86922; 93005; 93010; 93306-TC; 93970-TC; 94760; 97116-GP; 97162-GP; 99285-25; C9803-CS; E0372; J1644; J1756; P9058; U0003; U0005

== ENCOUNTER 2021-10-16 09:30 | Inpatient (IN) | payer OTHER ==
[2021-10-16] MEDS ORDERED: ACETAMINOPHEN 1000 MG/100 ML BAG IVPB ONE (09:45)
[2021-10-16] MEDS ORDERED: ACETAMINOPHEN INJECTION 100 ML IVPB ONE (09:52)
[2021-10-16 10:06] VITALS: BMI 33.2
[2021-10-16] MEDS ORDERED: PIPERACILLIN/TAZOB 4.5 GM 4.5 GM in DEXTROSE 5%-WATER 100 ML IVPB ONE (10:28)
[2021-10-16] MEDS ORDERED: VANCOMYCIN 1,000 MG in DEXTROSE 5%-WATER - 250 ML IVPB ONE (10:31)
[2021-10-16] MEDS ORDERED: PIPERACILLIN/TAZOB 4.5 GM 4.5 GM/100 ML BAG IVPB ONE (10:37)
[2021-10-16] MEDS ORDERED: VANCOMYCIN 1 GRAM (PRE-DOCKED) 1,000 MG/250 ML BAG IVPB ONE (11:02)
[2021-10-16 11:12] LABS: BASO % 0.7 % (0-2.0); EOS % 3.3 % (0-4.5); HEMATOCRIT 31.1 % (32.4-45.2); HEMOGLOBIN 10.4 GM/dL (10.7-15.3); LYMPH % 16.5 % (8-40); MCH 31.4 pg (25.7-33.7); MCHC 33.6 g/dl (32.0-36.0); MEAN CELL VOLUME 93.5 fl (80-96); MEAN PLT VOLUME 9.1 fl (7.5-11.1); MONO % 11.7 % (3.8-10.2); NEUT % 67.8 % (42.8-82.8); PLATELET COUNT 261 10^3/uL (134-434); RBC 3.33 M/mm3 (3.60-5.2); RDW 14.6 % (11.6-15.6)
[2021-10-16 11:15] LABS: ACTIVATED PTT 39.6 SECONDS (25.2-36.5); INR 1.88 (0.83-1.09); PROTHROMBIN TIME (PATIENT) 21.7 SEC (9.7-13.0)
[2021-10-16 11:26] LABS: CALCIUM 8.7 mg/dL (8.5-10.1)
[2021-10-16 11:27] LABS: ALBUMIN 3.4 g/dl (3.4-5.0)
[2021-10-16 11:30] LABS: CREATININE 1.2 mg/dL (0.55-1.3)
[2021-10-16 11:31] LABS: TOT PROT 6.2 g/dl (6.4-8.2)
[2021-10-16 11:32] LABS: BILIRUBIN,TOTAL 0.6 mg/dL (0.2-1)
[2021-10-16] MEDS ORDERED: morphine CARPU-JECT 4 MG/1 ML DISP.SYRIN IVPUSH ONE (11:36)
[2021-10-16] MEDS ORDERED: morphine SULFATE 4 MG/ML VIAL ONE (11:39)
[2021-10-16] MEDS ORDERED: SODIUM CHLORIDE 0.9% 500 ML INFUS.BAG IV ONE (14:22)
[2021-10-16] MEDS ORDERED: KETOROLAC TROMETHAMINE 15 MG/ML VIAL ONE (14:22)
[2021-10-16] MEDS ORDERED: KETOROLAC TROMETHAMINE 15 MG/ML VIAL IVPUSH ONE (14:22)
[2021-10-16] MEDS ORDERED: BISACODYL 10 MG SUPP.RECT PR PRN (15:35)
[2021-10-16] MEDS ORDERED: DEXTROSE 5%-0.45% SALINE 1,000 ML IV SCH (15:45)
[2021-10-16] MEDS: PIPERACILLIN/TAZOB 3.375 GM 3.375 GM in DEXTROSE 5%-WATER - 50 ML IVPB SCH (17:58)
[2021-10-16] MEDS ORDERED: oxyCODONE HCL 5 MG TABLET ONE (17:59)
[2021-10-16] MEDS: oxyCODONE HCL 5 MG TABLET PO PRN (18:06)
[2021-10-16] MEDS ORDERED: FUROSEMIDE 40 MG/4 ML INJECTABLE VIAL IVPUSH ONE (21:14)
[2021-10-16] MEDS: FAMOTIDINE 20 MG TABLET PO SCH (21:39)
[2021-10-16] MEDS: amLODIPine BESYLATE 5 MG TABLET (FP) PO SCH (21:39)
[2021-10-16] MEDS: ALPRAZolam 0.25 MG TABLET PO SCH (21:39)
[2021-10-16] MEDS: CARVEDILOL 25 MG TABLET (FP) PO SCH (21:39)
[2021-10-16] MEDS: ZOLPIDEM TARTRATE 5 MG TABLET PO PRN (22:51)
[2021-10-17] MEDS: ENOXAPARIN NA (PORCINE) 80 MG/0.8 ML DISP.SYRIN SQ SCH ×3 (01:05→23:08)
[2021-10-17] MEDS: oxyCODONE HCL 5 MG TABLET PO PRN ×4 (01:06→19:15)
[2021-10-17] MEDS ORDERED: DEXTROSE 5%-WATER - 50 ML IVPB ONE ×2 (01:07→11:35)
[2021-10-17] MEDS ORDERED: PIPERACILLIN/TAZOBACTAM 3.375 GM VIAL IVPB ONE ×2 (01:07→11:35)
[2021-10-17] MEDS: PIPERACILLIN/TAZOB 3.375 GM 3.375 GM in DEXTROSE 5%-WATER - 50 ML IVPB SCH ×2 (01:08→11:39)
[2021-10-17] MEDS: ACETAMINOPHEN 1000 MG/100 ML BAG IVPB PRN ×2 (02:33→11:40)
[2021-10-17 08:54] LABS: BASO % 1.3 % (0-2.0); EOS % 4.6 % (0-4.5); HEMATOCRIT 27.4 % (32.4-45.2); HEMOGLOBIN 9.2 GM/dL (10.7-15.3); LYMPH % 20.4 % (8-40); MCH 31.3 pg (25.7-33.7); MCHC 33.5 g/dl (32.0-36.0); MEAN CELL VOLUME 93.4 fl (80-96); MEAN PLT VOLUME 9.1 fl (7.5-11.1); MONO % 13.7 % (3.8-10.2); PLATELET COUNT 224 10^3/uL (134-434); RBC 2.94 M/mm3 (3.60-5.2); RDW 14.2 % (11.6-15.6); WHITE BLOOD COUNT 4.5 K/mm3 (4.0-10.0)
[2021-10-17 09:56] LABS: ALBUMIN 2.9 g/dl (3.4-5.0); BILIRUBIN,TOTAL 0.7 mg/dL (0.2-1); BLOOD UREA NITROGEN 27.3 mg/dL (7-18); CALCIUM 7.9 mg/dL (8.5-10.1); CREATININE 1.6 mg/dL (0.55-1.3); TOT PROT 5.6 g/dl (6.4-8.2)
[2021-10-17] MEDS ORDERED: LOSARTAN POTASSIUM 50 MG TABLET PO SCH (10:00)
[2021-10-17] MEDS ORDERED: predniSONE 5 MG TABLET (UD) PO SCH (10:00)
[2021-10-17] MEDS: FUROSEMIDE 40 MG TABLET (FP) PO SCH (11:40)
[2021-10-17] MEDS: PREGABALIN 75 MG CAPSULE PO SCH (11:40)
[2021-10-17] MEDS: FAMOTIDINE 20 MG TABLET PO SCH ×2 (11:40→21:30)
[2021-10-17] MEDS: CARVEDILOL 25 MG TABLET (FP) PO SCH ×2 (11:40→21:30)
[2021-10-17] MEDS: amLODIPine BESYLATE 5 MG TABLET (FP) PO SCH (11:40)
[2021-10-17] MEDS: predniSONE 5 MG TABLET (UD) PO SCH (11:41)
[2021-10-17] MEDS: ALPRAZolam 0.25 MG TABLET PO SCH ×2 (11:41→21:30)
[2021-10-17] MEDS: CHOLECALCIFEROL (VIT D3) 1,000 UNIT (25 MCG) TABLET PO SCH (13:46)
[2021-10-17] MEDS: DOCUSATE SODIUM 100 MG CAPSULE (FP) PO PRN (14:00)
[2021-10-17 15:32] LABS: N-TERMINAL BNP 1046.8 pg/ml (5-450)
[2021-10-17] MEDS ORDERED: PIPERACILLIN/TAZOB 3.375 GM 3.375 GM in DEXTROSE 5%-WATER - 50 ML IVPB SCH (18:00)
[2021-10-18] MEDS: oxyCODONE HCL 5 MG TABLET PO PRN ×2 (01:28→22:05)
[2021-10-18] MEDS: ZOLPIDEM TARTRATE 5 MG TABLET PO PRN (01:29)
[2021-10-18] MEDS ORDERED: ACETAMINOPHEN 1000 MG/100 ML BAG IVPB ONE (05:31)
[2021-10-18 06:37] LABS: BASO % 0.6 % (0-2.0); EOS % 3.2 % (0-4.5); HEMATOCRIT 29.8 % (32.4-45.2); HEMOGLOBIN 9.9 GM/dL (10.7-15.3); LYMPH % 17.7 % (8-40); MCH 31.1 pg (25.7-33.7); MCHC 33.3 g/dl (32.0-36.0); MEAN CELL VOLUME 93.5 fl (80-96); MEAN PLT VOLUME 9.3 fl (7.5-11.1); NEUT % 66.5 % (42.8-82.8); PLATELET COUNT 233 10^3/uL (134-434); RBC 3.19 M/mm3 (3.60-5.2); RDW 14.5 % (11.6-15.6); WHITE BLOOD COUNT 6.2 K/mm3 (4.0-10.0)
[2021-10-18 06:58] LABS: CALCIUM 8.2 mg/dL (8.5-10.1)
[2021-10-18 06:59] LABS: ALBUMIN 3.1 g/dl (3.4-5.0); BLOOD UREA NITROGEN 29.3 mg/dL (7-18)
[2021-10-18 07:02] LABS: CREATININE 1.5 mg/dL (0.55-1.3)
[2021-10-18 07:04] LABS: BILIRUBIN,TOTAL 0.5 mg/dL (0.2-1); TOT PROT 6.3 g/dl (6.4-8.2)
[2021-10-18] MEDS: predniSONE 5 MG TABLET (UD) PO SCH (09:16)
[2021-10-18] MEDS: CARVEDILOL 25 MG TABLET (FP) PO SCH ×2 (09:16→22:05)
[2021-10-18] MEDS: PREGABALIN 75 MG CAPSULE PO SCH (09:16)
[2021-10-18] MEDS: ALPRAZolam 0.25 MG TABLET PO SCH ×2 (09:16→22:05)
[2021-10-18] MEDS: FAMOTIDINE 20 MG TABLET PO SCH ×2 (09:17→22:05)
[2021-10-18] MEDS: CHOLECALCIFEROL (VIT D3) 1,000 UNIT (25 MCG) TABLET PO SCH (09:17)
[2021-10-18] MEDS: FUROSEMIDE 40 MG TABLET (FP) PO SCH (09:17)
[2021-10-18] MEDS: ENOXAPARIN NA (PORCINE) 80 MG/0.8 ML DISP.SYRIN SQ SCH ×2 (12:04→22:58)
[2021-10-18 12:08] LABS: URINE APPEARANCE CLOUDY; URINE BILIRUBIN NEGATIVE (NEGATIVE); URINE COLOR YELLOW; URINE GLUCOSE (UA) NEGATIVE (NEGATIVE); URINE KETONE TRACE (NEGATIVE); URINE LEUK ESTERASE NEGATIVE (NEGATIVE); URINE NITRITE NEGATIVE (NEGATIVE); URINE PROTEIN TRACE (NEGATIVE); URINE UROBILINOGEN 0.2 mg/dL (0.2-1.0)
[2021-10-18] MEDS ORDERED: DEXTROSE 5%-0.45% SALINE 1,000 ML IV SCH (17:15)
[2021-10-18] MEDS ORDERED: ALBUTEROL SO4 2.5/IPRATROPIUM 0.5 INH SOL 3 ML VIAL.NEB. NEB ONE ×2 (22:49→23:01)
[2021-10-19] MEDS: ALPRAZolam 0.25 MG TABLET PO SCH ×2 (09:16→22:51)
[2021-10-19] MEDS: CHOLECALCIFEROL (VIT D3) 1,000 UNIT (25 MCG) TABLET PO SCH (09:16)
[2021-10-19] MEDS: FAMOTIDINE 20 MG TABLET PO SCH ×2 (09:16→22:51)
[2021-10-19] MEDS: PREGABALIN 75 MG CAPSULE PO SCH (09:16)
[2021-10-19] MEDS: CARVEDILOL 25 MG TABLET (FP) PO SCH ×2 (09:16→22:50)
[2021-10-19] MEDS: predniSONE 5 MG TABLET (UD) PO SCH (09:16)
[2021-10-19] MEDS: FUROSEMIDE 40 MG TABLET (FP) PO SCH (09:16)
[2021-10-19] MEDS: ENOXAPARIN NA (PORCINE) 80 MG/0.8 ML DISP.SYRIN SQ SCH ×2 (11:26→23:17)
[2021-10-19] MEDS: oxyCODONE HCL 5 MG TABLET PO PRN ×2 (11:33→23:36)
[2021-10-19] MEDS ORDERED: DEXTROSE 5%-WATER - 50 ML IVPB ONE ×2 (13:32→16:41)
[2021-10-19] MEDS ORDERED: PIPERACILLIN/TAZOBACTAM 3.375 GM VIAL IVPB ONE ×2 (13:32→16:41)
[2021-10-19] MEDS: PIPERACILLIN/TAZOB 3.375 GM 3.375 GM in DEXTROSE 5%-WATER - 50 ML IVPB SCH ×2 (13:40→18:00)
[2021-10-20] MEDS ORDERED: DEXTROSE 5%-WATER - 50 ML IVPB ONE ×3 (01:20→17:23)
[2021-10-20] MEDS ORDERED: PIPERACILLIN/TAZOBACTAM 3.375 GM VIAL IVPB ONE ×3 (01:20→17:23)
[2021-10-20] MEDS: PIPERACILLIN/TAZOB 3.375 GM 3.375 GM in DEXTROSE 5%-WATER - 50 ML IVPB SCH ×3 (01:29→17:30)
[2021-10-20] MEDS: oxyCODONE HCL 5 MG TABLET PO PRN ×2 (06:48→17:30)
[2021-10-20 08:00] LABS: HEMATOCRIT 27.2 % (32.4-45.2); HEMOGLOBIN 9.3 GM/dL (10.7-15.3); MCH 31.4 pg (25.7-33.7); MCHC 34.1 g/dl (32.0-36.0); MEAN CELL VOLUME 92.3 fl (80-96); PLATELET COUNT 232 10^3/uL (134-434); RBC 2.95 M/mm3 (3.60-5.2); RDW 14.8 % (11.6-15.6); WHITE BLOOD COUNT 5.9 K/mm3 (4.0-10.0)
[2021-10-20 08:01] LABS: BASO % 0.7 % (0-2.0); LYMPH % 15.9 % (8-40); MEAN PLT VOLUME 8.6 fl (7.5-11.1); NEUT % 68.4 % (42.8-82.8)
[2021-10-20 08:35] LABS: ALBUMIN 2.8 g/dl (3.4-5.0); BILIRUBIN,TOTAL 0.4 mg/dL (0.2-1); BLOOD UREA NITROGEN 38.6 mg/dL (7-18); CALCIUM 8.4 mg/dL (8.5-10.1); CREATININE 1.7 mg/dL (0.55-1.3); TOT PROT 6.2 g/dl (6.4-8.2)
[2021-10-20] MEDS: CARVEDILOL 25 MG TABLET (FP) PO SCH ×2 (09:53→21:08)
[2021-10-20] MEDS: FAMOTIDINE 20 MG TABLET PO SCH ×2 (09:53→22:38)
[2021-10-20] MEDS: CHOLECALCIFEROL (VIT D3) 1,000 UNIT (25 MCG) TABLET PO SCH (09:53)
[2021-10-20] MEDS: ALPRAZolam 0.25 MG TABLET PO SCH ×2 (09:53→21:05)
[2021-10-20] MEDS: FUROSEMIDE 40 MG TABLET (FP) PO SCH (09:54)
[2021-10-20] MEDS: predniSONE 5 MG TABLET (UD) PO SCH (09:54)
[2021-10-20] MEDS: PREGABALIN 75 MG CAPSULE PO SCH (09:54)
[2021-10-20 10:59] LABS: ARTERIAL BLD GAS O2 SATURATION 90.6 % (95-98); ARTERIAL BLOOD GAS BASE EXCESS -2.2 mmol/L (-2-2); ARTERIAL BLOOD GAS PO2 59.8 mmHg (80-100); ARTERIAL BLOOD GAS pH 7.382 (7.350-7.450)
[2021-10-20 11:02] LABS: ALLENS TEST POSITIVE
[2021-10-20] MEDS: ENOXAPARIN NA (PORCINE) 80 MG/0.8 ML DISP.SYRIN SQ SCH ×2 (11:48→23:30)
[2021-10-21] MEDS ORDERED: PIPERACILLIN/TAZOBACTAM 3.375 GM VIAL IVPB ONE ×2 (01:18→09:00)
[2021-10-21] MEDS ORDERED: DEXTROSE 5%-WATER - 50 ML IVPB ONE ×3 (01:18→17:39)
[2021-10-21] MEDS: PIPERACILLIN/TAZOB 3.375 GM 3.375 GM in DEXTROSE 5%-WATER - 50 ML IVPB SCH ×2 (01:24→09:21)
[2021-10-21] MEDS: CARVEDILOL 25 MG TABLET (FP) PO SCH ×2 (09:19→21:43)
[2021-10-21] MEDS: CHOLECALCIFEROL (VIT D3) 1,000 UNIT (25 MCG) TABLET PO SCH (09:19)
[2021-10-21] MEDS: predniSONE 5 MG TABLET (UD) PO SCH (09:19)
[2021-10-21] MEDS: FAMOTIDINE 20 MG TABLET PO SCH ×2 (09:20→21:43)
[2021-10-21] MEDS: PREGABALIN 75 MG CAPSULE PO SCH (09:20)
[2021-10-21] MEDS: ALPRAZolam 0.25 MG TABLET PO SCH ×2 (09:21→21:43)
[2021-10-21] MEDS ORDERED: FUROSEMIDE 40 MG/4 ML INJECTABLE VIAL IVPUSH SCH ×2 (11:15→11:32)
[2021-10-21] MEDS: ENOXAPARIN NA (PORCINE) 80 MG/0.8 ML DISP.SYRIN SQ SCH (11:42)
[2021-10-21] MEDS: FUROSEMIDE 40 MG/4 ML INJECTABLE VIAL IVPUSH SCH (12:00)
[2021-10-21] MEDS ORDERED: SODIUM CHLORIDE 0.45% 1,000 ML IV SCH (13:15)
[2021-10-21] MEDS ORDERED: PIPERACILLIN/TAZOBACTAM 2.25 GM VIAL IVPB ONE (17:38)
[2021-10-21] MEDS: ACETAMINOPHEN 1000 MG/100 ML BAG IVPB PRN (17:51)
[2021-10-21] MEDS: PIPERACILLIN/TAZOB 2.25 GM 2.25 GM in DEXTROSE 5%-WATER - 50 ML IVPB SCH (18:02)
[2021-10-21] MEDS: DOCUSATE SODIUM 100 MG CAPSULE (FP) PO PRN (21:43)
[2021-10-22] MEDS ORDERED: PIPERACILLIN/TAZOBACTAM 2.25 GM VIAL IVPB ONE ×3 (00:50→16:29)
[2021-10-22] MEDS ORDERED: DEXTROSE 5%-WATER - 50 ML IVPB ONE ×3 (00:50→16:29)
[2021-10-22] MEDS: PIPERACILLIN/TAZOB 2.25 GM 2.25 GM in DEXTROSE 5%-WATER - 50 ML IVPB SCH ×3 (01:46→17:06)
[2021-10-22] MEDS: ACETAMINOPHEN 1000 MG/100 ML BAG IVPB PRN (02:19)
[2021-10-22 07:49] LABS: CALCIUM 8.6 mg/dL (8.5-10.1)
[2021-10-22 07:50] LABS: ALBUMIN 2.6 g/dl (3.4-5.0); BLOOD UREA NITROGEN 28.9 mg/dL (7-18)
[2021-10-22 07:53] LABS: CREATININE 1.1 mg/dL (0.55-1.3)
[2021-10-22 07:55] LABS: BILIRUBIN,TOTAL 0.5 mg/dL (0.2-1)
[2021-10-22] MEDS: ALPRAZolam 0.25 MG TABLET PO SCH ×2 (09:22→22:59)
[2021-10-22] MEDS: CARVEDILOL 25 MG TABLET (FP) PO SCH ×2 (09:23→22:59)
[2021-10-22] MEDS: PREGABALIN 75 MG CAPSULE PO SCH (09:23)
[2021-10-22] MEDS: CHOLECALCIFEROL (VIT D3) 1,000 UNIT (25 MCG) TABLET PO SCH (09:23)
[2021-10-22] MEDS: FUROSEMIDE 40 MG/4 ML INJECTABLE VIAL IVPUSH SCH (09:23)
[2021-10-22] MEDS: FAMOTIDINE 20 MG TABLET PO SCH ×2 (09:23→22:59)
[2021-10-22] MEDS ORDERED: predniSONE 5 MG TABLET (UD) PO SCH (10:00)
[2021-10-22 12:42] LABS: BASO % 1.1 % (0-2.0); EOS % 2.7 % (0-4.5); HEMATOCRIT 28.1 % (32.4-45.2); HEMOGLOBIN 9.5 GM/dL (10.7-15.3); LYMPH % 7.2 % (8-40); MCH 30.8 pg (25.7-33.7); MCHC 33.7 g/dl (32.0-36.0); MEAN CELL VOLUME 91.5 fl (80-96); MEAN PLT VOLUME 8.9 fl (7.5-11.1); PLATELET COUNT 274 10^3/uL (134-434); RBC 3.07 M/mm3 (3.60-5.2); RDW 14.7 % (11.6-15.6); WHITE BLOOD COUNT 6.7 K/mm3 (4.0-10.0)
[2021-10-22 15:57] LABS: INR 1.32 (0.83-1.09); PROTHROMBIN TIME (PATIENT) 15.2 SEC (9.7-13.0)
[2021-10-22] MEDS ORDERED: BUPIVACAINE HCL/PF 0.5% (5MG/ML) 10 ML VIAL ONE (17:01)
[2021-10-22] MEDS ORDERED: LIDOCAINE HCL/PF 2% SDV 5ML VIAL ONE (17:04)
[2021-10-22] MEDS ORDERED: PROPOFOL 20 ML ONE (17:05)
[2021-10-22] MEDS ORDERED: MIDAZOLAM HCL 2 MG/2 ML SINGLE DOSE VIAL ONE (17:05)
[2021-10-22] MEDS ORDERED: DOCUSATE SODIUM 100 MG CAPSULE (FP) PO PRN (19:26)
[2021-10-22] MEDS ORDERED: BISACODYL 10 MG SUPP.RECT PR PRN (19:26)
[2021-10-22] MEDS ORDERED: ACETAMINOPHEN INJECTION 100 ML IVPB ONE (19:37)
[2021-10-22] MEDS ORDERED: ONDANSETRON 4 MG/2 ML VIAL IVPUSH PRN (19:38)
[2021-10-22] MEDS ORDERED: ACETAMINOPHEN 1000 MG/100 ML BAG IVPB ONE (19:39)
[2021-10-22] MEDS ORDERED: LACTATED RINGERS SOLUTION 1,000 ML IV SCH (19:45)
[2021-10-22] MEDS: ACETAMINOPHEN 1000 MG/100 ML BAG IVPB SCH (21:00)
[2021-10-22] MEDS ORDERED: ENOXAPARIN NA (PORCINE) 80 MG/0.8 ML DISP.SYRIN SQ SCH (23:45)
[2021-10-23] MEDS ORDERED: PIPERACILLIN/TAZOBACTAM 2.25 GM VIAL IVPB ONE ×3 (01:01→16:54)
[2021-10-23] MEDS ORDERED: DEXTROSE 5%-WATER - 50 ML IVPB ONE ×3 (01:01→16:54)
[2021-10-23] MEDS: ACETAMINOPHEN 1000 MG/100 ML BAG IVPB SCH ×3 (01:20→14:49)
[2021-10-23] MEDS ORDERED: LACTATED RINGERS SOLUTION 1,000 ML IV SCH (01:22)
[2021-10-23] MEDS: PIPERACILLIN/TAZOB 2.25 GM 2.25 GM in DEXTROSE 5%-WATER - 50 ML IVPB SCH ×3 (02:20→19:05)
[2021-10-23 07:23] LABS: BASO % 0.7 % (0-2.0); HEMOGLOBIN 8.8 GM/dL (10.7-15.3); MCH 30.8 pg (25.7-33.7); MEAN CELL VOLUME 90.7 fl (80-96); MEAN PLT VOLUME 8.7 fl (7.5-11.1); MONO % 11.2 % (3.8-10.2); NEUT % 70.1 % (42.8-82.8); PLATELET COUNT 273 10^3/uL (134-434); RBC 2.87 M/mm3 (3.60-5.2); RDW 14.5 % (11.6-15.6); WHITE BLOOD COUNT 6.2 K/mm3 (4.0-10.0)
[2021-10-23 07:44] LABS: ALBUMIN 2.7 g/dl (3.4-5.0)
[2021-10-23 07:46] LABS: BILIRUBIN,TOTAL 0.6 mg/dL (0.2-1); CREATININE 1.2 mg/dL (0.55-1.3)
[2021-10-23 07:47] LABS: CALCIUM 8.7 mg/dL (8.5-10.1)
[2021-10-23] MEDS: FAMOTIDINE 20 MG TABLET PO SCH ×2 (09:46→21:22)
[2021-10-23] MEDS: CARVEDILOL 25 MG TABLET (FP) PO SCH ×2 (09:46→21:22)
[2021-10-23] MEDS: ALPRAZolam 0.25 MG TABLET PO SCH ×2 (09:51→21:22)
[2021-10-23] MEDS: PREGABALIN 75 MG CAPSULE PO SCH (09:52)
[2021-10-23] MEDS: predniSONE 5 MG TABLET (UD) PO SCH (09:52)
[2021-10-23] MEDS: CHOLECALCIFEROL (VIT D3) 1,000 UNIT (25 MCG) TABLET PO SCH (09:52)
[2021-10-23] MEDS ORDERED: FUROSEMIDE 40 MG/4 ML INJECTABLE VIAL IVPUSH SCH (10:00)
[2021-10-23] MEDS: oxyCODONE HCL 5 MG TABLET PO PRN (20:17)
[2021-10-23] MEDS: APIXABAN 5 MG TABLET PO SCH (21:22)
[2021-10-24] MEDS ORDERED: PIPERACILLIN/TAZOBACTAM 2.25 GM VIAL IVPB ONE ×3 (01:23→18:55)
[2021-10-24] MEDS ORDERED: DEXTROSE 5%-WATER - 50 ML IVPB ONE ×3 (01:24→18:55)
[2021-10-24] MEDS: PIPERACILLIN/TAZOB 2.25 GM 2.25 GM in DEXTROSE 5%-WATER - 50 ML IVPB SCH ×3 (02:18→19:06)
[2021-10-24 09:05] LABS: EOS % 4.7 % (0-4.5); HEMATOCRIT 26.4 % (32.4-45.2); LYMPH % 17.5 % (8-40); MEAN CELL VOLUME 91.1 fl (80-96); MEAN PLT VOLUME 9.3 fl (7.5-11.1); MONO % 13.8 % (3.8-10.2); PLATELET COUNT 272 10^3/uL (134-434); RBC 2.89 M/mm3 (3.60-5.2); RDW 14.9 % (11.6-15.6); WHITE BLOOD COUNT 6.4 K/mm3 (4.0-10.0)
[2021-10-24 09:12] LABS: CALCIUM 8.2 mg/dL (8.5-10.1)
[2021-10-24 09:13] LABS: ALBUMIN 2.5 g/dl (3.4-5.0); BLOOD UREA NITROGEN 31.3 mg/dL (7-18)
[2021-10-24 09:16] LABS: CREATININE 1.3 mg/dL (0.55-1.3)
[2021-10-24 09:17] LABS: BILIRUBIN,TOTAL 0.7 mg/dL (0.2-1)
[2021-10-24 09:18] LABS: TOT PROT 5.8 g/dl (6.4-8.2)
[2021-10-24] MEDS: ALPRAZolam 0.25 MG TABLET PO SCH (10:00)
[2021-10-24] MEDS: ACETAMINOPHEN 500 MG TABLET (FP) PO PRN (10:28)
[2021-10-24] MEDS: predniSONE 5 MG TABLET (UD) PO SCH (11:00)
[2021-10-24] MEDS: FAMOTIDINE 20 MG TABLET PO SCH ×2 (11:00→21:59)
[2021-10-24] MEDS: PREGABALIN 75 MG CAPSULE PO SCH (11:00)
[2021-10-24] MEDS: APIXABAN 5 MG TABLET PO SCH ×2 (11:00→21:59)
[2021-10-24] MEDS: CHOLECALCIFEROL (VIT D3) 1,000 UNIT (25 MCG) TABLET PO SCH (11:00)
[2021-10-24] MEDS: SODIUM CHLORIDE 1,000 ML IV SCH (13:01)
[2021-10-24] MEDS ORDERED: ACETAMINOPHEN INJECTION 100 ML IVPB ONE (17:54)
[2021-10-24] MEDS: ACETAMINOPHEN 1000 MG/100 ML BAG IVPB PRN (18:00)
[2021-10-24 20:42] LABS: BASO % 0.5 % (0-2.0); EOS % 1.4 % (0-4.5); HEMATOCRIT 24.1 % (32.4-45.2); HEMOGLOBIN 8.1 GM/dL (10.7-15.3); LYMPH % 8.4 % (8-40); MCH 30.2 pg (25.7-33.7); MCHC 33.5 g/dl (32.0-36.0); MEAN CELL VOLUME 90.2 fl (80-96); MEAN PLT VOLUME 8.4 fl (7.5-11.1); MONO % 9.8 % (3.8-10.2); NEUT % 79.9 % (42.8-82.8); PLATELET COUNT 298 10^3/uL (134-434); RBC 2.67 M/mm3 (3.60-5.2); RDW 14.5 % (11.6-15.6); WHITE BLOOD COUNT 7.6 K/mm3 (4.0-10.0)
[2021-10-24 21:11] LABS: CALCIUM 8.1 mg/dL (8.5-10.1)
[2021-10-24 21:12] LABS: ALBUMIN 2.3 g/dl (3.4-5.0); BLOOD UREA NITROGEN 32.3 mg/dL (7-18)
[2021-10-24 21:15] LABS: CREATININE 1.3 mg/dL (0.55-1.3)
[2021-10-24 21:16] LABS: BILIRUBIN,TOTAL 0.4 mg/dL (0.2-1); TOT PROT 5.2 g/dl (6.4-8.2)
[2021-10-24 22:12] LABS: URINE APPEARANCE Clear; URINE BILIRUBIN Negative (NEGATIVE); URINE COLOR Yellow; URINE GLUCOSE (UA) Negative (NEGATIVE); URINE KETONE Negative (NEGATIVE); URINE LEUK ESTERASE Trace (NEGATIVE); URINE NITRITE Negative (NEGATIVE); URINE PROTEIN Negative (NEGATIVE); URINE UROBILINOGEN 0.2 mg/dL (0.2-1.0)
[2021-10-25] MEDS: CARVEDILOL 25 MG TABLET (FP) PO SCH ×3 (00:33→21:26)
[2021-10-25] MEDS: ALPRAZolam 0.25 MG TABLET PO SCH ×3 (00:33→21:25)
[2021-10-25] MEDS: APIXABAN 5 MG TABLET PO SCH ×3 (00:34→21:25)
[2021-10-25] MEDS: FAMOTIDINE 20 MG TABLET PO SCH ×3 (00:35→21:26)
[2021-10-25] MEDS ORDERED: PIPERACILLIN/TAZOBACTAM 2.25 GM VIAL IVPB ONE ×3 (01:04→17:26)
[2021-10-25] MEDS ORDERED: DEXTROSE 5%-WATER - 50 ML IVPB ONE ×3 (01:04→17:27)
[2021-10-25] MEDS: ACETAMINOPHEN 1000 MG/100 ML BAG IVPB PRN ×2 (01:20→18:19)
[2021-10-25] MEDS: SODIUM CHLORIDE 1,000 ML IV SCH ×3 (01:20→15:57)
[2021-10-25] MEDS: PIPERACILLIN/TAZOB 2.25 GM 2.25 GM in DEXTROSE 5%-WATER - 50 ML IVPB SCH ×3 (01:47→18:22)
[2021-10-25] MEDS ORDERED: VANCOMYCIN 1 GM/200 ML PREMIX BAG IVPB ONE (02:00)
[2021-10-25] MEDS: PREGABALIN 75 MG CAPSULE PO SCH (10:27)
[2021-10-25] MEDS: oxyCODONE HCL 5 MG TABLET PO PRN ×2 (10:30→16:04)
[2021-10-25] MEDS: CHOLECALCIFEROL (VIT D3) 1,000 UNIT (25 MCG) TABLET PO SCH (10:31)
[2021-10-25] MEDS: predniSONE 5 MG TABLET (UD) PO SCH (10:35)
[2021-10-25 12:32] LABS: BASO % 0.8 % (0-2.0); EOS % 3.6 % (0-4.5); HEMATOCRIT 22.6 % (32.4-45.2); HEMOGLOBIN 7.7 GM/dL (10.7-15.3); LYMPH % 12.8 % (8-40); MCH 30.7 pg (25.7-33.7); MCHC 33.8 g/dl (32.0-36.0); MEAN CELL VOLUME 90.8 fl (80-96); MEAN PLT VOLUME 8.9 fl (7.5-11.1); MONO % 10.7 % (3.8-10.2); NEUT % 72.1 % (42.8-82.8); PLATELET COUNT 279 10^3/uL (134-434); RBC 2.49 M/mm3 (3.60-5.2); RDW 14.5 % (11.6-15.6); WHITE BLOOD COUNT 6.8 K/mm3 (4.0-10.0)
[2021-10-25 12:39] LABS: CALCIUM 8.3 mg/dL (8.5-10.1)
[2021-10-25 12:40] LABS: ALBUMIN 2.3 g/dl (3.4-5.0); BLOOD UREA NITROGEN 30.1 mg/dL (7-18)
[2021-10-25 12:43] LABS: CREATININE 1.1 mg/dL (0.55-1.3)
[2021-10-25 12:44] LABS: BILIRUBIN,TOTAL 0.5 mg/dL (0.2-1); TOT PROT 5.1 g/dl (6.4-8.2)
[2021-10-26] MEDS ORDERED: PIPERACILLIN/TAZOBACTAM 2.25 GM VIAL IVPB ONE ×3 (00:57→17:09)
[2021-10-26] MEDS ORDERED: DEXTROSE 5%-WATER - 50 ML IVPB ONE ×3 (00:57→17:10)
[2021-10-26] MEDS: PIPERACILLIN/TAZOB 2.25 GM 2.25 GM in DEXTROSE 5%-WATER - 50 ML IVPB SCH ×3 (01:31→17:18)
[2021-10-26] MEDS: SODIUM CHLORIDE 1,000 ML IV SCH (05:23)
[2021-10-26] MEDS: oxyCODONE HCL 5 MG TABLET PO PRN ×2 (06:18→15:40)
[2021-10-26] MEDS: ACETAMINOPHEN 500 MG TABLET (FP) PO PRN ×2 (08:58→14:09)
[2021-10-26] MEDS: APIXABAN 5 MG TABLET PO SCH ×2 (09:38→21:02)
[2021-10-26] MEDS: FAMOTIDINE 20 MG TABLET PO SCH ×2 (09:38→21:02)
[2021-10-26] MEDS: CARVEDILOL 25 MG TABLET (FP) PO SCH ×2 (09:39→21:02)
[2021-10-26] MEDS: CHOLECALCIFEROL (VIT D3) 1,000 UNIT (25 MCG) TABLET PO SCH (09:39)
[2021-10-26] MEDS: ALPRAZolam 0.25 MG TABLET PO SCH ×2 (09:40→21:02)
[2021-10-26] MEDS: PREGABALIN 75 MG CAPSULE PO SCH (09:40)
[2021-10-26] MEDS: predniSONE 5 MG TABLET (UD) PO SCH (09:40)
[2021-10-26 11:04] LABS: HEMATOCRIT 23.7 % (32.4-45.2); MCH 30.8 pg (25.7-33.7); MCHC 33.6 g/dl (32.0-36.0); MEAN CELL VOLUME 91.7 fl (80-96); MEAN PLT VOLUME 8.6 fl (7.5-11.1); PLATELET COUNT 300 10^3/uL (134-434); RBC 2.58 M/mm3 (3.60-5.2); RDW 14.5 % (11.6-15.6); WHITE BLOOD COUNT 5.2 K/mm3 (4.0-10.0)
[2021-10-27] MEDS ORDERED: DEXTROSE 5%-WATER - 50 ML IVPB ONE ×2 (01:18→09:26)
[2021-10-27] MEDS ORDERED: PIPERACILLIN/TAZOBACTAM 2.25 GM VIAL IVPB ONE ×2 (01:18→09:26)
[2021-10-27] MEDS: PIPERACILLIN/TAZOB 2.25 GM 2.25 GM in DEXTROSE 5%-WATER - 50 ML IVPB SCH ×2 (01:37→09:32)
[2021-10-27] MEDS: oxyCODONE HCL 5 MG TABLET PO PRN ×2 (03:27→20:26)
[2021-10-27 08:55] LABS: BASO % 0.9 % (0-2.0); EOS % 3.9 % (0-4.5); HEMATOCRIT 24.6 % (32.4-45.2); HEMOGLOBIN 8.4 GM/dL (10.7-15.3); LYMPH % 15.5 % (8-40); MCH 30.5 pg (25.7-33.7); MEAN CELL VOLUME 89.8 fl (80-96); MEAN PLT VOLUME 8.6 fl (7.5-11.1); MONO % 11.5 % (3.8-10.2); NEUT % 68.2 % (42.8-82.8); PLATELET COUNT 357 10^3/uL (134-434); RBC 2.74 M/mm3 (3.60-5.2); RDW 14.6 % (11.6-15.6); WHITE BLOOD COUNT 6.6 K/mm3 (4.0-10.0)
[2021-10-27 09:18] LABS: ALBUMIN 2.7 g/dl (3.4-5.0); CALCIUM 8.9 mg/dL (8.5-10.1)
[2021-10-27 09:19] LABS: BLOOD UREA NITROGEN 17.7 mg/dL (7-18)
[2021-10-27 09:22] LABS: CREATININE 0.7 mg/dL (0.55-1.3)
[2021-10-27 09:23] LABS: BILIRUBIN,TOTAL 0.8 mg/dL (0.2-1); TOT PROT 5.8 g/dl (6.4-8.2)
[2021-10-27] MEDS: CARVEDILOL 25 MG TABLET (FP) PO SCH ×2 (09:31→22:26)
[2021-10-27] MEDS: APIXABAN 5 MG TABLET PO SCH ×2 (09:31→22:26)
[2021-10-27] MEDS: predniSONE 5 MG TABLET (UD) PO SCH (09:31)
[2021-10-27] MEDS: PREGABALIN 75 MG CAPSULE PO SCH (09:32)
[2021-10-27] MEDS: FAMOTIDINE 20 MG TABLET PO SCH ×2 (09:32→22:26)
[2021-10-27] MEDS: CHOLECALCIFEROL (VIT D3) 1,000 UNIT (25 MCG) TABLET PO SCH (09:32)
[2021-10-27] MEDS: ALPRAZolam 0.25 MG TABLET PO SCH ×2 (09:32→22:26)
[2021-10-27] MEDS: ACETAMINOPHEN 500 MG TABLET (FP) PO PRN (15:22)
[2021-10-28] MEDS: oxyCODONE HCL 5 MG TABLET PO PRN ×4 (04:10→22:17)
[2021-10-28 06:56] LABS: BASO % 1.2 % (0-2.0); EOS % 3.5 % (0-4.5); HEMOGLOBIN 9.3 GM/dL (10.7-15.3); LYMPH % 22.4 % (8-40); MCH 30.5 pg (25.7-33.7); MCHC 34.4 g/dl (32.0-36.0); MEAN CELL VOLUME 88.9 fl (80-96); MEAN PLT VOLUME 8.4 fl (7.5-11.1); MONO % 13.8 % (3.8-10.2); NEUT % 59.1 % (42.8-82.8); PLATELET COUNT 341 10^3/uL (134-434); RBC 3.03 M/mm3 (3.60-5.2); WHITE BLOOD COUNT 4.8 K/mm3 (4.0-10.0)
[2021-10-28 07:13] LABS: CALCIUM 8.9 mg/dL (8.5-10.1)
[2021-10-28 07:14] LABS: ALBUMIN 2.6 g/dl (3.4-5.0)
[2021-10-28 07:17] LABS: CREATININE 0.7 mg/dL (0.55-1.3)
[2021-10-28 07:19] LABS: BILIRUBIN,TOTAL 1.1 mg/dL (0.2-1); TOT PROT 5.7 g/dl (6.4-8.2)
[2021-10-28] MEDS: AMINO ACIDS/PROTEIN HYDROLYS 30 ML LIQUID.PKT PO SCH ×2 (09:41→17:34)
[2021-10-28] MEDS: PREGABALIN 75 MG CAPSULE PO SCH (09:47)
[2021-10-28] MEDS: APIXABAN 5 MG TABLET PO SCH ×2 (09:47→21:04)
[2021-10-28] MEDS: predniSONE 5 MG TABLET (UD) PO SCH (09:47)
[2021-10-28] MEDS: CHOLECALCIFEROL (VIT D3) 1,000 UNIT (25 MCG) TABLET PO SCH (09:47)
[2021-10-28] MEDS: CARVEDILOL 25 MG TABLET (FP) PO SCH ×2 (09:47→21:03)
[2021-10-28] MEDS: FAMOTIDINE 20 MG TABLET PO SCH ×2 (09:47→21:04)
[2021-10-28] MEDS: ZINC SULFATE 220 MG CAPSULE (FP) PO SCH (09:48)
[2021-10-28] MEDS: MULTIVITAMINS (DAILY MVI) TABLET (FP) PO SCH (09:48)
[2021-10-28] MEDS: ALPRAZolam 0.25 MG TABLET PO SCH ×2 (09:48→21:03)
[2021-10-28] MEDS: ASCORBIC ACID 500 MG TABLET (FP) PO SCH (09:48)
[2021-10-28] MEDS ORDERED: FUROSEMIDE 40 MG/4 ML INJECTABLE VIAL IVPUSH ONE (10:30)
[2021-10-28] MEDS ORDERED: TAMSULOSIN HCL 0.4 MG CAP PO ONE (10:50)
[2021-10-29] MEDS: oxyCODONE HCL 5 MG TABLET PO PRN (02:43)
[2021-10-29] MEDS: AMINO ACIDS/PROTEIN HYDROLYS 30 ML LIQUID.PKT PO SCH ×2 (08:41→17:11)
[2021-10-29] MEDS: ACETAMINOPHEN 500 MG TABLET (FP) PO PRN (08:41)
[2021-10-29] MEDS: TAMSULOSIN HCL 0.4 MG CAP PO SCH (08:42)
[2021-10-29] MEDS ORDERED: ONDANSETRON 4 MG/2 ML VIAL IVPUSH PRN (09:42)
[2021-10-29] MEDS: predniSONE 5 MG TABLET (UD) PO SCH (10:21)
[2021-10-29] MEDS: MULTIVITAMINS (DAILY MVI) TABLET (FP) PO SCH (10:22)
[2021-10-29] MEDS: PREGABALIN 75 MG CAPSULE PO SCH (10:22)
[2021-10-29] MEDS: ASCORBIC ACID 500 MG TABLET (FP) PO SCH (10:22)
[2021-10-29] MEDS: CHOLECALCIFEROL (VIT D3) 1,000 UNIT (25 MCG) TABLET PO SCH (10:30)
[2021-10-29] MEDS: FAMOTIDINE 20 MG TABLET PO SCH ×2 (10:31→21:29)
[2021-10-29] MEDS: POLYETHYLENE GLYCOL (HEALTHYLAX) 3350 17 GM PACKET PO SCH (10:32)
[2021-10-29] MEDS: ZINC SULFATE 220 MG CAPSULE (FP) PO SCH (10:32)
[2021-10-29] MEDS: FUROSEMIDE 20 MG TABLET (FP) PO SCH (10:32)
[2021-10-29] MEDS: ALPRAZolam 0.25 MG TABLET PO SCH ×2 (10:32→21:29)
[2021-10-29] MEDS: CARVEDILOL 25 MG TABLET (FP) PO SCH ×2 (10:33→21:29)
[2021-10-29] MEDS: APIXABAN 5 MG TABLET PO SCH ×2 (10:36→21:29)
[2021-10-30] MEDS: ACETAMINOPHEN 500 MG TABLET (FP) PO PRN ×2 (03:00→08:44)
[2021-10-30] MEDS: TAMSULOSIN HCL 0.4 MG CAP PO SCH (08:27)
[2021-10-30] MEDS: AMINO ACIDS/PROTEIN HYDROLYS 30 ML LIQUID.PKT PO SCH ×2 (08:27→17:53)
[2021-10-30] MEDS: ASCORBIC ACID 500 MG TABLET (FP) PO SCH (10:02)
[2021-10-30] MEDS: FUROSEMIDE 20 MG TABLET (FP) PO SCH (10:02)
[2021-10-30] MEDS: ZINC SULFATE 220 MG CAPSULE (FP) PO SCH (10:02)
[2021-10-30] MEDS: predniSONE 5 MG TABLET (UD) PO SCH (10:02)
[2021-10-30] MEDS: MULTIVITAMINS (DAILY MVI) TABLET (FP) PO SCH (10:02)
[2021-10-30] MEDS: CARVEDILOL 25 MG TABLET (FP) PO SCH (10:03)
[2021-10-30] MEDS: APIXABAN 5 MG TABLET PO SCH (10:03)
[2021-10-30] MEDS: CHOLECALCIFEROL (VIT D3) 1,000 UNIT (25 MCG) TABLET PO SCH (10:04)
[2021-10-30] MEDS: FAMOTIDINE 20 MG TABLET PO SCH (10:04)
[2021-10-30] MEDS: ALPRAZolam 0.25 MG TABLET PO SCH (10:04)
[2021-10-30] MEDS: POLYETHYLENE GLYCOL (HEALTHYLAX) 3350 17 GM PACKET PO SCH (10:05)
[2021-10-30 11:25] LABS: BASO % 1.3 % (0-2.0); EOS % 3.3 % (0-4.5); HEMATOCRIT 28.1 % (32.4-45.2); HEMOGLOBIN 9.5 GM/dL (10.7-15.3); LYMPH % 17.8 % (8-40); MCH 30.6 pg (25.7-33.7); MCHC 33.9 g/dl (32.0-36.0); MEAN CELL VOLUME 90.1 fl (80-96); MEAN PLT VOLUME 8.2 fl (7.5-11.1); MONO % 14.7 % (3.8-10.2); NEUT % 62.9 % (42.8-82.8); PLATELET COUNT 343 10^3/uL (134-434); RBC 3.12 M/mm3 (3.60-5.2); RDW 14.9 % (11.6-15.6); WHITE BLOOD COUNT 4.4 K/mm3 (4.0-10.0)
[2021-10-30 11:41] LABS: CALCIUM 8.6 mg/dL (8.5-10.1)
[2021-10-30 11:42] LABS: BLOOD UREA NITROGEN 18.2 mg/dL (7-18)
[2021-10-30 14:59] VITALS: BP 137/62; PULSE 84; TEMP 98.2
== END 2021-10-30 15:00 | DRG 480 ==
LOC: JER 09:30 → JERBED 16:05 → J4S 18:47
PROVIDERS: ADMIT Internal Medicine; ATTEND Internal Medicine
PROC: 0QS706Z Reposition Left Upper Femur with Intramedullary Internal Fixation Device, Open Approach (ICD-10-PCS; principal; 2021-10-22 17:30)
PROC: 30233N1 Transfusion of Nonautologous Red Blood Cells into Peripheral Vein, Percutaneous Approach (ICD-10-PCS; 2021-10-27)
DX: S72.142A Displaced intertrochanteric fracture of left femur, initial encounter for closed fracture (principal); I50.23 Acute on chronic systolic (congestive) heart failure; J96.01 Acute respiratory failure with hypoxia; J98.11 Atelectasis; N17.9 Acute kidney failure, unspecified; M35.3 Polymyalgia rheumatica; I10 Essential (primary) hypertension; K21.9 Gastro-esophageal reflux disease without esophagitis; I25.10 Atherosclerotic heart disease of native coronary artery without angina pectoris; W19.XXXA Unspecified fall, initial encounter; Y93.9 Activity, unspecified; Y92.89 Other specified places as the place of occurrence of the external cause; Y99.9 Unspecified external cause status; I95.9 Hypotension, unspecified; Z95.1 Presence of aortocoronary bypass graft; R33.9 Retention of urine, unspecified
CPT/HCPCS: 0241U-QW; 36415; 36430; 36600; 70450-TC; 71045-TC-FY; 71250-TC; 72125-TC; 72170-TC-FY; 73502-TC-LT-FY; 73552-TC-LT-FY; 76000-TC-FY; 76775-TC; 76856-TC; 80048; 80053; 81003; 82803; 82962; 83605; 83880; 84484; 85025; 85027; 85610; 85651; 85730; 86850; 86900; 86901; 86922; 87040; 87086; 87186; 93005; 93010; 94010; 94640; 94760; 97116-GP; 97161-GP; 99285-25; C9803-CS; P9058; U0003; U0005

== ENCOUNTER 2022-01-30 04:36 | Emergency (ER) | payer OTHER ==
[2022-01-30 05:01] VITALS: TEMP 97.9; BMI 33.1
[2022-01-30] MEDS ORDERED: ONDANSETRON 4 MG/2 ML VIAL IVPUSH ONE ×2 (05:09→06:31)
[2022-01-30] MEDS ORDERED: PANTOPRAZOLE SODIUM 40 MG VIAL IVPB ONE (05:09)
[2022-01-30] MEDS ORDERED: ONDANSETRON 4 MG/2 ML VIAL ONE ×2 (05:29→06:35)
[2022-01-30] MEDS ORDERED: PANTOPRAZOLE SODIUM 40 MG VIAL ONE (05:29)
[2022-01-30 06:08] LABS: BASO % 0.7 % (0-2.0); EOS % 1.6 % (0-4.5); HEMATOCRIT 30.9 % (32.4-45.2); LYMPH % 13.4 % (8-40); MCH 26.3 pg (25.7-33.7); MCHC 32.3 g/dl (32.0-36.0); MEAN CELL VOLUME 81.3 fl (80-96); MEAN PLT VOLUME 9.2 fl (7.5-11.1); MONO % 10.6 % (3.8-10.2); NEUT % 73.7 % (42.8-82.8); PLATELET COUNT 263 10^3/uL (134-434); RDW 16.5 % (11.6-15.6); WHITE BLOOD COUNT 10.3 K/mm3 (4.0-10.0)
[2022-01-30 06:22] LABS: ALBUMIN 3.8 g/dl (3.4-5.0); BLOOD UREA NITROGEN 24.6 mg/dL (7-18); CALCIUM 8.9 mg/dL (8.5-10.1)
[2022-01-30 06:26] LABS: CREATININE 0.9 mg/dL (0.55-1.3)
[2022-01-30 06:28] LABS: BILIRUBIN,TOTAL 0.4 mg/dL (0.2-1); TOT PROT 7.1 g/dl (6.4-8.2)
[2022-01-30] MEDS ORDERED: FAMOTIDINE 20 MG/50 ML IVPB 20 MG/50 ML MG IVPB ONE ×2 (06:31→06:35)
[2022-01-30] MEDS ORDERED: ACETAMINOPHEN 1000 MG/100 ML BAG IVPB ONE (07:13)
[2022-01-30] MEDS ORDERED: ACETAMINOPHEN INJECTION 100 ML IVPB ONE (07:15)
[2022-01-30] MEDS ORDERED: METOCLOPRAMIDE HCL INJECTION 10 MG/2 ML VIAL IVPUSH ONE (07:26)
[2022-01-30] MEDS ORDERED: METOCLOPRAMIDE HCL INJECTION 10 MG/2 ML VIAL ONE (07:28)
[2022-01-30] MEDS ORDERED: morphine CARPU-JECT 4 MG/1 ML DISP.SYRIN IVPUSH ONE (11:41)
[2022-01-30] MEDS ORDERED: morphine SULFATE 4 MG/ML VIAL ONE (12:25)
[2022-01-30] MEDS ORDERED: ESMOLOL 2500 MG/250 ML 2,500,000 MCG/250 ML INFUS.BAG IVPB SCH (12:45)
[2022-01-30 12:46] LABS: INR 1.42 (0.83-1.09); PROTHROMBIN TIME (PATIENT) 16.4 SEC (9.7-13.0)
[2022-01-30 12:51] VITALS: RESP 16
[2022-01-30] MEDS ORDERED: LABETALOL HCL 5 MG/1 ML (100MG/20 ML VIAL) IVPUSH ONE (13:00)
[2022-01-30] MEDS ORDERED: LABETALOL HCL 5 MG/1 ML (100MG/20 ML VIAL) ONE (13:02)
[2022-01-30 13:08] VITALS: BP 147/65; PULSE 74
== END 2022-01-30 13:34 | disposition short-term general hospital (02) ==
LOC: FER 04:36
PROC: 3E0333Z Introduction of Anti-inflammatory into Peripheral Vein, Percutaneous Approach (ICD-10-PCS; principal; 2022-01-30)
PROC: 3E033GC Introduction of Other Therapeutic Substance into Peripheral Vein, Percutaneous Approach (ICD-10-PCS; 2022-01-30)
PROC: 3E033GC Introduction of Other Therapeutic Substance into Peripheral Vein, Percutaneous Approach (ICD-10-PCS; 2022-01-30)
PROC: 3E033NZ Introduction of Analgesics, Hypnotics, Sedatives into Peripheral Vein, Percutaneous Approach (ICD-10-PCS; 2022-01-30)
PROC: 3E033NZ Introduction of Analgesics, Hypnotics, Sedatives into Peripheral Vein, Percutaneous Approach (ICD-10-PCS; 2022-01-30)
PROC: 3E033GC Introduction of Other Therapeutic Substance into Peripheral Vein, Percutaneous Approach (ICD-10-PCS; 2022-01-30)
PROC: 3E033GC Introduction of Other Therapeutic Substance into Peripheral Vein, Percutaneous Approach (ICD-10-PCS; 2022-01-30)
PROC: 3E033GC Introduction of Other Therapeutic Substance into Peripheral Vein, Percutaneous Approach (ICD-10-PCS; 2022-01-30)
DX: I71.02 Dissection of abdominal aorta (principal)
CPT/HCPCS: 36415; 71045-TC-FY; 71275-TC; 74177-TC; 80053; 81003; 81015; 83690; 84484; 85025; 85610; 86850; 86900; 86901; 93005; 99291; C9803-CS; U0003; U0005

== ENCOUNTER 2022-03-25 18:35 | Inpatient (IN) | payer OTHER ==
[2022-03-25 22:15] LABS: BASO % 0.5 % (0-2.0); EOS % 0.6 % (0-4.5); LYMPH % 21.2 % (8-40); MCH 23.8 pg (25.7-33.7); MCHC 31.8 g/dl (32.0-36.0); MEAN CELL VOLUME 74.7 fl (80-96); MEAN PLT VOLUME 8.5 fl (7.5-11.1); MONO % 14.8 % (3.8-10.2); NEUT % 62.9 % (42.8-82.8); PLATELET COUNT 296 10^3/uL (134-434); RBC 2.94 M/mm3 (3.60-5.2); RDW 19.1 % (11.6-15.6); WHITE BLOOD COUNT 6.8 K/mm3 (4.0-10.0)
[2022-03-25 22:17] LABS: ACTIVATED PTT 30.2 SECONDS (25.2-36.5); INR 1.46 (0.83-1.09); PROTHROMBIN TIME (PATIENT) 16.8 SEC (9.7-13.0)
[2022-03-25 22:25] LABS: CALCIUM 8.6 mg/dL (8.5-10.1)
[2022-03-25 22:27] LABS: BLOOD UREA NITROGEN 17.3 mg/dL (7-18)
[2022-03-25 22:29] LABS: MAGNESIUM 2.3 mg/dL (1.8-2.4)
[2022-03-25 22:30] LABS: CREATININE 1.1 mg/dL (0.55-1.3)
[2022-03-25 22:32] LABS: TOT PROT 6.4 g/dl (6.4-8.2)
[2022-03-25 23:18] LABS: BILIRUBIN,TOTAL 0.6 mg/dL (0.2-1)
[2022-03-26] MEDS ORDERED: ACETAMINOPHEN 325 MG TABLET (FP) PO ONE (03:39)
[2022-03-26 11:03] LABS: BASO % 1.2 % (0-2.0); EOS % 1.3 % (0-4.5); HEMATOCRIT 23.4 % (32.4-45.2); HEMOGLOBIN 7.4 GM/dL (10.7-15.3); LYMPH % 18.8 % (8-40); MCHC 31.6 g/dl (32.0-36.0); MEAN CELL VOLUME 72.8 fl (80-96); MEAN PLT VOLUME 8.1 fl (7.5-11.1); MONO % 14.7 % (3.8-10.2); PLATELET COUNT 281 10^3/uL (134-434); RBC 3.21 M/mm3 (3.60-5.2); RDW 20.3 % (11.6-15.6); WHITE BLOOD COUNT 5.1 K/mm3 (4.0-10.0)
[2022-03-26 12:01] LABS: BLOOD UREA NITROGEN 15.2 mg/dL (7-18); CALCIUM 8.5 mg/dL (8.5-10.1)
[2022-03-26] MEDS ORDERED: IRON SUCROSE INJECTION 200 MG in SODIUM CHLORIDE 90 ML IVPB ONE (15:00)
[2022-03-26] MEDS: ACETAMINOPHEN WITH CODEINE 300MG/30MG TABLET PO PRN (15:05)
[2022-03-26] MEDS: FAMOTIDINE 20 MG TABLET PO SCH (22:37)
[2022-03-26] MEDS: CARVEDILOL 25 MG TABLET (FP) PO SCH (22:37)
[2022-03-27] MEDS: ACETAMINOPHEN WITH CODEINE 300MG/30MG TABLET PO PRN ×3 (00:12→23:28)
[2022-03-27 10:01] LABS: BASO % 1.3 % (0-2.0); EOS % 2.7 % (0-4.5); HEMATOCRIT 26.8 % (32.4-45.2); HEMOGLOBIN 8.4 GM/dL (10.7-15.3); LYMPH % 15.2 % (8-40); MCHC 31.3 g/dl (32.0-36.0); MEAN CELL VOLUME 73.5 fl (80-96); MEAN PLT VOLUME 8.2 fl (7.5-11.1); MONO % 12.6 % (3.8-10.2); NEUT % 68.2 % (42.8-82.8); PLATELET COUNT 340 10^3/uL (134-434); RBC 3.65 M/mm3 (3.60-5.2); RDW 20.3 % (11.6-15.6); WHITE BLOOD COUNT 5.7 K/mm3 (4.0-10.0)
[2022-03-27] MEDS: CARVEDILOL 25 MG TABLET (FP) PO SCH ×2 (10:51→23:28)
[2022-03-27] MEDS: ALPRAZolam 0.25 MG TABLET PO SCH (10:51)
[2022-03-27] MEDS: predniSONE 5 MG TABLET (UD) PO SCH (10:51)
[2022-03-27] MEDS: FAMOTIDINE 20 MG TABLET PO SCH (10:51)
[2022-03-27] MEDS ORDERED: IRON SUCROSE INJECTION 200 MG in SODIUM CHLORIDE 90 ML IVPB ONE (12:00)
[2022-03-27] MEDS: POLYETHYLENE GLYCOL (HEALTHYLAX) 3350 17 GM PACKET PO SCH ×2 (14:10→23:29)
[2022-03-27] MEDS ORDERED: POLYETHYLENE GLYCOL (HEALTHYLAX) 3350 17 GM PACKET PO SCH (22:00)
[2022-03-28] MEDS: POLYETHYLENE GLYCOL (HEALTHYLAX) 3350 17 GM PACKET PO SCH ×3 (05:28→22:38)
[2022-03-28] MEDS: CARVEDILOL 25 MG TABLET (FP) PO SCH (09:07)
[2022-03-28] MEDS: FERROUS SO4 325 MG TABLET (FP) PO SCH (09:07)
[2022-03-28] MEDS: ALPRAZolam 0.25 MG TABLET PO SCH (09:07)
[2022-03-28] MEDS: predniSONE 5 MG TABLET (UD) PO SCH (09:08)
[2022-03-28] MEDS: PANTOPRAZOLE 40 MG TABLET PO SCH (09:08)
[2022-03-28] MEDS: ACETAMINOPHEN WITH CODEINE 300MG/30MG TABLET PO PRN ×2 (09:15→22:38)
[2022-03-28 09:32] LABS: BASO % 1.1 % (0-2.0); CALCIUM 8.4 mg/dL (8.5-10.1); EOS % 2.4 % (0-4.5); HEMATOCRIT 23.5 % (32.4-45.2); HEMOGLOBIN 7.6 GM/dL (10.7-15.3); LYMPH % 16.5 % (8-40); MCH 23.8 pg (25.7-33.7); MCHC 32.5 g/dl (32.0-36.0); MEAN CELL VOLUME 73.2 fl (80-96); MONO % 13.7 % (3.8-10.2); NEUT % 66.3 % (42.8-82.8); PLATELET COUNT 277 10^3/uL (134-434); RBC 3.21 M/mm3 (3.60-5.2); RDW 20.3 % (11.6-15.6); WHITE BLOOD COUNT 5.2 K/mm3 (4.0-10.0)
[2022-03-28 09:33] LABS: ALBUMIN 2.8 g/dl (3.4-5.0); BLOOD UREA NITROGEN 7.9 mg/dL (7-18)
[2022-03-28 09:36] LABS: CREATININE 0.8 mg/dL (0.55-1.3)
[2022-03-28 09:37] LABS: BILIRUBIN,TOTAL 0.5 mg/dL (0.2-1)
[2022-03-28] MEDS ORDERED: amLODIPine BESYLATE 5 MG TABLET (FP) PO SCH (10:45)
[2022-03-28] MEDS: IRON SUCROSE INJECTION 200 MG in SODIUM CHLORIDE 90 ML IVPB ONE ×2 (10:59→11:00)
[2022-03-28] MEDS: LABETALOL HCL 200 MG TABLET (FP) PO SCH ×2 (10:59→22:38)
[2022-03-28 19:27] VITALS: RESP 18
[2022-03-29] MEDS ORDERED: ACETAMINOPHEN 1000 MG/100 ML BAG IVPB ONE (03:23)
[2022-03-29] MEDS: POLYETHYLENE GLYCOL (HEALTHYLAX) 3350 17 GM PACKET PO SCH ×4 (06:28→21:19)
[2022-03-29] MEDS ORDERED: LABETALOL HCL 200 MG TABLET (FP) PO SCH (08:45)
[2022-03-29] MEDS: amLODIPine BESYLATE 10 MG TABLET (FP) PO SCH (09:30)
[2022-03-29 10:48] LABS: BASO % 1.1 % (0-2.0); HEMATOCRIT 25.2 % (32.4-45.2); HEMOGLOBIN 8.3 GM/dL (10.7-15.3); LYMPH % 21.2 % (8-40); MCH 24.1 pg (25.7-33.7); MEAN CELL VOLUME 72.9 fl (80-96); MEAN PLT VOLUME 7.5 fl (7.5-11.1); MONO % 12.9 % (3.8-10.2); NEUT % 61.8 % (42.8-82.8); PLATELET COUNT 313 10^3/uL (134-434); RBC 3.46 M/mm3 (3.60-5.2); RDW 20.4 % (11.6-15.6); WHITE BLOOD COUNT 4.8 K/mm3 (4.0-10.0)
[2022-03-29 11:03] LABS: BLOOD UREA NITROGEN 8.8 mg/dL (7-18); CALCIUM 8.9 mg/dL (8.5-10.1)
[2022-03-29] MEDS: ALPRAZolam 0.25 MG TABLET PO SCH (11:03)
[2022-03-29 11:07] LABS: CREATININE 0.9 mg/dL (0.55-1.3)
[2022-03-29 11:08] LABS: BILIRUBIN,TOTAL 0.6 mg/dL (0.2-1); TOT PROT 6.5 g/dl (6.4-8.2)
[2022-03-29] MEDS ORDERED: LABETALOL HCL 100 MG TABLET (FP) PO SCH (11:19)
[2022-03-29] MEDS ORDERED: ACETAMINOPHEN 1000 MG/100 ML BAG IVPB PRN (11:25)
[2022-03-29] MEDS: PANTOPRAZOLE 40 MG TABLET PO SCH (13:35)
[2022-03-29] MEDS: predniSONE 5 MG TABLET (UD) PO SCH (13:36)
[2022-03-29] MEDS: FERROUS SO4 325 MG TABLET (FP) PO SCH (13:37)
[2022-03-29] MEDS: ACETAMINOPHEN 1000 MG/100 ML BAG IVPB PRN ×2 (16:03→23:04)
[2022-03-29] MEDS: oxyCODONE HCL 5 MG TABLET PO PRN (18:21)
[2022-03-30] MEDS: POLYETHYLENE GLYCOL (HEALTHYLAX) 3350 17 GM PACKET PO SCH ×3 (06:07→20:59)
[2022-03-30] MEDS: oxyCODONE HCL 5 MG TABLET PO PRN ×2 (08:09→16:28)
[2022-03-30] MEDS: ACETAMINOPHEN 325 MG TABLET (FP) PO PRN ×2 (08:10→16:28)
[2022-03-30] MEDS: predniSONE 5 MG TABLET (UD) PO SCH (10:22)
[2022-03-30] MEDS: PANTOPRAZOLE 40 MG TABLET PO SCH (10:22)
[2022-03-30] MEDS: FERROUS SO4 325 MG TABLET (FP) PO SCH (10:22)
[2022-03-30] MEDS: amLODIPine BESYLATE 10 MG TABLET (FP) PO SCH (10:22)
[2022-03-30] MEDS: ALPRAZolam 0.25 MG TABLET PO SCH ×2 (10:22→10:29)
[2022-03-30 11:58] LABS: EOS % 2.5 % (0-4.5); HEMATOCRIT 28.6 % (32.4-45.2); HEMOGLOBIN 9.1 GM/dL (10.7-15.3); LYMPH % 18.8 % (8-40); MCH 23.3 pg (25.7-33.7); MCHC 31.7 g/dl (32.0-36.0); MEAN CELL VOLUME 73.4 fl (80-96); MEAN PLT VOLUME 7.7 fl (7.5-11.1); MONO % 11.7 % (3.8-10.2); PLATELET COUNT 374 10^3/uL (134-434); RBC 3.89 M/mm3 (3.60-5.2); RDW 20.7 % (11.6-15.6); WHITE BLOOD COUNT 5.6 K/mm3 (4.0-10.0)
[2022-03-30 12:17] LABS: ALBUMIN 3.4 g/dl (3.4-5.0); CALCIUM 9.1 mg/dL (8.5-10.1)
[2022-03-30 12:20] LABS: CREATININE 0.9 mg/dL (0.55-1.3)
[2022-03-30 12:22] LABS: BILIRUBIN,TOTAL 0.5 mg/dL (0.2-1); TOT PROT 6.9 g/dl (6.4-8.2)
[2022-03-30] MEDS: ACETAMINOPHEN 1000 MG/100 ML BAG IVPB PRN (12:53)
[2022-03-30] MEDS: FUROSEMIDE 40 MG TABLET (FP) PO SCH (12:53)
[2022-03-30] MEDS: LABETALOL HCL 100 MG TABLET (FP) PO SCH ×2 (14:32→20:59)
[2022-03-30 17:08] VITALS: BMI 26.9
[2022-03-31] MEDS: oxyCODONE HCL 5 MG TABLET PO PRN ×2 (04:07→10:26)
[2022-03-31] MEDS: ACETAMINOPHEN 325 MG TABLET (FP) PO PRN (04:08)
[2022-03-31] MEDS: LABETALOL HCL 100 MG TABLET (FP) PO SCH ×3 (05:52→14:48)
[2022-03-31] MEDS: POLYETHYLENE GLYCOL (HEALTHYLAX) 3350 17 GM PACKET PO SCH ×2 (05:53→14:20)
[2022-03-31] MEDS: predniSONE 5 MG TABLET (UD) PO SCH (10:25)
[2022-03-31] MEDS: ALPRAZolam 0.25 MG TABLET PO SCH (10:25)
[2022-03-31] MEDS: amLODIPine BESYLATE 10 MG TABLET (FP) PO SCH (10:26)
[2022-03-31] MEDS: FUROSEMIDE 40 MG TABLET (FP) PO SCH (10:27)
[2022-03-31] MEDS: FERROUS SO4 325 MG TABLET (FP) PO SCH (10:27)
[2022-03-31] MEDS: PANTOPRAZOLE 40 MG TABLET PO SCH (10:27)
[2022-03-31] MEDS ORDERED: BISACODYL 5 MG TABLET.DR (FP) PO ONE (11:00)
[2022-03-31 13:52] VITALS: BP 148/78; PULSE 75; TEMP 98.2
== END 2022-03-31 15:35 | disposition home or self-care (01) | DRG 812 ==
LOC: JER 18:35 → JERBED 21:44 → J5S 03-26 03:27
PROVIDERS: ADMIT Family Medicine; ATTEND Internal Medicine
PROC: 30233N1 Transfusion of Nonautologous Red Blood Cells into Peripheral Vein, Percutaneous Approach (ICD-10-PCS; principal; 2022-03-26)
DX: D64.9 Anemia, unspecified (principal); I11.0 Hypertensive heart disease with heart failure; I50.9 Heart failure, unspecified; I25.10 Atherosclerotic heart disease of native coronary artery without angina pectoris; K21.9 Gastro-esophageal reflux disease without esophagitis; M35.3 Polymyalgia rheumatica; I44.7 Left bundle-branch block, unspecified; L89.326 Pressure-induced deep tissue damage of left buttock
CPT/HCPCS: 0241U-QW; 36415; 36430; 70450-TC; 71046-TC-FY; 72131-TC; 74177-TC; 80048; 80053; 82272; 82728; 83540; 83550; 83735; 84484; 85025; 85610; 85730; 86850; 86900; 86901; 86922; 93005; 93010; 94761; 99285-25; J1756; P9058; Q9967